=== PATIENT | female | born 1940 | race Caucasian/White ===

== ENCOUNTER 2019-04-03 13:33 | Outpatient (CLI) | payer MEDICARE, OTHER, SELFPAY ==
--- NOTE | 2019-04-03 | XR_ITS ---
WS: [id number] RIGHT FOOT: 3 VIEW(S) TECHNIQUE: PA, oblique and lateral. HISTORY: GREAT TOE PAIN, RIGHT COMPARISON: None available. No acute fracture or dislocation. Normal tarsal/metatarsal alignment. Mild narrowing of the interphalangeal joint spaces. There is soft tissue swelling around the first to e. No fracture or osteolysis. Moderate size calcaneal spur. XR/XR foot RT min 3V* [id number] IMPRESSION: 1. Mild interphalangeal joint space narrowing from osteoarthritis. 2. Soft tissue edema around the distal first toe. May be due to cellulitis. No osteomyelitis.
== END 2019-04-03 13:34 | disposition home or self-care (01) ==
LOC: RADOUTREAD 14:34
PROVIDERS: Visit Provider Nurse Practitioner Family
DX: Z01.89 Encounter for other specified special examinations (principal)

== ENCOUNTER 2019-06-10 06:00 | Outpatient (CLI) | payer MEDICARE, OTHER, SELFPAY ==
[2019-06-09 09:51] VITALS: BMI 30.7
[2019-06-10] VITALS (48 sets, daily range): BP systolic 111–152; BP diastolic 61–102; PULSE 68–93; RESP 0–24; TEMP 36.8; O2SAT 95–100; BMI 30.7
[2019-06-10] MEDS: diphenhydrAMINE 50 mg Capsule PO (06:14)
[2019-06-10 06:36] LABS: Basophils % 0.4 %; Eosinophils # 0.2 10^3/uL (0.0-0.8); Eosinophils % 2.8 %; Hematocrit 34.5 % (37.0-47.0); Hemoglobin 11.6 g/dL (11.5-15.3); Lymphocytes # 2.5 10^3/uL (0.8-4.8); Lymphocytes % 32.8 %; Mean Corpuscular HGB Conc 33.6 g/dL (30.0-36.0); Mean Corpuscular Hemoglobin 29.2 pg (28.0-34.0); Mean Corpuscular Volume 86.9 fL (81-99); Mean Platelet Volume 9.5 fL (7.4-10.4); Monocytes # 0.6 10^3/uL (0.2-0.9); Monocytes % 8.1 %; Neutrophils # 4.2 10^3/uL (1.8-7.7); Neutrophils % 55.6 %; Nucleated Red Blood Cells % 0 %; Platelet Count 342 10^3/cmm (130-400); Red Blood Count 3.97 10^6/uL (4.1-5.3); White Blood Count 7.5 10^3/uL (4.0-10.0)
--- NOTE | 2019-06-10 06:47 | PM.HP ---
Providers/Chief Complaint Admitting Physician: Shayla Primary Care Provider: Jolie Torres Chief Complaint: Limb Ischemia History of Present Illness Anjelica Mary is a 78 year old female being put in for elective peripheral angiography. I saw her on the of last month when she called and asked to be seen because she was having difficulty with the right leg. Previous CT angio of the abdominal aorta with runoffs done 1 year ago this month revealed two-vessel runoff below both knees. We decided to treat her medically. She was not having any significant discomfort or open sores. Her underlying risk factors include diabetes, coronary disease, dyslipidemia and hypertension. She has never been a smoker. She has mild aortic stenosis. When she called last month she was having burning in her right foot and noticed some scabs and sores on her second toe on the right and the end of the great toe. She had also seen podiatry. We scheduled an angiogram however the viral pandemic it and so have been delayed somewhat. Therefore, she arrives today for purposes of angiography Review of Systems General: Reports: 10 or more systems reviewed and unremarkable except in HPI and below Medications/Allergies Home Medications Medication Instructions Recorded Confirmed Last Taken Type albuterol sulfate 90 mcg/actuation 2 puff INHALATION Q6H PRN 04/03/19 06/09/19 06/09/19 20:30 History aerosol inhaler atorvastatin 40 mg tablet 40 mg PO DAILY 04/03/19 06/09/19 06/09/19 20:30 History citalopram 40 mg tablet 20 mg PO DAILY 04/03/19 06/09/19 06/09/19 20:30 History ibuprofen 800 mg tablet 800 mg PO TID PRN 04/03/19 06/09/19 Unknown History lisinopril 10 mg tablet 10 mg PO DAILY 04/03/19 06/09/19 06/09/19 20:30 History insulin aspart U-100 100 unit/mL 20 unit SUBCUT TID ml 04/21/19 06/09/19 06/09/19 20:30 History subcutaneous solution metformin 500 mg tablet,extended 1,000 mg PO DAILY tab 04/21/19 06/09/19 06/09/19 20:30 History release 24 hr Allergies Allergy/AdvReac Type Severity Reaction Status Date / Time acetaminophen [From Percocet] Allergy Unknown ALGY-Rash Verified 06/10/19 06:41 oxycodone [From Percocet] Allergy Unknown ALGY-Rash Verified 06/10/19 06:41 Penicillins Allergy Unknown ALGY-Rash Verified 06/10/19 06:41 PFSH Acute PFSH: Medical History Aortic stenosis, mild ASHD (arteriosclerotic heart disease) Diabetes HTN (hypertension) Hyperlipidemia Hypothyroidism Limb ischemia PAD (peripheral artery disease) Surgical History Hx of elbow surgery S/P hernia repair S/P rotator cuff repair Social History Smoking and tobacco status: never smoked Household members: spouse Marital status: Vitals/I&O/Wt Last Vital Signs Temp 98.2 F 06/10/19 06:36 Pulse 93 06/10/19 06:36 Resp 16 06/10/19 06:36 BP 139/102 06/10/19 06:36 Pulse Ox 96 06/10/19 06:36 Weight last 48 hrs Weight 168 lb Weight 168 lb Physical Exam Narrative: EXAM NARRATIVE: GENERAL: Comfortable at rest in general HEENT: Exam within normal limits. NECK: Supple without jugular vein distention. The carotid upstroke is normal without bruits. BACK: Exam normal. LUNGS: Clear. HEART: Regular rate and rhythm. ABDOMEN: Benign without organomegaly or tenderness. EXTREMITIES: No edema. Redness of the distal tip of the right great toe. 2 small scabs on the right second toe. NEUROLOGIC: Exam normal. SKIN: Unremarkable. 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 Further recommendations depending upon the results of the angiogram. Attestations Medical Necessity Statement*: She is an outpatient in a bed. At most she will need 1 midnight stay. 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
[2019-06-10 06:59] LABS: Anion Gap 17.1 (5-19); Blood Urea Nitrogen 15 mg/dL (8-23); Calcium 9.9 mg/dL (8.5-10.5); Carbon Dioxide 23 mmol/L (22-29); Chloride 100 mmol/L (98-107); Glucose 161 mg/dL (65-115); Osmolality Calculated 282 mOsm/kg (285-295); Potassium 4.1 mmol/L (3.5-5.1); Sodium 136 mmol/L (136-145)
--- NOTE | 2019-06-10 07:00 | XACV_ITS ---
Wt: 76 kg BSA: 1.85 m2 Any Known Allergies: Other Gender: Female : 1940 Exam Type: Invasive Peripheral Vascular Procedure(s): Procedure Description: Peripheral Cath Diagnostic Procedure Exam Priority: Routine Abdominal Diagnostic Findings The lower abdominal aorta is normal. On the right, the common iliac, external iliac, internal iliac, common femoral, profunda femoris, SFA and popliteal are all normal. The anterior tibial is patent for several centimeters and then becomes severely diffusely diseased all the way to the ankle. The tibial peroneal trunk is normal. The posterior tibial artery is occluded at its origin. The peroneal artery is patent for a couple centimeters and then is occluded. The below the knee vessels are extremely small. On the left, the common iliac, external iliac, internal iliac, common femoral, profunda femoris and SFA are essentially normal. The popliteal contains mild diffuse disease in the midportion but is otherwise a normal vessel. The anterior tibial artery is patent all the way to the ankle. The tibial peroneal trunk is normal. The posterior tibial is a small vessel but is patent to the ankle. The peroneal artery is patent for 2 cm and then is occluded. Hemodynamic Data Phase:Rest AO : 138.0 mmHg / 47.0 mmHg ( 80.0 mmHg ) @ 2:08:00 AM Access Site Site: Left Femoral artery Sheath Size: 6 Fr Hemost... Method: Manual Compression Hemost... Success: Successful Procedure Details Findings Pre-Procedure Time Out. Identified patient by full name and date of as verbalized by the patient/guarantor. Does the consent match the physician's order: Yes. Accurate & Complete Informed Consent: Yes. Inpatient/Outpatient History & Physical on Chart: N/A. If H&P is completed, is and addenduem needed: N/A; If yes, is the addendum complete: N/A. Visualize and Verify Site with Patient/Guarantor: N/A. Relevant Radiology Images available: Yes. Pre-op teaching completed and patient verbalized understanding. The risks, benefits, and alternatives of sedation and/or procedure were discussed by physician. The patient agrees to continue. Procedure started. Mortuary Beautician Indications: PAD. Correct patient, site and procedure confirmed by cath team. PERRLA. Strong, equal hand store custodian bilaterally. Lungs clear x 5 lobes. IV Site on Arrival: 20 gauge in the right anticubital. IV Fluids: 0.9% NaCl at KVO. 0 mL infused prior to agriculture laborer. Pre Procedural Pulses: bilateral dorsalis pedis was Doppled. Pre Procedural Pulses: bilateral posterior tibial was Doppled. Pre Procedural Pulses: bilateral radial was 2+. Oxygen started at 2liters/min via nasal canula. bilateral groins was prepped with chloroprep then draped in the usual sterile fashion. Physician notified. Baseline sample Acquired. HR: 84 BPM. Equipment: 6F - Femoral. Cardiac Cath Pack. ACIST Manifold Kit Model BT 2000. Heparinized Saline (2 units/mL), 1000 mL bag. Physician arrived. Physician scrubbed in. Immediate Pre-Procedure Time Out. Correct Patient: Yes; Correct Procedure: Yes; Correct Site: Yes; Correct Patient Position: Yes; Correct Supplies: Yes; Dried Flammable Prep: Yes; Blood Products Available: N/A;. Lidocaine 1% infiltrated to the left groin. Arterial access obtained. Inventory is JJ 6F 11cm Rhonda Plus Sheath. A 5F BS Contra Information Services Consultant II Catheter was advanced over the wire and used for Abdominal aortogram. Abdominal aortogram performed in AP @ 10 mL/sec for a total of 30 mL. Catheter removed over the wire. A JJ 5F RIM 65 cm Diagnostic Catheter was advanced over the wire and used for Lower extremity arteriography. Right common iliac selected and arteriogram with runoff performed @ 10 mL/sec for a total of 30 mL. Catheter out. Sheath injected in Left common femoral artery and runoff performed. PERRLA. Strong, equal hand store custodian bilaterally. No VTE prophylaxis required. Medication's Wasted: Lidocaine 1% = 10 mL. Medication's Wasted: Heparin = 1000 units. Total IV fluids: 20.4 mL. Fluoro: 1:20. Contrast type used: Visipaque 320 mgI/mL, 500 mL bottle. [id number]. Post-op diagnosis: . Complications: none. Estimated blood loss: 5mL-10mL. Procedure completed. Patient transferred by bed to ICU. Post Procedure: Pulses reassessed and unchanged. A Manual Compression was successful obtaining hemostatsis at the Left Femoral artery insertion site. Sheath(s) removed and manual pressure held until hemostasis was achieved. Sterile 4x4 and Op-site applied to the puncture site. No oozing or hematoma noted. Post sheath removal instructions were given and the patient verbalized understanding. Procedure Medications Start: 7:08 AM Stop: 7:08 AM Medication: Versed Amount: 1 mg Route: I.V. Start: 7:08 AM Stop: 7:08 AM Medication: Fentanyl Amount: 50 mcg Start: 7:14 AM Stop: 7:14 AM Medication: Versed Amount: 1 mg Route: I.V. Start: 7:14 AM Stop: 7:14 AM Medication: Fentanyl Amount: 50 mcg I, the attending physician, have reviewed and verified all procedure medications. Yes, all medications given per verbal order History/Risk Factors Hypertension: Yes Dyslipidemia: Yes Diabetic Therapy: Insulin Peripheral Arterial Disease (PAD): Yes Myocardial Infarction (OR): No Obesity: No Renal Disease: No Tobacco Use: Never Prior Interventions PCI: No CABG: No Valve Surgery: No Report Signatures Finalized by:Dr. Que Mcguire MD on 06/10/2019 7:45:58 AM
[2019-06-10] MEDS: sodium chloride 0.9% 1,000 ML 100 ML IV (08:56)
[2019-06-10 10:51] LABS: Glucose Point of Care 108 mg/dL (70-110)
--- NOTE | 2019-06-10 14:26 | PC.NURSE ---
in semifowlers position and no bleeding or swelling noted. discharge in computer.
--- NOTE | 2019-06-10 16:52 | PC.NURSE ---
patient was told that 4 pm would be her intended discharge if all went well with her progress. she got up at 1415 to void and try the chair. her bp was high in right arm but wnl on the left. she was able to walk in the room but demanded she go shobha as her ride had come and left. she was disappointed that her leg had not needed to be opened up that he could not fix her. and very angry that no one had called her for an update.
== END 2019-06-10 16:20 | disposition home or self-care (01) ==
LOC: CCL 06:05 → ICU 07:53
PROVIDERS: PCP Nurse Practitioner Family; Visit Provider Internal Medicine Cardiovascular Disease
DX: R09.89 Other specified symptoms and signs involving the circulatory and respiratory systems (principal); L97.512 Non-pressure chronic ulcer of other part of right foot with fat layer exposed; E11.621 Type 2 diabetes mellitus with foot ulcer; E11.42 Type 2 diabetes mellitus with diabetic polyneuropathy; I99.8 Other disorder of circulatory system; I25.10 Atherosclerotic heart disease of native coronary artery without angina pectoris; E78.5 Hyperlipidemia, unspecified; I10 Essential (primary) hypertension; I73.9 Peripheral vascular disease, unspecified; I35.0 Nonrheumatic aortic (valve) stenosis; Z79.4 Long term (current) use of insulin
CPT/HCPCS: 12345; 36415; 36416; 75625; 75716; 80048; 82962; 85025; C1769; C1887; C1894; J1644; J2001; J2250; J3010; J7030; Q0163; Q9967

== ENCOUNTER → 2019-06-17 11:50 | Outpatient (BNVA) | payer MEDICARE, OTHER, SELFPAY | PROVIDERS: PCP Nurse Practitioner Family; Visit Provider Nurse Practitioner Family | DX: I73.9 Peripheral vascular disease, unspecified (principal); R00.0 Tachycardia, unspecified | CPT/HCPCS: 80048 ==

== ENCOUNTER 2020-06-08 15:39 | Outpatient (CLI) | payer MEDICARE, OTHER, SELFPAY ==
--- NOTE | 2020-06-08 | MR_ITS ---
WS: [id number] MRI CERVICAL SPINE NONCONTRAST HISTORY: NECK PAIN, ACUTE COMPARISON: 06/10/2018 Technique: Multiplanar, multisequence noncontrast imaging of the cervical spine. Straightening of the normal cervical lordosis. C4 retrolisthesis by 2 mm. There is advanced degenerat parish disc disease with moderate osteophytes extending anterior and posterior from the vertebral bodies . Disc bulging contacting the cervical cord most significant at C3-4 and C4-5. No marrow edema or fra cture. There is increased T2 signal in the cervical cord centered at the C4-5 level extending over a length of 11 mm. There is narrowing of the central canal and may be a small amount of cord atrophy. Myelomal acia has increased since 2019. Craniocervical junction, C1 and C2 relationship, odontoid process and soft tissues are normal. C2-C3: Mild annular disc bulging with a central disc protrusion. Only mild bilateral foraminal narrow ing. C3-C4: Diffuse annular disc bulging and osteophytic ridging. Disc encroachment upon the ventral theca l sac with mild central and moderate bilateral foraminal stenosis. C4-C5: Diffuse osteophytic ridging and annular disc bulging causing complete effacement of CSF. Sever e central and bilateral foraminal stenosis. C5-C6: Diffuse annular disc bulging and osteophytosis. Large disc osteophyte complex extending into t he RIGHT foramen displacing the nerve roots posteriorly. Moderate central with severe RIGHT and moder ate LEFT foraminal stenosis. C6-C7: Diffuse osteophytic ridging and annular disc bulging deforming the thecal sac. Severe central and bilateral foraminal stenosis, RIGHT greater than LEFT. C7-T1: Mild annular disc bulging and osteophytic ridging with a central disc protrusion. Moderate elizabeth ateral foraminal stenosis. Paraspinal soft tissue are normal. MR/MR cervical spin wo con* [id number] IMPRESSION: 1. Severe multilevel stenoses and spondylitic changes with only mild progressi on since 06/10/2018. 2. Focal area of myelomalacia at C4-5 extends over a length of 11 mm has sligh tly progressed since the prior study. 3. Severe central and bilateral foraminal stenosis at C4-5 and C6-7. 4. Moderate central with severe RIGHT and moderate LEFT foraminal stenosis at C5-6. 5. Moderate bilateral foraminal stenosis at C7-T1 due to disc osteophyte compl exes. 6. Mild central and bilateral foraminal stenosis at C3-4.
== END 2020-06-08 15:40 | disposition home or self-care (01) ==
LOC: RADSHAW 15:42
PROVIDERS: PCP Nurse Practitioner Family; Visit Provider Orthopaedic Surgery
DX: M54.2 Cervicalgia (principal); M48.02 Spinal stenosis, cervical region; M48.03 Spinal stenosis, cervicothoracic region; M25.78 Osteophyte, vertebrae; G95.89 Other specified diseases of spinal cord
CPT/HCPCS: 72141

== ENCOUNTER 2021-04-27 13:09 | Outpatient (CLI) | payer MEDICARE, OTHER, SELFPAY ==
--- NOTE | 2021-04-27 13:21 | USCV_ITS ---
Anjelica Mary Age: 80 Gender: F : 1940 Exam Date: 04/27/2021 13:32 Ordering Phys: Jolie Torres METER READING CLERK METER READING CLERK Technologist: Ariana Cueva Exam Location: [facility] [place] Indication: HEART MURMUR BP: / HR: 74 Rhythm: Sinus Technical Quality: Adequate MEASUREMENTS (Male / Female) Normal Values 2D ECHO LV Diastolic Diameter PLAX 3.8 cm 4.2 - 5.9 / 3.9 - 5.3 cm LV Systolic Diameter PLAX 2.4 cm LV Chamber Size 2.0 cm IVS Diastolic Thickness 1.1 cm 0.6 - 1.0 / 0.6 - 0.9 cm IVS Systolic Thickness 1.5 cm LVPW Diastolic Thickness 1.1 cm 0.6 - 1.0 / 0.6 - 0.9 cm LVPW Systolic Thickness 1.3 cm RV Chamber Size 2.0 cm LVOT Diameter 2.0 cm LV Ejection Fraction 2D Teich 67.4 % LV Ejection Fraction MOD 2C 49.6 % LV Ejection Fraction 2C AL 50.1 % LA Diameter 3.4 cm LA Width 2.2 cm LA Height 4.1 cm RA Width 2.3 cm RA Height 3.2 cm Aorta at Sinotubular Diameter 2.6 cm M-MODE Aortic Annulus Diameter 3.1 cm LA Ao Ratio MM 1.4 MV E Point Septal Separation 0.6 cm DOPPLER AV Peak Velocity 316.7 cm/s LVOT Peak Velocity 97.0 cm/s AV Area Cont Eq vti 1.4 cm squared AV Area Cont Eq pk 1.0 cm squared MV Area PHT 2.9 cm squared Mitral E to A Ratio 0.6 MV E' Velocity 48.5 cm/s Mitral E to MV E' Ratio 16.4 Mitral E to LV E' Lateral Ratio 15.6 Mitral E to LV E' Septal Ratio 17.4 TR Peak Velocity 212.9 cm/s TR Peak Gradient 18.1 mmHg TR Mean Velocity 140.0 cm/s TR Mean Gradient 9.7 mmHg TR Velocity Time Integral 47.2 cm TV Peak E Velocity 75.0 cm/s Right Atrial Pressure 3.0 mmHg Pulmonary Artery Systolic Pressu 21.1 mmHg PV Peak Velocity 86.0 cm/s RV Acceleration Time 0.0 s RV Ejection Time 0.3 s RV AcT/ET 0.1 FINDINGS Left Ventricle Normal left ventricular size. LV systolic function is normal with EF of 55-60%. No regional wall motion abnormalities. Grade 1 diastolic dysfunction Right Ventricle The right ventricle is normal in size and function. Right Atrium The right atrium is normal in size. Left Atrium The left atrium is normal in size. Mitral Valve Mild mitral annular calcification without significant stenosis or prolapse. There is no mitral regurgitation. Aortic Valve Aortic valve is thickened and calcified. Moderate aortic stenosis with mean gradient of 23 mmHg and aortic valve area of 1.37 cm squared. Mild aortic regurgitation Tricuspid Valve Structurally normal tricuspid valve without significant stenosis or regurgitation. Pulmonary artery systolic pressure is normal. Pulmonic Valve Structurally normal pulmonic valve without significant stenosis. There is no pulmonic regurgitation. Pericardium Normal pericardium without effusion. Aorta Normal ascending aorta dimension. CONCLUSIONS LV systolic function is normal with EF of 55-60% Grade 1 diastolic dysfunction Aortic valve is thickened and calcified. Moderate aortic stenosis with mean gradient of 23 mmHg and aortic valve area of 1.37 cm squared. Mild aortic regurgitation Compared to prior echocardiogram from 07/24/2018, no significant changes are noted Damion Simmons MD (Electronically Signed) Final Date: 09 May 2021 12:27 S
== END 2021-04-27 13:10 | disposition home or self-care (01) ==
PROVIDERS: PCP Nurse Practitioner Family; Visit Provider Nurse Practitioner Family
DX: R01.1 Cardiac murmur, unspecified (principal); I35.8 Other nonrheumatic aortic valve disorders
CPT/HCPCS: 93306

== ENCOUNTER → 2021-05-24 13:29 | Outpatient (BNVA) | payer MEDICARE, SELFPAY | PROVIDERS: PCP Nurse Practitioner Family; Visit Provider Podiatrist Foot & Ankle Surgery | DX: I73.9 Peripheral vascular disease, unspecified (principal); E11.42 Type 2 diabetes mellitus with diabetic polyneuropathy; R09.89 Other specified symptoms and signs involving the circulatory and respiratory systems; L97.511 Non-pressure chronic ulcer of other part of right foot limited to breakdown of skin | CPT/HCPCS: 73630; 99214 ==

== ENCOUNTER → 2021-06-16 10:26 | Outpatient (BNVA) | payer MEDICARE, SELFPAY | PROVIDERS: PCP Nurse Practitioner Family; Visit Provider Internal Medicine Cardiovascular Disease | DX: I73.9 Peripheral vascular disease, unspecified (principal); I25.10 Atherosclerotic heart disease of native coronary artery without angina pectoris; I10 Essential (primary) hypertension; E78.5 Hyperlipidemia, unspecified; E11.42 Type 2 diabetes mellitus with diabetic polyneuropathy; R09.89 Other specified symptoms and signs involving the circulatory and respiratory systems; L97.512 Non-pressure chronic ulcer of other part of right foot with fat layer exposed; L97.511 Non-pressure chronic ulcer of other part of right foot limited to breakdown of skin; Z79.4 Long term (current) use of insulin | CPT/HCPCS: 99213; 99214 ==

== ENCOUNTER 2021-07-03 08:33 | Outpatient (CLI) | payer MEDICARE, SELFPAY ==
--- NOTE | 2021-07-03 09:00 | CT_ITS ---
WS: [id number] CTA ABDOMINAL AORTA WITH RUNOFF TECHNIQUE: Contrast enhanced CTA of the abdominal aorta with bilateral lower extremity runoff. Multip lanar reformatted images were obtained. MIP reformats were also reviewed. CLINICAL INFORMATION: PAD COMPARISON: June 04, 2018 DLP: 773.[address] scans at [facility] use at least one of these dose optimization techniques: automated e xposure control; mA and/or kV adjustment per patient size (includes targeted exams where dose is matc hed to clinical indication); or iterative reconstruction. FINDINGS: Distal abdominal aorta is patent. Mild aortic calcification. ALEXANDREA is patent. Normal bilatera l renal parenchymal enhancement. Bilateral renal cortical cysts. Sigmoid diverticulosis. Moderate to advanced degenerative disease lumbar spine. RIGHT: RIGHT common iliac artery is patent. External and internal iliac arteries are patent. Mild vincent ac artery calcification. RIGHT common femoral artery is patent with mild atheromatous disease. Superf icial femoral and deep femoral arteries are patent. Superficial femoral artery is patent to the popli teal hiatus. Mild atheromatous disease popliteal artery with mild to moderate narrowing. This measure s approximately 40-50% just above the knee. Popliteal artery is patent to the trifurcation.Moderate t o severe stenosis of the RIGHT tibioperoneal trunk measuring approximately 60-70%. This appears progr essed compared to previous. Poor runoff to the ankle with extensive calcified calf arteries. Only int ermittent flow is visualized in the anterior tibial and peroneal arteries. No significant flow in the posterior tibial artery. LEFT: LEFT common iliac artery is patent. External and internal iliac arteries are patent. Common fem oral artery is patent. Superficial and deep femoral arteries are patent with mild atheromatous diseas e. Superficial femoral artery is patent to the popliteal hiatus. Popliteal artery is patent with mild atheromatous disease to the trifurcation. Poor runoff to the ankle with calcified calf arteries. Posterior tibial artery is dominant with colla teral flow to the peroneal artery at the ankle. CT/[place] [id number] IMPRESSION: 1. Distal abdominal aorta is patent with mild calcification. 2. No proximal flow limiting stenosis in the iliac femoral or popliteal arteri es. Mild stenosis in the RIGHT popliteal artery [id number] measuring 40-50% . Poor 3. Poor runoff bilaterally with intermittent segmental flow with atretic heavi ly calcified calf arteries. This is similar to 2019. 4. Moderate to severe stenosis of the RIGHT tibioperoneal trunk measuring appr oximately 60-70%. This appears progressed compared to previous. 5. RIGHT posterior tibial artery is essentially occluded with some collateral flow at the level of the ankle via the peroneal artery. 6. Patent LEFT posterior tibial artery runoff with collateral flow to the garry melba at the level of the ankle.
[2021-07-03 09:52] LABS: Blood Urea Nitrogen 14 mg/dL (8-23)
[2021-07-03] MEDS: iohexol 300 mg/mL 100 mL Btl IV (14:49)
== END 2021-07-03 08:34 | disposition home or self-care (01) ==
PROVIDERS: PCP Nurse Practitioner Family; Visit Provider Podiatrist Foot & Ankle Surgery
DX: I73.9 Peripheral vascular disease, unspecified (principal); I99.8 Other disorder of circulatory system; L97.512 Non-pressure chronic ulcer of other part of right foot with fat layer exposed; R09.89 Other specified symptoms and signs involving the circulatory and respiratory systems
CPT/HCPCS: 73706; 82565; 84520

== ENCOUNTER → 2021-07-05 08:01 | Outpatient (BNVA) | payer MEDICARE, SELFPAY | PROVIDERS: PCP Nurse Practitioner Family; Visit Provider Podiatrist Foot & Ankle Surgery | DX: I73.9 Peripheral vascular disease, unspecified (principal); E11.621 Type 2 diabetes mellitus with foot ulcer; L97.511 Non-pressure chronic ulcer of other part of right foot limited to breakdown of skin; E11.42 Type 2 diabetes mellitus with diabetic polyneuropathy; R09.89 Other specified symptoms and signs involving the circulatory and respiratory systems | CPT/HCPCS: 99214 ==

== ENCOUNTER → 2021-08-15 15:06 | Outpatient (BNVA) | payer MEDICARE, SELFPAY | PROVIDERS: PCP Nurse Practitioner Family; Visit Provider Podiatrist Foot & Ankle Surgery | DX: E11.621 Type 2 diabetes mellitus with foot ulcer (principal); L97.511 Non-pressure chronic ulcer of other part of right foot limited to breakdown of skin; I73.9 Peripheral vascular disease, unspecified; E11.42 Type 2 diabetes mellitus with diabetic polyneuropathy; R09.89 Other specified symptoms and signs involving the circulatory and respiratory systems; M79.671 Pain in right foot | CPT/HCPCS: 99214 ==

== ENCOUNTER → 2021-10-10 14:54 | Outpatient (BNVA) | payer MEDICARE, SELFPAY | PROVIDERS: PCP Nurse Practitioner Family; Visit Provider Podiatrist Foot & Ankle Surgery | DX: E11.621 Type 2 diabetes mellitus with foot ulcer (principal); L97.511 Non-pressure chronic ulcer of other part of right foot limited to breakdown of skin; I73.9 Peripheral vascular disease, unspecified; E11.42 Type 2 diabetes mellitus with diabetic polyneuropathy; R09.89 Other specified symptoms and signs involving the circulatory and respiratory systems; Z79.84 Long term (current) use of oral hypoglycemic drugs; Z79.4 Long term (current) use of insulin | CPT/HCPCS: 73630; 99214 ==

== ENCOUNTER → 2021-11-01 10:53 | Outpatient (BNVA) | payer MEDICARE, SELFPAY | PROVIDERS: PCP Nurse Practitioner Family; Visit Provider Podiatrist Foot & Ankle Surgery | DX: E11.621 Type 2 diabetes mellitus with foot ulcer (principal); L97.511 Non-pressure chronic ulcer of other part of right foot limited to breakdown of skin; I73.9 Peripheral vascular disease, unspecified; E11.42 Type 2 diabetes mellitus with diabetic polyneuropathy; R09.89 Other specified symptoms and signs involving the circulatory and respiratory systems; Z79.4 Long term (current) use of insulin; Z79.84 Long term (current) use of oral hypoglycemic drugs | CPT/HCPCS: 99214 ==

== ENCOUNTER → 2021-12-06 11:08 | Outpatient (BNVA) | payer MEDICARE, SELFPAY | PROVIDERS: PCP Nurse Practitioner Family; Visit Provider Podiatrist Foot & Ankle Surgery | DX: I73.9 Peripheral vascular disease, unspecified (principal); E11.42 Type 2 diabetes mellitus with diabetic polyneuropathy; R09.89 Other specified symptoms and signs involving the circulatory and respiratory systems; Z79.4 Long term (current) use of insulin; Z79.84 Long term (current) use of oral hypoglycemic drugs; Z89.421 Acquired absence of other right toe(s) | CPT/HCPCS: 99215 ==

== ENCOUNTER 2021-12-13 05:45 | Day surgery (SDC) | payer MEDICARE, SELFPAY ==
[2021-12-12 12:24] VITALS: BMI 29.2
[2021-12-13 06:07] VITALS: BP 139/90; PULSE 95; RESP 16; TEMP 36.6; O2SAT 96
[2021-12-13] MEDS: sodium chloride 0.9% 1,000 ML 30 ML IV (06:19)
--- NOTE | 2021-12-13 06:19 | W.PM.OPSUD ---
Surgery/Procedure H&P Update DATE OF PROCEDURE: December 13, 2021 DATE H&P PERFORMED: 12/06/21 CHANGES TO PREVIOUS DOCUMENTATION: None PREOP DIAGNOSIS: Gangrene right great toe PLANNED PROCEDURE: Operation Date: 12/13/21 07:00 Proposed Procedures p Right partial first ray resection [id number],e11.82(Right) - Kain Phoenix DPM
[2021-12-13 06:20] LABS: Glucose Point of Care 145 mg/dL (70-110)
--- NOTE | 2021-12-13 06:22 | P.OP_ITS ---
Operative Report Date of procedure: December 13, 2021 Pre-op diagnosis: Preop Diagnosis Gangrene right great toe Post-op diagnosis: Gangrene right great toe Post-op findings: Bleeding skin at metatarsophalangeal joint amputation site, right great toe. Procedure done: Right great toe amputation at metatarsal phalangeal joint. CPT code 07475 Implants: 3-0 Vicryl, 3-0 nylon Specimens removed/disposition: None Pathology: Right great toe sent to pathology for gross/permanent Surgeon: Kain Phoenix D.P.M. Health Information Management Director: Zheng Estimated blood loss: 10 See intraoperative documentation IV fluids: None Urine output: None Complications: None Findings: Bleeding skin margins at amputation level Brief History: 81-year-old diabetic female with peripheral arterial disease is underwent attempted revascularization of the lower extremity by vascular surgeon, also u nderwent amputation of her second toe by vascular surgeon.? Presents with a gangrenous right great toe involves the distal 50% of the toe.? Complains of ischemic pain affecting her quality of life.? Would like to proceed with amputation at this time.? I reviewed at length with the patient, the risks, potential complications, benefits, alternatives, expectations, and typical outcomes associated with the surgery. The risks and potential complications were explained in detail, including but not limited to infection, wound dehiscence or soft tissue complications, bleeding and hematoma, chronic edema, neuritis or nerve damage producing numbness or chronic pain, CRPS, failure to relieve pain or worsening pain, thick / painful / unsightly scar, limited motion / stiffness, malposition, delayed union, malunion, or nonunion, fracture, reaction to implants, anesthetic complications, venous thromboembolism, and deformity recurrence.? I discussed the notion of no regrets with the patient as it pe rtains to complications and outcomes. The patient seemed to understand the nature of the proposed care and required convalescence. They asked appropriate questions, answered to their satisfaction. They are aware no guarantees can be made as to a satisfactory outcome and they understand there may be other possible unforeseen complications or outcomes not listed here that will be treated accordingly if they arise. There were no written or implied guarantees given to the patient. They gave informed consent to proceed. Discussed a stepwise approach intraoperatively, initially planning on amputation at the metatarsophalangeal joint of the right hallux however should there be an adequate bleeding at that level patient would like to have a slightly more proximal amputation consisting of partial right first ray with hopes of better vascularity at that level.? Patient is understanding that each of these amputation sites have potential for failure due to lack of blood supply, infection and other surgical postoperative complications. Procedure: Under mild sedation the patient was brought to the operating room and remained on the gurney in supine position. A timeout was performed. Anesthesia was then administered by the anesthesia service. Local anesthesia injected by myself consisting of 1% lidocaine and 0.25% Marcaine plain in a right Payton block fashion total of 20 cc. Well-padded pneumatic tourniquet applied to the right ankle. The right lower extremity was scrubbed, prepped and draped utilizing normal aseptic technique. Attention was directed to the right great toe which was noted to have dry stable gangrene that was well demarcated at the hallux interphalangeal joint. A tennis racquet incision was carried out full-thickness with a #15 blade down to bone circumferentially around the right first metatarsal phalangeal joint and the right great toe was disarticulated through the joint sharply and passed from operative field. Right great toe was sent to pathology for permanent. Clean margins appreciated from a soft tissue standpoint and bone. Able to visualize the first metatarsal head had bright white viable appropriate density. No purulence at skin margins, no erythema skin margins. Bleeding skin edges appreciated at this level of amputation. The incision was irrigated with copious amounts of sterile saline solution. Bleeders were ligated and cauterized as necessary. Tourniquet was inflated for a period of time during the procedure after incision was performed to assist with ligation, see intraoperative documentation for tourniquet time. The incision was then closed in a layered fashion. 3-0 Vicryl used to close subcutaneous tissue, skin closed with 3-0 nylon. The incision was then dressed with Adaptic, sterile 4 x 4's, Kerlix and Corby wrap. Tourniquet was deflated and a prompt hyperemic response was noted to the remaining digits of the right foot. Patient tolerated the procedure and anesthesia well and was transferred to the PACU with vital signs stable and vascular status intact. Following a period of postop monitoring she will be discharged home is to be nonweightbearing to the right foot may heel touch for transfers with postop shoe. Will follow-up in podiatry clinic next week for her first dressing change.
--- NOTE | 2021-12-13 06:30 | ANES.PREANE2 ---
Pre-Anesthetic Assessment Height/Weight: Height 1.6 m Weight 74.843 kg Temp Pulse Resp BP Pulse Ox O2 Del Method 97.8 F 95 16 139/90 96 12/13/21 06:07 12/13/21 06:07 12/13/21 06:07 12/13/21 06:07 12/13/21 06:07 12/13/21 06:07 Preop Diagnosis: Gangrene right great toe Operation Date: 12/13/21 07:00 Proposed Procedures p Right partial first ray resection [id number],[id number](Right) - Kain Phoenix DPM Familial anesthetic complications: None Was Beta Noa taken within 24 hours: N/A Was Clonidine taken within 24 hours: N/A Last intake: Intake Last Liquid Date 12/12/21 Last Liquid Time 20:00 Last Solid Date 12/12/21 Last Solid Time 16:00 Social No alcohol and No tobacco Exam alert, oriented x 3, clear to auscultation bilaterally and regular rate & rhythm murmur Airway Mallampati: Class III Dentition: false Pulmonary Asthma and Chronic Obstructive Pulmonary Disease CV/HEM Peripheral Vascular Disease Mild aortic stenosis/regurge Metabolic Diabetes Mellitus and Hyperlipidemia Anesthetic Plan ASA status: 3 Anesthesia: MAC Risk of > 500 ml blood loss (7ml/kg in children): No Medications/Allergies Home Medications Medication Instructions Recorded Confirmed Last Taken Type atorvastatin 40 mg tablet 40 mg PO DAILY 04/03/19 12/13/21 12/12/21 History metformin 500 mg tablet,extended 1,000 mg PO DAILY 04/21/19 12/13/21 12/12/21 History release 24 hr ibuprofen 800 mg tablet 800 mg PO .at bedtime #30 tabs 08/05/19 12/13/21 12/12/21 Rx citalopram 40 mg tablet (Celexa) 40 mg PO DAILY 06/16/21 12/13/21 12/12/21 History insulin aspart U-100 100 unit/mL 20 unit SUBCUT .HS 06/16/21 12/13/21 12/12/21 History subcutaneous solution (Novolog U-100 Insulin aspart) cilostazol 100 mg tablet 100 mg PO BID #60 tabs 10/17/21 12/13/21 12/12/21 Rx hydrocodone 7.5 mg-acetaminophen 1 tab PO Q6H PRN pain 7 days #28 12/12/21 Unknown Rx 325 mg tablet tabs Allergies Allergy/AdvReac Type Severity Reaction Status Date / Time acetaminophen [From Percocet] Allergy Unknown ALGY-Rash Verified 12/13/21 06:02 oxycodone [From Percocet] Allergy Unknown ALGY-Rash Verified 12/13/21 06:02 Penicillins Allergy Unknown ALGY-Rash Verified 12/13/21 06:02 Current Medications Generic Name Dose Route Start Last Admin Trade Name Danielle PRN Reason Stop Dose Admin Sodium Chloride 1,000 mls @ 30 mls/hr 12/13/21 06:00 12/13/21 06:19 Sodium Chloride 0.9% IV 12/14/21 05:59 30 mls/hr .Q24H ADY Administration PFSH Anesthesia Medical History (Updated 12/10/21 @ 12:19 by Kain Phoenix DPM) Aortic stenosis, mild ASHD (arteriosclerotic heart disease) Diabetes HTN (hypertension) Hyperlipidemia Hypothyroidism Limb ischemia PAD (peripheral artery disease) Surgical History Hx of elbow surgery S/P hernia repair S/P rotator cuff repair Family History Brother CAD (coronary artery disease) Cancer LUNG Sister CAD (coronary artery disease) Cancer LUNG Mother Hypertension Cancer Father Cancer COLON Social History Smoking and tobacco status: never smoked Household members: spouse Marital status: Data Anesthesia : 12/13/21 06:15 Cardiac Studies: Echocardiogram 04/27/21
[2021-12-13 07:14] LABS: Anion Gap 17.3 (5-19); Blood Urea Nitrogen 20 mg/dL (8-23); Calcium 9.9 mg/dL (8.5-10.5); Carbon Dioxide 21 mmol/L (22-29); Chloride 104 mmol/L (98-107); Glucose 170 mg/dL (65-115); Osmolality Calculated 293 mOsm/kg (285-295); Potassium 4.3 mmol/L (3.5-5.1); Sodium 138 mmol/L (136-145)
[2021-12-13] MEDS: clindamycin 600 MG/50 ML PREMIX 100 MG IV (07:19)
[2021-12-13 07:53] VITALS: BP 96/69; PULSE 91; RESP 14; TEMP 36.4; O2SAT 95
[2021-12-13 07:58] VITALS: BP 115/69; PULSE 92; RESP 15; O2SAT 95
[2021-12-13 08:04] VITALS: BP 106/70; PULSE 97; RESP 15; TEMP 36.2; O2SAT 97
[2021-12-13 08:08] VITALS: BP 119/74; PULSE 89; RESP 17; TEMP 36.3; O2SAT 95
[2021-12-13 08:23] VITALS: BP 140/73; PULSE 80; RESP 16; O2SAT 96
--- NOTE | 2021-12-13 12:41 | ANE.PACU2 ---
Inpatient post-anesthesia follow up: Airway intact: Yes Vital signs: Temperature 97.4 F Pulse Rate 80 Respiratory Rate 16 Blood Pressure 140/73 Pulse Oximetry 96 Oxygen Delivery Me thod Room Air Oxygen Flow Rate Fraction of Inspir ed Oxygen Hydration adequate: Yes Nausea and vomiting: No Pain level: 1 Mental status: Baseline
== END 2021-12-13 08:45 | disposition home or self-care (01) ==
PROVIDERS: Anesthesiology; PCP Nurse Practitioner Family; Visit Provider Podiatrist Foot & Ankle Surgery
PROC: (CPT 28810; principal; 2021-12-13 07:00)
DX: I96 Gangrene, not elsewhere classified (principal); I99.8 Other disorder of circulatory system; J44.9 Chronic obstructive pulmonary disease, unspecified; E11.9 Type 2 diabetes mellitus without complications; E78.5 Hyperlipidemia, unspecified; Z79.84 Long term (current) use of oral hypoglycemic drugs; Z79.4 Long term (current) use of insulin; I25.10 Atherosclerotic heart disease of native coronary artery without angina pectoris; I10 Essential (primary) hypertension; E03.9 Hypothyroidism, unspecified
CPT/HCPCS: 28820; 36415; 36416; 80048; 82962; 88305; 88311; J2704; J3010; J3490; J7030

== ENCOUNTER → 2021-12-21 12:38 | Outpatient (BNVA) | payer MEDICARE, SELFPAY | PROVIDERS: PCP Nurse Practitioner Family; Visit Provider Podiatrist Foot & Ankle Surgery | DX: Z89.421 Acquired absence of other right toe(s) (principal); Z98.890 Other specified postprocedural states; I73.9 Peripheral vascular disease, unspecified; E11.42 Type 2 diabetes mellitus with diabetic polyneuropathy; R09.89 Other specified symptoms and signs involving the circulatory and respiratory systems; Z79.84 Long term (current) use of oral hypoglycemic drugs; Z79.4 Long term (current) use of insulin | CPT/HCPCS: 99214 ==

== ENCOUNTER 2021-12-23 11:03 | Emergency (ER) | payer MEDICARE, SELFPAY ==
[2021-12-23] VITALS (8 sets, daily range): BP systolic 114–159; BP diastolic 49–106; PULSE 60–97; RESP 16–20; TEMP 36.8; O2SAT 90–97
--- NOTE | 2021-12-23 11:28 | XRR_ITS ---
PROCEDURE INFORMATION: Exam: XR Right Ankle Exam date and time: 12/23/2021 12:36 PM Age: 81 years old Clinical indication: Injury or trauma; Fall; Blunt trauma; Ankle; Right; Prior surgery; Surgery type: Toes; Additional info: Pain TECHNIQUE: Imaging protocol: Radiologic exam of the Right ankle. Views: 3 or more views. COMPARISON: No relevant prior studies available. FINDINGS: Bones/joints: There is a longitudinal displaced posterior malleolus fracture. There is a longitudinal displaced fracture of the distal fibula. The tibia and fibula show anterior subluxation in relation to the talus on the lateral view. The medial malleolus does not show a clearly visible fracture. A bone spurs present on the inferior calcaneus. Soft tissues: Vascular calcifications posterior ankle. XR/XR ankle RT min 3V* [id number] IMPRESSION: 1. Bimalleolar fracture dislocation of the ankle. 2. A bone spurs present on the inferior calcaneus
--- NOTE | 2021-12-23 11:33 | W.ED.EXTPRO ---
HPI - Extremity Problem General: Chief complaint: Extremity Injury, Lower Stated complaint: LEFT ANKLE PAIN S/P FALL Time Seen by Provider: 12/23/21 11:26 Source: patient Mode of arrival: EMS History of Present Illness: 81-year-old female presents emergency room after trip and fall while walking. She recently had surgery on her right toe she had amputation of the right first and second toes are having to revise it planned for later this week she stumbled and fell twisted her ankle has an obvious deformity with tenting and blanching of the skin. Did not strike her head no loss consciousness. Patient is diabetic and has known peripheral artery and prefers peripheral vascular disease. MD Complaint: joint swelling and joint pain Onset (ago): minute(s) Pain Consistency: constant Location: left (Ankle) Quality: sharp Associated symptoms: Deny chest pain, fever(s) or rash Review of Systems Const: Denies: fever(s), chills, body aches, change in appetite, fatigue or malaise ENMT: Denies: throat pain, ear or mastoid pain, nasal discharge or nasal congestion Card: Denies: chest pain, edema, dyspnea on exertion or orthopnea Resp: Denies: dyspnea, productive cough or non-productive cough GI: Denies: abdominal pain, nausea, vomiting, hematemesis, coffee ground emesis, diarrhea, constipation, bloating, hematochezia or melena : Denies: flank pain, difficulty voiding, dysuria, urinary frequency or urinary urgency Musc: Reports: joint pain and joint swelling Skin/Breast: Denies: rash or pruritus PFSH ED PFSH: Medical History Aortic stenosis, mild ASHD (arteriosclerotic heart disease) Diabetes HTN (hypertension) Hyperlipidemia Hypothyroidism Limb ischemia PAD (peripheral artery disease) Surgical History Hx of elbow surgery S/P hernia repair S/P rotator cuff repair Family History Brother CAD (coronary artery disease) Cancer LUNG Sister CAD (coronary artery disease) Cancer LUNG Mother Hypertension Cancer Father Cancer COLON Social History (Reviewed 12/23/21 @ 15:35 by KEISHA Bell Smoking and tobacco status: never smoked Household members: spouse Marital status: Physical Exam Const: COMMON NORMALS: no acute distress GENERAL APPEARANCE: cooperative and comfortable ORIENTATION/CONSCIOUSNESS: Yes awake, Yes oriented to person, Yes oriented to place and Yes oriented to time HENMT: COMMON NORMALS: normocephalic, atraumatic and hearing grossly normal bilaterally HEAD & SCALP: normocephalic and atraumatic Resp: COMMON NORMALS: normal respiratory effort, No retractions, No use of accessory muscles and clear to auscultation bilaterally AUSCULTATION: clear to auscultation bilaterally Cardio: COMMON NORMALS: regular rate, regular rhythm and No murmurs present (Cardio) RATE: regular rate RHYTHM: regular rhythm Extremity: OTHER: Obvious deformity with skin tenting medially on the right ankle. These first and second toes are surgically absent wound examined there is no evidence of breakdown at this point there are some mild erythema at the incision line. No drainage. Neuro: SENSORIUM/ORIENTATION: Yes oriented to person, Yes oriented to place and Yes oriented to time Skin: COMMON NORMALS: no rashes or lesions noted GENERAL SKIN EXAM: no rashes or lesions noted Procedures Orthopedic Fracture Reduction Fracture #1: Time Out Performed: Yes Side: right Fracture Reduction Location: other (Ankle) Analgesia: procedural sedation Technique: direct manipulation Post Reduction X-rays Demonstrate: anatomical reduction Post-reduction neuro exam: intact Post-reduction vascular exam: intact Splint Applied: Yes Patient Tolerated Procedure: well Orthopedic Splinting/Casting Injury #1: Side: right Lower Extremity Injury Location: ankle Lower Extremity Immobilizer: posterior splint Other Orthopedic Equipment: other (Wheelchair) Procedural Sedation Indication: fracture/dislocation reduction Preparation: material manager applied, pulse oximeter, supplemental O2 applied, suction/airway equipment at bedside and IV secured IV Etomidate dose (mg): 5 Patient Tolerated Procedure: well Complications: none Interventions: oxygen applied Course Vital Signs: Vital signs: Vital Signs Temperature 98.2 F 12/23/21 11:22 Pulse Rate 60 12/23/21 15:20 Respiratory Rate 16 12/23/21 15:20 Blood Pressure 114/49 12/23/21 12:04 Pulse Oximetry 90 12/23/21 15:20 Oxygen Delivery Me thod 12/23/21 12:04 Oxygen Flow Rate 2 12/23/21 11:51 MDM - Extremity (Nontraumatic) Medical Decision Making Conscious sedation and joint reduction splint applied. Patient tolerated well. Discussed with Dr. Paul who is on-call for foot and ankle and is a partner of Dr. Phoenix's. He confirmed they will plan to adjust her surgical procedure next week and do the revision of the previous amputation as well as care for the fracture. Patient already has hydrocodone at home discharged home with splint and with wheelchair. Lab Data Radiology Impressions Ankle X-Ray 12/23/21 11:28 IMPRESSION: 1. Bimalleolar fracture dislocation of the ankle. 2. A bone spurs present on the inferior calcaneus Discharge Plan Discharge Patient Disposition: Home Clinical Impression: Closed trimalleolar fracture, PAD (peripheral artery disease), 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 mellitus Condition: Stable Prescriptions: No Action ibuprofen 800 mg tablet 800 mg PO .at bedtime Qty: 30 1RF atorvastatin 40 mg tablet 40 mg PO DAILY metformin 500 mg tablet extended release 24 hr 1,000 mg PO DAILY citalopram [Celexa] 40 mg tablet 40 mg PO DAILY insulin aspart U-100 [Novolog U-100 Insulin aspart] 100 unit/mL solution 20 unit SUBCUT .HS hydrocodone-acetaminophen 10-325 mg tablet 1 tab PO Q6H PRN (Reason: pain) 7 Days Qty: 28 0RF (DME) Wheelchair See Rx Instructions .Route .MEDSUPPLY Qty: 1 0RF Rx Instructions: As directed HOME cilostazol 100 mg tablet 100 mg PO BID Qty: 60 3RF gabapentin 300 mg capsule 300 mg PO TID 30 Days Qty: 90 0RF Discharge Orders: Discharge ED (Routine); Ordered 12/23/21 Ordered By: Roel Garg Other Ambulatory Orders: DME: Wheelchair (Order) Location: None Selected Ordered By: Roel Garg Referrals: Jolie Torres FNP [Primary Care Provider] - Discharge Diet: Usual diet Discharge Activity: Limit activity as instructed Patient Instructions: Opioid Safety, Pain Management Activity Restrictions/Additional Instructions: Nonweightbearing on the right leg. You should use a wheelchair to move from place to place whenever possible elevate the leg and apply ice 15 to 20 minutes at a time every 1-2 hours to limit swelling. I discussed with Dr. Phoenix's partner who is on-call they are still planning to do your procedure on Saturday as scheduled they will address the ankle injury at that time as well. Use hydrocodone for pain. Coding Level of Care Code ED New Home Sales Consultant for Ximena Miller
--- NOTE | 2021-12-23 12:02 | PC.NURSE ---
conscious sedation started 1148 time completed. VSS stable throughout sedation post reduction x ray completed and splint placed by DR Garg. see flow sheet for vitals. pt rass 0 at 1158 pt back to baseline oreintation.
[2021-12-23] MEDS: fentaNYL 50 mcg/mL INJ 2mL IVP ×2 (12:24→13:59)
== END 2021-12-23 15:24 | disposition home or self-care (01) ==
PROVIDERS: Emergency Provider Family Medicine; PCP Nurse Practitioner Family
DX: S82.852A Displaced trimalleolar fracture of left lower leg, initial encounter for closed fracture (principal); I73.9 Peripheral vascular disease, unspecified; E11.42 Type 2 diabetes mellitus with diabetic polyneuropathy; Z79.84 Long term (current) use of oral hypoglycemic drugs; Z79.4 Long term (current) use of insulin; I10 Essential (primary) hypertension; E78.5 Hyperlipidemia, unspecified; W01.0XXA Fall on same level from slipping, tripping and stumbling without subsequent striking against object, initial encounter; Z89.411 Acquired absence of right great toe
CPT/HCPCS: 27818; 73610; 96374; 96376; 99285; J3010; J3490

== ENCOUNTER 2021-12-25 15:46 | Inpatient (IN) | payer MEDICARE, SELFPAY ==
[2021-12-22 15:39] VITALS: BMI 28.3
[2021-12-25] VITALS (12 sets, daily range): BP systolic 93–114; BP diastolic 47–79; PULSE 75–87; RESP 16–18; TEMP 36.3–36.6; O2SAT 92–98; BMI 28.3
--- NOTE | 2021-12-25 | SCC_ITS ---
Procedure done: Right transmetatarsal amputation Percutaneous transfixation right ankle fracture 14 seconds of fluoroscopic guidance, for a cumulative dose of 0.3 mGy, was provided to Dr. Phoenix by the radiology department. C-arm images of the RIGHT foot were saved for the patient's permanent record. RAVEN
[2021-12-25 11:41] LABS: Glucose Point of Care 249 mg/dL (70-110)
--- NOTE | 2021-12-25 11:41 | W.PM.OPSUD ---
Surgery/Procedure H&P Update DATE OF PROCEDURE: December 25, 2021 DATE H&P PERFORMED: 12/21/21 CHANGES TO PREVIOUS DOCUMENTATION: Patient requesting transmetatarsal potation to the right foot. Also would like to have stabilization of her right ankle fracture planning on percutaneous transfixation with K wires. PREOP DIAGNOSIS: Gangrene right foot PRIMARY INDICATION FOR PROCEDURE: Right ankle fracture. Gangrene right foot. PLANNED PROCEDURE: Operation Date: 12/25/21 12:00 Proposed Procedures p Right transmetatarsal amputation. Percutaneous transfixation right ankle fracture.
[2021-12-25] MEDS: sodium chloride 0.9% 1,000 ML 30 ML IV (11:44)
--- NOTE | 2021-12-25 11:59 | ANES.PREANE2 ---
Pre-Anesthetic Assessment Height/Weight: Height 1.6 m Weight 72.575 kg Temp Pulse Resp BP Pulse Ox O2 Del Method 97.9 F 80 18 112/79 94 12/25/21 11:20 12/25/21 11:20 12/25/21 11:20 12/25/21 11:20 12/25/21 11:20 12/25/21 11:20 Preop Diagnosis: Gangrene right foot Operation Date: 12/25/21 12:00 Proposed Procedures p Right First Metatarsectomy [id number](Right) - Kain Phoenix DPM Familial anesthetic complications: None Was Beta Noa taken within 24 hours: N/A Was Clonidine taken within 24 hours: N/A Last intake: Intake Last Liquid Date 12/24/21 Last Liquid Time 15:30 Last Solid Date 12/24/21 Last Solid Time 15:30 Social No alcohol and No tobacco Exam alert, oriented x 3, clear to auscultation bilaterally and regular rate & rhythm Airway Mallampati: Class III Dentition: false Pulmonary Asthma and Chronic Obstructive Pulmonary Disease CV/HEM Peripheral Vascular Disease mild Aortic stenosis and regurge Metabolic Diabetes Mellitus and Hyperlipidemia Anesthetic Plan ASA status: 3 Anesthesia: General and Regional (specify below) Risk of > 500 ml blood loss (7ml/kg in children): No Medications/Allergies Home Medications Medication Instructions Recorded Confirmed Last Taken Type atorvastatin 40 mg tablet 40 mg PO DAILY 04/03/19 12/22/21 12/22/21 History metformin 500 mg tablet,extended 1,000 mg PO DAILY 04/21/19 12/22/21 12/21/21 History release 24 hr ibuprofen 800 mg tablet 800 mg PO .at bedtime #30 tabs 08/05/19 12/22/21 12/21/21 20:00 Rx citalopram 40 mg tablet (Celexa) 40 mg PO DAILY 06/16/21 12/25/21 12/22/21 History insulin aspart U-100 100 unit/mL 20 unit SUBCUT .HS 06/16/21 12/22/21 12/20/21 20:00 History subcutaneous solution (Novolog U-100 Insulin aspart) cilostazol 100 mg tablet 100 mg PO BID #60 tabs 10/17/21 12/22/21 12/22/21 Rx gabapentin 300 mg capsule 300 mg PO TID 30 days #90 caps 12/15/21 12/22/21 12/22/21 Rx Wheelchair #1 ea 12/21/21 12/21/21 Unknown Rx hydrocodone 10 mg-acetaminophen 1 tab PO Q6H PRN pain 7 days #28 12/21/21 12/22/21 12/25/21 Rx 325 mg tablet tabs Allergies Allergy/AdvReac Type Severity Reaction Status Date / Time acetaminophen [From Percocet] Allergy Unknown ALGY-Rash Verified 12/22/21 16:18 oxycodone [From Percocet] Allergy Unknown ALGY-Rash Verified 12/22/21 16:18 Penicillins Allergy Unknown ALGY-Rash Verified 12/22/21 16:18 Current Medications Generic Name Dose Route Start Last Admin Trade Name Freq PRN Reason Stop Dose Admin Sodium Chloride 1,000 mls @ 30 mls/hr 12/25/21 11:00 12/25/21 11:44 Sodium Chloride 0.9% IV 12/26/21 10:59 30 mls/hr .Q24H ADY Administration PFSH Anesthesia Medical History Aortic stenosis, mild ASHD (arteriosclerotic heart disease) Diabetes HTN (hypertension) Hyperlipidemia Hypothyroidism Limb ischemia PAD (peripheral artery disease) Surgical History Hx of elbow surgery S/P hernia repair S/P rotator cuff repair Family History Brother CAD (coronary artery disease) Cancer LUNG Sister CAD (coronary artery disease) Cancer LUNG Mother Hypertension Cancer Father Cancer COLON Social History Smoking and tobacco status: never smoked Household members: spouse Marital status: Data Anesthesia Cardiac Studies: Echocardiogram 04/27/21
--- NOTE | 2021-12-25 12:02 | ANES.PROC ---
Anesthesia Procedures Procedure/Date: 12/25/21 Nerve Block ^: Nerve Block 1: Main Anesthesia: general anesthesia Time Out Performed: Yes Consent: requested by attending/covering physician, from patient, from other, risks and benefits reviewed and patient agrees to proceed Nerve block location: popliteal (R) Anesthesia monitors applied: pulse oximetry, EKG, BP cuff and oxygen Nerve block position: supine Anesthetic Used: ropivicaine 0.5% (30) and with decadron (4 mg) Ultrasound used to: recognize landmarks Nerve Stimulator Used?: No Interscalene/Femoral BLK: 4 stimuplex 21 g needle used for position and inplane approach, visualize local anesthetic spread and no vascular puncture identified Injection: neg aspiration of heme Patient Tolerated Procedure: no complications Complications: none
[2021-12-25] MEDS: clindamycin 600 MG/50 ML PREMIX 100 MG IV (12:09)
--- NOTE | 2021-12-25 13:16 | PM.OP ---
Operative Report Date of procedure: December 25, 2021 Pre-op diagnosis: Gangrene right foot. Right bimalleolar ankle fracture Post-op diagnosis: Same Procedure done: Right transmetatarsal amputation Percutaneous transfixation right ankle fracture Implants: 4 mm Steinmann pin x2, 3-0 Vicryl, 4-0 nylon, 3-0 nylon Pathology: Right forefoot sent to pathology for permanent Surgeon: Kain Phoenix D.P.M. Priming Powder Premix Blender: Giovanni Estimated blood loss: 25 33 IV fluids: None Urine output: None Complications: None Findings: Grossly unstable right bimalleolar fracture. Gangrene right forefoot Brief History: 81-year-old diabetic male with peripheral vascular disease and microvascular disease with history of several revascularizations to the lower extremities. Developed gangrene to the right forefoot. Underwent right transmetatarsal amputation. Is at risk for potential delayed healing due to microvascular disease and may require a higher level of amputation such as BKA. Patient on 12/23/2021 sustained a right displaced bimalleolar fracture and presented to the emergency department at [facility] for reduction and splinting. Discussed ORIF versus transfixation with percutaneous pinning given her high comorbid risk factors and PAD would like to avoid expensive incisions and traditional ORIF with concern of delayed healing nonhealing and high risk for salvage procedure versus BKA. Will stabilize with percutaneous pinning and monitor with serial x-rays and remain nonweightbearing patient is agreeable. I reviewed at length with the patient, the risks, potential complications, benefits, alternatives, expectations, and typical outcomes associated with the surgery. The risks and potential complications were explained in detail, including but not limited to infection, wound dehiscence or soft tissue complications, bleeding and hematoma, chronic edema, neuritis or nerve damage producing numbness or chronic pain, CRPS, failure to relieve pain or worsening pain, thick / painful / unsightly scar, limited motion / stiffness, malposition, delayed union, malunion, or nonunion, fracture, reaction to implants, anesthetic complications, venous thromboembolism, and deformity recurrence. I discussed the notion of no regrets with the patient as it pertains to complications and outcomes. The patient seemed to understand the nature of the proposed care and required convalescence. They asked appropriate questions, answered to their satisfaction. They are aware no guarantees can be made as to a satisfactory outcome and they understand there may be other possible unforeseen complications or outcomes not listed here that will be treated accordingly if they arise. There were no written or implied guarantees given to the patient. They gave informed consent to proceed. Procedure: Under mild sedation the patient was brought to the operating room and remained on the gurney in supine position. A timeout was performed. Anesthesia was then administered by the anesthesia service. Popliteal block to the right lower extremity per anesthesia preoperatively greatly appreciated. Well-padded pneumatic tourniquet applied to the right high calf. Right lower extremity was scrubbed, prepped and draped utilizing normal aseptic technique. Right lower extremity was then elevated and high calf tourniquet inflated to 250 mmHg. Attention was directed to the right ankle which demonstrated gross instability. Posterior displacement of the talus immediately appreciated with manipulation intraoperatively. The ankle was under traction reduced reverse mechanism of action employed followed by percutaneous transfixation with 4 mm Steinmann pins x2 from calcaneus to tibia across the tibiotalar joint with excellent reduction of the ankle fracture and the mortise in all 3 views and placement of K wires temporarily. These will be likely removed in the next 2 to 3 months pending healing outcomes. Attention was then directed to the right forefoot where again her changes of dry gangrene ischemia. To the distal forefoot more prominent medially. A fishmouth incision across the forefoot lesion along plantar flap was performed with a #10 blade down to bone followed by transmetatarsal osteotomy from medial to lateral on metatarsals 1, 2, 3, 4 and 5 with a sagittal saw. All rough edges were smoothed with hand rasp. The forefoot was then passed from the operative field and all extensor and flexor tendons were pulled under traction and resected at proximal margins. All bleeders were ligated and cauterized as necessary. The incision was then closed in a layered fashion with 3-0 Vicryl subcutaneous tissue,appreciated. Skin closed with accommodation of 3-0 and 4-0 nylon without strangulation. No tension on the incision appreciated. The incision was then cleansed and dressed utilizing Adaptic, sterile 4 x 4's, Kerlix and multilayer compressive posterior splint. Tourniquet was then deflated and a prompt hyperemic response was noted to the distal amputation site right foot. Patient tolerated the procedure and anesthesia well and was transferred to the PACU with vital signs stable and vascular status intact. Patient having intractable pain, will require hospital admission for pain control status post right transmetatarsal mutation and percutaneous transfixation of right toe fracture.
--- NOTE | 2021-12-25 15:49 | PM.HP ---
Providers/Chief Complaint Admitting Physician: Brown Avila MD Primary Care Provider: ALFONSO Morris Chief Complaint: I96 History of Present Illness Anjelica Mary is a 81 year old female with past medical history of severe small vessel peripheral artery disease, not amenable to revascularization, mild aortic stenosis, type 2 diabetes mellitus, CAD, hyperlipidemia, hypertension, recent closed trimalleolar fracture who was brought to the hospital by podiatry team for right tarsometatarsal amputation, percutaneous transfixation of right ankle fracture today. Patient underwent ORIF today which she tolerated well with EBL of found 25 and 33 cc. Postprocedure patient was having intractable pain hence hospital service was consulted for admission. Blood work present in the system recently has sodium 138, creatinine of 1.2 with blood glucose of 170 done on 12/13. No further blood work present in the system. Review of Systems General: Reports: 10 or more systems reviewed and unremarkable except in HPI and below Const: Denies: fever(s), chills, body aches, change in appetite, change in weight, malaise, night sweats, diaphoresis, change in sleep pattern, daytime sleepiness or snoring Eyes: Denies: change in vision, blurry vision, photophobia, eye discomfort or eye discharge ENMT: Denies: throat pain, enlarged tonsils, hoarseness, mouth pain, oral sores, dry mouth, tinnitus, nasal congestion or post nasal drip Card: Denies: chest pain, palpitations, irregular heart rhythm, edema, swelling of feet/ankles, lightheadedness, syncope, pre-syncope, dyspnea on exertion, orthopnea, leg pain with exertion or acrocyanosis Resp: Denies: dyspnea, productive cough, non-productive cough, wheezing, stridor, pain on inspiration, change in phlegm color, hemoptysis or chest congestion GI: Denies: abdominal pain, nausea, vomiting, hematemesis, coffee ground emesis, dysphagia, heartburn, diarrhea, constipation, bloating, GI cramping, change in bowel habits, pain on defecation, hematochezia or melena : Denies: flank pain, dysuria, urinary frequency, urinary urgency, urinary hesitancy, nocturia or hematuria Musc: Denies: neck pain, back pain, extremity pain, joint pain, joint swelling, joint redness, joint stiffness or limited range of motion Neuro: Denies: headache(s), numbness in extremities, weakness in extremities, sensory changes, lack of coordination, difficulty walking, frequent falls, dizziness, vertigo, confusion, Slurred speech present, difficulty communicating thoughts or seizure-like activity Psych: Denies: anxiety, depression, mood swings, panic attacks, hopelessness or irritability Endo: Denies: polyuria, polydipsia, tired all the time, cold intolerance, excessive sweating, flushing or heat intolerance Garth/Lymph: Denies: easy bruising or easy bleeding All/Imm: Denies: tongue swelling, facial swelling or acute wheezing Medications/Allergies Home Medications Medication Instructions Recorded Confirmed Last Taken Type atorvastatin 40 mg tablet 40 mg PO DAILY 04/03/19 12/22/21 12/22/21 History metformin 500 mg tablet,extended 1,000 mg PO DAILY 04/21/19 12/22/21 12/21/21 History release 24 hr ibuprofen 800 mg tablet 800 mg PO .at bedtime #30 tabs 08/05/19 12/22/21 12/21/21 20:00 Rx citalopram 40 mg tablet (Celexa) 40 mg PO DAILY 06/16/21 12/25/21 12/22/21 History insulin aspart U-100 100 unit/mL 20 unit SUBCUT .HS 06/16/21 12/22/21 12/20/21 20:00 History subcutaneous solution (Novolog U-100 Insulin aspart) cilostazol 100 mg tablet 100 mg PO BID #60 tabs 10/17/21 12/22/21 12/22/21 Rx gabapentin 300 mg capsule 300 mg PO TID 30 days #90 caps 12/15/21 12/22/21 12/22/21 Rx Wheelchair #1 ea 12/21/21 12/21/21 Unknown Rx hydrocodone 10 mg-acetaminophen 1 tab PO Q6H PRN pain 7 days #28 12/21/21 12/22/21 12/25/21 Rx 325 mg tablet tabs Allergies Allergy/AdvReac Type Severity Reaction Status Date / Time acetaminophen [From Percocet] Allergy Unknown ALGY-Rash Verified 12/22/21 16:18 oxycodone [From Percocet] Allergy Unknown ALGY-Rash Verified 12/22/21 16:18 Penicillins Allergy Unknown ALGY-Rash Verified 12/22/21 16:18 PFSH Acute PFSH: Medical History Aortic stenosis, mild ASHD (arteriosclerotic heart disease) Diabetes HTN (hypertension) Hyperlipidemia Hypothyroidism Limb ischemia PAD (peripheral artery disease) Surgical History (Updated 12/25/21 @ 17:10 by Brown Avila MD) Hx of elbow surgery S/P hernia repair S/P rotator cuff repair Family History Brother CAD (coronary artery disease) Cancer LUNG Sister CAD (coronary artery disease) Cancer LUNG Mother Hypertension Cancer Father Cancer COLON Social History Smoking and tobacco status: never smoked Household members: spouse Marital status: Vitals/I&O/Wt Last Vital Signs Temp 97.3 F L 12/25/21 13:19 Pulse 87 12/25/21 13:40 Resp 16 12/25/21 13:40 BP 114/69 12/25/21 13:40 Pulse Ox 92 12/25/21 13:40 O2 Del Method 12/25/21 14:22 O2 Flow Rate 6 12/25/21 13:30 12/25/21 12/25/21 12/25/21 06:59 14:59 22:59 Intake Total 50 / 50 Output Total 25 / 25 Balance 25 / 25 Weight last 48 hrs Weight 72.575 kg Physical Exam Narrative: General: No acute distress, AO x3 HEENT: PERRLA, pupils bilaterally equal and reactive Chest: Normal vesicular breath sounds, no added sounds, equal good air entry bilaterally CVS: S1-S2 regular, no murmurs, no tachycardia, no gallops, no rubs Abdomen: Soft, nontender, no organomegaly, bowel sounds present Neuro: No focal deficits, no facial deformity, AO x3, power 5/5 in all limbs Data : 12/25/21 16:40 12/25/21 16:40 A&P Assessment and plan (1) Status post amputation: Postprocedure day 0. Tolerated procedure well. [place] 10 mg every 6 hourly along with tramadol 50 mg every 8 hourly for pain. Anticoagulation, weightbearing as per podiatry team. (2) Closed trimalleolar fracture: (3) Dry gangrene: (4) Non-pressure chronic ulcer of other part of right foot limited to breakdown of skin: (5) Diabetes: Check A1c. Continue home dose of Lantus. Start on insulin sliding scale at low-dose protocol. Carb consistent diet. (6) HTN (hypertension): (7) Hyperlipidemia: (8) ASHD (arteriosclerotic heart disease): No active chest pain. Plan Check CBC, CMP, A1c, procalcitonin, TIBC, lipid panel, TSH. Continue chronic medications including statin, cilostazol, Celexa, gabapentin. Full code. Protonix for PUD prophylaxis SCDs for DVT prophylaxis, Lovenox 30 mg subcu daily. Physical therapy evaluation. Attestations Medical Necessity Statement*: Admission for more than 2 midnights from post amputation care in a patient with trimalleolar fracture, post transmetatarsal amputation for gangrene of right foot secondary to peripheral artery disease Time Spent in Patient Care: Greater than 35 minutes Coding Level of Care Code Acute Psychological Anthropologist for [facility] Fwd Diagnoses Status post amputation Z89.9 Closed trimalleolar fracture S82.853A Dry gangrene I96 Non-pressure chronic ulcer of other part of right foot limited to breakdown of skin L97.511 Diabetes E11.9 HTN (hypertension) I10 Hyperlipidemia E78.5 ASHD (arteriosclerotic heart disease) I25.10
--- NOTE | 2021-12-25 15:56 | ANE.PACU2 ---
Inpatient post-anesthesia follow up: Airway intact: Yes Vital signs: Temperature 97.3 F Pulse Rate 87 Respiratory Rate 16 Blood Pressure 114/69 Pulse Oximetry 92 Oxygen Delivery Me thod Room Air Oxygen Flow Rate 6 Fraction of Inspir ed Oxygen Hydration adequate: Yes Nausea and vomiting: No Pain level: 1 Mental status: Baseline
[2021-12-25] MEDS: pantoprazole 40 mg SDV IVP (16:21)
[2021-12-25] MEDS: HYDROcodone-acetaminophen 10-325 mg Tablet 1 TAB PO ×2 (16:22→22:23)
[2021-12-25] MEDS: enoxaparin 30 mg/0.3 mL Syringe SUBCUT (16:22)
--- NOTE | 2021-12-25 16:27 | XR_ITS ---
WS: [id number] Exam: XR foot RT min 3V* [id number] Date/Time of Exam: 12/25/2021 5:04 PM Reason For Exam: Status post right transmetatarsal amputation There has been amputation of the forefoot at the level of the proximal metatarsals. Again noted is a trimalleolar fracture of the ankle as previously described. There is also internal fixation of the an kle mortise with 2 orthopedic pins coursing superiorly through the calcaneus, talus and lower tibia. A fiberglass splint stabilizes the ankle and foot.
--- NOTE | 2021-12-25 16:27 | XR_ITS ---
WS: [id number] Exam: XR ankle RT min 3V* [id number] Date/Time of Exam: 12/25/2021 5:04 PM Reason For Exam: Status post percutaneous pinning right ankle fracture 2 orthopedic pins course superiorly through the calcaneus, talus and the end in the lower tibia. Ther e is a trimalleolar fracture of the ankle. Minimal displacement of the fibular fracture. The posterio r tibial shelf fracture and medial malleolar fractures appear to be in the satisfactory alignment for healing. A fiberglass cast stabilizes the ankle. There has been amputation of the forefoot. XR/XR ankle RT min 3V* [id number] IMPRESSION: 1. Stable-appearing fixation of the ankle with 2 orthopedic pins coursing throu gh the calcaneus, talus and ending in the lower tibia.
[2021-12-25 17:11] LABS: Basophils % 0.1 %; Hematocrit 22.8 % (37.0-47.0); Hemoglobin 7.3 g/dL (11.5-15.3); Lymphocytes # 0.4 10^3/uL (0.8-4.8); Lymphocytes % 3.3 %; Mean Corpuscular Hemoglobin 28.5 pg (28.0-34.0); Mean Corpuscular Volume 89.1 fl (81-99); Mean Platelet Volume 9.5 fL (7.4-10.4); Monocytes # 0.3 10^3/uL (0.2-0.9); Neutrophils # 10.49 10^3/uL (1.8-7.7); Neutrophils % 92.9 %; Nucleated Red Blood Cells % 0 %; Platelet Count 408 10^3/cmm (130-400); Red Blood Count 2.56 10^6/uL (4.1-5.3); Red Cell Distribution Width 13.2 % (12.1-15.1); White Blood Count 11.3 10^3/uL (4.0-10.0)
[2021-12-25 17:39] LABS: Estmated Average Glucose 143; Hemoglobin A1C 6.6 % (4.0-6.0)
[2021-12-25 17:40] LABS: Procalcitonin 0.28 ng/mL (0-0.5)
[2021-12-25 17:42] LABS: Magnesium 1.6 mg/dL (1.7-2.3); Thyroid Stimulating Hormone 1.33 uIU/mL (0.27-4.20)
[2021-12-25 17:53] LABS: Alanine Aminotransferase 17 U/L (0-33); Albumin Level 3.2 g/dL (3.5-5.2); Alkaline Phosphatase 143 U/L (35-105); Anion Gap 14.9 (5-19); Aspartate Amino Transferase 18 U/L (0-32); Blood Urea Nitrogen 19 mg/dL (8-23); Calcium 8.5 mg/dL (8.5-10.5); Carbon Dioxide 23 mmol/L (22-29); Chloride 92 mmol/L (98-107); Glucose 311 mg/dL (65-115); Iron 14 ug/dL (37-145); Osmolality Calculated 274 mOsm/kg (285-295); Percent Saturation 6.3 % (20-50); Potassium 4.9 mmol/L (3.5-5.1); Sodium 125 mmol/L (136-145); Total Bilirubin 0.3 mg/dL (0.15-1.2); Total Iron Binding Capacity 220 mcg/dl; Total Protein 6.2 g/dL (6.6-8.7); Unsaturated Iron Binding 206 ug/dL (112-347)
[2021-12-25] MEDS: insulin lispro 100 unit/1 mL SUBCUT ×2 (17:53→22:23)
[2021-12-25] MEDS: docusate sodium 100 mg Capsule PO (17:55)
[2021-12-25] MEDS: cilostazol 100 mg Tablet PO (17:55)
[2021-12-25] MEDS: pneumococcal (23 valent) SDV 0.5 mL IM (18:14)
[2021-12-25] MEDS: TRAMadol 50 mg Tablet PO (18:49)
[2021-12-25 20:20] LABS: Glucose Point of Care 513 mg/dL (70-110)
[2021-12-25] MEDS: gabapentin 300 mg Capsule PO (22:23)
[2021-12-25] MEDS: insulin glargine 100 units/1 mL 20 UNIT SUBCUT (22:24)
[2021-12-25 23:20] LABS: Glucose Point of Care 472 mg/dL (70-110)
[2021-12-26] VITALS (19 sets, daily range): BP systolic 99–147; BP diastolic 49–83; PULSE 77–92; RESP 14–20; TEMP 36.5–37.7; O2SAT 94–100
[2021-12-26 00:55] LABS: Glucose Point of Care 399 mg/dL (70-110)
[2021-12-26] MEDS: TRAMadol 50 mg Tablet PO ×3 (04:06→18:52)
[2021-12-26 05:35] LABS: Hematocrit 21.9 % (37.0-47.0); Hemoglobin 6.8 g/dL (11.5-15.3); Lymphocytes # 0.4 10^3/uL (0.8-4.8); Lymphocytes % 4.7 %; Mean Corpuscular HGB Conc 31.1 g/dL (30.0-36.0); Mean Corpuscular Hemoglobin 27.6 pg (28.0-34.0); Mean Platelet Volume 9.6 fL (7.4-10.4); Monocytes # 0.3 10^3/uL (0.2-0.9); Neutrophils # 7.72 10^3/uL (1.8-7.7); Neutrophils % 90.7 %; Nucleated Red Blood Cells % 0 %; Platelet Count 416 10^3/cmm (130-400); Red Blood Count 2.46 10^6/uL (4.1-5.3); Red Cell Distribution Width 12.8 % (12.1-15.1); White Blood Count 8.5 10^3/uL (4.0-10.0)
[2021-12-26] MEDS: HYDROcodone-acetaminophen 10-325 mg Tablet 1 TAB PO ×3 (06:00→22:41)
[2021-12-26 06:03] LABS: Alanine Aminotransferase 26 U/L (0-33); Albumin Level 3.2 g/dL (3.5-5.2); Alkaline Phosphatase 134 U/L (35-105); Anion Gap 16.7 (5-19); Aspartate Amino Transferase 33 U/L (0-32); Blood Urea Nitrogen 24 mg/dL (8-23); Calcium 8.9 mg/dL (8.5-10.5); Carbon Dioxide 24 mmol/L (22-29); Chloride 93 mmol/L (98-107); Chol HDL Ratio 3.06 mg/dL (0.0-4.40); Cholesterol 110 mg/dL (0-200); Globulin 3.9 g/dL (1.3-4.6); Glucose 319 mg/dL (65-115); HDL Cholesterol 36 mg/dL (60-100); LDL Cholesterol Calculated 51 mg/dL (50-129); LDL HDL Ratio 1.42 RATIO (0.00-3.22); Osmolality Calculated 284 mOsm/kg (285-295); Phosphorus 3.1 mg/dL (2.5-4.5); Potassium 4.7 mmol/L (3.5-5.1); Sodium 129 mmol/L (136-145); Total Bilirubin 0.2 mg/dL (0.15-1.2); Total Protein 7.1 g/dL (6.6-8.7); Triglycerides 114 mg/dL (0-150)
[2021-12-26 07:00] LABS: Glucose Point of Care 369 mg/dL (70-110)
--- NOTE | 2021-12-26 07:07 | PC.NURSE ---
Bedside Report given to Mai MONIQUE at this time
--- NOTE | 2021-12-26 07:37 | P.PN_ITS ---
Subjective Subjective: Patient seen bedside this AM. Endorses pain at the right foot and ankle, states that medication is helping. Patient is afebrile, no leukocytosis. Patient denies any subjective nausea, vomiting, fever, chills, shortness of breath or chest pain. Vitals/I&O/Wt Last Vital Signs Temp 97.9 F 12/26/21 04:00 Pulse 77 12/26/21 04:00 Resp 14 12/26/21 04:00 BP 132/66 12/26/21 04:00 Pulse Ox 100 12/26/21 04:00 O2 Del Method 12/26/21 04:00 O2 Flow Rate 1 12/26/21 04:00 12/25/21 12/26/21 12/26/21 22:59 06:59 14:59 Intake Total 911.48 / 961.48 Balance 911.48 / 936.48 Weight last 48 hrs Weight 160 lb Physical Exam Narrative: GENERAL: Patient is alert and oriented ?3 and in no acute distress. The following is a focused bilateral lower extremity exam. VASCULAR: Dorsalis pedis decreased. Posterior tibial arteries decreased. Decreased pedal hair growth. NEUROLOGICAL: Protective sensation diminished. DERMATOLOGICAL: No strikethrough bleeding or drainage at the right postoperative dressing. No proximal lymphangitic streaking. MUSCULOSKELETAL: Deferred due to postoperative state. Data 12/26/21 04:49 12/26/21 04:49 A&P Assessment and plan (1) Status post amputation: (2) Closed trimalleolar fracture: Qualifiers: Encounter type: subsequent encounter Laterality: right Fracture healing: with routine healing Qualified Code(s): S82.851D - Displaced tri malleolar fracture of right lower leg, subsequent encounter for closed fracture with routine healing (3) 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 mellitus: Plan 81-year-old diabetic female with extensive peripheral arterial disease is status post right transmetatarsal amputation secondary to gangrenous changes to the right forefoot. She is also status post percutaneous transfixation of right trimalleolar fracture that she sustained from a fall at home on 12/23/2021. Postoperative dressings are clean, dry and intact. She is to remain strict nonweightbearing to the right lower extremity. Podiatry will follow. Plan for discharge home once medically cleared, she has a daughter that will assist with daily living. Will follow-up outpatient in clinic. Attestations Medical Necessity Statement*: Gangrene status post transmetatarsal potation right foot. Status post percutaneous pinning right trimalleolar fracture Coding Level of Care Code Acute Test [employer] Research Reactor Operator for [facility] Fwd Diagnoses Status post amputation Z89.9 Closed trimalleolar fracture S82.851D Encounter type: subsequent encounter Laterality: right Fracture healing: with routine healing 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 mellitus E11.42
[2021-12-26] MEDS: insulin lispro 100 unit/1 mL SUBCUT ×4 (08:02→21:08)
[2021-12-26] MEDS: docusate sodium 100 mg Capsule PO ×2 (08:04→17:59)
[2021-12-26] MEDS: citalopram 20 mg Tablet 40 MG PO (08:04)
[2021-12-26] MEDS: atorvastatin 40 mg Tablet PO (08:04)
[2021-12-26] MEDS: cilostazol 100 mg Tablet PO ×2 (08:04→17:59)
[2021-12-26] MEDS: gabapentin 300 mg Capsule PO ×3 (08:04→21:07)
--- NOTE | 2021-12-26 10:09 | PC.PHAR ---
pts daughter marcy [phone] verified pts medications-pts daughter marcy states the pt takes metformin 500mg 2 tabs daily states its the pts husbands medication states its to expensive so they share-pts daughter and aakash from [facility] states the pt gets samples of tresbia u200- 14 units hs-notes are made in the pharmacy comments
[2021-12-26] MEDS: metformin XR 500 MG Tablet 1000 MG PO (10:51)
[2021-12-26 11:32] LABS: Glucose Point of Care 225 mg/dL (70-110)
[2021-12-26] MEDS: lanolin oint 7 gm 1 APPLIC TOPICAL (11:37)
--- NOTE | 2021-12-26 12:13 | PC.CHAP ---
Pastoral Care Encounter/Spiritual Assessment Type of Contact [] Declined corsage maker visit [] Patient/Family/Request visit [] Outpatient visit [] Follow-up visit [] Physician referral [] Code/Alert [x] Routine visit [] Staff referral [] Actively dying [] Patient sleeping [] Family support [] [] Out of room [] Palliative care [] [] Receiving care in room [] Pre-surgical visit [] Trauma [] Long length of stay [] ICU visit [] Other: Relational/Emotional Strength [] Patient feels connected with others/family/visitors/staff [] Distress [] Loneliness/isolation [] Abandonment Spirituality of Patient [x] Person of Namrata [] Attends Sabianist of their Namrata [x] Believes in Prayer [] Reads Bible or Hinduism materials [] There are Spiritual issues to be addressed Sales Representative [employer] Interventions [x] Prayer [] Active listening [] Non-anxious presence [] Spiritual/emotional support [] Crisis/trauma care [] Spiritual counseling [] Bereavement support [] Provided bereavement packet [] Provided Bible/devotional materials [] Provided toy/stuffed animal, coloring book to patient or family member [] Provided Communion [] Anointing/[place] [] Salvation [x] Completed spiritual assessment [] Other: Impact on Illness or Injury [] Angry [] Fearful [] Anxious [] Often cries [] Exhaustion [] Unable to work [] Unable to attend latter day [] Unable to walk/stand [] Unable to read [] Unable to drive [] Unable to eat/drink [] Unable to sleep [] Unable to be with family [] Patient intubated [] Other: Summary Time spent with patient 10 min
[2021-12-26] MEDS: sodium chloride 0.9% (100 ml) 100 ML 50 ML (13:23)
--- NOTE | 2021-12-26 14:23 | P.PN_ITS ---
Subjective Subjective: No acute events overnight. Patient seen with family at bedside. Patient states pain is still there but better. On further review patient stated that she has been followed by primary care as an outpatient for anemia and had blood work done sometime earlier in May but she never back from the office. Patient also denies of having any, hematemesis. Does give family history of colon cancer. Vitals/I&O/Wt Last Vital Signs Temp 98.0 F 12/26/21 14:06 Pulse 90 12/26/21 13:53 Resp 18 12/26/21 13:53 BP 115/65 12/26/21 13:53 Pulse Ox 94 12/26/21 13:53 O2 Del Method 12/26/21 08:45 O2 Flow Rate 1 12/26/21 08:45 12/25/21 12/26/21 12/26/21 22:59 06:59 14:59 Intake Total 911.48 / 961.48 560 / 560 Balance 911.48 / 936.48 560 / 560 Weight last 48 hrs Weight 72.575 kg Physical Exam Narrative: General: No acute distress, AO x3 HEENT: PERRLA, pupils bilaterally equal and reactive Chest: Normal vesicular breath sounds, no added sounds, equal good air entry bilaterally CVS: S1-S2 regular, no murmurs, no tachycardia, no gallops, no rubs Abdomen: Soft, nontender, no organomegaly, bowel sounds present Neuro: No focal deficits, no facial deformity, AO x3, power 5/5 in all limbs Data : 12/26/21 04:49 12/26/21 04:49 A&P Assessment and plan (1) Status post amputation: Postprocedure day 1. Tolerated procedure well. [place] 10 mg every 6 hourly along with tramadol 50 mg every 8 hourly for pain. Anticoagulation, weightbearing as per podiatry team. (2) Closed trimalleolar fracture: Qualifiers: Encounter type: subsequent encounter Fracture healing: with routine healing Laterality: right Qualified Code(s): S82.851D - Displaced trimalleolar fracture of right lower leg, subsequent encounter for closed fracture with ro utine healing (3) Dry gangrene: (4) Non-pressure chronic ulcer of other part of right foot limited to breakdown of skin: (5) Diabetes: A1c 6.6 Continue home dose of Lantus. Start on insulin sliding scale at low-dose protocol. Carb consistent diet. (6) HTN (hypertension): (7) Hyperlipidemia: (8) ASHD (arteriosclerotic heart disease): No active chest pain. Plan Anemia: Hemoglobin 6.8 today. Appreciate iron panel. Suggestive of severe iron deficiency anemia. Not sure of possible source. Cannot rule out slow possible GI bleed with a strong family history of colon cancer. Transfuse 2 units of PRBC. Patient would most likely to follow-up with surgery as an outpatient for further work-up with EGD and colonoscopy. Protonix 40 mg twice daily. Hold off on NSAIDs. Stool for occult blood. Continue chronic medications including statin, cilostazol, Celexa, gabapentin. Full code. Protonix for PUD prophylaxis SCDs for DVT prophylaxis, Lovenox 30 mg subcu daily. Physical therapy evaluation. Attestations Medical Necessity Statement*: Requires further hospitalization for management of anemia requiring blood transfusion. Patient who is s/p amputation for gangrene and osteomyelitis Time Spent in Patient Care: Greater than 35 minutes Coding Level of Care Code Acute Gas Pumping Station Operator for [facility] Fwd Diagnoses Status post amputation Z89.9 Closed trimalleolar fracture S82.851D Encounter type: subsequent encounter Fracture healing: with routine healing Laterality: right Dry gangrene I96 Non-pressure chronic ulcer of other part of right foot limited to breakdown of skin L97.511 Diabetes E11.9 HTN (hypertension) I10 Hyperlipidemia E78.5 ASHD (arteriosclerotic heart disease) I25.10
--- NOTE | 2021-12-26 14:29 | PC.NURSE ---
pts ordered RBCs started at 50ml/hr at 1323 pt dagoberto well at 1339 rate increased to 100ml/hr.....1415 pt continues to dagoberto well/rate increased to 150ml/hr
[2021-12-26 15:55] LABS: Bilirubin Urine Neg (Negative); Blood Urine Neg (Negative); Glucose Urine UA Trace (Normal); Ketones Urine Negative (Negative); Leukocyte Esterase Urine Trace (Negative); Nitrate Urine Negative (Negative); Protein Urine Neg (Negative); Specific Gravity, Urine 1.015 (1.005-1.030); Urine Appearance Clear (CLEAR); Urine Color Yellow (Yellow); Urobilinogen Urine Neg (Negative); pH Urine 5 (5-7)
[2021-12-26] MEDS: acetaminophen 325 mg Tablet 650 MG PO (15:56)
[2021-12-26 16:01] LABS: Potassium, Radom Urine 31 mmol/L
[2021-12-26 16:03] LABS: Urine Random Chloride 18 mmol/L; Urine Random Sodium 13 mmol/L
[2021-12-26 17:10] LABS: Glucose Point of Care 297 mg/dL (70-110)
[2021-12-26 17:25] LABS: Add Urine Culture? No; Bacteria Urine TRACE /hpf; Squamous Epithelial Cell Urine RARE /hpf (0-5); WBC Urine RARE /hpf (0-5)
[2021-12-26] MEDS: pantoprazole 40 mg SDV IVP (18:01)
[2021-12-26] MEDS: sodium chloride 0.9% (100 ml) 100 ML (18:32)
[2021-12-26 20:38] LABS: Glucose Point of Care 218 mg/dL (70-110)
[2021-12-26] MEDS: quetiapine 25 mg Tablet 50 MG PO (21:07)
[2021-12-26] MEDS: insulin glargine 100 units/1 mL 20 UNIT SUBCUT (21:10)
[2021-12-27] VITALS: BP 150/71; PULSE 82; RESP 17; TEMP 37.1; O2SAT 95
[2021-12-27] MEDS: TRAMadol 50 mg Tablet PO ×2 (03:36→10:46)
[2021-12-27 04:00] VITALS: BP 138/73; PULSE 84; RESP 12; TEMP 36.7; O2SAT 93
[2021-12-27 06:03] LABS: Basophils % 0.3 %; Lymphocytes # 1.2 10^3/uL (0.8-4.8); Lymphocytes % 11.1 %; Mean Corpuscular HGB Conc 32.5 g/dL (30.0-36.0); Mean Corpuscular Hemoglobin 28.3 pg (28.0-34.0); Mean Platelet Volume 9.1 fL (7.4-10.4); Monocytes # 0.8 10^3/uL (0.2-0.9); Monocytes % 6.8 %; Neutrophils # 8.99 10^3/uL (1.8-7.7); Neutrophils % 80.2 %; Nucleated Red Blood Cells % 0 %; Platelet Count 485 10^3/cmm (130-400); Red Blood Count 3.78 10^6/uL (4.1-5.3); White Blood Count 11.2 10^3/uL (4.0-10.0)
[2021-12-27 06:08] LABS: Hematocrit 32.9 % (37.0-47.0); Hemoglobin 10.7 g/dL (11.5-15.3)
[2021-12-27 06:24] LABS: Alanine Aminotransferase 54 U/L (0-33); Albumin Level 3.6 g/dL (3.5-5.2); Alkaline Phosphatase 133 U/L (35-105); Anion Gap 16.4 (5-19); Aspartate Amino Transferase 53 U/L (0-32); Blood Urea Nitrogen 27 mg/dL (8-23); Calcium 9.2 mg/dL (8.5-10.5); Carbon Dioxide 26 mmol/L (22-29); Chloride 98 mmol/L (98-107); Globulin 3.8 g/dL (1.3-4.6); Glucose 116 mg/dL (65-115); Osmolality Calculated 288 mOsm/kg (285-295); Potassium 4.4 mmol/L (3.5-5.1); Sodium 136 mmol/L (136-145); Total Bilirubin 0.5 mg/dL (0.15-1.2); Total Protein 7.4 g/dL (6.6-8.7)
[2021-12-27 06:50] LABS: Glucose Point of Care 126 mg/dL (70-110)
[2021-12-27 07:56] VITALS: PULSE 103; RESP 22; O2SAT 98
[2021-12-27 08:00] VITALS: BP 154/80; PULSE 107; RESP 18; TEMP 36.8; O2SAT 95
[2021-12-27] MEDS: citalopram 20 mg Tablet 40 MG PO (08:04)
[2021-12-27] MEDS: docusate sodium 100 mg Capsule PO (08:05)
[2021-12-27] MEDS: cilostazol 100 mg Tablet PO (08:05)
[2021-12-27] MEDS: atorvastatin 40 mg Tablet PO (08:05)
[2021-12-27] MEDS: HYDROcodone-acetaminophen 10-325 mg Tablet 1 TAB PO ×2 (08:05→14:16)
[2021-12-27] MEDS: gabapentin 300 mg Capsule PO (08:05)
[2021-12-27] MEDS: metformin XR 500 MG Tablet 1000 MG PO (08:13)
[2021-12-27] MEDS: pantoprazole 40 mg SDV IVP (08:17)
--- NOTE | 2021-12-27 10:54 | P.DS_ITS ---
Discharge Providers Date of Admission: 12/25/21 15:46 Date of Discharge: December 27, 2021 Attending Provider at Admission: Brown Avila MD Attending Provider at Discharge: Kain Phoenix DPM Primary Care Provider: ALFONSO Morris Diagnoses at Discharge Discharge Diagnosis (1) Status post amputation: Status: Acute (2) Closed trimalleolar fracture: Status: Acute Qualifiers: Encounter type: subsequent encounter Fracture healing: with routine healing Laterality: right Qualified Code(s): S82.851D - Displaced trimalleolar fracture of right lower leg, subsequent encounter for closed fracture with routine healing (3) Dry gangrene: Status: Acute (4) Non-pressure chronic ulcer of other part of right foot limited to breakdown of skin: Status: Acute (5) Diabetes: Status: Acute (6) HTN (hypertension): Status: Acute (7) Hyperlipidemia: Status: Acute (8) ASHD (arteriosclerotic heart disease): Status: Acute Reason for Visit Reason for Visit: I96 Hospital Course Hospital Course Anjelica Mary is a 81 year old female with past medical history of severe small vessel peripheral artery disease, not amenable to revascularization, mild aortic stenosis, type 2 diabetes mellitus, CAD, hyperlipidemia, hypertension, recent closed trimalleolar fracture who was brought to the hospital by podiatry team for right tarsometatarsal amputation, percutaneous transfixation of right ankle fracture today.? Patient underwent ORIF today which she tolerated well with EBL of found 25 and 33 cc. Postprocedure patient was having intractable pain hence hospital service was consulted for admission. Blood work present in the system recently has sodium 138, creatinine of 1.2 with blood glucose of 170 done on 12/13.? No further blood work present in the system. Patient was admitted to hospital further evaluation and management for pain control. She worked well with physical therapy. She was found to have anemia which worsened to 6.8. She received a unit of blood transfusion after which her hemoglobin remained stable. On further evaluation patient has been worked up as an outpatient for anemia as well. Patient has a significant family history of colon cancer. Patient was also seen to have regular daily use of ibuprofen. She has been discharged hemodynamic stable condition advised to follow-up with Dr. Phoenix on set appointment. She is to follow-up with Dr. Echeverria from surgery within next 2 weeks for a possible EGD and colonoscopy. She is advised not to use ibuprofen anymore. Patient has been discharged home with set appointment. Physical Exam Narrative: General: No acute distress, AO x3 HEENT: PERRLA, pupils bilaterally equal and reactive Chest: Normal vesicular breath sounds, no added sounds, equal good air entry bilaterally CVS: S1-S2 regular, no murmurs, no tachycardia, no gallops, no rubs Abdomen: Soft, nontender, no organomegaly, bowel sounds present Neuro: No focal deficits, no facial deformity, AO x3, power 5/5 in all limbs Discharge Data Studies Completed and Pending Completed Studies During Hospitalization Category Date Time Status XR ankle RT min 3V* [id number] Routine Exams 12/25/21 16:27 Completed XR foot RT min 3V* [id number] Routine Exams 12/25/21 16:27 Completed Pending at discharge Category Date Time Status Immunochemical Fecal OCB Routine Lab 12/26/21 10:21 Ordered Pathology: Surgical [PTH] Routine Pth 12/25/21 12:53 Received Radiology Impressions Ankle X-Ray 12/25/21 16:27 IMPRESSION: 1. Stable-appearing fixation of the ankle with 2 orthopedic pins coursing through the calcaneus, talus and ending in the lower tibia. Laboratory Results WBC 11.2 10^3/uL (4.0-10.0) H 12/27/21 05:52 RBC 3.78 10^6/uL (4.1-5.3) L 12/27/21 05:52 Hgb 10.7 g/dL (11.5-15.3) L D 12/27/21 05:52 Hct 32.9 % (37.0-47.0) L D 12/27/21 05:52 MCV 87.0 fl (81-99) 12/27/21 05:52 MCH 28.3 pg (28.0-34.0) 12/27/21 05:52 MCHC 32.5 g/dL (30.0-36.0) 12/27/21 05:52 RDW 13.0 % (12.1-15.1) 12/27/21 05:52 Plt Count 485 10^3/cmm (130-400) H 12/27/21 05:52 MPV 9.1 fL (7.4-10.4) 12/27/21 05:52 Neut % (Auto) 80.2 % 12/27/21 05:52 Lymph % (Auto) 11.1 % 12/27/21 05:52 Wetzel % (Auto) 6.8 % 12/27/21 05:52 Eos % (Auto) 0.0 % 12/27/21 05:52 Baso % (Auto) 0.3 % 12/27/21 05:52 Neut # (Auto) 8.99 10^3/uL (1.8-7.7) H 12/27/21 05:52 Lymph # (Auto) 1.2 10^3/uL (0.8-4.8) 12/27/21 05:52 Wetzel # (Auto) 0.8 10^3/uL (0.2-0.9) 12/27/21 05:52 Eos # (Auto) 0.0 10^3/uL (0.0-0.8) 12/27/21 05:52 Baso # (Auto) 0.0 10^3/uL (0.0-0.1) 12/27/21 05:52 Nucleated RBC % (auto) 0 % 12/27/21 05:52 Nucleated RBCs # 0.0 /100WBC 12/27/21 05:52 Sodium 136 mmol/L (136-145) 12/27/21 05:52 Potassium 4.4 mmol/L (3.5-5.1) 12/27/21 05:52 Chloride 98 mmol/L (98-107) 12/27/21 05:52 Carbon Dioxide 26 mmol/L (22-29) 12/27/21 05:52 Anion Gap 16.4 (5-19) 12/27/21 05:52 BUN 27 mg/dL (8-23) H 12/27/21 05:52 Creatinine 1.1 mg/dL (0.5-0.9) H 12/27/21 05:52 GFR Calculation Not Reportable 12/27/21 05:52 Glucose 116 mg/dL (65-115) H 12/27/21 05:52 POC Glucose 126 mg/dL (70-110) H 12/27/21 06:35 Estimat Average Glucose 143 12/25/21 16:40 Hemoglobin A1c 6.6 % (4.0-6.0) H 12/25/21 16:40 Calculated Osmolality 288 mOsm/kg (285-295) 12/27/21 05:52 Calcium 9.2 mg/dL (8.5-10.5) 12/27/21 05:52 Phosphorus 3.1 mg/dL (2.5-4.5) 12/26/21 04:49 Magnesium 1.6 mg/dL (1.7-2.3) L 12/25/21 16:40 Iron 14 ug/dL (37-145) L 12/25/21 16:40 TIBC 220 mcg/dl 12/25/21 16:40 % Saturation 6.3 % (20-50) L 12/25/21 16:40 Unsat Iron Binding 206 ug/dL (112-347) 12/25/21 16:40 Total Bilirubin 0.5 mg/dL (0.15-1.2) 12/27/21 05:52 AST 53 U/L (0-32) H 12/27/21 05:52 ALT 54 U/L (0-33) H 12/27/21 05:52 Alkaline Phosphatase 133 U/L (35-105) H 12/27/21 05:52 Total Protein 7.4 g/dL (6.6-8.7) 12/27/21 05:52 Albumin 3.6 g/dL (3.5-5.2) 12/27/21 05:52 Globulin 3.8 g/dL (1.3-4.6) 12/27/21 05:52 Triglycerides 114 mg/dL (0-150) 12/26/21 04:49 Cholesterol 110 mg/dL (0-200) 12/26/21 04:49 LDL Cholesterol, Calc 51 mg/dL (50-129) 12/26/21 04:49 HDL Cholesterol 36 mg/dL (60-100) L 12/26/21 04:49 LDL/HDL Ratio 1.42 RATIO (0.00-3.22) 12/26/21 04:49 Cholesterol/HDL Ratio 3.06 mg/dL (0.0-4.40) 12/26/21 04:49 Procalcitonin 0.28 ng/mL (0-0.5) 12/25/21 16:40 TSH 1.33 uIU/mL (0.27-4.20) 12/25/21 16:40 Urine Color Yellow (Yellow) 12/26/21 15:05 Urine Appearance Clear (CLEAR) 12/26/21 15:05 Urine pH 5 (5-7) 12/26/21 15:05 Ur Specific Armour 1.015 (1.005-1.030) 12/26/21 15:05 Urine Protein Neg (Negative) 12/26/21 15:05 Urine Glucose (UA) Trace (Normal) H 12/26/21 15:05 Urine Ketones Negative (Negative) 12/26/21 15:05 Urine Blood Neg (Negative) 12/26/21 15:05 Urine Nitrate Negative (Negative) 12/26/21 15:05 Urine Bilirubin Neg (Negative) 12/26/21 15:05 Urine Urobilinogen Neg mg/dL (Negative) 12/26/21 15:05 Ur Leukocyte Esterase Trace (Negative) H 12/26/21 15:05 Urine RBC None /hpf (0-2) 12/26/21 15:05 Urine WBC Rare /hpf (0-5) 12/26/21 15:05 Ur Squamous Epith Cells Rare /hpf (0-5) 12/26/21 15:05 Amorphous Sediment Not Reportable 12/26/21 15:05 Urine Bacteria Trace /hpf (NONE) 12/26/21 15:05 Ur Random Sodium 13 mmol/L 12/26/21 15:05 Ur Random Potassium 31 mmol/L 12/26/21 15:05 Ur Random Chloride 18 mmol/L 12/26/21 15:05 Blood Type AB Positive 12/26/21 10:34 Rho(D) Type Positive 12/26/21 10:34 Antibody Screen Negative 12/26/21 10:34 Crossmatch See Detail 12/26/21 10:34 Vitals Last Vital Signs Temp 98.3 F 12/27/21 08:00 Pulse 107 H 12/27/21 08:00 Resp 18 12/27/21 08:00 BP 154/80 12/27/21 08:00 Pulse Ox 95 12/27/21 08:00 O2 Del Method 12/27/21 08:00 O2 Flow Rate 1 12/26/21 08:45 Discharge Plan Discharge Patient Disposition: Home Condition: Stable Prescriptions: New Protonix 40 mg tablet,delayed release (DR/EC) 40 mg PO BID 14 Days Qty: 28 0RF hydrocodone-acetaminophen 10-325 mg tablet 1 tab PO Q6H 7 Days Qty: 28 0RF tramadol 50 mg tablet 25 mg PO Q8H PRN (Reason: pain) 7 Days Qty: 21 0RF Continued citalopram [Celexa] 40 mg tablet 40 mg PO DAILY hydrocodone-acetaminophen 10-325 mg tablet 1 tab PO Q6H PRN (Reason: pain) 7 Days Qty: 28 0RF (DME) Wheelchair See Rx Instructions .Route .MEDSUPPLY Qty: 1 0RF Rx Instructions: As directed HOME cilostazol 100 mg tablet 100 mg PO BID Qty: 60 3RF gabapentin 300 mg capsule 300 mg PO TID 30 Days Qty: 90 0RF rosuvastatin 10 mg tablet 10 mg PO BEDTIME metformin 500 mg Tablet 1,000 mg PO DAILY levothyroxine 25 mcg tablet 25 mcg PO DAILY quetiapine 50 mg tablet 50 mg PO BEDTIME Tresiba FlexTouch U-200 200 unit/mL (3 mL) Insulin Pen 14 unit SUBCUT BEDTIME Discontinued ibuprofen 800 mg tablet 800 mg PO BID PRN (Reason: Pain) Discharge Orders: Discharge Order (Routine); Ordered 12/27/21 Ordered By: Brown Avila Other Ambulatory Orders: DME: [employer] (Order) Location: None Selected Ordered By: Kain Phoenix Referrals: Jolie Torres FNP [Primary Care Provider] - 01/10/22 9:00 am (repeat cbc) Wicho Echeverria MD [Physician] - 01/10/22 10:00 am Kain Phoenix DPM [Physician] - 01/03/22 1:00 pm Discharge Diet: Cardiac Discharge Activity: Resume usual activity and Increase activity as tolerated Patient Instructions: Hydrocodone/Acetaminophen (By mouth), Tramadol (By mouth), Pantoprazole (By mouth), Transmetatarsal Amputation (DC), Opioid Safety Activity Restrictions/Additional Instructions: Please follow-up with a primary care provider within next 2 weeks for repeat CBC. Please follow-up with surgeon as an outpatient for further evaluation of anemia with EGD and colonoscopy. Please do not take NSAIDs including ibuprofen anymore. Please follow-up with Dr. Phoenix on set appointment. Please take Protonix which is the antacid twice daily. Instructions from Dr. Phoenix * Strict nonweightbearing to right lower extremity * Please elevate right foot while resting * Please keep your current dressings to your right lower extremity clean, dry and intact until your follow-up visit * Follow-up 1:00 on 01/03/[address] Phoenix staff in podiatry clinic * You have been prescribed hydrocodone 10/325 mg and tramadol 50 mg to be taken judiciously as needed for pain as prescribed, this was sent to your pharmacy on file. * Please contact Dr. Phoenix with any postoperative questions or concerns. Cell phone number [phone]. Discharge Attestations Time Spent in Discharge Care*: greater than 30 min Specific Discharge Activities: educating patient, educating and/or supporting family/caregiver, discussing with pcp/other providers, discussing with case advocate/social workers/dc planners, documenting/other paperwork and evaluating patient/reviewing data Status at Discharge: Cognitive status at discharge: cognitively intact , Behavioral status at discharge: cooperative , Functional status at discharge: uses cane/walker , Overall status at discharge: patient is progressing back to baseline Quality Metrics Clinical Quality Measures [ No reported AMI, CVA or VTE this stay] Coding Level of Care Code Acute [facility] note Diagnoses Status post amputation Z89.9 Closed trimalleolar fracture S82.851D Encounter type: subsequent encounter Fracture healing: with routine healing Laterality: right Dry gangrene I96 Non-pressure chronic ulcer of other part of right foot limited to breakdown of skin L97.511 Diabetes E11.9 HTN (hypertension) I10 Hyperlipidemia E78.5 ASHD (arteriosclerotic heart disease) I25.10
[2021-12-27 12:05] LABS: Glucose Point of Care 114 mg/dL (70-110)
== END 2021-12-27 14:44 | disposition home or self-care (01) | DRG 240 ==
LOC: MEDSURG 16:04
PROVIDERS: Admitting Provider Student in an Organized Health Care Education/Training Program; PCP Nurse Practitioner Family; Visit Provider Podiatrist Foot & Ankle Surgery
PROC: 0Y6M0Z9 Detachment at Right Foot, Partial 1st Ray, Open Approach (ICD-10-PCS; CPT 28140; principal; 2021-12-25 12:00)
DX: E11.52 Type 2 diabetes mellitus with diabetic peripheral angiopathy with gangrene (principal); I70.261 Atherosclerosis of native arteries of extremities with gangrene, right leg; L97.519 Non-pressure chronic ulcer of other part of right foot with unspecified severity; E11.42 Type 2 diabetes mellitus with diabetic polyneuropathy; S82.841A Displaced bimalleolar fracture of right lower leg, initial encounter for closed fracture; X58.XXXA Exposure to other specified factors, initial encounter; M25.371 Other instability, right ankle; Z89.422 Acquired absence of other left toe(s); Z88.5 Allergy status to narcotic agent; Z88.0 Allergy status to penicillin; Z79.4 Long term (current) use of insulin; Z79.891 Long term (current) use of opiate analgesic; I25.10 Atherosclerotic heart disease of native coronary artery without angina pectoris; I10 Essential (primary) hypertension; E78.5 Hyperlipidemia, unspecified; E03.9 Hypothyroidism, unspecified; I35.0 Nonrheumatic aortic (valve) stenosis; Z79.84 Long term (current) use of oral hypoglycemic drugs; Z80.0 Family history of malignant neoplasm of digestive organs; D50.9 Iron deficiency anemia, unspecified; G89.18 Other acute postprocedural pain
CPT/HCPCS: 27818; 36415; 36416; 36430; 73610; 73630; 76000; 80053; 80061; 81001; 82436; 82962; 83036; 83540; 83550; 83735; 84100; 84133; 84145; 84300; 84443; 85025; 86850; 86900; 86920; 88307; 88311; 90471; 90732; 94664; 96372; 96374; 96376; 97161; 97530; 99285; C9113; J1100; J1650; J1815; J2704; J2795; J3010; J3490; J7030; P9016

== ENCOUNTER → 2022-01-16 11:34 | Outpatient (BNVA) | payer MEDICARE, SELFPAY | PROVIDERS: PCP Nurse Practitioner Family; Visit Provider Podiatrist Foot & Ankle Surgery | DX: Z89.431 Acquired absence of right foot (principal); S82.851D Displaced trimalleolar fracture of right lower leg, subsequent encounter for closed fracture with routine healing; I99.8 Other disorder of circulatory system; I73.9 Peripheral vascular disease, unspecified; E11.42 Type 2 diabetes mellitus with diabetic polyneuropathy; Z79.84 Long term (current) use of oral hypoglycemic drugs; Z79.4 Long term (current) use of insulin; X58.XXXD Exposure to other specified factors, subsequent encounter | CPT/HCPCS: 73610; 99024; 99214 ==

== ENCOUNTER → 2022-01-23 14:01 | Outpatient (BNVA) | payer MEDICARE, SELFPAY | PROVIDERS: PCP Nurse Practitioner Family; Visit Provider Podiatrist Foot & Ankle Surgery | DX: I73.9 Peripheral vascular disease, unspecified (principal); E11.42 Type 2 diabetes mellitus with diabetic polyneuropathy; Z89.431 Acquired absence of right foot; S82.851D Displaced trimalleolar fracture of right lower leg, subsequent encounter for closed fracture with routine healing; I99.8 Other disorder of circulatory system; X58.XXXD Exposure to other specified factors, subsequent encounter; Z79.84 Long term (current) use of oral hypoglycemic drugs; Z79.4 Long term (current) use of insulin | CPT/HCPCS: 36415; 80053; 85025; 99204; 99214 ==

== ENCOUNTER 2022-01-24 18:15 | Inpatient (IN) | payer MEDICARE, SELFPAY ==
[2022-01-24] VITALS (18 sets, daily range): BP systolic 84–124; BP diastolic 48–72; PULSE 101–136; RESP 14–24; TEMP 36.3–37; O2SAT 93–100; BMI 28.3; BMI 27.7
--- NOTE | 2022-01-24 13:30 | P.ANESASSM_ITS ---
Pre-Anesthetic Assessment Height/Weight: Height 1.6 m Weight 72.575 kg Temp Pulse Resp BP Pulse Ox O2 Del Method 98.4 F 105 H 18 108/72 94 01/24/22 13:12 01/24/22 13:12 01/24/22 13:12 01/24/22 13:12 01/24/22 13:12 01/24/22 13:19 Preop Diagnosis: Dry gangrene status post TMA right foot with dehiscence and drainage Operation Date: 01/24/22 14:30 Proposed Procedures p Below Knee Amputation 12378, T87.43(Right) - Rahat Casey, DO Familial anesthetic complications: none Was Beta Noa taken within 24 hours: N/A Was Clonidine taken within 24 hours: N/A Last intake: Intake Last Liquid Date 01/23/22 Last Liquid Time 14:00 Last Solid Date 01/23/22 Last Solid Time 11:00 Social No alcohol and No tobacco Exam alert, oriented x 3, clear to auscultation bilaterally and regular rate & rhythm Airway Mallampati: Class II Dentition: full Pulmonary Asthma and Chronic Obstructive Pulmonary Disease CV/HEM Peripheral Vascular Disease mod aortic stenosis Metabolic Diabetes Mellitus, Hyperlipidemia and Thyroid Disease Anesthetic Plan ASA status: 4 Anesthesia: General and Regional (specify below) Risk of > 500 ml blood loss (7ml/kg in children): No Medications/Allergies Home Medications Medication Instructions Recorded Confirmed Last Taken Type citalopram 40 mg tablet (Celexa) 40 mg PO DAILY 06/16/21 01/24/22 01/23/22 21:00 History cilostazol 100 mg tablet 100 mg PO BID #60 tabs 10/17/21 01/24/22 01/23/22 21:00 Rx Wheelchair #1 ea 12/21/21 01/23/22 Unknown Rx hydrocodone 10 mg-acetaminophen 1 tab PO Q6H PRN pain 7 days #28 12/21/21 01/24/22 01/23/22 22:00 Rx 325 mg tablet tabs insulin degludec 200 unit/mL (3 24 unit SUBCUT BEDTIME 12/26/21 01/24/22 01/23/22 21:00 History mL) subcutaneous pen (Tresiba FlexTouch U-200 insulin) levothyroxine 25 mcg tablet 25 mcg PO DAILY 12/26/21 01/24/22 01/23/22 10:00 History metformin 500 mg tablet 1,000 mg PO DAILY 12/26/21 01/24/22 Unknown History quetiapine 50 mg tablet (Seroquel) 50 mg PO BEDTIME 12/26/21 01/24/22 01/23/22 21:00 History rosuvastatin 10 mg tablet 10 mg PO BEDTIME 12/26/21 01/24/22 01/23/22 21:00 History gabapentin 300 mg capsule 300 mg PO TID 30 days #90 caps 01/15/22 01/24/22 01/24/22 08:00 Rx Allergies Allergy/AdvReac Type Severity Reaction Status Date / Time acetaminophen [From Percocet] Allergy Unknown ALGY-Rash Verified 01/24/22 13:14 oxycodone [From Percocet] Allergy Unknown ALGY-Rash Verified 01/24/22 13:14 Penicillins Allergy Unknown ALGY-Rash Verified 01/24/22 13:14 [facility] Anesthesia Medical History Aortic stenosis, mild ASHD (arteriosclerotic heart disease) Diabetes 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 mellitus HTN (hypertension) Hyperlipidemia Hypothyroidism Limb ischemia PAD (peripheral artery disease) Surgical History Hx of elbow surgery S/P hernia repair S/P rotator cuff repair Family History Brother CAD (coronary artery disease) Cancer LUNG Sister CAD (coronary artery disease) Cancer LUNG Mother Hypertension Cancer Father Cancer COLON Social History Smoking and tobacco status: never smoked Household members: spouse Marital status: Data Anesthesia Cardiac Studies: Echocardiogram 04/27/21
[2022-01-24 13:58] LABS: Glucose Point of Care 195 mg/dL (70-110)
--- NOTE | 2022-01-24 14:05 | ANES.PROC ---
Anesthesia Procedures Procedure/Date: 01/24/22 Nerve Block ^: Nerve Block 1: Main Anesthesia: general anesthesia Time Out Performed: Yes Consent: requested by attending/covering physician, from patient, from other, risks and benefits reviewed and patient agrees to proceed Nerve block location: adductor canal (R) and popliteal (R) Anesthesia monitors applied: pulse oximetry, EKG, BP cuff and oxygen Nerve block position: supine Anesthetic Used: ropivicaine 0.5% (30 ml (20 cc popliteal, 10 cc adductor)) and with decadron ((4 mg - 3 mg popliteal, 1 mg adductor)) Ultrasound used to: recognize landmarks and visualize and ID femerol nerve Nerve Stimulator Used?: No Interscalene/Femoral BLK: 4 stimuplex 21 g needle used for position and inplane approach, visualize local anesthetic spread and no vascular puncture identified Injection: neg aspiration of heme Patient Tolerated Procedure: well Complications: none
[2022-01-24] MEDS: sodium chloride 0.9% 1,000 ML 30 ML IV ×2 (14:09→19:30)
[2022-01-24] MEDS: ketorolac 30 mg/mL INJ IVP (14:09)
--- NOTE | 2022-01-24 14:23 | W.PM.OPSUD ---
Surgery/Procedure H&P Update DATE OF PROCEDURE: January 24, 2022 DATE H&P PERFORMED: 01/23/22 CHANGES TO PREVIOUS DOCUMENTATION: None PREOP DIAGNOSIS: Dry gangrene status post TMA right foot with dehiscence and drainage PRIMARY INDICATION FOR PROCEDURE: Dry gangrene status post TMA right foot with dehiscence and drainage PLANNED PROCEDURE: Operation Date: 01/24/22 14:30 Proposed Procedures p Below Knee Amputation 07453, T87.43(Right) - Rahat Peña DO
[2022-01-24] MEDS: clindamycin 600 MG/50 ML PREMIX 100 MG IV (17:14)
[2022-01-24] MEDS: vancomycin 1,000 MG SDV 1000 MG XX (18:16)
--- NOTE | 2022-01-24 19:06 | PM.OP2 ---
Brief Operative Note Date of procedure: 01/24/22 Pre-op diagnosis: Dry gangrene status post TMA right foot with dehiscence and drainage Post-op diagnosis: same Procedure Done: Right below the knee amputation Incisional VAC placement Surgeon: Rahat Peña Estimated blood loss (mL): 100 Complications: None Post-op Plan: Patient taken to PACU in stable condition tolerated procedure without complications. Patient will be admitted for observation. Incisional VAC on in place. Range of motion of the knee as tolerated. Elevation and ice. She received appropriate postoperative pain medication and DVT prophylaxis as well as postoperative antibiotics. Plan will be for likely discharge tomorrow. Patient understands agrees with current plan. All questions answered. We will have internal medicine on board for medical management. Condition: stable Disposition: same day Coding Level of Care Code Acute [employer] for Ximena Miller
--- NOTE | 2022-01-24 19:08 | P.OP_ITS ---
Operative Report Date of procedure: January 24, 2022 Pre-op diagnosis: Preop Diagnosis Dry gangrene status post TMA right foot with dehiscence and drainage Post-op diagnosis: Same Procedure done: Right below the knee amputation Incisional VAC placement Specimens removed/disposition: Amputated right lower leg Surgeon: Rahat Peña DO Estimated blood loss: 100 mL 17 minutes IV fluids: See anesthesia record Urine output: See anesthesia record Complications: None Findings: See operative report narrative Condition: stable Disposition: floor Brief History: Patient was seen and worked up in the outpatient setting at been following with my partner who is a distance education coordinator and had a TMA that is underwent wound dehiscence as well as drainage she is having continued significant ischemic pain. At this point time she states that she is mentally ready for a below the knee amputation to the right lower extremity. She had been seen and evaluated by a vascular surgeon in outside facility and at that point time states no further attempts at revascularization could occur and patient would likely be able to heal a right below the knee amputation. This point time talked about treatment options continued nonoperative versus operative invention. This point time she elects proceed with surgical intervention of right below the knee amputation. She understands risk benefits complication alternatives surgical nonsurgical treatment options. Understanding her risk agrees to proceed with surgical intervention. All questions answered. Procedure: Patient was seen evaluate in the preoperative holding area. Consent was reviewed and signed with patient. Correct extremity was then marked. Patient seen evaluated by the anesthesia department. Once cleared for surgery she was then brought back to the operative suite. Patient was appropriately transferred to the OR table and secured to the bed in supine position. All bony prominences well-padded patient was properly secured. A nonsterile tourniquet was applied to the right thigh. Patient received appropriate preoperative antibiotics. Final timeout performed. Patient right lower extremities then prepped and draped in sterile orthopedic fashion. Esmarch tourniquet was used exsanguinate the right lower extremity and tourniquet was insufflated to 250 mmHg A standard posterior flap below the knee amputation was planned 12 cm distal to the tibial tubercle. Standard anterior and long posterior flap was then marked. At this point time I then utilized a 15 blade to make sharp scalpel incision through all the skin and subcutaneous tissue then switched to electrocautery maintaining exact hemostasis I first carried my dissection on the lateral and anterior compartments which were then dissected through the muscle bellies with electrocautery. I then switched to blunt dissection with hemostats and identified the neurovascular bundle and this was subsequently clamped. I then carried my dissection medially and utilize a box elevator to mobilize subperiosteally. I then coagulated the saphenous vein and performed neurectomy of the saphenous nerve. I then utilized a Jimenez to bluntly mobilize underneath the posterior aspect of the tibia. Once this was then completed I then carried my dissection proximally with appropriate bony resection proximal to my skin incision. We once a Hohmann was placed underneath this area I then utilized oscillating saw to perform resection of the tibia. Once this was performed I then made a small oblique resection of the anterior aspect of the tibia and then utilized a rasp to smooth out the edges. Next dissection of the fibula was performed and a [place] was placed around the fibula roughly 2 cm proximal to my tibial resection and then utilizing oscillating saw performed resection of my fibula. Once this was then performed a bone hook was placed the tibia and then an amputation knife was used to stay directly on the posterior edges of the tibia and fibula and performed the amputation of the right lower leg. This was then placed in a biohazard bag and removed. At this point time I then identified my posterior neurovascular structures. I first identified the artery and vein which were then tied off with 0 silk suture. Next I identified the tibial nerve which was placed under traction injected with lidocaine and then traction neurectomy performed. Identified the sural nerve which was placed under traction and injected with lidocaine and then traction neurectomy performed as well as tying off of the peroneal vessels and performing traction neurectomy of the peroneal nerve. At this point time I then debulked with posterior flap. At this point time I then released the tourniquet. Hemostasis was found to be satisfactory with electrocautery as well as 0 Vicryl stick ties. This point the wound bed was then thoroughly irrigated. I then identified by fascial flaps and then sequentially closed the below-knee amputation with 0 Vicryl suture for my fascia flaps bringing the soleus fascia up to the perio steum padding the distal end of the tibia. Fascia was then continually closed with interrupted 0 Vicryl suture and then subcutaneous tissue was then approximated with 2-0 Vicryl suture. Skin edges were then approximated with varinder. A standard incisional VAC was made with a black foam sponge protecting the skin incision with Xeroform. This was placed and had good seal. Incisional VAC was then dressed with 4 x 4's ABD Curlex and Corby wrap. Patient was then awakened from anesthesia and taken to PACU in stable condition. Patient tolerated procedure without complications. Disposition: Patient taken to PACU stable condition. Patient recovering well. This point time she will be admitted postoperatively to the floor she will maintain incisional VAC. Patient received appropriate pain medication as well as DVT prophylaxis and discharge instructions postoperatively. She will be admitted to the floor be worked up by the case management for discharge planning. Patient will see me in the office in 2 weeks. Patient understands agrees with current plan. All questions answered.
--- NOTE | 2022-01-24 19:08 | PM.PACU ---
PACU note Narrative: Patient recovering in PACU. Incisional VAC on in place and dressings clean dry and intact. Patient is able to bend knee. Sensation intact light touch the right BKA stump and stump is warm well perfused. Exam: awake Disposition: admitted
--- NOTE | 2022-01-24 19:09 | SUR.PHASEI ---
1848 PT TO PACU 5 PT AWAKE ALERT ORIENTED X 3 PT COUGHS OCCASIONLY, MONITOR ST AT 135 NO ECTOPY NOTED TENA DIOR AT BEDSIDE, BP LOW BUT STABLE AND HOB AT 30 DEGREES , RT LOWER LEG STUMP WITH LARGE SOFT DRESSING D/I WOUND VAC IN PLACE AND WORKING NO DRAINAGE NOTED AT THIS TIME, FOOT PUMP TO LT FOOT IV TO LT AC AREA #20 WITH NS 250 ML UP AT KVO RATE. GOOD RESP EFFORT, PT VERBALIZING APPROPIATELY 1904 SEE MED GIVEN BY COUPLER AT BEDSIDE FOR HR MAINTAINED IN 130'S ST. PT AWAKE ALERT AND VERBALIZING NO PAIN OR NAUSEA, PT C/O OF HEADACH AND BELCHING FREQUENTLY [address] NO ECTOPY NOTED BP MAINTAINED 90/54
--- NOTE | 2022-01-24 19:21 | PM.CONSULT ---
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 Peña, hospitalist services consulted for postoperative management. This was an elective procedure. She carries history of peripheral vascular disease, diabetic foot ulcers. Status post right below the knee amputation with placement of wound VAC, estimated blood loss 100 mL. Patient is not in pain, she is hemodynamically stable currently on 2 L of oxygen No active distress She looks slightly pale, hemoglobin from yesterday is 10 g, will check another CBC after her surgery She is passing gas She is willing to use a bedpan Her daughter is at the bedside Review of Systems Const: Denies: fever(s) Eyes: Denies: change in vision ENMT: Denies: throat pain Card: Denies: chest pain Resp: Denies: dyspnea GI: Denies: abdominal pain : Denies: flank pain Musc: Denies: neck pain Skin/Breast: Denies: rash Neuro: Denies: headache(s) Psych: Denies: anxiety Endo: Denies: polyuria Garth/Lymph: Denies: easy bruising All/Imm: Denies: urticaria Medications/Allergies Home Medications Medication Instructions Recorded Confirmed Last Taken Type citalopram 40 mg tablet (Celexa) 40 mg PO DAILY 06/16/21 01/24/22 01/23/22 21:00 History cilostazol 100 mg tablet 100 mg PO BID #60 tabs 10/17/21 01/24/22 01/23/22 21:00 Rx Wheelchair #1 ea 12/21/21 01/23/22 Unknown Rx hydrocodone 10 mg-acetaminophen 1 tab PO Q6H PRN pain 7 days #28 12/21/21 01/24/22 01/23/22 22:00 Rx 325 mg tablet tabs insulin degludec 200 unit/mL (3 24 unit SUBCUT BEDTIME 12/26/21 01/24/22 01/23/22 21:00 History mL) subcutaneous pen (Tresiba FlexTouch U-200 insulin) levothyroxine 25 mcg tablet 25 mcg PO DAILY 12/26/21 01/24/22 01/23/22 10:00 History metformin 500 mg tablet 1,000 mg PO DAILY 12/26/21 01/24/22 Unknown History quetiapine 50 mg tablet (Seroquel) 50 mg PO BEDTIME 12/26/21 01/24/22 01/23/22 21:00 History rosuvastatin 10 mg tablet 10 mg PO BEDTIME 12/26/21 01/24/22 01/23/22 21:00 History gabapentin 300 mg capsule 300 mg PO TID 30 days #90 caps 01/15/22 01/24/22 01/24/22 08:00 Rx Allergies Allergy/AdvReac Type Severity Reaction Status Date / Time acetaminophen [From Percocet] Allergy Unknown ALGY-Rash Verified 01/24/22 13:14 oxycodone [From Percocet] Allergy Unknown ALGY-Rash Verified 01/24/22 13:14 Penicillins Allergy Unknown ALGY-Rash Verified 01/24/22 13:14 Current Medications Generic Name Dose Route Start Last Admin Trade Name Freq PRN Reason Stop Dose Admin Sodium Chloride 1,000 mls @ 30 mls/hr 01/24/22 12:45 01/24/22 14:09 Sodium Chloride 0.9% IV 01/25/22 12:44 30 mls/hr .Q24H ADY Administration PFSH Acute PFSH: Medical History Aortic stenosis, mild ASHD (arteriosclerotic heart disease) Diabetes 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 mellitus HTN (hypertension) Hyperlipidemia Hypothyroidism Limb ischemia PAD (peripheral artery disease) Surgical History Hx of elbow surgery S/P hernia repair S/P rotator cuff repair Family History Brother CAD (coronary artery disease) Cancer LUNG Sister CAD (coronary artery disease) Cancer LUNG Mother Hypertension Cancer Father Cancer COLON Social History Smoking and tobacco status: never smoked Household members: spouse Marital status: Vitals/I&O/Wt Last Vital Signs Temp 98.5 F 01/24/22 18:49 Pulse 123 H 01/24/22 19:15 Resp 18 01/24/22 19:15 BP 90/54 01/24/22 19:15 Pulse Ox 100 01/24/22 19:15 O2 Del Method 01/24/22 19:15 O2 Flow Rate 2 01/24/22 19:15 01/24/22 01/24/22 01/24/22 06:59 14:59 22:59 Intake Total 160 / 160 Output Total 100 / 100 Balance 60 / 60 Weight last 48 hrs Weight 72.575 kg Physical Exam Narrative: Pleasant cooperative female Currently laying supine Awake and alert Nonfocal neuro exam Currently on 2 L No acute respiratory distress S1, S2 Abdomen soft Right leg covered with tight clean dressing Wound VAC in place Complexion: Pale Nonfocal neuro exam Appropriate mood and affect A&P Assessment and plan (1) 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 mellitus: (2) Status post amputation: (3) Dry gangrene: (4) Below-knee amputation of right lower extremity: Plan Right BKA Postop day 0 Check CBC Hemoglobin from yesterday 10 g She is hemoglobin stable for now Requiring oxygen postoperatively Incentive spirometer Respiratory to assess Wean off oxygen to room air As per Dr. Peña plan is to discharge her home tomorrow He has advance her diet to clear liquids for now She is endorsing passing gas Postoperative antibiotics to be administered overnight On DVT prophylaxis 30 mg Moderate dose sliding scale Consult Attestations Medical Necessity Statement: As per orthopedic Time Spent in Patient Care: 30 Coding Level of Care Code Acute Brazer Resistance for Ximena Miller Diagnoses 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 mellitus E11.42 Status post amputation Z89.9 Dry gangrene I96 Below-knee amputation of right lower extremity S88.111A
--- NOTE | 2022-01-24 19:33 | SUR.PHASEI ---
DR DUARTE UPDATED, PT HR UNCHANGED WITH BP 98/54 ORDERS RECIEVED TO CONTINUE NS AT MOD RATE UP TO 300ML. IV FLUID UP ORDERED HR NOW 119 BP HOLDING AT 96/54
--- NOTE | 2022-01-24 19:41 | SUR.PHASEI ---
DR DUARTE UPDATED PT SLEEPING WITH HOB AT 30 DEGREES HR NOW 117, SATS 100% BP 102/62
--- NOTE | 2022-01-24 20:15 | SUR.PHASEI ---
PT TO ROOM 261 PER BED PT DAUGHTER AT BEDSIDE, PT AWAKE ALERT TALKING AND LAUGHING WTH DAUGHTER AND DEJUAN RN, BEDSIDE HANDOFF, DRESSING D/I PT ASKING FOR PIZZA.
--- NOTE | 2022-01-24 20:30 | ANE.PACU2 ---
Inpatient post-anesthesia follow up: Airway intact: Yes Vital signs: Temperature 98.4 F Pulse Rate 80 Respiratory Rate 18 Blood Pressure 120/73 Pulse Oximetry 98 Oxygen Delivery Me thod Room Air Oxygen Flow Rate 2 Fraction of Inspir ed Oxygen Hydration adequate: Yes Nausea and vomiting: No Pain level: 1 Mental status: Baseline
[2022-01-24 21:06] LABS: Hematocrit 25.9 % (37.0-47.0); Hemoglobin 8.3 g/dL (11.5-15.3); Mean Corpuscular Hemoglobin 27.9 pg (28.0-34.0); Mean Corpuscular Volume 86.9 fl (81-99); Mean Platelet Volume 9.1 fL (7.4-10.4); Platelet Count 541 10^3/cmm (130-400); Red Blood Count 2.98 10^6/uL (4.1-5.3); Red Cell Distribution Width 13.6 % (12.1-15.1); White Blood Count 13.5 10^3/uL (4.0-10.0)
[2022-01-24 21:40] LABS: Glucose Point of Care 338 mg/dL (70-110)
[2022-01-24] MEDS: insulin glargine 100 units/1 mL 15 UNIT SUBCUT (22:04)
[2022-01-25] VITALS (16 sets, daily range): BP systolic 98–184; BP diastolic 60–81; PULSE 72–109; RESP 15–18; TEMP 36.4–37.3; O2SAT 94–99
[2022-01-25] MEDS: clindamycin 600 MG/50 ML PREMIX 100 MG IV ×3 (01:50→16:56)
[2022-01-25 02:21] LABS: Total Cells Counted 100 (0-100)
[2022-01-25 02:23] LABS: Band Neutrophils Absolute 0.1 10^3/cmm (0.0-1.2); Lymphocytes 5 %; Monocytes Absolute 0.4 10^3/cmm (0.1-0.6)
[2022-01-25 02:24] LABS: Absolute Neutrophil 12.4 10^3/cmm (1.4-6.5); Absolute Segmented Neutrophil 12.3 10/cmm (1.6-7.1); Eosinophils 0 %; Lymphocytes Absolute 0.7 10^3/cmm (1.2-3.4); Platelet Estimate Increased (Normal); Segmented Neutrophils 91 %
[2022-01-25 05:29] LABS: Basophils % 0.2 %; Hematocrit 24.5 % (37.0-47.0); Hemoglobin 7.6 g/dL (11.5-15.3); Lymphocytes # 0.9 10^3/uL (0.8-4.8); Lymphocytes % 7.1 %; Mean Corpuscular Hemoglobin 26.8 pg (28.0-34.0); Mean Corpuscular Volume 86.3 fl (81-99); Mean Platelet Volume 8.9 fL (7.4-10.4); Monocytes # 0.5 10^3/uL (0.2-0.9); Monocytes % 3.9 %; Neutrophils # 10.32 10^3/uL (1.8-7.7); Neutrophils % 85.6 %; Nucleated Red Blood Cells % 0 %; Platelet Count 582 10^3/cmm (130-400); Red Blood Count 2.84 10^6/uL (4.1-5.3); Red Cell Distribution Width 13.5 % (12.1-15.1)
[2022-01-25 05:49] LABS: Anion Gap 18.4 (5-19); Blood Urea Nitrogen 15 mg/dL (8-23); Calcium 6.7 mg/dL (8.5-10.5); Carbon Dioxide 18 mmol/L (22-29); Chloride 103 mmol/L (98-107); Glucose 303 mg/dL (65-115); Osmolality Calculated 292 mOsm/kg (285-295); Potassium 4.4 mmol/L (3.5-5.1); Sodium 135 mmol/L (136-145)
[2022-01-25 06:42] LABS: Glucose Point of Care 309 mg/dL (70-110)
[2022-01-25 08:14] LABS: Hematocrit 22.2 % (37.0-47.0); Hemoglobin 7.1 g/dL (11.5-15.3)
[2022-01-25] MEDS: iron polysaccharide complex 150 mg Capsule PO ×2 (08:45→17:19)
[2022-01-25] MEDS: calcium carb-vit d 600mg/400unit 1 Tablet 1 EACH PO ×2 (08:45→17:19)
[2022-01-25] MEDS: insulin lispro 100 unit/1 mL SUBCUT ×2 (08:45→12:12)
[2022-01-25] MEDS: sennosides-docusate Tablet 2 TAB PO ×2 (08:45→17:19)
--- NOTE | 2022-01-25 09:05 | PM.PN ---
Subjective Subjective: Patient seen and evaluated this afternoon. Patient recovering well. Patient did have a drop in hemoglobin to 7.1 with subsequent was given 1 unit of PRBCs per internal medicine team. Patient has better coloration and doing well this afternoon. She is worked with therapy and discussed with her and her family and are leaning towards going to a rehab facility which I think patient would benefit from rehab. Overall her pain is controlled. No other issues at this time. Is having some discomfort with the incisional VAC. We will leave this on for 1 more day and have incision VAC taken down and inspected tomorrow Vitals/I&O/Wt Last Vital Signs Temp 97.8 F 01/25/22 03:53 Pulse 95 01/25/22 03:53 Resp 15 01/25/22 03:53 BP 99/64 01/25/22 03:53 Pulse Ox 94 01/25/22 03:53 O2 Del Method 01/25/22 01:26 O2 Flow Rate 2 01/24/22 23:18 01/24/22 01/25/22 01/25/22 22:59 06:59 14:59 Intake Total 1350 / 1350 400 / 1750 Output Total 100 / 100 Balance 1250 / 1250 400 / 1650 Weight last 48 hrs Weight 156 lb 9 oz Weight 160 lb Physical Exam Narrative: Incisional VAC on in place to right below the knee amputation. Stump warm well perfused. Sensation tact light touch. She is able to flex and extend her right knee. Minimal tenderness to palpation of the right BKA stump site. Urinary Catheter Management: Ubtt: Cath Placed During This Visit: yes Urinary Catheter Date of Insertion: 01/25/22 Urinary Catheter Time of Insertion: 07:15 Data 01/25/22 07:42 01/25/22 05:05 A&P Assessment and plan (1) Below-knee amputation of right lower extremity: Plan Lovenox for DVT prophylaxis Pain control Nonweightbearing right BKA stump PT/OT Incisional VAC on in place and dressing will be taken down tomorrow A.m. labs reviewed?patient received 1 unit PRBC per hospitalist coordinator of library services for discharge planning likely rehab facility Orthopedics will evaluate tomorrow Appreciate internal medicine on board for medical management Attestations Medical Necessity Statement*: Hospitalization status post right below the knee amputation requiring postoperative labs and therapy and plan for rehab facility at discharge Coding Level of Care Code Acute Medieval English Literature Professor for Chg Fwd Diagnoses Below-knee amputation of right lower extremity S88.111A Time Spent (min) 30
[2022-01-25] MEDS: sodium chloride 0.9% (100 ml) 100 ML 20 ML (09:54)
--- NOTE | 2022-01-25 10:49 | PC.CHAP ---
Pastoral Care Encounter/Spiritual Assessment Type of Contact [] Declined press set up person visit [] Patient/Family/Request visit [] Outpatient visit [] Follow-up visit [] Physician referral [] Code/Alert [x] Routine visit [] Staff referral [] Actively dying [] Patient sleeping [] Family support [] [] Out of room [] Palliative care [] [x] Receiving care in room [] Pre-surgical visit [] Trauma [] Long length of stay [] ICU visit [] Other: Relational/Emotional Strength [x] Patient feels connected with others/family/visitors/staff [] Distress [] Loneliness/isolation [] Abandonment Spirituality of Patient [x] Person of Namrata [] Attends Mandaeism of their Namrata [x] Believes in Prayer [] Reads Bible or Nondenominational materials [] There are Spiritual issues to be addressed Canvas Marker Interventions [x] Prayer [x] Active listening [x] Non-anxious presence [x] Spiritual/emotional support [] Crisis/trauma care [x] Spiritual counseling [] Bereavement support [] Provided bereavement packet [] Provided Bible/devotional materials [] Provided toy/stuffed animal, coloring book to patient or family member [] Provided Communion [] Anointing/[place] [] Salvation [x] Completed spiritual assessment [] Other: Impact on Illness or Injury [] Angry [] Fearful [] Anxious [] Often cries [] Exhaustion [] Unable to work [] Unable to attend sikhism [] Unable to walk/stand [] Unable to read [] Unable to drive [] Unable to eat/drink [] Unable to sleep [] Unable to be with family [] Patient intubated [] Other: Summary had surgey on foot +1 well go home has a good attitude Time spent with patient 10 mins
[2022-01-25 11:49] LABS: Glucose Point of Care 202 mg/dL (70-110)
[2022-01-25] MEDS: HYDROcodone-acetaminophen 5-325 mg Tablet PO ×3 (12:13→21:40)
[2022-01-25] MEDS: diphenhydrAMINE 50 mg/mL SDV 1mL 25 MG IVP (15:34)
[2022-01-25 16:59] LABS: Glucose Point of Care 149 mg/dL (70-110)
--- NOTE | 2022-01-25 17:29 | PM.PN ---
Subjective Subjective: Tolerated procedure well yesterday. Currently complains of pain at the site of amputation, mostly discomfort from the wound VAC. Defer to surgery regarding wound VAC care. Blood pressure noted to be ranging in our systolic 99-1 20. States that she became slightly dizzy when moving out of bed to chair today. Hemoglobin noted to be at 7.1. We will check it again this evening and transfuse if less than 7. Vitals/I&O/Wt Last Vital Signs Temp 98.2 F 01/25/22 15:08 Pulse 86 01/25/22 15:08 Resp 18 01/25/22 15:08 BP 123/74 01/25/22 15:08 Pulse Ox 99 01/25/22 15:08 O2 Del Method 01/25/22 01:26 O2 Flow Rate 2 01/24/22 23:18 01/25/22 01/25/22 01/25/22 06:59 14:59 22:59 Intake Total 400 / 1750 940 / 940 100 / 1040 Balance 400 / 1650 940 / 940 100 / 1040 Weight last 48 hrs Weight 71.016 kg Weight 72.575 kg Physical Exam Narrative: General: No acute distress, AO x3 HEENT: PERRLA, pupils bilaterally equal and reactive, pallors not present Chest: Normal vesicular breath sounds, no added sounds, equal good air entry bilaterally CVS: S1-S2 regular, no murmurs, no tachycardia, no gallops, no rubs Abdomen: Soft, nontender, no organomegaly, bowel sounds present Neuro: No focal deficits, no facial deformity, AO x3, power 5/5 in all limbs Urinary Catheter Management: Butt: Cath Placed During This Visit: yes Urinary Catheter Date of Insertion: 01/25/22 Urinary Catheter Time of Insertion: 07:15 Data 01/25/22 07:42 01/25/22 05:05 A&P Assessment and plan (1) 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 mellitus: (2) Status post amputation: (3) Dry gangrene: (4) Below-knee amputation of right lower extremity: Plan 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 Postop day 1 H&H to be repeated this evening, transfuse if less than 7 Hemoglobin from yesterday 10 g Incentive spirometer continue sliding scale insulin On DVT prophylaxis 30 mg Moderate dose sliding scale insulin Attestations Medical Necessity Statement*: repeat Hb, transfuse if Hb less than 7 Coding Level of Care Code Acute Office [employer] Consultant for Chg Fwd Diagnoses 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 mellitus E11.42 Status post amputation Z89.9 Dry gangrene I96 Below-knee amputation of right lower extremity S88.111A
--- NOTE | 2022-01-25 18:05 | PC.NURSE ---
Patient resting in bed, family at bedside, VSS, AAOx4, c/o pain to RLE not controlled well with pain medication. Patient having redness to face and feeling light headed, physician notified and orders recieved and carried out. Closely monitoring patient. Awaiting HH results before administering next unit of PRBC per Dr Morales's verbal orders. No needs at this time. Room clean and clutter free with call light in reach.
[2022-01-25 18:29] LABS: Hematocrit 23.2 % (37.0-47.0); Hemoglobin 7.7 g/dL (11.5-15.3)
[2022-01-25] MEDS: ALPRAZolam 0.5 mg Tablet 0.375 MG PO (20:25)
[2022-01-25] MEDS: atorvastatin 40 mg Tablet 20 MG PO (20:26)
[2022-01-25] MEDS: trazodone 100 mg Tablet PO (20:26)
[2022-01-25] MEDS: quetiapine 25 mg Tablet 50 MG PO (20:26)
[2022-01-25 20:58] LABS: Glucose Point of Care 142 mg/dL (70-110)
[2022-01-25] MEDS: sodium chloride 0.9% (100 ml) 100 ML 10 ML (21:41)
[2022-01-25] MEDS: insulin glargine 100 units/1 mL 15 UNIT SUBCUT (21:45)
[2022-01-26] VITALS (8 sets, daily range): BP systolic 144–176; BP diastolic 71–90; PULSE 67–78; RESP 16–19; TEMP 36.7–37.1; O2SAT 94–97
[2022-01-26] MEDS: HYDROcodone-acetaminophen 5-325 mg Tablet PO ×5 (02:42→18:20)
[2022-01-26 04:36] LABS: Basophils % 0.2 %; Eosinophils % 0.2 %; Hematocrit 29.5 % (37.0-47.0); Hemoglobin 9.7 g/dL (11.5-15.3); Lymphocytes # 1.8 10^3/uL (0.8-4.8); Lymphocytes % 17.1 %; Mean Corpuscular Hemoglobin 27.7 pg (28.0-34.0); Mean Corpuscular Volume 84.3 fl (81-99); Mean Platelet Volume 8.7 fL (7.4-10.4); Monocytes # 0.9 10^3/uL (0.2-0.9); Monocytes % 8.3 %; Neutrophils # 7.47 10^3/uL (1.8-7.7); Nucleated Red Blood Cells % 0 %; Platelet Count 448 10^3/cmm (130-400); Red Cell Distribution Width 13.4 % (12.1-15.1); White Blood Count 10.4 10^3/uL (4.0-10.0)
[2022-01-26 04:40] LABS: Mean Corpuscular HGB Conc 32.9 g/dL (30.0-36.0)
[2022-01-26 05:01] LABS: Anion Gap 11.5 (5-19); Blood Urea Nitrogen 19 mg/dL (8-23); Calcium 8.8 mg/dL (8.5-10.5); Carbon Dioxide 25 mmol/L (22-29); Chloride 105 mmol/L (98-107); Glucose 100 mg/dL (65-115); Osmolality Calculated 288 mOsm/kg (285-295); Potassium 3.5 mmol/L (3.5-5.1); Sodium 138 mmol/L (136-145)
[2022-01-26 06:41] LABS: Glucose Point of Care 92 mg/dL (70-110)
[2022-01-26] MEDS: citalopram 20 mg Tablet 40 MG PO (08:07)
[2022-01-26] MEDS: sennosides-docusate Tablet 2 TAB PO ×2 (08:07→18:20)
[2022-01-26] MEDS: iron polysaccharide complex 150 mg Capsule PO ×2 (08:08→18:20)
[2022-01-26] MEDS: levothyroxine 25 mcg Tablet PO (08:08)
[2022-01-26] MEDS: calcium carb-vit d 600mg/400unit 1 Tablet 1 EACH PO ×2 (08:08→18:20)
--- NOTE | 2022-01-26 12:07 | PM.PN ---
Subjective Subjective: Patient's hemoglobin stabilized 9.7 this morning after he PRBC yesterday. Overall she is had some pain issues with her incisional VAC last night complaining of pain and pressure. The incisional VAC was taken down and will be removed completely she will not need this at discharge a repeat dressed with a dry dressing. Incision looks great. Clean dry and intact minimal ecchymosis no significant swelling or tension at closure site. She was redressed with a dry dressing. At this point time given her pain we will give her a one-time dose of her Xanax that she does take at home as well as we will start her up on her gabapentin as she is having some phantom pain. We will also give her some breakthrough pain with Dilaudid. Patient understands agrees current plan. Questions. She will continue work with therapy plan for discharge to a rehab facility when she is ready for discharge. Vitals/I&O/Wt Last Vital Signs Temp 98.3 F 01/26/22 11:36 Pulse 73 01/26/22 11:36 Resp 18 01/26/22 11:36 BP 151/77 01/26/22 11:36 Pulse Ox 97 01/26/22 11:36 O2 Del Method 01/26/22 11:36 O2 Flow Rate 2 01/24/22 23:18 01/25/22 01/26/22 01/26/22 22:59 06:59 14:59 Intake Total 270 / 1693 650 / 2343 240 / 240 Output Total 950 / 950 700 / 1650 Balance -680 / 743 -50 / 693 240 / 240 Weight last 48 hrs Weight 156 lb 9 oz Weight 160 lb Physical Exam Narrative: Incisional VAC dressing to right below the knee amputation taken down incisions clean dry and intact with varinder in place. Minimal ecchymosis mild swelling. No tension at the skin edges. No drainage. Mild hypersensitivity to below the knee amputation stump. Sounds warm well perfused she is able to flex and extend the knee. Urinary Catheter Management: Butt: Cath Placed During This Visit: yes Reason for Continuing Indwelling Catheter: Acute Urinary Retention or Obstruction Urinary Catheter Date of Insertion: 01/25/22 Urinary Catheter Time of Insertion: 07:15 Data 01/26/22 04:21 01/26/22 04:21 A&P Assessment and plan (1) Below-knee amputation of right lower extremity: (2) 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 mellitus: (3) Status post amputation: (4) Dry gangrene: Plan Postop day 2 Repeat hemoglobin 9.7 Pain control?added breakthrough pain of Dilaudid, restarted patient's home gabapentin for phantom pain and patient given one-time dose of Xanax after dressing change as she takes Xanax at home at bedtime Incisional VAC taken down and redressed with a dry dressing PT/OT Internal medicine for medical management Follow-up with Dr. Peña in the office in 2 weeks Plan will be for discharge to rehab facility once ready for discharge Attestations Medical Necessity Statement*: Patient required postoperative monitoring after right below the knee amputation for pain and will require social work for halfway/rehab facility placement as she recovers. Coding Level of Care Code Acute Reference Services Head for Ximena Miller Diagnoses Below-knee amputation of right lower extremity S88.111A 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 mellitus E11.42 Status post amputation Z89.9 Dry gangrene I96 Time Spent (min) 30
[2022-01-26] MEDS: HYDROmorphone 1 mg/mL INJ 1 mL 0.25 MG IVP (12:26)
[2022-01-26] MEDS: gabapentin 300 mg Capsule PO ×2 (13:50→20:31)
[2022-01-26] MEDS: ALPRAZolam 0.5 mg Tablet 0.375 MG PO ×2 (15:25→20:32)
[2022-01-26 15:28] LABS: Glucose Point of Care 122 mg/dL (70-110)
--- NOTE | 2022-01-26 16:22 | PM.PN ---
Subjective Subjective: Status posttransfusion of 1 red blood cells yesterday for symptomatic anemia. Blood pressure is better controlled today. No longer dizzy or orthostatic. She has significant pain at surgical site today. Wound VAC was taken down. Vitals/I&O/Wt Last Vital Signs Temp 98.3 F 01/26/22 15:31 Pulse 78 01/26/22 15:31 Resp 16 01/26/22 15:31 BP 144/72 01/26/22 15:31 Pulse Ox 96 01/26/22 15:31 O2 Del Method 01/26/22 15:31 O2 Flow Rate 2 01/24/22 23:18 01/26/22 01/26/22 01/26/22 06:59 14:59 22:59 Intake Total 650 / 2343 240 / 240 Output Total 700 / 1650 Balance -50 / 693 240 / 240 Weight last 48 hrs Weight 71.016 kg Physical Exam Narrative: General: No acute distress, AO x3 HEENT: PERRLA, pupils bilaterally equal and reactive, pallors not present Chest: Normal vesicular breath sounds, no added sounds, equal good air entry bilaterally CVS: S1-S2 regular, no murmurs, no tachycardia, no gallops, no rubs Abdomen: Soft, nontender, no organomegaly, bowel sounds present Neuro: No focal deficits, no facial deformity, AO x3, power 5/5 in all limbs Urinary Catheter Management: Butt: Cath Placed During This Visit: yes Reason for Continuing Indwelling Catheter: Acute Urinary Retention or Obstruction Urinary Catheter Date of Insertion: 01/25/22 Urinary Catheter Time of Insertion: 07:15 Data 01/26/22 04:21 01/26/22 04:21 A&P Assessment and plan (1) 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 mellitus: (2) Status post amputation: (3) Dry gangrene: (4) Below-knee amputation of right lower extremity: Plan 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 Postop day 2 s/p 1PRBC for symptomatic anemia with hb 7.1 on 01/25. BP beter controlled today, denies dizziness today Incentive spirometer continue sliding scale insulin On hold DVT prophylaxis 30 mg Moderate dose sliding scale insulin, glargine 15U , fingerstick currently under acceptable control. Attestations Medical Necessity Statement*: per admitting Coding Level of Care Code Acute Distribution Operations Supervisor for [facility] Fwd Diagnoses 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 mellitus E11.42 Status post amputation Z89.9 Dry gangrene I96 Below-knee amputation of right lower extremity S88.111A
[2022-01-26 16:49] LABS: Glucose Point of Care 233 mg/dL (70-110)
[2022-01-26] MEDS: insulin lispro 100 unit/1 mL SUBCUT (18:19)
[2022-01-26] MEDS: trazodone 100 mg Tablet PO (20:31)
[2022-01-26] MEDS: quetiapine 25 mg Tablet 50 MG PO (20:31)
[2022-01-26] MEDS: atorvastatin 40 mg Tablet 20 MG PO (20:31)
[2022-01-26] MEDS: insulin glargine 100 units/1 mL 15 UNIT SUBCUT (20:32)
[2022-01-26] MEDS: ketorolac 30 mg/mL INJ 15 MG IVP (21:17)
[2022-01-26 21:37] LABS: Glucose Point of Care 223 mg/dL (70-110)
[2022-01-27 04:49] LABS: Basophils # 0.1 10^3/uL (0.0-0.1); Basophils % 0.6 %; Eosinophils # 0.1 10^3/uL (0.0-0.8); Eosinophils % 1.2 %; Hematocrit 40.5 % (37.0-47.0); Hemoglobin 13.6 g/dL (11.5-15.3); Lymphocytes # 1.8 10^3/uL (0.8-4.8); Lymphocytes % 21.4 %; Mean Corpuscular HGB Conc 33.6 g/dL (30.0-36.0); Mean Corpuscular Hemoglobin 27.8 pg (28.0-34.0); Mean Corpuscular Volume 82.8 fl (81-99); Mean Platelet Volume 8.8 fL (7.4-10.4); Monocytes # 0.9 10^3/uL (0.2-0.9); Monocytes % 10.2 %; Neutrophils # 5.35 10^3/uL (1.8-7.7); Neutrophils % 62.5 %; Nucleated Red Blood Cells % 0 %; Platelet Count 317 10^3/cmm (130-400); Red Blood Count 4.89 10^6/uL (4.1-5.3); Red Cell Distribution Width 13.8 % (12.1-15.1); White Blood Count 8.6 10^3/uL (4.0-10.0)
[2022-01-27 05:04] LABS: Blood Urea Nitrogen 18 mg/dL (8-23); Calcium 9.1 mg/dL (8.5-10.5); Carbon Dioxide 24 mmol/L (22-29); Glucose 133 mg/dL (65-115)
[2022-01-27 05:06] LABS: Potassium 4.1 mmol/L (3.5-5.1)
[2022-01-27 05:35] LABS: Slide Review Slide Review Perform
[2022-01-27 06:50] LABS: Glucose Point of Care 139 mg/dL (70-110)
[2022-01-27 08:10] VITALS: BP 201/83; PULSE 76; RESP 17; TEMP 36.6; O2SAT 95
[2022-01-27] MEDS: HYDROcodone-acetaminophen 5-325 mg Tablet PO ×2 (08:19→14:56)
[2022-01-27] MEDS: iron polysaccharide complex 150 mg Capsule PO ×2 (08:19→17:51)
[2022-01-27] MEDS: levothyroxine 25 mcg Tablet PO (08:19)
[2022-01-27] MEDS: citalopram 20 mg Tablet 40 MG PO (08:19)
[2022-01-27] MEDS: sennosides-docusate Tablet 2 TAB PO ×2 (08:19→17:50)
[2022-01-27] MEDS: gabapentin 300 mg Capsule PO ×3 (08:19→21:13)
[2022-01-27] MEDS: calcium carb-vit d 600mg/400unit 1 Tablet 1 EACH PO ×2 (08:20→17:51)
[2022-01-27 09:57] LABS: Osmolality Calculated 288 mOsm/kg (285-295); Sodium 137 mmol/L (136-145)
[2022-01-27 09:58] LABS: Anion Gap 17.1 (5-19); Chloride 100 mmol/L (98-107)
[2022-01-27 10:49] LABS: Blood Urea Nitrogen 16 mg/dL (8-23); Calcium 9.4 mg/dL (8.5-10.5); Carbon Dioxide 22 mmol/L (22-29); Chloride 101 mmol/L (98-107); Glucose 261 mg/dL (65-115); Osmolality Calculated 288 mOsm/kg (285-295); Sodium 134 mmol/L (136-145)
[2022-01-27 11:45] LABS: Glucose Point of Care 239 mg/dL (70-110)
[2022-01-27 11:57] VITALS: BP 164/74; PULSE 63; RESP 17; O2SAT 97
--- NOTE | 2022-01-27 12:29 | PM.PN ---
Subjective Subjective: seen this am no acute events overnight. HB 13.6. s/p 1 unit PRBC Laying in bed. offers no complaints. sodium this am 122. Have sent for repeat. Vitals/I&O/Wt Last Vital Signs Temp 98 F 01/27/22 08:10 Pulse 63 01/27/22 11:57 Resp 17 01/27/22 11:57 BP 164/74 01/27/22 11:57 Pulse Ox 97 01/27/22 11:57 O2 Del Method 01/26/22 15:31 O2 Flow Rate 2 01/26/22 20:00 01/26/22 01/27/22 01/27/22 22:59 06:59 14:59 Intake Total 640 / 880 240 / 1120 360 / 360 Output Total 0 / 0 1475 / 1475 Balance 640 / 880 -1235 / -355 360 / 360 Physical Exam Narrative: General: No acute distress, AO x3 HEENT:EOMI Chest: Clear to auscultation b/l, no wheezes CVS: S1-S2 regular,no tachycardia, no gallops, no rubs Abdomen: Soft, nontender, no organomegaly, bowel sounds present Neuro: Grossly non focal. Urinary Catheter Management: Butt: Cath Placed During This Visit: yes Reason for Continuing Indwelling Catheter: Acute Urinary Retention or Obstruction Urinary Catheter Date of Insertion: 01/25/22 Urinary Catheter Time of Insertion: 07:15 Data 01/27/22 03:12 01/27/22 09:45 A&P Assessment and plan (1) 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 mellitus: (2) Status post amputation: (3) Dry gangrene: (4) Below-knee amputation of right lower extremity: Plan 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 Postop day 2 s/p 1PRBC for symptomatic anemia with hb 7.1 on 01/25. BP 200 systolic range this am. By time pt was seen, BP 164/74, denies dizziness today Hb 13.1 today. Stable. Incentive spirometer continue sliding scale insulin On hold DVT prophylaxis 30 mg Moderate dose sliding scale insulin, glargine 15U , fingerstick currently under acceptable control. Awaiting placement to [facility]. Attestations Medical Necessity Statement*: per admitting Coding Level of Care Code Acute Civilian Technician for Chg Angela Diagnoses 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 mellitus E11.42 Status post amputation Z89.9 Dry gangrene I96 Below-knee amputation of right lower extremity S88.111A
[2022-01-27] MEDS: insulin lispro 100 unit/1 mL SUBCUT ×2 (12:35→17:51)
--- NOTE | 2022-01-27 13:52 | PC.SOCIAL ---
Pg 2 IMM Explained to pt Pg 2 IMM. No questions voiced. Provided pt a copy. Initialed, dated, & timed a copy & placed in chart.
[2022-01-27 17:28] LABS: Glucose Point of Care 174 mg/dL (70-110)
[2022-01-27] MEDS: ketorolac 30 mg/mL INJ 15 MG IVP (18:03)
[2022-01-27 20:00] VITALS: BP 144/70; PULSE 62; RESP 17; TEMP 36.7; O2SAT 96
--- NOTE | 2022-01-27 20:06 | PM.PN ---
Subjective Subjective: Patient was seen this evening. She has had no acute events overnight or throughout the day. She remains stable with decreasing complaints of phantom limb pain . Medical team is on board working with her. Sodium has improved. Medications: Reviewed: Yes Vitals/I&O/Wt Last Vital Signs Temp 98 F 01/27/22 08:10 Pulse 63 01/27/22 11:57 Resp 17 01/27/22 11:57 BP 164/74 01/27/22 11:57 Pulse Ox 97 01/27/22 11:57 O2 Del Method 01/26/22 15:31 O2 Flow Rate 2 01/26/22 20:00 01/27/22 01/27/22 01/27/22 06:59 14:59 22:59 Intake Total 240 / 1120 560 / 560 300 / 860 Output Total 1475 / 1475 600 / 600 Balance -1235 / -355 560 / 560 -300 / 260 Physical Exam Narrative: Patient is laying in bed. She appears comfortable. Her dressing is dry and intact. She has no other complaints. Upon evaluation of her right lower extremity, she had the leg propped on a pillow and in this position, the hip and knee were both flexed. The pillow was moved so that she would be at a better position with extension of the knee in hopes of preventing flexion contracture. Dressing is not removed. With palpation, there is minimal to no pain. Urinary Catheter Management: Butt: Cath Placed During This Visit: yes Reason for Continuing Indwelling Catheter: Acute Urinary Retention or Obstruction Urinary Catheter Date of Insertion: 01/25/22 Urinary Catheter Time of Insertion: 07:15 Data 01/27/22 03:12 01/27/22 09:45 A&P Assessment and plan (1) Below-knee amputation of right lower extremity: Patient's dressing is dry and intact. Adjustments to her resting position are made in hopes of avoiding flexion contracture at the knee. (2) 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 mellitus: (3) Status post amputation: (4) Dry gangrene: Plan Postop day 3 Repeat hemoglobin 13.6 Pain control? improved with patient complaining of decreased phantom pain Outer dressing as an Corby wrap with no evidence of bleeding. This is not removed. PT/OT Internal medicine for medical management Follow-up with Dr. Peña in the office in 2 weeks Plan will be for discharge to rehab facility once ready for discharge Attestations Medical Necessity Statement*: Patient continues ongoing medical care following right lower extremity below-knee amputation Coding Level of Care Code Acute Blueprint Machine Operator for Ximena Miller Diagnoses Below-knee amputation of right lower extremity S88.111A 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 mellitus E11.42 Status post amputation Z89.9 Dry gangrene I96
[2022-01-27 20:42] LABS: Glucose Point of Care 137 mg/dL (70-110)
[2022-01-27] MEDS: insulin glargine 100 units/1 mL 15 UNIT SUBCUT (21:13)
[2022-01-27] MEDS: quetiapine 25 mg Tablet 50 MG PO (21:13)
[2022-01-27] MEDS: trazodone 100 mg Tablet PO (21:13)
[2022-01-27] MEDS: atorvastatin 40 mg Tablet 20 MG PO (21:13)
[2022-01-28] VITALS: BP 129/67; PULSE 69; RESP 15; TEMP 36.5; O2SAT 95
[2022-01-28 04:00] VITALS: BP 168/69; PULSE 70; RESP 16; TEMP 36.7; O2SAT 96
[2022-01-28 04:05] LABS: Basophils % 0.4 %; Eosinophils # 0.2 10^3/uL (0.0-0.8); Eosinophils % 2.5 %; Hematocrit 29.8 % (37.0-47.0); Hemoglobin 9.7 g/dL (11.5-15.3); Lymphocytes # 1.8 10^3/uL (0.8-4.8); Lymphocytes % 24.4 %; Mean Corpuscular HGB Conc 32.6 g/dL (30.0-36.0); Mean Corpuscular Hemoglobin 27.7 pg (28.0-34.0); Mean Corpuscular Volume 85.1 fl (81-99); Mean Platelet Volume 8.6 fL (7.4-10.4); Monocytes # 0.8 10^3/uL (0.2-0.9); Monocytes % 10.2 %; Neutrophils # 4.29 10^3/uL (1.8-7.7); Neutrophils % 58.4 %; Nucleated Red Blood Cells % 0 %; Platelet Count 473 10^3/cmm (130-400); Red Cell Distribution Width 13.4 % (12.1-15.1); White Blood Count 7.3 10^3/uL (4.0-10.0)
[2022-01-28 04:32] LABS: Anion Gap 13.8 (5-19); Blood Urea Nitrogen 17 mg/dL (8-23); Calcium 9.7 mg/dL (8.5-10.5); Carbon Dioxide 26 mmol/L (22-29); Chloride 99 mmol/L (98-107); Glucose 141 mg/dL (65-115); Osmolality Calculated 284 mOsm/kg (285-295); Potassium 3.8 mmol/L (3.5-5.1); Sodium 135 mmol/L (136-145)
[2022-01-28 06:16] LABS: Glucose Point of Care 260 mg/dL (70-110)
[2022-01-28 08:00] VITALS: BP 186/68; PULSE 75; RESP 16; TEMP 36.6; O2SAT 94
[2022-01-28] MEDS: iron polysaccharide complex 150 mg Capsule PO ×2 (08:10→16:04)
[2022-01-28] MEDS: gabapentin 300 mg Capsule PO ×3 (08:10→20:59)
[2022-01-28] MEDS: citalopram 20 mg Tablet 40 MG PO (08:10)
[2022-01-28] MEDS: sennosides-docusate Tablet 2 TAB PO ×2 (08:10→16:04)
[2022-01-28] MEDS: levothyroxine 25 mcg Tablet PO (08:11)
[2022-01-28] MEDS: HYDROcodone-acetaminophen 5-325 mg Tablet PO ×3 (08:11→16:04)
[2022-01-28] MEDS: calcium carb-vit d 600mg/400unit 1 Tablet 1 EACH PO ×2 (08:11→16:04)
[2022-01-28] MEDS: insulin lispro 100 unit/1 mL SUBCUT ×2 (08:16→17:12)
[2022-01-28 12:00] VITALS: PULSE 69; RESP 17; TEMP 36.7; O2SAT 97
[2022-01-28 12:24] LABS: Glucose Point of Care 118 mg/dL (70-110)
--- NOTE | 2022-01-28 14:03 | P.PN_ITS ---
Subjective Subjective: Hemoglobin is stable at 9.7. Pain is much better controlled now. Hypertensive with blood pressure ranging between 1 80-200 systolic Medications: Reviewed: Yes Vitals/I&O/Wt Last Vital Signs Temp 98.1 F 01/28/22 12:00 Pulse 69 01/28/22 12:00 Resp 17 01/28/22 12:00 BP 186/68 01/28/22 08:00 Pulse Ox 97 01/28/22 12:00 O2 Del Method 01/26/22 15:31 O2 Flow Rate 2 01/26/22 20:00 01/27/22 01/28/22 01/28/22 22:59 06:59 14:59 Intake Total 780 / 1340 600 / 1940 440 / 440 Output Total 600 / 600 800 / 1400 Balance 180 / 740 -200 / 540 440 / 440 Weight last 48 hrs Weight 69.989 kg Physical Exam Narrative: General: No acute distress, AO x3 HEENT: PERRLA, pupils bilaterally equal and reactive, pallors not present Chest: Normal vesicular breath sounds, no added sounds, equal good air entry bilaterally CVS: S1-S2 regular, no murmurs, no tachycardia, no gallops, no rubs Abdomen: Soft, nontender, no organomegaly, bowel sounds present Neuro: No focal deficits, no facial deformity, AO x3, power 5/5 in all limbs Urinary Catheter Management: Butt: Cath Placed During This Visit: yes Reason for Continuing Indwelling Catheter: Acute Urinary Retention or Obstruction Urinary Catheter Date of Insertion: 01/25/22 Urinary Catheter Time of Insertion: 07:15 Data 01/28/22 02:57 01/28/22 02:57 A&P Assessment and plan (1) 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 mellitus: (2) Status post amputation: (3) Dry gangrene: (4) Below-knee amputation of right lower extremity: Plan 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 wpund vac taken down on 01/26 Ambulating with PT currently, participates with tehrapy s/p 1PRBC for symptomatic anemia with hb 7.1 on 01/25. Uncontrolled HTN with SBP ranfing 180-200, will start amlodipine 5mg daily and prn hydralazine Incentive spirometer continue sliding scale insulin On hold DVT prophylaxis 30 mg per ortho Moderate dose sliding scale insulin, glargine 15U , fingerstick currently under acceptable control. Attestations Medical Necessity Statement*: per admitting Coding Level of Care Code Acute Ladies Underwear Operator for Ximena Miller Diagnoses 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 mellitus E11.42 Status post amputation Z89.9 Dry gangrene I96 Below-knee amputation of right lower extremity S88.111A
--- NOTE | 2022-01-28 15:36 | P.PN_ITS ---
Subjective Subjective: Hemoglobin is stable at 9.7. Pain is much better controlled now. She is complaining of feeling a band around her leg. She is beginning to work with physical therapy. Medications: Reviewed: Yes Vitals/I&O/Wt Last Vital Signs Temp 98.1 F 01/28/22 12:00 Pulse 69 01/28/22 12:00 Resp 17 01/28/22 12:00 BP 186/68 01/28/22 08:00 Pulse Ox 97 01/28/22 12:00 O2 Del Method 01/26/22 15:31 O2 Flow Rate 2 01/26/22 20:00 01/28/22 01/28/22 01/28/22 06:59 14:59 22:59 Intake Total 600 / 1940 440 / 440 Output Total 800 / 1400 Balance -200 / 540 440 / 440 Weight last 48 hrs Weight 154 lb 4.8 oz Physical Exam Narrative: Patient is laying in bed. She appears comfortable. Her dressing is dry and intact, and therefore, it will be left in place. She has no other complaints. Dressing is not removed. With palpation, there is minimal to no pain. Once again, the patient is encouraged to keep her knee straight and to exercise regularly. Urinary Catheter Management: Butt: Cath Placed During This Visit: yes Reason for Continuing Indwelling Catheter: Other Urinary Catheter Date of Insertion: 01/25/22 Urinary Catheter Time of Insertion: 07:15 Data 01/28/22 02:57 01/28/22 02:57 A&P Assessment and plan (1) Below-knee amputation of right lower extremity: Patient's dressing is dry and intact. (2) 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 mellitus: (3) Status post amputation: (4) Dry gangrene: Plan Postop day 4 Repeat hemoglobin 9.7 Pain control? improved with patient complaining of decreased phantom pain, but she does complain of a band type sensation Outer dressing as an Corby wrap with no evidence of bleeding. This is not removed. PT/OT Internal medicine for medical management Follow-up with Dr. Peña in the office in 2 weeks Plan will be for discharge to rehab facility once ready for discharge Attestations Medical Necessity Statement*: Continue ongoing symptom evaluation following BKA amputation Coding Level of Care Code Acute Marketing Development Manager for ansley Miller Diagnoses Below-knee amputation of right lower extremity S88.111A 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 mellitus E11.42 Status post amputation Z89.9 Dry gangrene I96
[2022-01-28 16:00] VITALS: BP 148/68; PULSE 66; RESP 16; TEMP 36.8; O2SAT 97
[2022-01-28] MEDS: amlodipine 5 mg Tablet PO (16:04)
[2022-01-28 16:41] LABS: Glucose Point of Care 185 mg/dL (70-110)
[2022-01-28 20:00] VITALS: BP 143/60; PULSE 66; RESP 18; TEMP 36.8; O2SAT 96
[2022-01-28] MEDS: quetiapine 25 mg Tablet 50 MG PO (20:59)
[2022-01-28] MEDS: trazodone 100 mg Tablet PO (20:59)
[2022-01-28] MEDS: insulin glargine 100 units/1 mL 15 UNIT SUBCUT (20:59)
[2022-01-28] MEDS: atorvastatin 40 mg Tablet 20 MG PO (21:00)
[2022-01-28 21:20] LABS: Glucose Point of Care 169 mg/dL (70-110)
--- NOTE | 2022-01-28 23:10 | PC.NURSE ---
report received from ENEIDA Bhakta
[2022-01-29] VITALS: BP 157/68; PULSE 79; RESP 12; TEMP 37.3; O2SAT 97
[2022-01-29] MEDS: HYDROcodone-acetaminophen 5-325 mg Tablet PO ×4 (00:37→19:07)
--- NOTE | 2022-01-29 03:54 | PC.NURSE ---
Patient had catheter pulled by dayshift. Patient has had two voids since then.
[2022-01-29 04:00] VITALS: BP 137/68; PULSE 73; RESP 12; TEMP 36.7; O2SAT 94
[2022-01-29 04:57] LABS: Basophils % 0.6 %; Eosinophils # 0.3 10^3/uL (0.0-0.8); Eosinophils % 3.7 %; Hematocrit 31.3 % (37.0-47.0); Hemoglobin 10.3 g/dL (11.5-15.3); Lymphocytes # 1.8 10^3/uL (0.8-4.8); Lymphocytes % 24.9 %; Mean Corpuscular HGB Conc 32.9 g/dL (30.0-36.0); Mean Corpuscular Volume 85.1 fl (81-99); Mean Platelet Volume 8.5 fL (7.4-10.4); Monocytes # 0.7 10^3/uL (0.2-0.9); Monocytes % 9.4 %; Neutrophils % 57.5 %; Nucleated Red Blood Cells % 0 %; Platelet Count 445 10^3/cmm (130-400); Red Blood Count 3.68 10^6/uL (4.1-5.3); Red Cell Distribution Width 13.3 % (12.1-15.1); White Blood Count 7.1 10^3/uL (4.0-10.0)
[2022-01-29 06:16] LABS: Glucose Point of Care 190 mg/dL (70-110)
[2022-01-29 08:00] VITALS: BP 158/68; PULSE 68; RESP 14; TEMP 36.4; O2SAT 97
[2022-01-29] MEDS: insulin lispro 100 unit/1 mL SUBCUT ×2 (08:43→18:04)
[2022-01-29] MEDS: gabapentin 300 mg Capsule PO ×3 (08:44→21:01)
[2022-01-29] MEDS: levothyroxine 25 mcg Tablet PO (08:44)
[2022-01-29] MEDS: iron polysaccharide complex 150 mg Capsule PO ×2 (08:44→18:06)
[2022-01-29] MEDS: calcium carb-vit d 600mg/400unit 1 Tablet 1 EACH PO ×2 (08:44→18:05)
[2022-01-29] MEDS: citalopram 20 mg Tablet 40 MG PO (08:44)
[2022-01-29] MEDS: sennosides-docusate Tablet 2 TAB PO ×2 (08:44→18:05)
[2022-01-29] MEDS: amlodipine 5 mg Tablet PO (08:44)
--- NOTE | 2022-01-29 09:00 | PC.SOCIAL ---
IMM Update IMM updated with patient. Verbalized an understanding. Copy Pg 2 provided. Initialled, dated, timed, and placed in chart.
--- NOTE | 2022-01-29 11:02 | P.DS_ITS ---
Discharge Providers Date of Admission: 01/24/22 18:15 Date of Discharge: January 29, 2022 Attending Provider at Admission: Rahat Peña DO Attending Provider at Discharge: Rahat Peña DO Primary Care Provider: ALFONSO Morris Diagnoses at Discharge Discharge Diagnosis (1) Below-knee amputation of right lower extremity: Status: Acute (2) 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 mellitus: Status: Acute (3) Status post amputation: Status: Acute (4) Dry gangrene: Status: Acute Reason for Visit Reason for Visit: T87.43 Physical Exam Urinary Catheter Management: Butt: Cath Placed During This Visit: yes Reason for Continuing Indwelling Catheter: Other Urinary Catheter Date of Insertion: 01/25/22 Urinary Catheter Time of Insertion: 07:15 Discharge Data Studies Completed and Pending Pending at discharge Category Date Time Status Pathology: Surgical [PTH] Routine Pth 01/24/22 18:42 Received Laboratory Results WBC 7.1 10^3/uL (4.0-10.0) 01/29/22 04:32 RBC 3.68 10^6/uL (4.1-5.3) L 01/29/22 04:32 Hgb 10.3 g/dL (11.5-15.3) L 01/29/22 04:32 Hct 31.3 % (37.0-47.0) L 01/29/22 04:32 MCV 85.1 fl (81-99) 01/29/22 04:32 MCH 28.0 pg (28.0-34.0) 01/29/22 04:32 MCHC 32.9 g/dL (30.0-36.0) 01/29/22 04:32 RDW 13.3 % (12.1-15.1) 01/29/22 04:32 Plt Count 445 10^3/cmm (130-400) H 01/29/22 04:32 MPV 8.5 fL (7.4-10.4) 01/29/22 04:32 Neut % (Auto) 57.5 % 01/29/22 04:32 Lymph % (Auto) 24.9 % 01/29/22 04:32 [place] % (Auto) 9.4 % 01/29/22 04:32 Eos % (Auto) 3.7 % 01/29/22 04:32 Baso % (Auto) 0.6 % 01/29/22 04:32 Neut # (Auto) 4.10 10^3/uL (1.8-7.7) 01/29/22 04:32 Lymph # (Auto) 1.8 10^3/uL (0.8-4.8) 01/29/22 04:32 [place] # (Auto) 0.7 10^3/uL (0.2-0.9) 01/29/22 04:32 Eos # (Auto) 0.3 10^3/uL (0.0-0.8) 01/29/22 04:32 Baso # (Auto) 0.0 10^3/uL (0.0-0.1) 01/29/22 04:32 Nucleated RBC % (auto) 0 % 01/29/22 04:32 Total Counted 100 (0-100) 01/24/22 20:41 Atypical Lymphs % 0.0 % (0-5) 01/24/22 20:41 Absolute Neutrophils 12.4 10^3/cmm (1.4-6.5) H 01/24/22 20:41 Segmented Neutrophils 91 % 01/24/22 20:41 Abs Segm Neuts (Man) 12.3 10/cmm (1.6-7.1) H 01/24/22 20:41 Band Neutrophils 1.0 % 01/24/22 20:41 Abs Band Neuts (Man) 0.1 10^3/cmm (0.0-1.2) 01/24/22 20:41 Absolute Lymphocytes 0.7 10^3/cmm (1.2-3.4) L 01/24/22 20:41 Lymphocytes (Manual) 5 % 01/24/22 20:41 Monocytes (Manual) 3.0 % 01/24/22 20:41 Absolute Monocytes 0.4 10^3/cmm (0.1-0.6) 01/24/22 20:41 Eosinophils (Manual) 0 % 01/24/22 20:41 Absolute Eosinophils 0.0 10^3/cmm (0.0-0.7) 01/24/22 20:41 Basophils (Manual) 0.0 % 01/24/22 20: Absolute Basophils 0.0 10^3/cmm (0.0-0.2) 01/24/22 20:41 Nucleated RBCs # 0.0 /100WBC 01/29/22 04:32 Platelet Estimate Increased (Normal) H 01/24/22 20:41 Sodium 135 mmol/L (136-145) L 01/28/22 02:57 Potassium 3.8 mmol/L (3.5-5.1) 01/28/22 02:57 Chloride 99 mmol/L (98-107) 01/28/22 02:57 Carbon Dioxide 26 mmol/L (22-29) 01/28/22 02:57 Anion Gap 13.8 (5-19) 01/28/22 02:57 BUN 17 mg/dL (8-23) 01/28/22 02:57 Creatinine 0.8 mg/dL (0.5-0.9) 01/28/22 02:57 GFR Calculation Not Reportable 01/28/22 02:57 Glucose 141 mg/dL (65-115) H 01/28/22 02:57 POC Glucose 190 mg/dL (70-110) H 01/29/22 06:02 Calculated Osmolality 284 mOsm/kg (285-295) L 01/28/22 02:57 Calcium 9.7 mg/dL (8.5-10.5) 01/28/22 02:57 Blood Type AB Positive 01/24/22 13:42 Rho(D) Type Positive 01/24/22 13:42 Antibody Screen Negative 01/24/22 13:42 Crossmatch See Detail 01/24/22 13:42 Vitals Last Vital Signs Temp 97.5 F L 01/29/22 08:00 Pulse 68 01/29/22 08:00 Resp 14 01/29/22 08:00 BP 158/68 01/29/22 08:00 Pulse Ox 97 01/29/22 08:00 O2 Del Method 01/29/22 08:00 O2 Flow Rate 2 01/26/22 20:00 Discharge Plan Discharge Patient Disposition: Xfer SNF Condition: Stable Prescriptions: New enoxaparin [Lovenox] 30 mg/0.3 mL syringe 30 mg SUBCUT DAILY 30 Days Qty: 30 0RF ondansetron 4 mg tablet,disintegrating 4 mg PO DAILY 5 Days Qty: 5 0RF Continued citalopram [Celexa] 40 mg tablet 40 mg PO DAILY (DME) Wheelchair See Rx Instructions .Route .MEDSUPPLY Qty: 1 0RF Rx Instructions: As directed HOME cilostazol 100 mg tablet 100 mg PO BID Qty: 60 3RF gabapentin 300 mg capsule 300 mg PO TID 30 Days Qty: 90 0RF rosuvastatin 10 mg tablet 10 mg PO BEDTIME metformin 500 mg Tablet 1,000 mg PO DAILY levothyroxine 25 mcg tablet 25 mcg PO DAILY quetiapine [Seroquel] 50 mg tablet 50 mg PO BEDTIME Tresiba FlexTouch U-200 200 unit/mL (3 mL) Insulin Pen 24 unit SUBCUT BEDTIME tramadol 50 mg tablet 50 mg PO Q8H PRN (Reason: Pain) Xanax 0.25 mg Tablet 0.375 mg PO BEDTIME PRN (Reason: Anxiety) trazodone 100 mg tablet 100 mg PO BEDTIME hydrocodone-acetaminophen 10-325 mg tablet 1 tab PO Q6H PRN (Reason: pain) 7 Days Qty: 28 0RF Referrals: [facility] [Outside] Rahat Peña DO [Physician] - Discharge Diet: Advance as tolerated Discharge Activity: Limit activity as instructed Patient Instructions: Opioid Safety Activity Restrictions/Additional Instructions: Orthopedic discharge structures: Nonweightbearing right below the knee amputation stump Keep dressing on in place until follow-up Encourage range of motion of right knee is much as tolerated Ice and elevate as needed Take pain medication as prescribed Take DVT prophylaxis of Lovenox as prescribed Take antinausea medication as needed, resume home gabapentin See Dr. Peña in the office in 1 week Contact the office for any questions or concerns Discharge Attestations Status at Discharge: Cognitive status at discharge: cognitively intact , Behavioral status at discharge: cooperative , Coding Level of Care Code Acute [facility] note Diagnoses Below-knee amputation of right lower extremity S88.111A 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 mellitus E11.42 Status post amputation Z89.9 Dry gangrene I96
[2022-01-29 11:30] LABS: Glucose Point of Care 131 mg/dL (70-110)
[2022-01-29 12:00] VITALS: BP 117/75; PULSE 85; RESP 17; TEMP 36.6
--- NOTE | 2022-01-29 13:04 | PM.PN ---
Subjective Subjective: Patient seen evaluated this morning. Patient doing well. Patient having some nerve pain and feelings of dressing being tight this is extremely loose on examination the Corby wrap is redundant there is no tension and her compartments are soft compressible. Feels that this is more nerve related. At this point time she is stable from orthopedic standpoint. Continue PT/OT. Patient educated on keeping her knee straight for later prosthesis. Vitals/I&O/Wt Last Vital Signs Temp 97.5 F L 01/29/22 08:00 Pulse 68 01/29/22 08:00 Resp 14 01/29/22 08:00 BP 158/68 01/29/22 08:00 Pulse Ox 97 01/29/22 08:00 O2 Del Method 01/29/22 08:00 O2 Flow Rate 2 01/26/22 20:00 01/28/22 01/29/22 01/29/22 22:59 06:59 14:59 Intake Total 0 / 440 240 / 240 Output Total 700 / 700 1475 / 2175 Balance -700 / -260 -1475 / -1735 240 / 240 Weight last 48 hrs Weight 154 lb 4.8 oz Physical Exam Narrative: Dressing to the right lower extremity clean dry and intact no evidence of tightness, compartments are soft and compressible. Patient has improvement in her hypersensitivity to examination and touching the right below the knee amputation stump. Patient is able to perform full extension and flexion of the right knee. Sensation intact to light touch. Urinary Catheter Management: Butt: Cath Placed During This Visit: yes Reason for Continuing Indwelling Catheter: Other Urinary Catheter Date of Insertion: 01/25/22 Urinary Catheter Time of Insertion: 07:15 Data 01/29/22 04:32 01/28/22 02:57 A&P Assessment and plan (1) Below-knee amputation of right lower extremity: Patient's dressing is dry and intact. (2) 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 mellitus: (3) Status post amputation: (4) Dry gangrene: Plan Postop day 5 Repeat hemoglobin 10.3 Pain control? improved with patient complaining of decreased phantom pain, but she does complain of a band type sensation which her dressing is inspected as significantly loose pertaining to the Corby wrap there is no evidence of bandage constriction. Outer dressing as an Corby wrap with no evidence of bleeding. Dressing left on in place PT/OT Internal medicine for medical management Follow-up with Dr. Peña in the office in later this week for dressing change Plan will be for discharge to rehab facility once ready for discharge Stable from Ortho standpoint Attestations Medical Necessity Statement*: Continue ongoing symptom evaluation following BKA amputation Coding Level of Care Code Acute Telecommunications Line Installer for [facility] Fwd Diagnoses Below-knee amputation of right lower extremity S88.111A 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 mellitus E11.42 Status post amputation Z89.9 Dry gangrene I96 Time Spent (min) 30
--- NOTE | 2022-01-29 13:43 | PM.PN ---
Subjective Subjective: Seen this morning. Patient states she has a bandlike pain at her amputation site. Otherwise she feels fine. She is willing to go to [facility] today if a spot is available. Hemoglobin 10.3 today. She has no other symptoms or complaints at this time. She says she will be seeing her surgeon within a week of discharge. Vitals/I&O/Wt Last Vital Signs Temp 97.5 F L 01/29/22 08:00 Pulse 68 01/29/22 08:00 Resp 14 01/29/22 08:00 BP 158/68 01/29/22 08:00 Pulse Ox 97 01/29/22 08:00 O2 Del Method 01/29/22 08:00 O2 Flow Rate 2 01/26/22 20:00 01/28/22 01/29/22 01/29/22 22:59 06:59 14:59 Intake Total 0 / 440 240 / 240 Output Total 700 / 700 1475 / 2175 Balance -700 / -260 -1475 / -1735 240 / 240 Weight last 48 hrs Weight 69.989 kg Physical Exam Narrative: General: No acute distress, AO x3 HEENT:EOMI Chest: Clear to auscultation b/l, no wheezes CVS: S1-S2 regular,no tachycardia, no gallops, no rubs Abdomen: Soft, nontender, no organomegaly, bowel sounds present Neuro: Grossly non focal. Extremities: Right BKA covered with Corby bandage. Dressing not taken down. Deferred to surgery. She will be seen shortly. Urinary Catheter Management: Butt: Cath Placed During This Visit: yes Reason for Continuing Indwelling Catheter: Other Urinary Catheter Date of Insertion: 01/25/22 Urinary Catheter Time of Insertion: 07:15 Data 01/29/22 04:32 01/28/22 02:57 A&P Assessment and plan (1) 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 mellitus: (2) Status post amputation: (3) Dry gangrene: (4) Below-knee amputation of right lower extremity: Plan 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 Postop day 3 s/p 1PRBC for symptomatic anemia with hb 7.1 on 01/25. BP 200 systolic range this am. By time pt was seen, BP 164/74, denies dizziness today Incentive spirometer continue sliding scale insulin Restart DVT prophylaxis 30 mg. It was previously on hold. Hemoglobin 10.3 today. Stable Moderate dose sliding scale insulin, glargine 15U , fingerstick currently under acceptable control. [facility]waiting placement to [facility]. Patient waiting for insurance authorization. Attestations Medical Necessity Statement*: Awaiting insurance authorization for placement to [facility] for rehab. Coding Level of Care Code Acute Certified Forklift Operator for [facility] Fwd Diagnoses 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 mellitus E11.42 Status post amputation Z89.9 Dry gangrene I96 Below-knee amputation of right lower extremity S88.111A
[2022-01-29 16:00] VITALS: BP 144/66; PULSE 80; RESP 17; TEMP 37
[2022-01-29] MEDS: ALPRAZolam 0.5 mg Tablet 0.375 MG PO ×2 (16:42→21:02)
[2022-01-29 16:46] LABS: Glucose Point of Care 233 mg/dL (70-110)
[2022-01-29 20:00] VITALS: BP 130/73; PULSE 73; RESP 17; TEMP 36.9; O2SAT 97
[2022-01-29] MEDS: atorvastatin 40 mg Tablet 20 MG PO (21:02)
[2022-01-29] MEDS: trazodone 100 mg Tablet PO (21:02)
[2022-01-29] MEDS: quetiapine 25 mg Tablet 50 MG PO (21:02)
[2022-01-29] MEDS: insulin glargine 100 units/1 mL 15 UNIT SUBCUT (21:05)
[2022-01-29 22:11] LABS: Glucose Point of Care 110 mg/dL (70-110)
[2022-01-30] MEDS: HYDROcodone-acetaminophen 5-325 mg Tablet PO ×3 (00:23→12:15)
[2022-01-30 04:00] VITALS: BP 150/77; PULSE 72; RESP 17; TEMP 36.5; O2SAT 97
[2022-01-30 05:45] LABS: Basophils % 0.2 %; Eosinophils # 0.3 10^3/uL (0.0-0.8); Eosinophils % 2.1 %; Hematocrit 32.5 % (37.0-47.0); Hemoglobin 10.7 g/dL (11.5-15.3); Lymphocytes # 2.1 10^3/uL (0.8-4.8); Lymphocytes % 16.7 %; Mean Corpuscular HGB Conc 32.9 g/dL (30.0-36.0); Mean Corpuscular Hemoglobin 27.9 pg (28.0-34.0); Mean Corpuscular Volume 84.9 fl (81-99); Mean Platelet Volume 8.6 fL (7.4-10.4); Monocytes # 0.9 10^3/uL (0.2-0.9); Monocytes % 6.9 %; Neutrophils # 9.14 10^3/uL (1.8-7.7); Neutrophils % 72.8 %; Nucleated Red Blood Cells % 0 %; Platelet Count 398 10^3/cmm (130-400); Red Blood Count 3.83 10^6/uL (4.1-5.3); Red Cell Distribution Width 13.5 % (12.1-15.1); White Blood Count 12.5 10^3/uL (4.0-10.0)
[2022-01-30] MEDS: enoxaparin 30 mg/0.3 mL Syringe SUBCUT (06:12)
[2022-01-30 07:45] LABS: Glucose Point of Care 133 mg/dL (70-110)
[2022-01-30 08:00] VITALS: BP 125/64; PULSE 82; RESP 14; TEMP 36.4; O2SAT 95
[2022-01-30] MEDS: levothyroxine 25 mcg Tablet PO (08:10)
[2022-01-30] MEDS: amlodipine 5 mg Tablet PO (08:11)
[2022-01-30] MEDS: gabapentin 300 mg Capsule PO (08:11)
[2022-01-30] MEDS: calcium carb-vit d 600mg/400unit 1 Tablet 1 EACH PO (08:11)
[2022-01-30] MEDS: iron polysaccharide complex 150 mg Capsule PO (08:11)
[2022-01-30] MEDS: citalopram 20 mg Tablet 40 MG PO (08:11)
[2022-01-30] MEDS: sennosides-docusate Tablet 2 TAB PO (08:11)
--- NOTE | 2022-01-30 09:25 | PM.PN ---
Subjective Subjective: seen this am pt will be going to [facility] she appears well and has her friend at bedside pt states the band like pain at surgical site has resolved she will be seeing ortho in 1 week Vitals/I&O/Wt Last Vital Signs Temp 98.9 F 01/30/22 14:26 Pulse 85 01/30/22 14:26 Resp 16 01/30/22 14:26 BP 111/71 01/30/22 14:26 Pulse Ox 96 01/30/22 14:26 O2 Del Method 01/30/22 12:00 O2 Flow Rate 2 01/26/22 20:00 Physical Exam Narrative: General: No acute distress, AO x3 HEENT:EOMI Chest: Clear to auscultation b/l, no wheezes CVS: S1-S2 regular,no tachycardia, no gallops, no rubs Abdomen: Soft, nontender, no organomegaly, bowel sounds present Neuro: Grossly non focal. Extremities: Right BKA covered with bandage. Urinary Catheter Management: Butt: Cath Placed During This Visit: yes Reason for Continuing Indwelling Catheter: Acute Urinary Retention or Obstruction Urinary Catheter Date of Insertion: 01/25/22 Urinary Catheter Time of Insertion: 07:15 Data 01/30/22 05:27 01/28/22 02:57 A&P Assessment and plan (1) 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 mellitus: (2) Status post amputation: (3) Dry gangrene: (4) Below-knee amputation of right lower extremity: Plan 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 Postop day 3 s/p 1PRBC for symptomatic anemia with hb 7.1 on 01/25. BP 200 systolic range this am. By time pt was seen, BP 164/74, denies dizziness today Incentive spirometer continue sliding scale insulin Restart DVT prophylaxis 30 mg. It was previously on hold. Hemoglobin 10.3 today. Stable Moderate dose sliding scale insulin, glargine 15U , fingerstick currently under acceptable control. Awaiting placement to [facility]. Patient waiting for insurance authorization. Primary team is orthopedics Attestations Medical Necessity Statement*: Per primary team. Pending placement. Coding Level of Care Code Acute Sec Reporting Consultant for Maria Elenag Fwd Diagnoses 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 mellitus E11.42 Status post amputation Z89.9 Dry gangrene I96 Below-knee amputation of right lower extremity S88.674E
--- NOTE | 2022-01-30 10:28 | P.DS_ITS ---
Discharge Providers Date of Admission: 01/24/22 18:15 Date of Discharge: January 30, 2022 Attending Provider at Admission: Rahat Peña DO Attending Provider at Discharge: Rahat Peña DO Primary Care Provider: ALFONSO Morris Diagnoses at Discharge Discharge Diagnosis (1) 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 mellitus: Status: Acute (2) Status post amputation: Status: Acute (3) Dry gangrene: Status: Acute (4) Below-knee amputation of right lower extremity: Status: Acute Reason for Visit Reason for Visit: T87.43 Physical Exam Urinary Catheter Management: Butt: Cath Placed During This Visit: yes Reason for Continuing Indwelling Catheter: Acute Urinary Retention or Obstruction Urinary Catheter Date of Insertion: 01/25/22 Urinary Catheter Time of Insertion: 07:15 Discharge Data Studies Completed and Pending Pending at discharge Category Date Time Status SARS Covid-2 Antigen Routine Lab 01/30/22 10:00 Received Pathology: Surgical [PTH] Routine Pth 01/24/22 18:42 Received Laboratory Results WBC 12.5 10^3/uL (4.0-10.0) H 01/30/22 05:27 RBC 3.83 10^6/uL (4.1-5.3) L 01/30/22 05:27 Hgb 10.7 g/dL (11.5-15.3) L 01/30/22 05:27 Hct 32.5 % (37.0-47.0) L 01/30/22 05:27 MCV 84.9 fl (81-99) 01/30/22 05:27 MCH 27.9 pg (28.0-34.0) L 01/30/22 05:27 MCHC 32.9 g/dL (30.0-36.0) 01/30/22 05:27 RDW 13.5 % (12.1-15.1) 01/30/22 05:27 Plt Count 398 10^3/cmm (130-400) 01/30/22 05:27 MPV 8.6 fL (7.4-10.4) 01/30/22 05:27 Neut % (Auto) 72.8 % 01/30/22 05:27 Lymph % (Auto) 16.7 % 01/30/22 05:27 [place] % (Auto) 6.9 % 01/30/22 05:27 Eos % (Auto) 2.1 % 01/30/22 05:27 Baso % (Auto) 0.2 % 01/30/22 05:27 Neut # (Auto) 9.14 10^3/uL (1.8-7.7) H 01/30/22 05:27 Lymph # (Auto) 2.1 10^3/uL (0.8-4.8) 01/30/22 05:27 [place] # (Auto) 0.9 10^3/uL (0.2-0.9) 01/30/22 05:27 Eos # (Auto) 0.3 10^3/uL (0.0-0.8) 01/30/22 05:27 Baso # (Auto) 0.0 10^3/uL (0.0-0.1) 01/30/22 05:27 Nucleated RBC % (auto) 0 % 01/30/22 05:27 Total Counted 100 (0-100) 01/24/22 20:41 Atypical Lymphs % 0.0 % (0-5) 01/24/22 20:41 Absolute Neutrophils 12.4 10^3/cmm (1.4-6.5) H 01/24/22 20:41 Segmented Neutrophils 91 % 01/24/22 20:41 Abs Segm Neuts (Man) 12.3 10/cmm (1.6-7.1) H 01/24/22 20:41 Band Neutrophils 1.0 % 01/24/22 20:41 Abs Band Neuts (Man) 0.1 10^3/cmm (0.0-1.2) 01/24/22 20:41 Absolute Lymphocytes 0.7 10^3/cmm (1.2-3.4) L 01/24/22 20:41 Lymphocytes (Manual) 5 % 01/24/22 20:41 Monocytes (Manual) 3.0 % 01/24/22 20:41 Absolute Monocytes 0.4 10^3/cmm (0.1-0.6) 01/24/22 20:41 Eosinophils (Manual) 0 % 01/24/22 20:41 Absolute Eosinophils 0.0 10^3/cmm (0.0-0.7) 01/24/22 20:41 Basophils (Manual) 0.0 % 01/24/22 20:41 Absolute Basophils 0.0 10^3/cmm (0.0-0.2) 01/24/22 20:41 Nucleated RBCs # 0.0 /100WBC 01/30/22 05:27 Platelet Estimate Increased (Normal) H 01/24/22 20:41 Sodium 135 mmol/L (136-145) L 01/28/22 02:57 Potassium 3.8 mmol/L (3.5-5.1) 01/28/22 02:57 Chloride 99 mmol/L (98-107) 01/28/22 02:57 Carbon Dioxide 26 mmol/L (22-29) 01/28/22 02:57 Anion Gap 13.8 (5-19) 01/28/22 02:57 BUN 17 mg/dL (8-23) 01/28/22 02:57 Creatinine 0.8 mg/dL (0.5-0.9) 01/28/22 02:57 GFR Calculation Not Reportable 01/28/22 02:57 Glucose 141 mg/dL (65-115) H 01/28/22 02:57 POC Glucose 133 mg/dL (70-110) H 01/30/22 07:27 Calculated Osmolality 284 mOsm/kg (285-295) L 01/28/22 02:57 Calcium 9.7 mg/dL (8.5-10.5) 01/28/22 02:57 Blood Type AB Positive 01/24/22 13:42 Rho(D) Type Positive 01/24/22 13:42 Antibody Screen Negative 01/24/22 13:42 Crossmatch See Detail 01/24/22 13:42 Vitals Last Vital Signs Temp 97.5 F L 01/30/22 08:00 Pulse 82 01/30/22 08:00 Resp 14 01/30/22 08:00 BP 125/64 01/30/22 08:00 Pulse Ox 95 01/30/22 08:00 O2 Del Method 01/30/22 08:00 O2 Flow Rate 2 01/26/22 20:00 Discharge Plan Discharge Patient Disposition: Xfer SNF Condition: Stable Prescriptions: New hydrocodone-acetaminophen 10-325 mg tablet 1 tab PO Q6H PRN (Reason: pain) 7 Days Qty: 28 0RF ondansetron 4 mg tablet,disintegrating 4 mg PO DAILY 5 Days Qty: 5 0RF Lovenox 30 mg/0.3 mL syringe 30 mg SUBCUT DAILY 30 Days Qty: 30 0RF Continued citalopram [Celexa] 40 mg tablet 40 mg PO DAILY (DME) Wheelchair See Rx Instructions .Route .MEDSUPPLY Qty: 1 0RF Rx Instructions: As directed HOME cilostazol 100 mg tablet 100 mg PO BID Qty: 60 3RF gabapentin 300 mg capsule 300 mg PO TID 30 Days Qty: 90 0RF rosuvastatin 10 mg tablet 10 mg PO BEDTIME metformin 500 mg Tablet 1,000 mg PO DAILY levothyroxine 25 mcg tablet 25 mcg PO DAILY quetiapine [Seroquel] 50 mg tablet 50 mg PO BEDTIME Tresiba FlexTouch U-200 200 unit/mL (3 mL) Insulin Pen 24 unit SUBCUT BEDTIME tramadol 50 mg tablet 50 mg PO Q8H PRN (Reason: Pain) Xanax 0.25 mg Tablet 0.375 mg PO BEDTIME PRN (Reason: Anxiety) trazodone 100 mg tablet 100 mg PO BEDTIME Discontinued hydrocodone-acetaminophen 10-325 mg tablet 1 tab PO Q6H PRN (Reason: pain) 7 Days Qty: 28 0RF Discharge Orders: Discharge Order (Routine); Ordered 01/30/22 Ordered By: Linda Fuentes Referrals: [facility] [Outside] Jolie Torres FNP [Primary Care Provider] - 4-7 days Rahat Peña DO [Physician] - 02/06/22 10:45 am Discharge Diet: Advance as tolerated Discharge Activity: Limit activity as instructed Patient Instructions: Ondansetron (By mouth), Enoxaparin (By injection), Below the Knee Amputation (GEN), Opioid Safety Activity Restrictions/Additional Instructions: Orthopedic discharge structures: Nonweightbearing right below the knee amputation stump Keep dressing on in place until follow-up Encourage range of motion of right knee is much as tolerated Ice and elevate as needed Take pain medication as prescribed Take DVT prophylaxis of Lovenox as prescribed Take antinausea medication as needed, resume home gabapentin See Dr. Peña in the office in 1 week Contact the office for any questions or concerns Please follow up with PCP in 4-7 days. Discharge Attestations Status at Discharge: Cognitive status at discharge: cognitively intact , Behavioral status at discharge: cooperative , Coding Level of Care Code Acute g [facility] note Diagnoses 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 mellitus E11.42 Status post amputation Z89.9 Dry gangrene I96 Below-knee amputation of right lower extremity S88.111A
[2022-01-30 10:42] LABS: Glucose Point of Care 193 mg/dL (70-110)
[2022-01-30 10:53] LABS: SARS Covid-2 Antigen Negative (Negative)
[2022-01-30 12:00] VITALS: BP 111/71; PULSE 85; RESP 16; TEMP 37.2; O2SAT 96
--- NOTE | 2022-01-30 12:02 | PC.NURSE ---
1202 - Report given to Tequila at [facility].
--- NOTE | 2022-01-30 12:15 | PM.DCS ---
Discharge Providers Date of Admission: 01/24/22 18:15 Date of Discharge: January 30, 2022 Attending Provider at Admission: Rahat Peña DO Attending Provider at Discharge: Rahat Peña DO Consults: Hospitalist for medical management Primary Care Provider: ALFONSO Morris Diagnoses at Discharge Discharge Diagnosis (1) 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 mellitus: Status: Acute (2) Status post amputation: Status: Acute (3) Dry gangrene: Status: Resolved (4) Below-knee amputation of right lower extremity: Status: Acute Reason for Visit Reason for Visit: T87.43 Brief History: Patient in history of right transmetatarsal amputation on 12/25/2021 and subsequently has ischemia and dry gangrene of surgical site with wound dehiscence. Also has a complex history of a trimalleolar ankle fracture where she had underwent percutaneous transfixation as well. At this point time given her ischemia and dry gangrene pain she was seen by her principal research economist in the office however at this point time given her work-up and failed TMA recommended right below the knee amputation as a result I was brought in on patient's case for right below the knee amputation. Hospital Course Hospital Course Patient was brought into the surgical services suite seen evaluated by the anesthesia department. In preoperative holding area consent was reviewed and signed with patient. Correct extremity marked. Once cleared for surgery she was taken back to the operative suite underwent a right below the knee amputation without any complications or issues. Recovered well in PACU. She was admitted to the floor postoperatively for pain control as well as discharge placement. It was determined on postop day 6 the patient was stable for discharge from orthopedic and hospitalist standpoint. She did receive 1 unit of PRBC during hospitalization due to symptomatic postoperative acute blood loss anemia her hemoglobin was down to 7.1. She overall is recovered well worked with therapy. Labs were monitored postoperatively. She received appropriate postoperative antibiotics as well as DVT prophylaxis. Incisional VAC was taken down in the hospital and redress with a dry dressing. She will follow-up with me in the office in 2 weeks. Patient understands and agrees with current plan. All questions answered. Physical Exam Narrative: Dressing to the right lower below the knee amputation stump clean dry and intact no evidence of tightness, compartments are soft and compressible.? Patient has improvement in her hypersensitivity to examination and touching the right below the knee amputation stump.? Patient is able to perform full extension and flexion of the right knee.? Sensation intact to light touch. Stump is warm and well-perfused. Dressing taken down Leslee in place incisions clean dry and intact no drainage noted. New dressing applied Urinary Catheter Management: Butt: Cath Placed During This Visit: yes Reason for Continuing Indwelling Catheter: Acute Urinary Retention or Obstruction Urinary Catheter Date of Insertion: 01/25/22 Urinary Catheter Time of Insertion: 07:15 Discharge Data Studies Completed and Pending Completed Studies During Hospitalization Category Date Time Status Pathology: Surgical [PTH] Routine Pth 01/24/22 18:42 Completed Laboratory Results WBC 12.5 10^3/uL (4.0-10.0) H 01/30/22 05:27 RBC 3.83 10^6/uL (4.1-5.3) L 01/30/22 05:27 Hgb 10.7 g/dL (11.5-15.3) L 01/30/22 05:27 Hct 32.5 % (37.0-47.0) L 01/30/22 05:27 MCV 84.9 fl (81-99) 01/30/22 05:27 MCH 27.9 pg (28.0-34.0) L 01/30/22 05:27 MCHC 32.9 g/dL (30.0-36.0) 01/30/22 05:27 RDW 13.5 % (12.1-15.1) 01/30/22 05:27 Plt Count 398 10^3/cmm (130-400) 01/30/22 05:27 MPV 8.6 fL (7.4-10.4) 01/30/22 05:27 Neut % (Auto) 72.8 % 01/30/22 05:27 Lymph % (Auto) 16.7 % 01/30/22 05:27 [place] % (Auto) 6.9 % 01/30/22 05:27 Eos % (Auto) 2.1 % 01/30/22 05:27 Baso % (Auto) 0.2 % 01/30/22 05:27 Neut # (Auto) 9.14 10^3/uL (1.8-7.7) H 01/30/22 05:27 Lymph # (Auto) 2.1 10^3/uL (0.8-4.8) 01/30/22 05:27 [place] # (Auto) 0.9 10^3/uL (0.2-0.9) 01/30/22 05:27 Eos # (Auto) 0.3 10^3/uL (0.0-0.8) 01/30/22 05:27 Baso # (Auto) 0.0 10^3/uL (0.0-0.1) 01/30/22 05:27 Nucleated RBC % (auto) 0 % 01/30/22 05:27 Total Counted 100 (0-100) 01/24/22 20:41 Atypical Lymphs % 0.0 % (0-5) 01/24/22 20:41 Absolute Neutrophils 12.4 10^3/cmm (1.4-6.5) H 01/24/22 20:41 Segmented Neutrophils 91 % 01/24/22 20:41 Abs Segm Neuts (Man) 12.3 10/cmm (1.6-7.1) H 01/24/22 20:41 Band Neutrophils 1.0 % 01/24/22 20:41 Abs Band Neuts (Man) 0.1 10^3/cmm (0.0-1.2) 01/24/22 20:41 Absolute Lymphocytes 0.7 10^3/cmm (1.2-3.4) L 01/24/22 20:41 Lymphocytes (Manual) 5 % 01/24/22 20:41 Monocytes (Manual) 3.0 % 01/24/22 20:41 Absolute Monocytes 0.4 10^3/cmm (0.1-0.6) 01/24/22 20:41 Eosinophils (Manual) 0 % 01/24/22 20:41 Absolute Eosinophils 0.0 10^3/cmm (0.0-0.7) 01/24/22 20:41 Basophils (Manual) 0.0 % 01/24/22 20: Absolute Basophils 0.0 10^3/cmm (0.0-0.2) 01/24/22 20:41 Nucleated RBCs # 0.0 /100WBC 01/30/22 05:27 Platelet Estimate Increased (Normal) H 01/24/22 20:41 Sodium 135 mmol/L (136-145) L 01/28/22 02:57 Potassium 3.8 mmol/L (3.5-5.1) 01/28/22 02:57 Chloride 99 mmol/L (98-107) 01/28/22 02:57 Carbon Dioxide 26 mmol/L (22-29) 01/28/22 02:57 Anion Gap 13.8 (5-19) 01/28/22 02:57 BUN 17 mg/dL (8-23) 01/28/22 02:57 Creatinine 0.8 mg/dL (0.5-0.9) 01/28/22 02:57 GFR Calculation Not Reportable 01/28/22 02:57 Glucose 141 mg/dL (65-115) H 01/28/22 02:57 POC Glucose 193 mg/dL (70-110) H 01/30/22 10:34 Calculated Osmolality 284 mOsm/kg (285-295) L 01/28/22 02:57 Calcium 9.7 mg/dL (8.5-10.5) 01/28/22 02:57 SARS-CoV-2 Ag (Rapid) Negative (Negative) 01/30/22 10:00 Blood Type AB Positive 01/24/22 13:42 Rho(D) Type Positive 01/24/22 13:42 Antibody Screen Negative 01/24/22 13:42 Crossmatch See Detail 01/24/22 13:42 Vitals Last Vital Signs Temp 98.9 F 01/30/22 14:26 Pulse 85 01/30/22 14:26 Resp 16 01/30/22 14:26 BP 111/71 01/30/22 14:26 Pulse Ox 96 01/30/22 14:26 O2 Del Method 01/30/22 12:00 O2 Flow Rate 2 01/26/22 20:00 Discharge Plan Discharge Patient Disposition: Xfer SNF Condition: Stable Prescriptions: New Lovenox 30 mg/0.3 mL syringe 30 mg SUBCUT DAILY 30 Days Qty: 30 0RF Continued citalopram [Celexa] 40 mg tablet 40 mg PO DAILY (DME) Wheelchair See Rx Instructions .Route .MEDSUPPLY Qty: 1 0RF Rx Instructions: As directed HOME cilostazol 100 mg tablet 100 mg PO BID Qty: 60 3RF gabapentin 300 mg capsule 300 mg PO TID 30 Days Qty: 90 0RF rosuvastatin 10 mg tablet 10 mg PO BEDTIME metformin 500 mg Tablet 1,000 mg PO DAILY levothyroxine 25 mcg tablet 25 mcg PO DAILY quetiapine [Seroquel] 50 mg tablet 50 mg PO BEDTIME Tresiba FlexTouch U-200 200 unit/mL (3 mL) Insulin Pen 24 unit SUBCUT BEDTIME tramadol 50 mg tablet 50 mg PO Q8H PRN (Reason: Pain) Xanax 0.25 mg Tablet 0.375 mg PO BEDTIME PRN (Reason: Anxiety) trazodone 100 mg tablet 100 mg PO BEDTIME Discontinued hydrocodone-acetaminophen 10-325 mg tablet 1 tab PO Q6H PRN (Reason: pain) 7 Days Qty: 28 0RF Discharge Orders: Discharge Order (Routine); Ordered 01/30/22 Ordered By: Linda Fuentes Referrals: [facility] [Outside] Jolie Torres FNP [Primary Care Provider] - 4-7 days Rahat Peña DO [Physician] - 02/06/22 10:45 am Discharge Diet: Advance as tolerated Discharge Activity: Limit activity as instructed Patient Instructions: Ondansetron (By mouth), Enoxaparin (By injection), Below the Knee Amputation (GEN), Opioid Safety Activity Restrictions/Additional Instructions: Orthopedic discharge structures: Nonweightbearing right below the knee amputation stump Keep dressing on in place until follow-up Encourage range of motion of right knee is much as tolerated Ice and elevate as needed Take pain medication as prescribed Take DVT prophylaxis of Lovenox as prescribed Take antinausea medication as needed, resume home gabapentin See Dr. Peña in the office in 1 week Contact the office for any questions or concerns Please follow up with PCP in 4-7 days. Discharge Attestations Time Spent in Discharge Care*: greater than 30 min Status at Discharge: Cognitive status at discharge: cognitively intact, Behavioral status at discharge: cooperative, Quality Metrics Clinical Quality Measures [ No reported AMI, CVA or VTE this stay] Coding Level of Care Code Acute g DC note Diagnoses 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 mellitus E11.42 Status post amputation Z89.9 Dry gangrene I96 Below-knee amputation of right lower extremity S88.111A Time Spent (min) 50
[2022-01-30] MEDS: insulin lispro 100 unit/1 mL SUBCUT (13:11)
[2022-01-30 14:26] VITALS: BP 111/71; PULSE 85; RESP 16; TEMP 37.2; O2SAT 96
== END 2022-01-30 14:35 | disposition skilled nursing facility (03) | DRG 240 ==
LOC: MEDSURG 19:45
PROVIDERS: Internal Medicine; Student in an Organized Health Care Education/Training Program; Admitting Provider Student in an Organized Health Care Education/Training Program; PCP Nurse Practitioner Family; Visit Provider Student in an Organized Health Care Education/Training Program
PROC: 0Y6H0Z3 Detachment at Right Lower Leg, Low, Open Approach (ICD-10-PCS; CPT 27880; principal; 2022-01-24 14:20)
DX: E11.52 Type 2 diabetes mellitus with diabetic peripheral angiopathy with gangrene (principal); I96 Gangrene, not elsewhere classified; T87.81 Dehiscence of amputation stump; E11.42 Type 2 diabetes mellitus with diabetic polyneuropathy; Z75.1 Person awaiting admission to adequate facility elsewhere; Z88.5 Allergy status to narcotic agent; Z88.0 Allergy status to penicillin; I35.0 Nonrheumatic aortic (valve) stenosis; I25.10 Atherosclerotic heart disease of native coronary artery without angina pectoris; I10 Essential (primary) hypertension; E78.5 Hyperlipidemia, unspecified; E03.9 Hypothyroidism, unspecified
CPT/HCPCS: 36415; 36416; 36430; 51702; 80048; 80053; 82962; 85007; 85014; 85018; 85025; 85027; 86850; 86900; 86920; 87426; 88307; 88311; 96372; 97110; 97162; 97166; 97530; 97535; 99204; 99214; J1100; J1170; J1200; J1650; J1815; J1885; J2370; J2405; J2704; J2710; J2795; J3010; J3370; J3490; J7030; P9016

== ENCOUNTER → 2022-02-06 10:53 | Outpatient (BNVA) | payer MEDICARE, SELFPAY | PROVIDERS: PCP Nurse Practitioner Family; Visit Provider Student in an Organized Health Care Education/Training Program | DX: S88.111A Complete traumatic amputation at level between knee and ankle, right lower leg, initial encounter (principal); X58.XXXA Exposure to other specified factors, initial encounter | CPT/HCPCS: 99024 ==

== ENCOUNTER 2022-02-09 09:39 | Outpatient (CLI) | payer MEDICARE, SELFPAY ==
[2022-02-09 10:29] LABS: Add Urine Culture? Yes; Bacteria Urine 1+ /hpf; Bilirubin Urine Neg (Negative); Blood Urine 2+ (Negative); Glucose Urine UA Norm (Normal); Ketones Urine Negative (Negative); Leukocyte Esterase Urine 2+ (Negative); Nitrate Urine Positive (Negative); Protein Urine Trace (Negative); RBC Urine 0-4 /hpf (0-2); Squamous Epithelial Cell Urine 0-4 /hpf (0-5); Urine Appearance Clear (CLEAR); Urine Color Yellow (Yellow); Urobilinogen Urine Norm (Negative); WBC Urine >100 /hpf (0-5); pH Urine 7 (5-7)
== END 2022-02-09 09:40 | disposition home or self-care (01) ==
LOC: LAB 09:43
PROVIDERS: PCP Nurse Practitioner Family; Visit Provider Family Medicine
DX: N39.0 Urinary tract infection, site not specified (principal)
CPT/HCPCS: 81001; 87086

== ENCOUNTER → 2022-02-22 14:40 | Outpatient (BNVA) | payer MEDICARE, SELFPAY | PROVIDERS: PCP Nurse Practitioner Family; Visit Provider Student in an Organized Health Care Education/Training Program | DX: Z89.511 Acquired absence of right leg below knee (principal) | CPT/HCPCS: 99024 ==

== ENCOUNTER → 2022-03-26 13:41 | Outpatient (BNVA) | payer MEDICARE, SELFPAY | PROVIDERS: PCP Nurse Practitioner Family; Visit Provider Podiatrist Foot & Ankle Surgery | DX: I73.9 Peripheral vascular disease, unspecified (principal); E11.42 Type 2 diabetes mellitus with diabetic polyneuropathy; Z89.511 Acquired absence of right leg below knee; Z79.84 Long term (current) use of oral hypoglycemic drugs | CPT/HCPCS: 99214 ==

== ENCOUNTER → 2022-05-03 14:43 | Outpatient (BNVA) | payer MEDICARE, SELFPAY | PROVIDERS: PCP Nurse Practitioner Family; Visit Provider Student in an Organized Health Care Education/Training Program | DX: Z89.511 Acquired absence of right leg below knee (principal) | CPT/HCPCS: 99213 ==

== ENCOUNTER → 2022-05-07 14:18 | Outpatient (BNVA) | payer MEDICARE, SELFPAY | PROVIDERS: PCP Nurse Practitioner Family; Visit Provider Podiatrist Foot & Ankle Surgery | DX: I73.9 Peripheral vascular disease, unspecified (principal); E11.42 Type 2 diabetes mellitus with diabetic polyneuropathy; Z89.511 Acquired absence of right leg below knee; Z79.84 Long term (current) use of oral hypoglycemic drugs; Z79.4 Long term (current) use of insulin | CPT/HCPCS: 73610; 99214 ==

== ENCOUNTER → 2022-06-26 10:48 | Outpatient (BNVA) | payer MEDICARE, SELFPAY | PROVIDERS: PCP Nurse Practitioner Family; Visit Provider Podiatrist Foot & Ankle Surgery | DX: I73.9 Peripheral vascular disease, unspecified (principal); E11.42 Type 2 diabetes mellitus with diabetic polyneuropathy; Z89.511 Acquired absence of right leg below knee; Z79.4 Long term (current) use of insulin; Z79.84 Long term (current) use of oral hypoglycemic drugs | CPT/HCPCS: 99214 ==

== ENCOUNTER 2022-07-23 11:58 | Outpatient (RCR) | payer MEDICARE, SELFPAY | END 2022-08-10 23:59 | disposition home or self-care (01) | LOC: SPT 11:58 | PROVIDERS: PCP Nurse Practitioner Family; Visit Provider Nurse Practitioner Family | DX: Z89.511 Acquired absence of right leg below knee (principal) | CPT/HCPCS: 97110; 97116; 97162; 97530 ==

== ENCOUNTER 2022-08-11 06:00 | Outpatient (RCR) | payer MEDICARE, SELFPAY | END 2022-09-10 23:59 | disposition home or self-care (01) | LOC: SPT 06:00 | PROVIDERS: PCP Nurse Practitioner Family; Visit Provider Nurse Practitioner Family | DX: Z89.511 Acquired absence of right leg below knee (principal) | CPT/HCPCS: 97110; 97116; 97530 ==

== ENCOUNTER 2022-09-11 06:00 | Outpatient (RCR) | payer MEDICARE, SELFPAY | END 2022-09-25 23:59 | disposition home or self-care (01) | LOC: SPT 06:00 | PROVIDERS: PCP Nurse Practitioner Family; Visit Provider Nurse Practitioner Family | DX: Z89.511 Acquired absence of right leg below knee (principal) | CPT/HCPCS: 97110; 97116; 97530 ==

== ENCOUNTER → 2022-10-02 15:36 | Outpatient (BNVA) | payer MEDICARE, SELFPAY | PROVIDERS: PCP Nurse Practitioner Family; Visit Provider Student in an Organized Health Care Education/Training Program | DX: G56.02 Carpal tunnel syndrome, left upper limb; M19.012 Primary osteoarthritis, left shoulder; E11.42 Type 2 diabetes mellitus with diabetic polyneuropathy; E11.8 Type 2 diabetes mellitus with unspecified complications; I73.9 Peripheral vascular disease, unspecified; Z89.511 Acquired absence of right leg below knee; Z79.84 Long term (current) use of oral hypoglycemic drugs | CPT/HCPCS: 73030; 99213; 99214 ==

== ENCOUNTER 2022-10-29 13:34 | Outpatient (CLI) | payer MEDICARE, SELFPAY ==
--- NOTE | 2022-10-29 14:30 | MR_ITS ---
WS: [id number] MRI LEFT SHOULDER HISTORY: shoulder pain COMPARISON: Radiographs 10/02/2022 TECHNIQUE: Multiplanar sequences of the shoulder joint are submitted. Severe AC joint arthritis with bone and soft tissue hypertrophy encroaching upon the supraspinatus. S mall amount of fluid in the subacromial and subdeltoid bursa. Large osteophyte from the inferior surf moon of the acromion with marked impingement upon the rotator cuff. No os acromion. Biceps tendon not identified in the bicipital groove. There is increased fluid in the biceps tendon sheath with a very small extracapsular biceps tendon identified. Severe glenohumeral joint space narrowing. There are large osteophytes encasing the humeral head. Def ormity with remodeling of the glenoid. The labrum is absent. Marked edema and subchondral changes inv olving the glenoid and the humeral head. Fluid surrounding the glenohumeral joint space. Mild atrophy of the rotator cuff muscles. Subscapularis tendon is torn and retracted medial to the glenoid. Supra spinatus tendon distally is displaced and very small caliber. There is marked tendinopathy distally. There is increased T2 signal over the humeral head which is in part related to tendinopathy. Infraspi natus tendon not identified distally. Intra-articular loose bodies are noted within the joint effusio n. IMPRESSION: 1. Severe advanced degenerative changes involving the AC joint and the glenohumeral joint. 2. Large osteophytes encasing the humeral head. 3. Diffusely abnormal labrum. 4. Biceps tendon not identified in the bicipital groove. There is tenosynovitis. 5. Torn retracted subscapularis tendon. Small caliber supraspinatus tendon with marked tendinopathy o yanira the humeral head. Distal infraspinatus tendon is not identified. All the rotator cuff tendons are very poorly visualized. 6. Small intra-articular loose bodies.
== END 2022-10-29 13:35 | disposition home or self-care (01) ==
PROVIDERS: PCP Nurse Practitioner Family; Visit Provider Student in an Organized Health Care Education/Training Program
DX: M19.012 Primary osteoarthritis, left shoulder (principal); M25.712 Osteophyte, left shoulder; M65.812 Other synovitis and tenosynovitis, left shoulder; S46.812A Strain of other muscles, fascia and tendons at shoulder and upper arm level, left arm, initial encounter; X58.XXXA Exposure to other specified factors, initial encounter; M24.012 Loose body in left shoulder
CPT/HCPCS: 73221

== ENCOUNTER 2022-11-21 11:20 | Day surgery (SDC) | payer MEDICARE, SELFPAY ==
[2022-11-21 11:30] VITALS: BP 123/88; PULSE 99; RESP 16; TEMP 36.4; O2SAT 96
--- NOTE | 2022-11-21 11:43 | W.PM.OPSUD ---
Surgery/Procedure H&P Update DATE OF PROCEDURE: November 21, 2022 DATE H&P PERFORMED: 10/02/22 H&P UPDATE INFORMATION: I have reviewed H&P completed within last 30 days, I have examined patient prior to procedure and No changes to prior documentation PREOP DIAGNOSIS: Left carpal tunnel syndrome PRIMARY INDICATION FOR PROCEDURE: Left carpal tunnel syndrome PLANNED PROCEDURE: Operation Date: 11/21/22 14:05 Proposed Procedures p LEFT CARPAL TUNNEL RELEASE [id number],G56.02(Left) - Rahat Peña DO
--- NOTE | 2022-11-21 11:44 | W.PM.OPSFHP ---
Same Day Surgery H&P Indication for Procedure/HPI DATE OF PROCEDURE: November 21, 2022 CHIEF COMPLAINT/INDICATIONFOR SURGICAL PROCEDURE: Left carpal tunnel syndrome PREOP DIAGNOSIS: Left carpal tunnel syndrome PLANNED PROCEDURE: Operation Date: 11/21/22 14:05 Proposed Procedures p LEFT CARPAL TUNNEL RELEASE [id number],G56.02(Left) - Rahat Peña DO Medications/Allergies* Home Medications Medication Instructions Recorded Confirmed Type citalopram 40 mg tablet (Celexa) 40 mg PO DAILY 06/16/21 11/20/22 History insulin degludec 200 unit/mL (3 30 unit SUBCUT BEDTIME 12/26/21 11/20/22 History mL) subcutaneous pen (Tresiba FlexTouch U-200 insulin) levothyroxine 25 mcg tablet 25 mcg PO DAILY 12/26/21 11/20/22 History quetiapine 50 mg tablet (Seroquel) 50 mg PO BEDTIME 12/26/21 11/20/22 History rosuvastatin 10 mg tablet 10 mg PO BEDTIME 12/26/21 11/20/22 History alprazolam 0.25 mg tablet (Xanax) 0.375 mg PO BEDTIME PRN Anxiety 01/25/22 11/13/22 History trazodone 100 mg tablet 100 mg PO BEDTIME 01/25/22 11/20/22 History semaglutide 0.25 mg or 0.5 mg (2 See Rx Instructions .Route .COMPLEX 11/13/22 11/13/22 History mg/1.5 mL) subcutaneous pen injector gabapentin 300 mg capsule 300 mg PO TID PRN post op pain 11/20/22 11/20/22 History Allergies/Adverse Reactions Allergy/AdvReac Type Severity Reaction Status Date / Time oxycodone [From Percocet] Allergy Unknown ALGY-Rash Verified 11/21/22 11:44 Penicillins Allergy Unknown ALGY-Rash Verified 11/21/22 11:44 Pertinent History/Comorbid Conditions* Medical History (Updated 10/06/22 @ 21:50 by Rahat Peña DO) Aortic stenosis, mild ASHD (arteriosclerotic heart disease) Diabetes 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 mellitus HTN (hypertension) Hyperlipidemia Hypothyroidism Limb ischemia PAD (peripheral artery disease) Surgical History (Updated 03/29/22 @ 18:51 by Kain Phoenix DPM) Hx of elbow surgery S/P hernia repair S/P rotator cuff repair Family History (Updated 04/03/19 @ 08:49 by Little Bourne RN) CAD (coronary artery disease) Brother Sister Cancer Brother LUNG Sister LUNG Mother Father COLON Hypertension Mother Social History Smoking and tobacco status: never smoked Household members: spouse Marital status: Pertinent Exam Findings alert, oriented x 3, operative site marked and procedure specific exam findings Left hand examination ?Positive median nerve compression test, Positive Tinel's at the carpal tunnel, positive Phalen's,? negative Tinel's at the cubital tunnel MS:?Full range of motion of the MCP (0-110) and PIP (0-110) joints.? Patient has thenar weakness on examination as well as subtle atrophy noted.? No intrinsic atrophy or wasting noted. compartments are soft. The flexor digitorum profundus and sublimis are intact to each digit Recommendations Surgery/Procedure today Other Plans: Plan to proceed with left carpal tunnel release surgery today. Understands the ins and outs procedure risk benefits complication alternatives surgery and elects to proceed all questions answered. Coding Level of Care Code Acute Code for Chg Fwd Diagnoses
[2022-11-21] MEDS: sodium chloride 0.9% 1,000 ML 30 ML IV (11:53)
[2022-11-21] MEDS: ketorolac 30 mg/mL INJ IVP (11:53)
[2022-11-21] MEDS: scopolamine 1.5 Patch 1 PATCH TRANSDERMA (11:54)
[2022-11-21] MEDS: ROPivacaine 0.5% SDV 30 mL 25 MG INJECTION (12:10)
[2022-11-21] MEDS: vancomycin 1,000 MG in sodium chloride 0.9% 250 ML 250 MG IV (12:15)
[2022-11-21] MEDS: acetaminophen 1,000 MG/100 ML PIGGYBACK 400 MG IV (12:15)
[2022-11-21 12:17] LABS: Basophils # 0.1 10^3/uL (0.0-0.1); Basophils % 0.7 %; Eosinophils # 0.4 10^3/uL (0.0-0.8); Eosinophils % 5.8 %; Hematocrit 36.1 % (36-47); Lymphocytes # 1.9 10^3/uL (0.8-4.8); Mean Corpuscular HGB Conc 34.1 g/dL (30-55); Mean Corpuscular Hemoglobin 29.7 pg (27-33); Mean Corpuscular Volume 87.2 fl (85-98); Mean Platelet Volume 9.2 fL (7.4-10.4); Monocytes # 0.4 10^3/uL (0.2-0.9); Monocytes % 6.4 %; Neutrophils # 4.13 10^3/uL (1.8-7.7); Neutrophils % 59.7 %; Nucleated Red Blood Cells % 0 %; Platelet Count 308 10^3/cmm (157-399); Red Blood Count 4.14 10^6/uL (3.85-5.65); Red Cell Distribution Width 12.5 % (12.1-15.1); White Blood Count 6.92 10^3/uL (3.29-11.43)
[2022-11-21 12:21] LABS: Glucose Point of Care 160 mg/dL (70-110)
--- NOTE | 2022-11-21 12:24 | ANES.PREANE2 ---
Pre-Anesthetic Assessment Height/Weight: Height 1.6 m Weight 63.503 kg Temp Pulse Resp BP Pulse Ox O2 Del Method 97.6 F 99 16 123/88 96 Room Air 11/21/22 11:30 11/21/22 11:30 11/21/22 11:30 11/21/22 11:30 11/21/22 11:30 11/21/22 11:49 Preop Diagnosis: Left carpal tunnel syndrome Operation Date: 11/21/22 14:05 Proposed Procedures p LEFT CARPAL TUNNEL RELEASE [id number],G56.02(Left) - Rahat Casey, DO Familial anesthetic complications: none Was Beta Noa taken within 24 hours: N/A Was Clonidine taken within 24 hours: N/A Last intake: Intake Last Liquid Date 11/20/22 Last Liquid Time 20:00 Last Solid Date 11/20/22 Last Solid Time 17:00 Social No alcohol and No tobacco Exam alert, oriented x 3, clear to auscultation bilaterally and regular rate & rhythm Airway Submandibular: within normal limits Cervical ROM: within normal limits Mallampati: Class II Dentition: false CV/HEM Murmur () and Peripheral Vascular Disease CONCLUSIONS ?LV systolic function is normal with EF of 55-60% ?Grade 1 diastolic dysfunction ?Aortic valve is thickened and calcified.? Moderate aortic ?stenosis with mean gradient of 23 mmHg and aortic valve area of ?1.37 cm squared.? Mild aortic regurgitation ?Compared to prior echocardiogram from 07/24/2018, no significant ?changes are noted ?Damion Simmons MD ?(Electronically Signed) ?Final Date:? ? ? 09 May 2021 Metabolic Diabetes Mellitus, Hyperlipidemia and Thyroid Disease Neuropsych Neuropathy Anesthetic Plan ASA status: 3 Anesthesia: Choice Medications/Allergies Home Medications Medication Instructions Recorded Confirmed Last Taken Type Wheelchair #1 ea 12/21/21 10/02/22 Unknown Rx insulin degludec 200 unit/mL (3 30 unit SUBCUT BEDTIME 12/26/21 11/20/22 11/20/22 History mL) subcutaneous pen (Tresiba FlexTouch U-200 insulin) levothyroxine 25 mcg tablet 25 mcg PO DAILY 12/26/21 11/20/22 11/20/22 History quetiapine 50 mg tablet (Seroquel) 50 mg PO BEDTIME 12/26/21 11/20/22 11/20/22 History rosuvastatin 10 mg tablet 10 mg PO BEDTIME 12/26/21 11/20/22 11/20/22 History alprazolam 0.25 mg tablet (Xanax) 0.375 mg PO BEDTIME PRN Anxiety 01/25/22 11/21/22 11/14/22 History trazodone 100 mg tablet 100 mg PO BEDTIME 01/25/22 11/20/22 11/20/22 History 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 ea 02/22/22 10/02/22 Unknown Rx cilostazol 100 mg tablet 100 mg PO BID #60 tabs 06/18/22 11/20/22 11/20/22 Rx semaglutide 0.25 mg or 0.5 mg (2 See Rx Instructions .Route .COMPLEX 11/13/22 11/13/22 11/12/22 History mg/1.5 mL) subcutaneous pen injector gabapentin 300 mg capsule 300 mg PO TID PRN post op pain 11/20/22 11/20/22 11/20/22 History Allergies Allergy/AdvReac Type Severity Reaction Status Date / Time oxycodone [From Percocet] Allergy Unknown ALGY-Rash Verified 11/21/22 11:44 Penicillins Allergy Unknown ALGY-Rash Verified 11/21/22 11:44 Current Medications Generic Name Dose Route Start Last Admin Trade Name Freq PRN Reason Stop Dose Admin Sodium Chloride 1,000 mls @ 30 mls/hr 11/21/22 11:30 11/21/22 11:53 Sodium Chloride 0.9% IV 11/22/22 11:29 30 mls/hr .Q24H ADY Administration PFSH Anesthesia Medical History Aortic stenosis, mild ASHD (arteriosclerotic heart disease) Diabetes 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 mellitus HTN (hypertension) Hyperlipidemia Hypothyroidism Limb ischemia PAD (peripheral artery disease) Surgical History Hx of elbow surgery S/P hernia repair S/P rotator cuff repair Family History Brother CAD (coronary artery disease) Cancer LUNG Sister CAD (coronary artery disease) Cancer LUNG Mother Hypertension Cancer Father Cancer COLON Social History Smoking and tobacco status: never smoked Household members: spouse Marital status: Data Anesthesia 11/21/22 12:03 Short CBC 11/21/22 Range/Units 12:03 WBC 6.92 (3.29-11.43) 10^3/uL Hgb 12.30 (11.27-16.99) g/dL Hct 36.1 (36-47) % MCV 87.2 (85-98) fl Plt Count 308 (157-399) 10^3/cmm Neut % (Auto) 59.7 % Neut # (Auto) 4.13 (1.8-7.7) 10^3/uL Cardiac Studies: Echocardiogram 04/27/21
--- NOTE | 2022-11-21 12:55 | PM.OP ---
Operative Report Date of procedure: November 21, 2022 Pre-op diagnosis: Left carpal tunnel syndrome Surgeon: Rahat Peña DO Procedure: Post-op diagnosis: Same Procedure done: 1.?Left carpal tunnel release Surgeon: Rahat Peña DO Anesthesia: MAC (Local) Estimated blood?loss: [2mL Tourniquet time [7]minutes IV fluids: See anesthesia record Complications: None Findings: See operative report narrative Condition: stable Disposition: same day Brief History: Patient is a pleasant [82]year-old [female?with?left carpal tunnel syndrome.? Patient has been worked up in the outpatient setting findings and physical examination consistent with this.? We detailed?out?patient's risk benefits complication alternatives with surgical and?nonsurgical treatment options. Through shared decision making, patient?agrees to proceed with surgical intervention of the?left carpal tunnel release .? Patient understands and agrees with current plan.? All questions answered.? Patient elects to proceed with surgical intervention with carpal tunnel release. Procedure: Patient seen and evaluated in the preoperative holding area.? Consent was reviewed and signed with patient.? Correct extremity was marked.? Patient was seen evaluated by the anesthesia department once cleared for surgery was brought back to the operative suite.? Patient was kept on [facility] in supine position all bony prominences were well-padded patient properly secured to the bed.??Left upper extremity was then placed onto an armboard.? A nonsterile tourniquet was applied to the?left upper arm.? Patient underwent anesthesia per the anesthesia department.? Patient's?left upper extremity was then prepped and draped in standard orthopedic fashion.? Final timeout performed.? Patient received appropriate preoperative antibiotics. Under sterile aseptic technique patient received?local anesthesia over the preplanned carpal tunnel incision site. Esmarch was used to exsanguinate the?left upper extremity and tourniquet was insufflated to 250 mmHg. A standard mini open?left carpal tunnel incision was made.? Starting distally at Nam's cardinal?line in?line with the fourth ray extending proximally distal to the wrist crease centered over the carpal tunnel.? Sharp scalpel incision was made through skin and subcutaneous tissue.? Self-retaining retractor was placed and the palmar fascia was identified.? This was then split?longitudinally and direct visualization of the transverse carpal?ligament was then made.? I then utilizing scalpel feathered through the transverse carpal?ligament until I entered the floor of the transverse carpal tunnel?ligament into the carpal tunnel.? Next I switched to dissection scissors and completed my release of the transverse carpal?ligament distally with care to protect the recurrent motor branch.? I completely released into the palmar fat and until no entrapment was noted distally.? Care was made to protect the superficial palmar arch during my distal dissection.? Nasal speculum was used to retract all soft tissue proximally on top of the transverse carpal ligament .next I then placed a [place] underneath the transverse carpal tunnel?ligament to protect the contents of the carpal tunnel and subsequently utilizing dissection scissors under?loupe magnification completely released the transverse carpal?ligament proximally into the median antebrachial fascia.? Care was made to protect the palmar cutaneous branch by keeping my scissors curved ulnarly.? Once completely released, I then placed my [place] and had appropriate decompression of the carpal tunnel proximally as well as distally.? I then inspected the contents of the carpal tunnel which showed an hourglass shape of the median nerve showing its compression.? No masses were noted.? Tendons appeared healthy.? Wound was then thoroughly irrigated.? Tourniquet deflated.? Hemostasis satisfactory with bipolar electrocautery.? I then closed the incision with interrupted nylon stitches.? Xeroform 4 x 4's and a bulky soft dressing was applied to the?left upper extremity.? Patient was then awakened from anesthesia and taken to PACU in stable condition.? Patient tolerated procedure without complications. Disposition: Patient taken to PACU in stable condition recovering well.? Dressing clean dry and intact.? Patient will receive appropriate discharge instructions as well as pain medication postoperatively.? Patient to follow-up with me in the office in 2 weeks.? They understand they may be weightbearing as tolerated to the?left hand.? Patient should keep incision clean dry and intact.? Patient understands if any questions or concerns may contact the office.
--- NOTE | 2022-11-21 12:59 | P.BOP_ITS ---
Date of Procedure: [November 21, 2022] Surgeon: [Dr. Casey CAMACHO] Framing Specialist(s): [Randy Peña physician speech language pathology assistant] Procedure(s) performed: [Left carpal tunnel release] Findings of the procedure(s): [Left carpal tunnel syndrome] Estimated blood loss: [2 ml] Specimen(s) removed: [N/A] Post-operative diagnosis: [Left carpal tunnel syndrome]
[2022-11-21 13:00] VITALS: BP 133/64; PULSE 92; RESP 16; TEMP 36.2; O2SAT 96
--- NOTE | 2022-11-21 13:04 | P.PCN_ITS ---
PACU note Narrative: Patient is an 82-year-old female just underwent a left carpal tunnel release. Patient transferred to PACU in stable condition. Pain is well controlled. Dressing on hand is dry and in place. Patient's fingers are warm and well- perfused. Patient can wiggle fingers. normal cap refill under 2 seconds. Patient has normal elbow range of motion. Unable to assess sensation due to residual localized anesthetic. Exam: awake Disposition: discharged
[2022-11-21 13:05] VITALS: BP 128/68; PULSE 93; RESP 16; O2SAT 97
[2022-11-21 13:10] VITALS: BP 143/67; PULSE 90; RESP 16; TEMP 36.2; O2SAT 96
[2022-11-21] MEDS: TRAMadol 50 mg Tablet PO (13:40)
[2022-11-21 13:50] VITALS: BP 141/70; PULSE 83; RESP 18; O2SAT 96
--- NOTE | 2022-11-21 16:05 | ANE.PACU2 ---
Inpatient post-anesthesia follow up: Airway intact: Yes Vital signs: Temperature 97.1 F Pulse Rate 83 Respiratory Rate 18 Blood Pressure 141/70 Pulse Oximetry 96 Oxygen Delivery Me thod Room Air Oxygen Flow Rate Fraction of Inspir ed Oxygen Hydration adequate: Yes Nausea and vomiting: No Pain level: 1 Mental status: Baseline
== END 2022-11-21 14:10 | disposition home or self-care (01) ==
PROVIDERS: PCP Nurse Practitioner Family; Visit Provider Student in an Organized Health Care Education/Training Program
PROC: (CPT 64721; principal; 2022-11-21 14:05)
DX: G56.02 Carpal tunnel syndrome, left upper limb (principal); I25.10 Atherosclerotic heart disease of native coronary artery without angina pectoris; E11.42 Type 2 diabetes mellitus with diabetic polyneuropathy; E78.5 Hyperlipidemia, unspecified; E03.9 Hypothyroidism, unspecified; Z79.4 Long term (current) use of insulin
CPT/HCPCS: 64721; 36416; 82962; 85025; J0131; J1885; J2704; J2795; J3010; J3370; J7030

== ENCOUNTER → 2022-12-03 11:10 | Outpatient (BNVA) | payer MEDICARE, SELFPAY | PROVIDERS: PCP Nurse Practitioner Family; Visit Provider Physician Assistant | DX: M19.012 Primary osteoarthritis, left shoulder (principal); Z98.890 Other specified postprocedural states | CPT/HCPCS: 20610; 99213; J3301 ==

== ENCOUNTER → 2022-12-18 08:49 | Outpatient (BNVA) | payer MEDICARE, SELFPAY | PROVIDERS: PCP Nurse Practitioner Family; Visit Provider Student in an Organized Health Care Education/Training Program | DX: M19.012 Primary osteoarthritis, left shoulder (principal) | CPT/HCPCS: 99214 ==

== ENCOUNTER → 2022-12-27 15:06 | Outpatient (BNVA) | payer MEDICARE, SELFPAY | PROVIDERS: PCP Nurse Practitioner Family; Visit Provider Family Medicine | DX: Z01.818 Encounter for other preprocedural examination (principal); E11.42 Type 2 diabetes mellitus with diabetic polyneuropathy | CPT/HCPCS: 80053; 81003; 83036; 85025 ==

== ENCOUNTER 2023-01-07 13:03 | Outpatient (CLI) | payer MEDICARE, SELFPAY ==
--- NOTE | 2023-01-07 13:30 | CT_ITS ---
WS: [id number] CT LEFT SHOULDER, NONCONTRAST. HISTORY: Left reverse total shoulder Technique: All CT scans at [facility] use at least one of these dose optimization techniques: automated exposure control; mA and/or kV adjustment per patient size (includes targeted exams where dose is matched to clinical indication); or iterative reconstruction. DLP: 432.88 mGy.cm COMPARISON: 10/02/2022 radiographs Severe narrowing of the glenohumeral joint. Large osteophytes encasing the humeral head with marked c ortical irregularity of the glenoid. Humeral head is contacting the glenoid. Additional osseous densi ties extending into the subscapularis recess and along the subscapularis tendon. No acute fractures i dentified. There is mild synovial thickening surrounding the humeral head. Moderate narrowing of the AC joint with small osteophytes. Moderate atrophy of the supraspinatus musc le. The remaining rotator cuff muscles are mildly atrophied. Visualized lung is clear. Mild atherosclerosis aorta. IMPRESSION: 1. Marked glenohumeral joint narrowing with hypertrophic osteophytes. 2. Additional osseous densities extending into the subscapularis recess and along the subscapularis t endon. 3. Moderate AC joint osteoarthritis. 4. Moderate atrophy of the supraspinatus muscle.
== END 2023-01-07 13:04 | disposition home or self-care (01) ==
LOC: RAD 13:03
PROVIDERS: PCP Nurse Practitioner Family; Visit Provider Student in an Organized Health Care Education/Training Program
DX: M19.012 Primary osteoarthritis, left shoulder (principal); M25.712 Osteophyte, left shoulder; M62.512 Muscle wasting and atrophy, not elsewhere classified, left shoulder; M85.812 Other specified disorders of bone density and structure, left shoulder
CPT/HCPCS: 73200

== ENCOUNTER 2023-01-14 17:21 | Observation (INO) | payer MEDICARE, SELFPAY ==
[2023-01-14] VITALS (12 sets, daily range): BP systolic 107–149; BP diastolic 54–84; PULSE 83–97; RESP 12–18; TEMP 36.1–36.8; O2SAT 91–100
[2023-01-14] MEDS: ketorolac 30 mg/mL INJ IVP (12:38)
[2023-01-14 12:39] LABS: Glucose Point of Care 173 mg/dL (70-110)
[2023-01-14] MEDS: acetaminophen 1,000 MG/100 ML PIGGYBACK 400 MG IV (12:39)
[2023-01-14] MEDS: lactated ringers 500 ML IV (12:40)
[2023-01-14] MEDS: sodium chloride 0.9% 1,000 ML 30 ML IV (12:40)
[2023-01-14] MEDS: vancomycin 1,000 MG in sodium chloride 0.9% 250 ML 250 MG IV (12:41)
[2023-01-14] MEDS: scopolamine 1.5 Patch 1 PATCH TRANSDERMA (12:41)
--- NOTE | 2023-01-14 13:15 | P.ANESASSM_ITS ---
Pre-Anesthetic Assessment Height/Weight: Height 1.6 m Weight 70.307 kg Temp Pulse Resp BP Pulse Ox O2 Del Method 97.1 F L 94 18 149/84 95 Room Air 01/14/23 11:50 01/14/23 11:50 01/14/23 11:50 01/14/23 11:50 01/14/23 11:50 01/14/23 12:18 Preop Diagnosis: Left shoulder arthritis Operation Date: 01/14/23 13:20 Proposed Procedures p left reverse total shoulder arthroplasty(Left) - Rahat Peña DO Familial anesthetic complications: none Was Beta Noa taken within 24 hours: N/A Was Clonidine taken within 24 hours: N/A Last intake: Intake Last Liquid Date 01/13/23 Last Liquid Time 20:00 Last Solid Date 01/13/23 Last Solid Time 18:00 Social No alcohol and No tobacco Exam alert, oriented x 3, clear to auscultation bilaterally and regular rate & rhythm Airway Submandibular: within normal limits Cervical ROM: within normal limits Mallampati: Class II Dentition: false CV/HEM Hypertension, Murmur (Mod ) and Peripheral Vascular Disease Metabolic Diabetes Mellitus, Hyperlipidemia and Thyroid Disease [facility] Osteoarthritis/DJD Neuropsych Anxiety and Neuropathy Anesthetic Plan ASA status: 3 Anesthesia: General and Regional (specify below) (left IS nerve blk) Medications/Allergies Home Medications Medication Instructions Recorded Confirmed Last Taken Type Wheelchair #1 ea 12/21/21 12/18/22 Unknown Rx insulin degludec 200 unit/mL (3 30 unit SUBCUT BEDTIME 12/26/21 01/11/23 01/13/23 History mL) subcutaneous pen (Tresiba FlexTouch U-200 insulin) levothyroxine 25 mcg tablet 25 mcg PO DAILY 12/26/21 01/11/23 01/13/23 History quetiapine 50 mg tablet (Seroquel) 50 mg PO BEDTIME 12/26/21 01/11/23 01/13/23 History rosuvastatin 10 mg tablet 10 mg PO BEDTIME 12/26/21 01/11/23 01/13/23 History alprazolam 0.25 mg tablet (Xanax) 0.375 mg PO BEDTIME PRN Anxiety 01/25/22 01/11/23 01/13/23 History trazodone 100 mg tablet 100 mg PO BEDTIME 01/25/22 01/11/23 01/13/23 History 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 02/22/22 12/18/22 Unknown Rx cilostazol 100 mg tablet 100 mg PO BID #60 tabs 06/18/22 01/11/23 01/13/23 Rx semaglutide 0.25 mg or 0.5 mg (2 See Rx Instructions .Route .COMPLEX 11/13/22 01/11/23 01/13/23 History mg/1.5 mL) subcutaneous pen injector gabapentin 300 mg capsule 300 mg PO TID PRN post op pain 11/20/22 01/11/23 01/13/23 History tramadol 50 mg tablet 50 mg PO Q6H PRN pain #20 tabs 12/05/22 01/14/23 01/13/23 Rx Allergies Allergy/AdvReac Type Severity Reaction Status Date / Time oxycodone [From Percocet] Allergy Unknown ALGY-Rash Verified 01/14/23 12:12 Penicillins Allergy Unknown ALGY-Rash Verified 01/14/23 12:12 Current Medications Generic Name Dose Route Start Last Admin Trade Name Freq PRN Reason Stop Dose Admin Sodium Chloride 1,000 mls @ 30 mls/hr 01/14/23 12:00 01/14/23 12:40 Sodium Chloride 0.9% IV 01/15/23 11:59 30 mls/hr .Q24H ADY Administration PFSH Anesthesia Medical History Aortic stenosis, mild ASHD (arteriosclerotic heart disease) Diabetes 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 mellitus HTN (hypertension) Hyperlipidemia Hypothyroidism Limb ischemia PAD (peripheral artery disease) Surgical History Hx of elbow surgery S/P hernia repair S/P rotator cuff repair Status post amputation Family History Brother CAD (coronary artery disease) Cancer LUNG Sister CAD (coronary artery disease) Cancer LUNG Mother Hypertension Cancer Father Cancer COLON Social History Smoking and tobacco/nicotine status: never used tobacco/nicotine Household members: spouse Marital status: Data Anesthesia 01/14/23 12:49 01/14/23 12:49 Cardiac Studies: 2 Echocardiogram 04/27/21 Anesthesia Procedures Nerve Block Nerve Block 1: Main Anesthesia: general anesthesia Time Out Performed: Yes Consent: requested by attending/covering physician, from patient, risks and benefits reviewed and patient agrees to proceed Nerve block location: interscalene (left) Anesthesia monitors applied: pulse oximetry, EKG, BP cuff and oxygen Nerve block position: semi sitting Anesthetic Used: ropivicaine 0.5% Amount of anesthesia used (mL): 30 Ultrasound used to: recognize landmarks and visualize and ID brachial plexus Nerve Stimulator Used?: No Interscalene/Femoral BLK: 2 stimuplex 22 g needle used for position and inplane approach Injection: neg aspiration of heme Patient Tolerated Procedure: well Complications: none
[2023-01-14 13:22] LABS: Basophils % 0.5 %; Eosinophils # 0.2 10^3/uL (0.0-0.8); Eosinophils % 2.2 %; Hematocrit 35.3 % (36-47); Lymphocytes # 1.4 10^3/uL (0.8-4.8); Lymphocytes % 17.8 %; Mean Corpuscular HGB Conc 33.7 g/dL (30-55); Mean Corpuscular Hemoglobin 29.3 pg (27-33); Mean Corpuscular Volume 86.9 fl (85-98); Mean Platelet Volume 9.2 fL (7.4-10.4); Monocytes # 0.5 10^3/uL (0.2-0.9); Monocytes % 6.5 %; Neutrophils # 5.85 10^3/uL (1.8-7.7); Neutrophils % 72.3 %; Nucleated Red Blood Cells % 0 %; Platelet Count 344 10^3/cmm (157-399); Red Blood Count 4.06 10^6/uL (3.85-5.65)
--- NOTE | 2023-01-14 13:22 | W.PM.OPSUD ---
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
[2023-01-14 13:34] LABS: Carbon Dioxide 23 mmol/L (22-29)
[2023-01-14 13:42] LABS: Anion Gap 17.3 (5-19); Blood Urea Nitrogen 12 mg/dL (8-23); Calcium 9.1 mg/dL (8.5-10.5); Chloride 100 mmol/L (98-107); Glucose 174 mg/dL (65-115); Osmolality Calculated 286 mOsm/kg (285-295); Potassium 4.3 mmol/L (3.5-5.1); Sodium 136 mmol/L (136-145)
[2023-01-14] MEDS: clindamycin 600 MG/50 ML PREMIX 100 MG IV (14:00)
[2023-01-14] MEDS: tranexamic acid 1,000 mg/10mL SDV 1000 MG IV (14:42)
[2023-01-14] MEDS: vancomycin 1,000 MG SDV 1000 MG XX (15:12)
--- NOTE | 2023-01-14 16:42 | P.BOP_ITS ---
Date of Procedure: [January 14, 2023] Surgeon: [Dr. Casey CAMACHO] [employer] Field Supervisor(s): [Randy Peña physician associate] Procedure(s) performed: [Left reverse total shoulder, left shoulder biceptenodesis] Findings of the procedure(s): [Left glenohumeral joint arthritis] Estimated blood loss: [50 ml] Specimen(s) removed: [n/a] Post-operative diagnosis: [Left glenohumeral joint arthritis]
--- NOTE | 2023-01-14 16:47 | P.OP_ITS ---
Operative Report Date of procedure: January 14, 2023 Surgeon: Rahat Peña DO College Teacher: Randy Peña PA-C: PA was necessary for assistance in this case with arm positioning retraction and protection of neurovascular structures as well as assistance in implantation wound closure and dressing application. Procedure: Preop Diagnosis left shoulder shoulder degenerative joint disease Post-op diagnosis: same Post-op diagnosis: Same Procedure done: Left reverse total shoulder arthroplasty Left shoulder biceps tenodesis Implants: [employer] reverse total shoulder arthroplasty comprehensive system Size 9 mm mini humeral stem 36 mm glenosphere diameter standard offset Glenosphere mini baseplate Central screw?6.5 mm by 25 mm Fixed locking screws (25 mm, 20 mm, 15 mm, 15 mm) Standard mini humeral tray with +3 mm polyethylene thickness Surgeon: Rahat Peña DO Estimated blood loss: 50 mL IV fluids: 900 mL Urine output: 150 mL Complications: None Findings: See operative report narrative Condition: stable Disposition: floor Brief History: Pt is a pleasant 82-year-old female who is worked up in the outpatient setting for chronic left shoulder arthrtitis. Pt has failed conservative treatment and was interested in further treatment options we talked about continued nonoperative versus operative intervention given pt age rotator cuff tear on MRI would recommend a left reverse total shoulder arthroplasty. Pt has been medically optimized and cleared for surgery by the anesthesia department. Through shared decision-making pt like to proceed with a left reverse total shoulder arthroplasty. All questions been answered at this time once again pt understands the risk benefits complication alternatives the treatment option understanding risk of surgery pt agrees to proceed. All questions answered. Procedure: Patient seen evaluated in the preoperative holding area. Consent was reviewed and signed with patient once again detailed out the ins and outs of the procedure. Correct extremity was marked. Final questions answered. Patient was seen evaluated by Anesthesia Department once cleared for surgery pt was taken back to the operative suite. pt was placed in supine position all bony prominences well-padded patient was appropriate secured to the bed pt underwent anesthesia per the anesthesia department once appropriately anesthetized he was then subsequently set into a lazy beachchair position utilizing our standard OR table. Once we confirmed appropriate positioning we then subsequently prepped and draped the left upper extremity in standard orthopedic fashion. Final timeout performed. Patient received appropriate preoperative antibiotics. Standard deltopectoral approach was then made just lateral to the coracoid. I utilized electrocautery to maintain exact hemostasis throughout my dissection. I subsequently identified the cephalic vein dissected this out carefully and thi s was taken medially with Cobell retractor and I entered the deltopectoral interval. Next I released the clavipectoral fascia and at this point time identified the bicep tendon. This was then isolated and I opened up the bicipital groove within the interval taken this all the way to its insertion site. I subsequently released the bicep tendon all this was subsequently maintained I then performed under appropriate tension of bicep tenodesis to the pectoralis muscle and fascia. The proximal end of the tendon was then resected. Of note patient had significant attenuation of subscapularis tendon as well as tearing of rotator cuff. I then subsequently performed a subscapularis remanent peel off of the lesser tuberosity this was tagged with 0 Vicryl suture and utilized for manipulation throughout the case. I then subsequently performed a complete release in standard fashion with care to stay directly onto bone and protecting maxillary nerve throughout the case. Once standard residual release was performed I then protected the entirety of the humeral head and subsequently began with my humeral stem prep. Canal finder was used just off the articular margin and canal centralizer was satisfactory. I then subsequently broached up to appropriate depth and canal fit which was determined to be 9. 9 was left on and subsequently brought in plan to guide of 30 degrees retroversion was then placed with my cutting guide pinned into appropriate position and making sure my rotation and version was appropriate once satisfactory and pinned in the place the intramedullary canal reamer was then subsequently removed and an oscillating saw was then used to perform my humeral head resection. This was then subsequently removed. I then sequentially broached up to appropriate size which was a size 9 mm humeral stem with care to once again maintained my appropriate version. Once I was satisfied with this I then placed the metal And left the stem in place to maintain appropriate integrity of the humeral head while performing work on the glenoid. Next I then placed appropriate retraction posterior inferior posterior superior as well as anterior. I had excellent visualization of the glenoid at this point time ramesh my appropriate position. I utilized electrocautery and remove the entirety of the labrum so I had full visualization of the glenoid. I then utilized the [employer] comprehensive targeting guide within 10 degree tilt. Central guidepin was then inserted and confirmed to be in appropriate position confirmed with preop CT plan. once satisfied with this placement I then introduced my reamer and then opened up our porous glenosphere mini baseplate this was impacted in appropriate position and rotation next I then subsequently drilled and measured my central screw and placed in appropriate length 25 mm central screw. This had excellent fixation and purchase. At this point time I are removed any small residual osteophytes inferiorly and at this point then I subsequently drilled measured and placed 4 locking screws circumferentially around the mini baseplate size screws were 25 mm, 20 mm, 15 mm, 15 mm. These all had excellent fixation and I satisfied with baseplate . Next I then opened up our glenosphere 36 diameter set this to the appropriate offset C giving us roughly 2.5 mm of offset inferiorly this was then impacted and had excellent fixation. Utilize a tonsil closed by hand and we had appropriate fixation of the glenosphere. This was then subsequently removed and then I subsequently placed the appropriate trial humeral tray which was trialed with a standard offset onto my trial 9 mm humeral stem this was subsequently reduced. Just from initial reduction and emotional tearing of the rotator cuff patient did have small flecks of the greater tuberosity that was peeling off as result given these would be loose bodies it would be areas of impingement these were subsequently excised and the rotator cuff was left alone. Shoulder had excellent range of motion and stability had still little bit of play as result I then subsequently trialed with a +3 mm thickness and this had satisfactory range of motion and excellent stability and appropriately tension. This was determined to be my final implant. I then subsequently dislocate the shoulder. I then subsequently removed the trial implantations of the humerus. Final implants were called and open for of a size 9 mini humeral stem as well as a +3 polyethylene and mini humeral tray. This was opened and set up appropriately on the back table. I then subsequently impacted the mini humeral stem size 9 and appropriate position which was exact as our trial implantation once again maintaining our appropriate version that was preset and marked and then next I subsequently dried the trunnion and impacted the appropriate humeral tray with +3 mm thickness poly. This was then subsequently reduced and had excellent fixation range of motion and stability with appropriate tensioning. No evidence of instability was noted. I then subsequently opened Pulsavac and thoroughly irrigated the incision with 3 L of normal saline. I then subsequently placed a gram of vancomycin powder for infection prophylaxis. I then subsequently closed the subcutaneous layer with 0 and 2-0 Vicryl suture a running 3-0 Monocryl was then performed of the skin edges and then reinforce the skin edges with Steri-Strips. A FOSTER dressing was then applied. SLing applied. Patient was then awakened from anesthesia and taken to PACU in stable condition. Patient tolerated procedure without any complications. Disposition: Patient taken to PACU in stable condition recovering well will be admitted to the floor postoperatively internal medicine will be on board for medical management. Patient will be nonweightbearing to the left shoulder. Sling on in place. Patient will receive appropriate postoperative pain medication DVT prophylaxis on the floor. Will receive appropriate discharge str ucture as well as pain medication DVT prophylaxis. We will work with PT/OT. 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 Patient to follow-up with me in the office in 2 weeks.
--- NOTE | 2023-01-14 16:52 | PM.PACU ---
PACU note Narrative: Patient is an 82-year-old female just underwent a left reverse total shoulder arthroplasty. Patient transferred to PACU in stable condition. Pain is well controlled. shoulder Dressing on , dry and in place. Patient's operative arm is in a shoulder immobilizer. Patient is awake and alert and able to respond to my questions accordingly. Patient's fingers are warm with good perfusion. Normal cap refill under 2 seconds. Unable to assess further range of motion in arm due to sling. Unable to assess sensation due to residual localized anesthetic. Exam: awake Disposition: admitted
--- NOTE | 2023-01-14 16:52 | PC.NURSE ---
Upon beginning to prep patient, patient was noted to have three sores on her left breast that were present upon entering into the room.
--- NOTE | 2023-01-14 17:00 | XRR_ITS ---
PROCEDURE INFORMATION: Exam: XR Left Shoulder Exam date and time: 01/14/2023 6:15 PM Age: 82 years old Clinical indication: Device placement; Joint replacement hardware; Additional info: S/P L reverse tsa, ap grashey, scap y, external rotation TECHNIQUE: Imaging protocol: Radiologic exam of the left shoulder. Views: 2 or more views. COMPARISON: CT shoulder LT wo con* [id number] 01/07/2023 1:23 PM FINDINGS: Bones/joints: The patient has had a left total reverse shoulder arthroplasty with no adverse findings. [place] bone is unremarkable. Soft tissues: Normal. XR/XR shoulder LT min 2V* [id number] IMPRESSION: Normal appearing postoperative left total reverse shoulder arthroplasty.
--- NOTE | 2023-01-14 17:36 | PM.CONSULT ---
Providers/Reason For Consult Consulting Physician/Specialty*: Orthopedic service Reason for Consult*: Medical management Attending Physician: Rahat Peña DO Primary Care Provider: ALFONSO Morris History of Present Illness History of Present Illness Anjelica Mary is a 82 year old female with a past medical history of type 2 diabetes mellitus, history of hypothyroidism, history of right BKA, aortic stenosis, who presents [facility] for a left reverse total shoulder arthroplasty, hospice team was called for medical management, currently patient is alert and oriented x2, follows all commands, denies any chest pain, no shortness of breath, denies smoking, does report drinking alcohol on Saturday, no IV drug use, she has type 2 diabetes mellitus she is not sure if she used insulin this morning, denies any fevers, no chills, no chest pain no history of CAD, no history of COPD, history of strokes Review of Systems Const: Denies: fatigue Card: Denies: chest pain Resp: Denies: dyspnea GI: Denies: abdominal pain Neuro: Denies: headache(s) Medications/Allergies Home Medications Medication Instructions Recorded Confirmed Last Taken Type Wheelchair #1 ea 12/21/21 12/18/22 Unknown Rx insulin degludec 200 unit/mL (3 30 unit SUBCUT BEDTIME 12/26/21 01/11/23 01/13/23 History mL) subcutaneous pen (Tresiba FlexTouch U-200 insulin) levothyroxine 25 mcg tablet 25 mcg PO DAILY 12/26/21 01/11/23 01/13/23 History quetiapine 50 mg tablet (Seroquel) 50 mg PO BEDTIME 12/26/21 01/11/23 01/13/23 History rosuvastatin 10 mg tablet 10 mg PO BEDTIME 12/26/21 01/11/23 01/13/23 History alprazolam 0.25 mg tablet (Xanax) 0.375 mg PO BEDTIME PRN Anxiety 01/25/22 01/11/23 01/13/23 History trazodone 100 mg tablet 100 mg PO BEDTIME 01/25/22 01/11/23 01/13/23 History Stump head correction officer and supplies #1 ea 02/22/22 12/18/22 Unknown Rx cilostazol 100 mg tablet 100 mg PO BID #60 tabs 06/18/22 01/11/23 01/13/23 Rx semaglutide 0.25 mg or 0.5 mg (2 See Rx Instructions .Route .COMPLEX 11/13/22 01/11/23 01/13/23 History mg/1.5 mL) subcutaneous pen injector gabapentin 300 mg capsule 300 mg PO TID PRN post op pain 11/20/22 01/11/23 01/13/23 History tramadol 50 mg tablet 50 mg PO Q6H PRN pain #20 tabs 12/05/22 01/14/23 01/13/23 Rx Allergies Allergy/AdvReac Type Severity Reaction Status Date / Time oxycodone [From Percocet] Allergy Unknown ALGY-Rash Verified 01/14/23 12:12 Penicillins Allergy Unknown ALGY-Rash Verified 01/14/23 12:12 Current Medications Generic Name Dose Route Start Last Admin Trade Name Freq PRN Reason Stop Dose Admin Sodium Chloride 1,000 mls @ 30 mls/hr 01/14/23 12:00 01/14/23 12:40 Sodium Chloride 0.9% IV 01/15/23 11:59 30 mls/hr .Q24H ADY Administration PFSH Acute PFSH: Medical History 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 mellitus Hypothyroidism Limb ischemia Aortic stenosis, mild Diabetes ASHD (arteriosclerotic heart disease) Hyperlipidemia HTN (hypertension) PAD (peripheral artery disease) Surgical History Status post amputation S/P rotator cuff repair S/P hernia repair Hx of elbow surgery Family History Brother CAD (coronary artery disease) Cancer LUNG Sister CAD (coronary artery disease) Cancer LUNG Mother Hypertension Cancer Father Cancer COLON Social History Smoking and tobacco/nicotine status: never used tobacco/nicotine Household members: spouse Marital status: Vitals/I&O/Wt Last Vital Signs Temp 97.0 F L 01/14/23 17:32 Pulse 93 01/14/23 17:32 Resp 16 01/14/23 17:32 BP 127/65 12/04/23 17:32 Pulse Ox 94 01/14/23 17:32 O2 Del Method Room Air 01/14/23 17:27 O2 Flow Rate 6 01/14/23 17:12 01/14/23 01/14/23 01/14/23 06:59 14:59 22:59 Intake Total 350 / 350 Output Total 50 / 50 Balance 300 / 300 Weight last 48 hrs Weight 70.307 kg Physical Exam Const: COMMON NORMALS: no acute distress and patient oriented x3 HENMT: COMMON NORMALS: normocephalic HEAD & SCALP: normocephalic Resp: COMMON NORMALS: normal respiratory effort, No retractions, No use of accessory muscles and clear to auscultation bilaterally AUSCULTATION: clear to auscultation bilaterally Cardio: COMMON NORMALS: regular rate, regular rhythm, S1 normal heart sound present and S2 normal heart sound present RATE: regular rate RHYTHM: regular rhythm HEART SOUNDS: S1 normal heart sound present and S2 normal heart sound present OTHER: Systolic murmur GI: COMMON NORMALS: Normal to inspection, nondistended, normoactive bowel sounds present, Soft to palpation, non-tender, No hepatosplenomegaly present, no masses and no bruits PALPATION: Yes Soft to palpation and Yes No hepatosplenomegaly present Extremity: COMMON NORMALS: no calf tenderness and no pedal edema NARRATIVE EXTREMITY EXAM: Right below-knee amputation Neuro: COMMON NORMALS: patient oriented x3 Psych: COMMON NORMALS: mental status grossly normal Skin: OTHER: Left shoulder in a binder Urinary Catheter Management: Butt: Cath Placed During This Visit: yes Urinary Catheter Date of Insertion: 01/14/23 Urinary Catheter Time of Insertion: 14:20 Data 01/14/23 12:49 01/14/23 12:49 A&P Assessment and plan (1) DJD of left shoulder: (2) Below-knee amputation of right lower extremity: (3) 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 mellitus: (4) Aortic stenosis, mild: (5) PAD (peripheral artery disease): Plan Status post left reverse total shoulder arthroplasty ? Pain control anticoagulation as per Ortho service, PT OT Type 2 diabetes mellitus, low-dose sliding scale, Hypothyroidism, continue levothyroxine, Continue Seroquel, trazodone Consult Attestations Medical Necessity Statement: Patient requires hospitalization status post left shoulder surgery, medical management, of type 2 diabetes mellitus, hypothyroidism, Diagnoses DJD of left shoulder M19.012 Below-knee amputation of right lower extremity S88.111A 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 mellitus E11.42 Aortic stenosis, mild I35.0 PAD (peripheral artery disease) I73.9
--- NOTE | 2023-01-14 18:04 | ANE.PACU2 ---
Inpatient post-anesthesia follow up: Airway intact: Yes Vital signs: Temperature 97.0 F Pulse Rate 93 Respiratory Rate 16 Blood Pressure 127/65 Pulse Oximetry 94 Oxygen Delivery Me thod Room Air Oxygen Flow Rate 6 Fraction of Inspir ed Oxygen Hydration adequate: Yes Nausea and vomiting: No Pain level: 1 Mental status: Baseline
[2023-01-14] MEDS: docusate sodium 100 mg Capsule PO (18:57)
[2023-01-14] MEDS: iron polysaccharide complex 150 mg Capsule PO (18:58)
[2023-01-14] MEDS: cetylpyridinium Lozenge 1 EACH MUCOUS MEM (18:58)
[2023-01-14] MEDS: calcium carb-vit d 600mg/400unit 1 Tablet 1 EACH PO (18:58)
[2023-01-14] MEDS: acetaminophen 500 mg Tablet 1000 MG PO (20:21)
[2023-01-14] MEDS: atorvastatin 40 mg Tablet PO (20:21)
[2023-01-14] MEDS: quetiapine 25 mg Tablet 50 MG PO (20:21)
[2023-01-14] MEDS: tranexamic acid 1,000 MG/100 ML PREMIX 600 MG IV (20:21)
[2023-01-14] MEDS: trazodone 100 mg Tablet PO (20:21)
[2023-01-14] MEDS: clindamycin 900 MG/50 ML PREMIX 100 MG IV (22:53)
[2023-01-15 03:23] VITALS: BP 117/70; PULSE 81; RESP 14; TEMP 36.7; O2SAT 92
[2023-01-15] MEDS: TRAMadol 50 mg Tablet 100 MG PO ×2 (05:15→13:17)
[2023-01-15] MEDS: acetaminophen 500 mg Tablet 1000 MG PO ×3 (05:15→20:48)
[2023-01-15] MEDS: clindamycin 900 MG/50 ML PREMIX 100 MG IV ×2 (05:16→13:09)
[2023-01-15 06:25] LABS: Glucose Point of Care 185 mg/dL (70-110)
[2023-01-15 06:56] LABS: Basophils % 0.2 %; Hematocrit 29.7 % (36-47); Lymphocytes # 1.3 10^3/uL (0.8-4.8); Lymphocytes % 12.9 %; Mean Corpuscular HGB Conc 32.7 g/dL (30-55); Mean Corpuscular Hemoglobin 29.2 pg (27-33); Mean Corpuscular Volume 89.5 fl (85-98); Mean Platelet Volume 9.2 fL (7.4-10.4); Monocytes # 0.7 10^3/uL (0.2-0.9); Neutrophils # 8.05 10^3/uL (1.8-7.7); Neutrophils % 79.4 %; Nucleated Red Blood Cells % 0 %; Platelet Count 303 10^3/cmm (157-399); Red Blood Count 3.32 10^6/uL (3.85-5.65); Red Cell Distribution Width 13.2 % (12.1-15.1); White Blood Count 10.14 10^3/uL (3.29-11.43)
[2023-01-15 07:06] LABS: Anion Gap 12.8 (5-19); Blood Urea Nitrogen 18 mg/dL (8-23); Calcium 8.5 mg/dL (8.5-10.5); Carbon Dioxide 24 mmol/L (22-29); Chloride 98 mmol/L (98-107); Creatinine Clr Calc Pharmacy 49.7697; Glucose 192 mg/dL (65-115); Osmolality Calculated 277 mOsm/kg (285-295); Potassium 4.8 mmol/L (3.5-5.1); Sodium 130 mmol/L (136-145)
[2023-01-15 07:38] VITALS: BP 116/67; PULSE 73; RESP 18; TEMP 36.8; O2SAT 96
[2023-01-15 07:39] VITALS: PULSE 76; RESP 18; O2SAT 96
[2023-01-15] MEDS: insulin lispro 100 unit/1 mL SUBCUT ×2 (07:48→16:45)
[2023-01-15] MEDS: aspirin 325 mg EC Tablet PO (07:49)
[2023-01-15] MEDS: calcium carb-vit d 600mg/400unit 1 Tablet 1 EACH PO ×2 (07:49→16:45)
[2023-01-15] MEDS: iron polysaccharide complex 150 mg Capsule PO ×2 (07:49→16:46)
[2023-01-15] MEDS: cilostazol 100 mg Tablet PO ×2 (07:49→16:46)
[2023-01-15] MEDS: multivitamin therapeutic Tablet 1 TAB PO (07:49)
[2023-01-15] MEDS: levothyroxine 25 mcg Tablet PO (07:49)
[2023-01-15] MEDS: docusate sodium 100 mg Capsule PO ×2 (07:49→16:46)
--- NOTE | 2023-01-15 08:34 | PC.PHAR ---
Addendum entered by Stacey Miller 01/15/23 09:37: LEFT ANOTHER MESSAGE FOR DAUGHTER TO CALL FOR MED REC. NO RESPONSE AT THIS TIME. 01/15/23 9:35 AM Original Note: DAUGHTER-PENNY- TAKES CARE OF MEDICATIONS. LEFT A MESSAGE AT 8 AM TO CALL US FOR MED REC. 01/15/23
--- NOTE | 2023-01-15 09:52 | PC.CHAP ---
Pastoral Care Encounter/Spiritual Assessment Type of Contact [] Declined side door man visit [] Patient/Family/Request visit [] Outpatient visit [] Follow-up visit [] Physician referral [] Code/Alert [x] Routine visit [] Staff referral [] Actively dying [] Patient sleeping [x] Family support [] [] Out of room [] Palliative care [] [] Receiving care in room [] Pre-surgical visit [] Trauma [] Long length of stay [] ICU visit [] Other: Relational/Emotional Strength [x] Patient feels connected with others/family/visitors/staff [] Distress [] Loneliness/isolation [] Abandonment Spirituality of Patient [x] Person of Namrata [] Attends Baptism of their [place] [x] Believes in Prayer [] Reads Bible or Synagogue materials [] There are Spiritual issues to be addressed Roll Grinder Interventions [x] Prayer [x] Active listening [] Non-anxious presence [x] Spiritual/emotional support [] Crisis/trauma care [] Spiritual counseling [] Bereavement support [] Provided bereavement packet [] Provided Bible/devotional materials [] Provided toy/stuffed animal, coloring book to patient or family member [] Provided Communion [] Anointing/[place] [] Salvation [x] Completed spiritual assessment [] Other: Impact on Illness or Injury [] Angry [] Fearful [] Anxious [] Often cries [] Exhaustion [] Unable to work [] Unable to attend religion [] Unable to walk/stand [] Unable to read [] Unable to drive [] Unable to eat/drink [] Unable to sleep [] Unable to be with family [] Patient intubated [] Other: Summary Time spent with patient 5 min
[2023-01-15 11:20] LABS: Glucose Point of Care 88 mg/dL (70-110)
[2023-01-15 11:23] VITALS: BP 108/67; PULSE 99; RESP 18; TEMP 36.6; O2SAT 93
[2023-01-15] MEDS: vancomycin 1,000 MG in sodium chloride 0.9% 250 ML 250 MG IV (12:00)
--- NOTE | 2023-01-15 12:13 | P.PN_ITS ---
Documented by User: ANGELA Reeves 01/15/23 16:45 Subjective 2 Subjective: Pt is 1 day postop Left reverse total shoulder arthroplasty. no acute events overnight. pain is well controlled. No other acute complaints. Vitals/I&O/Wt Last Vital Signs Temp 97.8 F 01/15/23 11:23 Pulse 99 01/15/23 11:23 Resp 18 01/15/23 11:23 BP 108/67 01/15/23 11:23 Pulse Ox 93 01/15/23 11:23 O2 Del Method Room Air 01/15/23 11:23 O2 Flow Rate 6 01/14/23 17:12 01/14/23 01/15/23 01/15/23 22:59 06:59 14:59 Intake Total 1250 / 1250 200 / 1450 240 / 240 Output Total 150 / 150 225 / 375 Balance 1100 / 1100 -25 / 1075 240 / 240 Weight last 48 hrs Weight 175 lb 4 oz Weight 155 lb Physical Exam 2 Narrative: Patient is awake and alert and able to respond to my questions accordingly. Const: COMMON NORMALS: no acute distress and alert Resp: COMMON NORMALS: normal respiratory effort and No retractions Cardio: COMMON NORMALS: Peripheral pulses 2+ throughout PERIPHERAL PULSES: Peripheral pulses 2+ throughout Extremity: NARRATIVE EXTREMITY EXAM: Left shoulder-- shoulder Dressing on , dry and in place. Patient's operative arm is in a shoulder immobilizer. Patient's fingers are warm with good perfusion. Normal cap refill under 2 seconds. Unable to assess further range of motion in arm due to sling. Sensation to hand intact. Neuro: SENSORIUM/ORIENTATION: Yes alert Skin: GENERAL SKIN EXAM: dry skin Urinary Catheter Management: Butt: Cath Placed During This Visit: yes, but has since been removed by the nurse Reason for Continuing Indwelling Catheter: Decision to DC Catheter Urinary Catheter Date of Insertion: 01/14/23 Urinary Catheter Time of Insertion: 14:20 Date Urinary Catheter Removed: 01/15/23 Time Urinary Catheter Discontinued: 05:31 Data 01/17/23 05:28 01/17/23 05:28 A&P Assessment and plan (1) Status post reverse total arthroplasty of left shoulder: Plan Plan: -Imaging and Labs reviewed -Hospitalist on board for medical management. -VTE prophylaxis per medicine -Keep left arm in ultrasling-no ROM or weightbearing to left arm. -Pain control -PT/OT Attestations 2 Medical Necessity Statement*: ongoing care for left reverse total shoulder arthroplasty Coding Level of Care Code Acute Code for Chg Fwd Diagnoses Status post reverse total arthroplasty of left shoulder Z96.612 Documented by User: Rahat Peña DO 01/19/23 00:03 Physical Exam 2 Urinary Catheter Management: Butt: Cath Placed During This Visit: yes, but has since been removed by the nurse Data 01/17/23 05:28 01/17/23 05:28 A&P Assessment and plan (1) Status post reverse total arthroplasty of left shoulder: Coding Level of Care Code Acute Code for Chg Fwd Diagnoses Status post reverse total arthroplasty of left shoulder Z96.612
[2023-01-15] MEDS: ketorolac 30 mg/mL INJ 15 MG IVP (16:35)
[2023-01-15 16:47] LABS: Glucose Point of Care 142 mg/dL (70-110)
--- NOTE | 2023-01-15 16:55 | P.PN_ITS ---
Subjective 2 Subjective: Patient was seen this morning, she is sitting up in a chair, she has no complaints no fevers, chills, no cough, no abdominal pain, Vitals/I&O/Wt Last Vital Signs Temp 97.8 F 01/15/23 11:23 Pulse 99 01/15/23 11:23 Resp 18 01/15/23 11:23 BP 108/67 01/15/23 11:23 Pulse Ox 93 01/15/23 11:23 O2 Del Method Room Air 01/15/23 11:23 O2 Flow Rate 6 01/14/23 17:12 01/15/23 01/15/23 01/15/23 06:59 14:59 22:59 Intake Total 200 / 1450 540 / 540 Output Total 225 / 375 300 / 300 Balance -25 / 1075 540 / 540 -300 / 240 Weight last 48 hrs Weight 79.492 kg Weight 70.307 kg Physical Exam 2 Const: COMMON NORMALS: no acute distress and patient oriented x3 Cardio: COMMON NORMALS: regular rate, regular rhythm, S1 normal heart sound present and S2 normal heart sound present RATE: regular rate RHYTHM: r egular rhythm HEART SOUNDS: S1 normal heart sound present and S2 normal heart sound present GI: COMMON NORMALS: Normal to inspection, nondistended, normoactive bowel sounds present Extremity: COMMON NORMALS: no pedal edema Neuro: COMMON NORMALS: patient oriented x3 Psych: COMMON NORMALS: mental status grossly normal Urinary Catheter Management: Butt: Cath Placed During This Visit: yes, but has since been removed by the nurse Reason for Continuing Indwelling Catheter: Decision to DC Catheter Urinary Catheter Date of Insertion: 01/14/23 Urinary Catheter Time of Insertion: 14:20 Date Urinary Catheter Removed: 01/15/23 Time Urinary Catheter Discontinued: 05:31 Data 01/15/23 06:32 01/15/23 06:32 A&P Assessment and plan (1) DJD of left shoulder: (2) Below-knee amputation of right lower extremity: (3) 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 mellitus: (4) Aortic stenosis, mild: (5) PAD (peripheral artery disease): Plan Status post left reverse total shoulder arthroplasty ? Pain control anticoagulation as per Ortho service, PT OT Type 2 diabetes mellitus, low-dose sliding scale, Hypothyroidism, continue levothyroxine, Continue Seroquel, trazodone Hyponatremia, recheck serum sodium tomorrow, Anemia, monitor hemoglobin repeat tomorrow Attestations 2 Medical Necessity Statement*: Patient requires hospitalization, status post shoulder surgery, history of left BKA, requiring skilled nursing placement Diagnoses DJD of left shoulder M19.012 Below-knee amputation of right lower extremity S88.111A 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 mellitus E11.42 Aortic stenosis, mild I35.0 PAD (peripheral artery disease) I73.9
[2023-01-15 17:38] VITALS: BP 120/71; PULSE 87; RESP 18; TEMP 36.3; O2SAT 93
[2023-01-15] MEDS: atorvastatin 40 mg Tablet PO (20:48)
[2023-01-15] MEDS: quetiapine 25 mg Tablet 50 MG PO (20:48)
[2023-01-15] MEDS: ALPRAZolam 0.5 mg Tablet 0.375 MG PO (20:48)
[2023-01-15 22:34] LABS: Glucose Point of Care 168 mg/dL (70-110)
[2023-01-16] VITALS: BP 135/75; PULSE 91; RESP 17; TEMP 36.8; O2SAT 95
[2023-01-16 03:50] VITALS: BP 163/78; PULSE 71; RESP 17; TEMP 36.9; O2SAT 96
[2023-01-16] MEDS: acetaminophen 500 mg Tablet 1000 MG PO ×3 (04:38→20:03)
[2023-01-16] MEDS: TRAMadol 50 mg Tablet 100 MG PO ×3 (04:38→13:26)
[2023-01-16 05:04] LABS: Basophils % 0.4 %; Eosinophils # 0.1 10^3/uL (0.0-0.8); Eosinophils % 0.7 %; Hematocrit 29.5 % (36-47); Lymphocytes # 1.8 10^3/uL (0.8-4.8); Lymphocytes % 24.2 %; Mean Corpuscular HGB Conc 32.2 g/dL (30-55); Mean Corpuscular Hemoglobin 29.6 pg (27-33); Mean Corpuscular Volume 91.9 fl (85-98); Monocytes # 0.7 10^3/uL (0.2-0.9); Monocytes % 9.4 %; Neutrophils # 4.81 10^3/uL (1.8-7.7); Neutrophils % 64.9 %; Nucleated Red Blood Cells % 0 %; Platelet Count 225 10^3/cmm (157-399); Red Blood Count 3.21 10^6/uL (3.85-5.65); Red Cell Distribution Width 13.2 % (12.1-15.1); White Blood Count 7.41 10^3/uL (3.29-11.43)
[2023-01-16 05:28] LABS: Anion Gap 11.3 (5-19); Blood Urea Nitrogen 20 mg/dL (8-23); Calcium 8.9 mg/dL (8.5-10.5); Carbon Dioxide 26 mmol/L (22-29); Chloride 99 mmol/L (98-107); Glucose 192 mg/dL (65-115); Osmolality Calculated 282 mOsm/kg (285-295); Potassium 4.3 mmol/L (3.5-5.1); Sodium 132 mmol/L (136-145)
[2023-01-16 06:00] VITALS: BMI 31.1
[2023-01-16 07:46] LABS: Glucose Point of Care 162 mg/dL (70-110)
[2023-01-16] MEDS: insulin lispro 100 unit/1 mL SUBCUT ×3 (07:48→17:19)
[2023-01-16] MEDS: levothyroxine 25 mcg Tablet PO (07:48)
[2023-01-16] MEDS: aspirin 325 mg EC Tablet PO (07:48)
[2023-01-16] MEDS: cilostazol 100 mg Tablet PO ×2 (07:49→17:20)
[2023-01-16] MEDS: docusate sodium 100 mg Capsule PO ×2 (07:49→17:20)
[2023-01-16] MEDS: multivitamin therapeutic Tablet 1 TAB PO (07:49)
[2023-01-16] MEDS: calcium carb-vit d 600mg/400unit 1 Tablet 1 EACH PO ×2 (07:49→17:20)
[2023-01-16] MEDS: iron polysaccharide complex 150 mg Capsule PO ×2 (07:49→17:20)
[2023-01-16 07:51] LABS: Glucose Point of Care 178 mg/dL (70-110)
[2023-01-16 08:16] VITALS: BP 134/71; PULSE 90; RESP 18; TEMP 36.4; O2SAT 96
[2023-01-16 10:52] LABS: Glucose Point of Care 214 mg/dL (70-110)
[2023-01-16 11:12] VITALS: BP 130/63; PULSE 84; RESP 18; TEMP 36.8; O2SAT 94
--- NOTE | 2023-01-16 13:59 | P.PN_ITS ---
Subjective 2 Subjective: Patient was seen this morning, she has no complaints this morning, Vitals/I&O/Wt Last Vital Signs Temp 98.2 F 01/16/23 11:12 Pulse 84 01/16/23 11:12 Resp 18 01/16/23 11:12 BP 130/63 01/16/23 11:12 Pulse Ox 94 01/16/23 11:12 O2 Del Method Room Air 01/16/23 11:12 O2 Flow Rate 6 01/14/23 17:12 01/15/23 01/16/23 01/16/23 22:59 06:59 14:59 Intake Total 966 / 1506 960 / 960 Output Total 300 / 300 200 / 200 Balance 666 / 1206 760 / 760 Weight last 48 hrs Weight 79.917 kg Weight 79.492 kg Physical Exam 2 Const: COMMON NORMALS: no acute distress and patient oriented x3 Resp: COMMON NORMALS: normal respiratory effort, No retractions, No use of accessory muscles and clear to auscultation bilaterally AUSCULTATION: clear to auscultation bilaterally Cardio: COMMON NORMALS: regular rate, regular rhythm, S1 normal heart sound present and S2 normal heart sound present RATE: regular rate RHYTHM: r egular rhythm HEART SOUNDS: S1 normal heart sound present and S2 normal heart sound present GI: COMMON NORMALS: Normal to inspection, nondistended, normoactive bowel sounds present and non-tender Extremity: COMMON NORMALS: no pedal edema Neuro: COMMON NORMALS: patient oriented x3 Psych: COMMON NORMALS: mental status grossly normal Urinary Catheter Management: Butt: Cath Placed During This Visit: yes, but has since been removed by the nurse Reason for Continuing Indwelling Catheter: Decision to DC Catheter Urinary Catheter Date of Insertion: 01/14/23 Urinary Catheter Time of Insertion: 14:20 Date Urinary Catheter Removed: 01/15/23 Time Urinary Catheter Discontinued: 05:31 Data 01/16/23 04:39 01/16/23 04:39 A&P Assessment and plan (1) DJD of left shoulder: (2) Below-knee amputation of right lower extremity: (3) 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 mellitus: (4) Aortic stenosis, mild: (5) PAD (peripheral artery disease): Plan Status post left reverse total shoulder arthroplasty ? Pain control anticoagulation as per Ortho service, PT OT Type 2 diabetes mellitus, low-dose sliding scale, Hypothyroidism, continue levothyroxine, Continue Seroquel, trazodone Hyponatremia, recheck serum sodium tomorrow, Anemia, monitor hemoglobin repeat tomorrow Attestations 2 Medical Necessity Statement*: Patient requires hospitalization awaiting residential placement Diagnoses DJD of left shoulder M19.012 Below-knee amputation of right lower extremity S88.111A 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 mellitus E11.42 Aortic stenosis, mild I35.0 PAD (peripheral artery disease) I73.9
--- NOTE | 2023-01-16 14:05 | P.PN_ITS ---
Subjective 2 Subjective: Patient was seen this morning, Vitals/I&O/Wt Last Vital Signs Temp 98.2 F 01/16/23 11:12 Pulse 84 01/16/23 11:12 Resp 18 01/16/23 11:12 BP 130/63 01/16/23 11:12 Pulse Ox 94 01/16/23 11:12 O2 Del Method Room Air 01/16/23 11:12 O2 Flow Rate 6 01/14/23 17:12 01/15/23 01/16/23 01/16/23 22:59 06:59 14:59 Intake Total 966 / 1506 960 / 960 Output Total 300 / 300 200 / 200 Balance 666 / 1206 760 / 760 Weight last 48 hrs Weight 79.917 kg Weight 79.492 kg Physical Exam 2 Urinary Catheter Management: Butt: Cath Placed During This Visit: yes, but has since been removed by the nurse Reason for Continuing Indwelling Catheter: Decision to DC Catheter Urinary Catheter Date of Insertion: 01/14/23 Urinary Catheter Time of Insertion: 14:20 Date Urinary Catheter Removed: 01/15/23 Time Urinary Catheter Discontinued: 05:31 Data 01/16/23 04:39 01/16/23 04:39 Coding Level of Care Code Acute Code for Chg Fwd
--- NOTE | 2023-01-16 14:21 | PC.SOCIAL ---
IMM Update pg 2 of IMM not updated @ this time as patient is currently in observation status.
[2023-01-16 17:06] LABS: Glucose Point of Care 189 mg/dL (70-110)
[2023-01-16] MEDS: ketorolac 30 mg/mL INJ 15 MG IVP (17:19)
[2023-01-16 17:23] VITALS: BP 113/69; PULSE 101; RESP 18; TEMP 36.5; O2SAT 94
--- NOTE | 2023-01-16 17:49 | P.PN_ITS ---
Subjective 2 Subjective: Pt is 2 day postop Left reverse total shoulder arthroplasty. no acute events overnight. pain is well controlled. No other acute complaints. Vitals/I&O/Wt Last Vital Signs Temp 97.7 F 01/16/23 17:23 Pulse 101 H 01/16/23 17:23 Resp 18 01/16/23 17:23 BP 113/69 01/16/23 17:23 Pulse Ox 94 01/16/23 17:23 O2 Del Method Room Air 01/16/23 17:23 O2 Flow Rate 6 01/14/23 17:12 01/16/23 01/16/23 01/16/23 06:59 14:59 22:59 Intake Total 960 / 960 240 / 1200 Output Total 200 / 200 Balance 760 / 760 240 / 1000 Weight last 48 hrs Weight 176 lb 3 oz Weight 175 lb 4 oz Physical Exam 2 Narrative: Patient is awake and alert and able to respond to my questions accordingly. Const: COMMON NORMALS: no acute distress and alert Resp: COMMON NORMALS: normal respiratory effort and No retractions Cardio: COMMON NORMALS: Peripheral pulses 2+ throughout PERIPHERAL PULSES: Peripheral pulses 2+ throughout Extremity: NARRATIVE EXTREMITY EXAM: Left shoulder-- shoulder Dressing on , dry and in place. ecchymosis seen around incision site. no erythema, warmth or purulent drainage seen. Patient's operative arm is in a shoulder immobilizer. Patient's fingers are warm with good perfusion. Normal cap refill under 2 seconds. Unable to assess further range of motion in arm due to sling. pt can perform test pressing elbow behind her. sensation to upper arm intact. Sensation to hand intact. Neuro: SENSORIUM/ORIENTATION: Yes alert Skin: GENERAL SKIN EXAM: dry skin Data 01/17/23 05:28 01/17/23 05:28 A&P Assessment and plan (1) Status post reverse total arthroplasty of left shoulder: Plan Plan: -Imaging and Labs reviewed -Hospitalist on board for medical management. -VTE prophylaxis per medicine -Keep left arm in ultrasling-no ROM or weightbearing to left arm. -Pain control -PT/OT Attestations 2 Medical Necessity Statement*: ongoing care for left reverse total shoulder Coding Level of Care Code Acute Code for Chg Fwd Diagnoses Status post reverse total arthroplasty of left shoulder Z96.612
[2023-01-16 20:01] VITALS: BP 145/76; PULSE 99; RESP 14; TEMP 36.4; O2SAT 94
[2023-01-16] MEDS: atorvastatin 40 mg Tablet PO (20:02)
[2023-01-16] MEDS: ALPRAZolam 0.5 mg Tablet 0.375 MG PO (20:03)
[2023-01-16] MEDS: quetiapine 25 mg Tablet 50 MG PO (20:03)
[2023-01-16] MEDS: trazodone 100 mg Tablet PO (20:03)
[2023-01-16 21:45] LABS: Glucose Point of Care 305 mg/dL (70-110)
[2023-01-17] VITALS: BP 128/66; PULSE 93; RESP 18; TEMP 36.5; O2SAT 93
[2023-01-17 04:00] VITALS: BP 126/61; PULSE 97; RESP 19; TEMP 36.9; O2SAT 94
[2023-01-17] MEDS: acetaminophen 500 mg Tablet 1000 MG PO (04:22)
[2023-01-17 05:49] LABS: Basophils % 0.3 %; Eosinophils # 0.1 10^3/uL (0.0-0.8); Eosinophils % 1.5 %; Hematocrit 27.8 % (36-47); Lymphocytes # 1.3 10^3/uL (0.8-4.8); Lymphocytes % 16.7 %; Mean Corpuscular HGB Conc 32.4 g/dL (30-55); Mean Corpuscular Hemoglobin 29.1 pg (27-33); Mean Platelet Volume 9.2 fL (7.4-10.4); Monocytes # 0.7 10^3/uL (0.2-0.9); Monocytes % 9.4 %; Neutrophils # 5.56 10^3/uL (1.8-7.7); Neutrophils % 71.3 %; Nucleated Red Blood Cells % 0 %; Platelet Count 259 10^3/cmm (157-399); Red Blood Count 3.09 10^6/uL (3.85-5.65); Red Cell Distribution Width 13.2 % (12.1-15.1); White Blood Count 7.79 10^3/uL (3.29-11.43)
[2023-01-17 06:00] VITALS: BMI 31.3
[2023-01-17 06:11] LABS: Anion Gap 14.1 (5-19); Blood Urea Nitrogen 15 mg/dL (8-23); Calcium 9.1 mg/dL (8.5-10.5); Carbon Dioxide 24 mmol/L (22-29); Chloride 101 mmol/L (98-107); Glucose 285 mg/dL (65-115); Osmolality Calculated 291 mOsm/kg (285-295); Potassium 4.1 mmol/L (3.5-5.1); Sodium 135 mmol/L (136-145)
[2023-01-17 06:58] LABS: Glucose Point of Care 270 mg/dL (70-110)
[2023-01-17 07:47] VITALS: BP 135/63; PULSE 87; RESP 18; TEMP 36.3; O2SAT 97
[2023-01-17] MEDS: levothyroxine 25 mcg Tablet PO (09:45)
[2023-01-17] MEDS: calcium carb-vit d 600mg/400unit 1 Tablet 1 EACH PO (09:45)
[2023-01-17] MEDS: iron polysaccharide complex 150 mg Capsule PO (09:45)
[2023-01-17] MEDS: aspirin 325 mg EC Tablet PO (09:46)
[2023-01-17] MEDS: cilostazol 100 mg Tablet PO (09:46)
[2023-01-17] MEDS: docusate sodium 100 mg Capsule PO (09:46)
[2023-01-17] MEDS: insulin lispro 100 unit/1 mL SUBCUT (09:46)
[2023-01-17] MEDS: multivitamin therapeutic Tablet 1 TAB PO (09:46)
[2023-01-17] MEDS: TRAMadol 50 mg Tablet 100 MG PO (09:46)
--- NOTE | 2023-01-17 11:26 | PM.DCS ---
Discharge Providers Date of Admission: 01/14/23 17:21 Date of Discharge: January 17, 2023 Attending Provider at Admission: Rahat Peña DO Attending Provider at Discharge: Rahat Peña DO Primary Care Provider: ALFONSO Morris Diagnoses at Discharge Discharge Diagnosis (1) Status post reverse total arthroplasty of left shoulder: Status: Acute Reason for Visit Reason for Visit: 75912 M19.012 Hospital Course Hospital Course lb Mary is a 82 year old female with a past medical history of type 2 diabetes mellitus, history of hypothyroidism, history of right BKA, aortic stenosis, who presents [facility] for a left reverse total shoulder arthroplasty, hospice team was called for medical management, currently patient is alert and oriented x2, follows all commands, denies any chest pain, no shortness of breath, denies smoking, does report drinking alcohol on Saturday, no IV drug use, she has type 2 diabetes mellitus she is not sure if she used insulin this morning, denies any fevers, no chills, no chest pain no history of CAD, no history of COPD, history of strokes Status post left reverse total shoulder arthroplasty, by Dr. Potter, move to SNF, charged on aspirin 325 mg for DVT prophylaxis, hydrocodone to be used sparingly for pain control For type 2 diabetes mellitus, discharged on low-dose sliding scale, with Tresiba 5 units at bedtime Hypothyroidism continue levothyroxine Physical Exam Const: COMMON NORMALS: no acute distress and patient oriented x3 Resp: COMMON NORMALS: normal respiratory effort, No retractions, No use of accessory muscles and clear to auscultation bilaterally AUSCULTATION: clear to auscultation bilaterally Cardio: COMMON NORMALS: regular rate, regular rhythm, S1 normal heart sound present and S2 normal heart sound present RATE: regular rate RHYTHM: regular rhythm HEART SOUNDS: S1 normal heart sound present and S2 normal heart sound present GI: COMMON NORMALS: Normal to inspection, nondistended, normoactive bowel sounds present and non-tender Extremity: COMMON NORMALS: no pedal edema NARRATIVE EXTREMITY EXAM: left upper extremity in abinder Neuro: COMMON NORMALS: patient oriented x3 Psych: COMMON NORMALS: mental status grossly normal Urinary Catheter Management: Butt: Cath Placed During This Visit: yes, but has since been removed by the nurse Reason for Continuing Indwelling Catheter: Decision to DC Catheter Urinary Catheter Date of Insertion: 01/14/23 Urinary Catheter Time of Insertion: 14:20 Date Urinary Catheter Removed: 01/15/23 Time Urinary Catheter Discontinued: 05:31 Discharge Data Studies Completed and Pending Completed Studies During Hospitalization Category Date Time Status XR shoulder LT min 2V* [id number] Routine Exams 01/14/23 17:00 Completed Pending at discharge Category Date Time Status COVID [SARS Covid-2 Antigen] Routine Lab 01/17/23 08:10 Uncollected Radiology Impressions Shoulder X-Ray 01/14/23 17:00 IMPRESSION: Normal appearing postoperative left total reverse shoulder arthroplasty. Laboratory Results WBC 7.79 10^3/uL (3.29-11.43) 01/17/23 05:28 RBC 3.09 10^6/uL (3.85-5.65) L 01/17/23 05:28 Hgb 9.00 g/dL (11.27-16.99) L 01/17/23 05:28 Hct 27.8 % (36-47) L 01/17/23 05:28 MCV 90.0 fl (85-98) 01/17/23 05:28 MCH 29.1 pg (27-33) 01/17/23 05:28 MCHC 32.4 g/dL (30-55) 01/17/23 05:28 RDW 13.2 % (12.1-15.1) 01/17/23 05:28 Plt Count 259 10^3/cmm (157-399) 01/17/23 05:28 MPV 9.2 fL (7.4-10.4) 01/17/23 05:28 Neut % (Auto) 71.3 % 01/17/23 05:28 Lymph % (Auto) 16.7 % 01/17/23 05:28 Frederick % (Auto) 9.4 % 01/17/23 05:28 Eos % (Auto) 1.5 % 01/17/23 05:28 Baso % (Auto) 0.3 % 01/17/23 05:28 Neut # (Auto) 5.56 10^3/uL (1.8-7.7) 01/17/23 05:28 Lymph # (Auto) 1.3 10^3/uL (0.8-4.8) 01/17/23 05:28 Frederick # (Auto) 0.7 10^3/uL (0.2-0.9) 01/17/23 05:28 Eos # (Auto) 0.1 10^3/uL (0.0-0.8) 01/17/23 05:28 Baso # (Auto) 0.0 10^3/uL (0.0-0.1) 01/17/23 05:28 Nucleated RBC % (auto) 0 % 01/17/23 05:28 Nucleated RBCs # 0.0 /100WBC 01/17/23 05:28 Sodium 135 mmol/L (136-145) L 01/17/23 05:28 Potassium 4.1 mmol/L (3.5-5.1) 01/17/23 05:28 Chloride 101 mmol/L (98-107) 01/17/23 05:28 Carbon Dioxide 24 mmol/L (22-29) 01/17/23 05:28 Anion Gap 14.1 (5-19) 01/17/23 05:28 BUN 15 mg/dL (8-23) 01/17/23 05:28 Creatinine 0.7 mg/dL (0.5-0.9) 01/17/23 05:28 GFR Calculation Not Reportable 01/17/23 05:28 Glucose 285 mg/dL (65-115) H 01/17/23 05:28 POC Glucose 270 mg/dL (70-110) H 01/17/23 06:31 Calculated Osmolality 291 mOsm/kg (285-295) 01/17/23 05:28 Calcium 9.1 mg/dL (8.5-10.5) 01/17/23 05:28 Blood Type AB Positive 01/14/23 12:49 Rho(D) Type Rh positive 01/14/23 12:49 Antibody Screen Negative 01/14/23 12:49 Vitals Last Vital Signs Temp 97.4 F L 01/17/23 07:47 Pulse 87 01/17/23 07:47 Resp 18 01/17/23 07:47 BP 135/63 01/17/23 07:47 Pulse Ox 97 01/17/23 07:47 O2 Del Method Room Air 01/17/23 07:47 O2 Flow Rate 6 01/14/23 17:12 Discharge Plan Discharge Patient Disposition: Home Condition: Stable Prescriptions: New hydrocodone-acetaminophen 5-325 mg tablet 1 tab PO Q6H PRN (Reason: pain) 7 Days Qty: 28 0RF aspirin 325 mg Tablet,Delayed Release (Dr/Ec) 325 mg PO DAILY 30 Days Qty: 30 0RF docusate sodium 100 mg Capsule 100 mg PO BID 30 Days Qty: 60 0RF multivitamin with folic acid [Thera] 400 mcg Tablet 1 tab PO DAILY 30 Days Qty: 30 0RF polysaccharide iron complex [Ferrex 150] 150 mg iron Capsule 150 mg PO BIDWM 30 Days Qty: 30 0RF insulin lispro [Humalog U-100 Insulin] 100 unit/mL Solution See Rx Instructions .ROUTE .COMPLEX Qty: 10 0RF Rx Instructions: ;Inject, subcut, 3 times daily, after meals, based on sign scale provided Continued (DME) Wheelchair See Rx Instructions .Route .MEDSUPPLY Qty: 1 0RF Rx Instructions: As directed HOME (DME) [employer]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 See Rx Instructions .Route .MEDSUPPLY Qty: 1 0RF Rx Instructions: As directed tramadol 50 mg tablet 50 mg PO Q6H PRN (Reason: pain) Qty: 20 0RF cilostazol 100 mg tablet 100 mg PO BID Qty: 60 0RF Rx Instructions: MUST have follow-up for further refills rosuvastatin 10 mg tablet 10 mg PO BEDTIME levothyroxine 25 mcg tablet 25 mcg PO DAILY quetiapine [Seroquel] 50 mg tablet 50 mg PO BEDTIME alprazolam [Xanax] 0.25 mg Tablet 0.375 mg PO BEDTIME PRN (Reason: Anxiety) trazodone 100 mg tablet 100 mg PO BEDTIME semaglutide 0.25 mg or 0.5 mg(2 mg/1.5 mL) pen injector See Rx Instructions .ROUTE .COMPLEX Rx Instructions: 0.05 mg subcutaneously gabapentin 300 mg capsule 300 mg PO TID PRN (Reason: post op pain) Changed insulin degludec [Tresiba FlexTouch U-200] 200 unit/mL (3 mL) Insulin Pen 5 unit SUBCUT BEDTIME Qty: 9 0RF Discharge Orders: Discharge Order (Routine); Ordered 01/17/23 Ordered By: Lewis Carr Referrals: Rahat Peña DO [Physician] - 01/29/23 2:00 pm Discharge Diet: Diabetic Discharge Activity: Resume usual activity Patient Instructions: Opioid Safety Activity Restrictions/Additional Instructions: -Please monitor your blood sugars closely -Monitor your blood sugars 3 times daily as after meals -Please record your blood sugars, and a blood sugar log -For your humalog -Please inject blood sugar after meals based on sliding scale provided -Do not inject insulin if you do not eat as hypoglycemia kills -This is a humalog sliding scale -Insulin sliding ?fingerstick? Insulin ?141-180?0 units/sq 181-220?2 units/sq ?221-260?4 units/sq ?261-300 6 units/sq ?301-350?8 units/sq ?351-400 10 units/sq ?401-450?12 units/sq >450? 14units/sq -If your blood sugar is greater than 500 go to the emergency room -If your blood sugar is less than 60 or at anytime you feel lightheaded or dizzy or diaphoretic or have chest palpitations check your blood sugar, and eat a hard candy or drink orange juice and go immediately to the emergency room -Remember hypoglycemia kills, so if his blood sugar is less than 60 we have to increase it by taking in a sugary meal such as a hard candy or orange juice and go to the emergency room -If you have any questions please call us where here to help Discharge Attestations Time Spent in Discharge Care*: greater than 30 min Status at Discharge: Cognitive status at discharge: cognitively intact, Behavioral status at discharge: cooperative, Quality Metrics Clinical Quality Measures [ No reported AMI, CVA or VTE this stay] Coding Level of Care Code 75393 Total time (in minutes) for Discharge: 45 Diagnoses Status post reverse total arthroplasty of left shoulder Z96.612
[2023-01-17 11:33] LABS: Glucose Point of Care 197 mg/dL (70-110)
[2023-01-17 12:00] VITALS: BP 159/76; PULSE 89; RESP 18; TEMP 36.5; O2SAT 96
[2023-01-17 12:18] LABS: SARS Covid-2 Antigen negative (Negative)
--- NOTE | 2023-01-17 12:25 | P.PN_ITS ---
Subjective 2 Subjective: Patient seen and examined she is postoperative day 3. She has done well postoperatively and she is set to discharge to rehab facility today. Vitals/I&O/Wt Last Vital Signs Temp 97.7 F 01/17/23 12:00 Pulse 89 01/17/23 12:00 Resp 18 01/17/23 12:00 BP 159/76 01/17/23 12:00 Pulse Ox 96 01/17/23 12:00 O2 Del Method Room Air 01/17/23 12:00 O2 Flow Rate 6 01/14/23 17:12 01/16/23 01/17/23 01/17/23 22:59 06:59 14:59 Intake Total 720 / 1680 360 / 360 Balance 720 / 1480 360 / 360 Weight last 48 hrs Weight 176 lb 14.4 oz Weight 176 lb 3 oz Physical Exam 2 Narrative: Patient is awake and alert and able to respond to my questions accordingly. Const: COMMON NORMALS: no acute distress and alert Resp: COMMON NORMALS: normal respiratory effort and No retractions Cardio: COMMON NORMALS: Peripheral pulses 2+ throughout PERIPHERAL PULSES: Peripheral pulses 2+ throughout Extremity: NARRATIVE EXTREMITY EXAM: Left shoulder-- shoulder Dressing on , dry and in place. ecchymosis seen around incision site. no erythema, warmth or purulent drainage seen. Patient's operative arm is in a shoulder immobilizer. Patient's fingers are warm with good perfusion. Normal cap refill under 2 seconds. Unable to assess further range of motion in arm due to sling. pt can perform test pressing elbow behind her. sensation to upper arm intact. Sensation to hand intact. Axillary nerve motor and sensations intact Neuro: SENSORIUM/ORIENTATION: Yes alert Skin: GENERAL SKIN EXAM: dry skin Urinary Catheter Management: Butt: Cath Placed During This Visit: yes, but has since been removed by the nurse Reason for Continuing Indwelling Catheter: Decision to DC Catheter Urinary Catheter Date of Insertion: 01/14/23 Urinary Catheter Time of Insertion: 14:20 Date Urinary Catheter Removed: 01/15/23 Time Urinary Catheter Discontinued: 05:31 Data 01/17/23 05:28 01/17/23 05:28 A&P Assessment and plan (1) Status post reverse total arthroplasty of left shoulder: Plan Plan: -Imaging and Labs reviewed -Hospitalist on board for medical management. -VTE prophylaxis per medicine -Keep left arm in ultrasling-no ROM or weightbearing to left arm. -Pain control -PT/OT Stable for discharge from orthopedic standpoint today. Patient will discharge to rehab facility today and follow-up in orthopedic office in 2 weeks. Appropriate discharge instructions and pain medication on patient's chart. Attestations 2 Medical Necessity Statement*: ongoing care for left reverse total shoulder Coding Level of Care Code Acute Code for Chg Fwd Diagnoses Status post reverse total arthroplasty of left shoulder Z96.612 Time Spent (min) 20
[2023-01-17 13:25] VITALS: BP 159/76; PULSE 89; RESP 18; TEMP 36.5; O2SAT 96
== END 2023-01-17 13:26 | disposition skilled nursing facility (03) ==
LOC: MEDSURG 17:52
PROVIDERS: Family Medicine; Admitting Provider Student in an Organized Health Care Education/Training Program; PCP Nurse Practitioner Family; Visit Provider Student in an Organized Health Care Education/Training Program
PROC: (CPT 23472; principal; 2023-01-14 12:50)
PROC: (CPT 23430; 2023-01-14 12:50)
DX: M19.012 Primary osteoarthritis, left shoulder (principal); E03.9 Hypothyroidism, unspecified; E87.1 Hypo-osmolality and hyponatremia; D64.9 Anemia, unspecified; Z89.511 Acquired absence of right leg below knee; E11.42 Type 2 diabetes mellitus with diabetic polyneuropathy; I35.0 Nonrheumatic aortic (valve) stenosis; I73.9 Peripheral vascular disease, unspecified; Z79.4 Long term (current) use of insulin
CPT/HCPCS: 23472; 36415; 36416; 51702; 73030; 80048; 82962; 85025; 86850; 86900; 87426; 96372; 97110; 97161; 97167; 97530; C1776 ×2; G0378; J0131; J1100; J1815; J1885; J2405; J2704; J2710; J2795; J3010; J3370; J3490; J7030; J7050; J7120

== ENCOUNTER → 2023-01-29 13:50 | Outpatient (BNVA) | payer MEDICARE, SELFPAY | PROVIDERS: PCP Nurse Practitioner Family; Visit Provider Student in an Organized Health Care Education/Training Program | DX: Z96.612 Presence of left artificial shoulder joint (principal) | CPT/HCPCS: 73030; 99024 ==

== ENCOUNTER → 2023-02-28 15:04 | Outpatient (BNVA) | payer MEDICARE, SELFPAY | PROVIDERS: PCP Nurse Practitioner Family; Visit Provider Student in an Organized Health Care Education/Training Program | DX: Z96.612 Presence of left artificial shoulder joint (principal) | CPT/HCPCS: 73030; 99024 ==

== ENCOUNTER → 2023-04-09 15:20 | Outpatient (BNVA) | payer MEDICARE, SELFPAY | PROVIDERS: PCP Nurse Practitioner Family; Visit Provider Physician Assistant | DX: Z96.612 Presence of left artificial shoulder joint (principal) | CPT/HCPCS: 73030; 99024 ==

== ENCOUNTER → 2023-06-04 11:20 | Outpatient (BNVA) | payer MEDICARE, SELFPAY | PROVIDERS: PCP Nurse Practitioner Family; Visit Provider Podiatrist Foot & Ankle Surgery | DX: I73.9 Peripheral vascular disease, unspecified (principal); E11.42 Type 2 diabetes mellitus with diabetic polyneuropathy; Z89.511 Acquired absence of right leg below knee; L60.3 Nail dystrophy; Z79.4 Long term (current) use of insulin | CPT/HCPCS: 11720 ==

== ENCOUNTER → 2023-08-21 13:30 | Outpatient (BNVA) | payer MEDICARE, SELFPAY | PROVIDERS: PCP Nurse Practitioner Family; Visit Provider Physician Assistant | DX: Z96.612 Presence of left artificial shoulder joint (principal) | CPT/HCPCS: 73030 ==

== ENCOUNTER → 2023-08-28 12:53 | Outpatient (BNVA) | payer MEDICARE, SELFPAY | PROVIDERS: PCP Nurse Practitioner Family; Visit Provider Podiatrist Foot & Ankle Surgery | DX: I73.9 Peripheral vascular disease, unspecified (principal); E11.42 Type 2 diabetes mellitus with diabetic polyneuropathy; Z89.511 Acquired absence of right leg below knee; L60.3 Nail dystrophy; Z79.4 Long term (current) use of insulin | CPT/HCPCS: 11720 ==

== ENCOUNTER 2023-09-12 14:56 | Outpatient (RCR) | payer MEDICARE, SELFPAY | END 2023-10-12 23:59 | disposition home or self-care (01) | LOC: SPT 14:56 | PROVIDERS: PCP Nurse Practitioner Family; Visit Provider Nurse Practitioner Family | DX: M54.50 Low back pain, unspecified (principal) | CPT/HCPCS: 97110; 97116; 97161 ==

== ENCOUNTER 2023-10-13 06:00 | Outpatient (RCR) | payer MEDICARE, SELFPAY | END 2023-11-11 23:59 | disposition home or self-care (01) | LOC: SPT 06:00 | PROVIDERS: PCP Nurse Practitioner Family; Visit Provider Nurse Practitioner Family | DX: M54.50 Low back pain, unspecified (principal) | CPT/HCPCS: 97110 ==

== ENCOUNTER 2023-11-12 06:30 | Outpatient (RCR) | payer MEDICARE, SELFPAY | END 2023-12-12 23:59 | disposition home or self-care (01) | LOC: SPT 06:30 | PROVIDERS: PCP Nurse Practitioner Family; Visit Provider Nurse Practitioner Family | DX: M54.50 Low back pain, unspecified (principal) | CPT/HCPCS: 97110 ==

== ENCOUNTER → 2023-11-13 11:32 | Outpatient (BNVA) | payer MEDICARE, SELFPAY | PROVIDERS: PCP Nurse Practitioner Family; Referring Provider Nurse Practitioner Family; Visit Provider Internal Medicine | DX: E11.42 Type 2 diabetes mellitus with diabetic polyneuropathy; E78.2 Mixed hyperlipidemia; Z79.4 Long term (current) use of insulin; Z79.85 Long-term (current) use of injectable non-insulin antidiabetic drugs | CPT/HCPCS: 99204 ==

== ENCOUNTER 2023-12-16 09:45 | Inpatient (IN) | payer MEDICARE, SELFPAY ==
[2023-12-16] VITALS (8 sets, daily range): BP systolic 107–145; BP diastolic 54–94; PULSE 84–108; RESP 16–19; TEMP 36.5–36.8; O2SAT 92–99; BMI 30.1; BMI 29.9
--- NOTE | 2023-12-16 09:52 | XRR_ITS ---
PROCEDURE INFORMATION: Exam: XR Chest Exam date and time: 12/16/2023 10:35 AM Age: 83 years old Clinical indication: Pain; Angina pectoris; Additional info: Chest pain TECHNIQUE: Imaging protocol: Radiologic exam of the chest. Views: 1 view. COMPARISON: CR XR chest 2V* [id number] 08/21/2023 3:28 PM FINDINGS: Lungs: No large focal consolidation. Pleural spaces: No large pleural effusion. No distinct pneumothorax. Heart/Mediastinum: Heart is normal in size. No pericardial effusion. Bones/joints: Status post left shoulder arthroplasty. XR/XR chest 1V portable [id number] IMPRESSION: No acute cardiopulmonary findings
--- NOTE | 2023-12-16 09:54 | ECG_ITS ---
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 Measurements Intervals [place] Rate: 85 P: 98 CT: 206 QRS: 16 QRSD: 88 T: 120 QT: 362 QTc: 432 Interpretive Statements SINUS RHYTHM LOW QRS VOLTAGE IN PRECORDIAL LEADS [QRS DEFLECTION < 1.0 mV IN CHEST LEADS] NONSPECIFIC ST & T-WAVE ABNORMALITY Compared to ECG 11/28/2018 11:20:55 Low QRS voltage now present T-wave abnormality still present Electronically Signed On 12-19-2023 21:20:26 LOW [employer] by Brigette Julian M.D. [email or web address]
--- NOTE | 2023-12-16 11:58 | ED_ITS ---
HPI - Chest Pain 2 General: Chief Complaint: Chest Pain Stated Complaint: chest pains Time Seen by Provider: 12/16/23 10:57 History of Present Illness: 83-year-old 83-year-old female presents emergency room with complaint of chest discomfort. Minimally for about a week she told triage her pain was still at a 5 out of 10 however when I had seen her she said all of her symptoms were gone. She describes as a pressure with shortness Resta began while at rest last night. She had similar symptoms that she had thought were more heartburn over the last week she has had a few petechia or when she ate. However she had not eaten last night and then still caused her severe discomfort. Patient is diabetic she has no known history of coronary artery disease but she does have peripheral vascular disease. She has had a left below the knee amputation. She tells me she has no history of coronary disease no history of bypass stents previous angiogram or stress testing however there is a list in her old medical record listing arteriosclerotic heart disease. She is diabetic and hypertensive she is on cilostazol for peripheral artery disease. Associated symptoms: Deny abdominal pain, dyspnea or fever(s) Related Data Home Medications Medication Instructions Recorded Confirmed levothyroxine 25 mcg tablet 25 mcg PO DAILY 12/26/21 12/16/23 alprazolam 0.25 mg tablet (Xanax) 0.375 mg PO BEDTIME PRN Anxiety 01/25/22 12/16/23 trazodone 100 mg tablet 100 mg PO BEDTIME 01/25/22 12/16/23 semaglutide 0.25 mg or 0.5 mg (2 See Rx Instructions .Route .COMPLEX 11/13/22 12/16/23 mg/1.5 mL) subcutaneous pen injector gabapentin 300 mg capsule 300 mg PO TID PRN post op pain 11/20/22 12/16/23 amitriptyline 75 mg tablet 75 mg PO DAILY 06/04/23 12/16/23 Previous Rx's Medication Instructions Recorded Wheelchair #1 ea 12/21/21 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 #1 ea 02/22/22 cilostazol 100 mg tablet 100 mg PO BID #60 tabs 06/18/22 insulin degludec 200 unit/mL (3 5 unit (0.025 mL) SUBCUT BEDTIME 01/17/23 mL) subcutaneous pen (Tresiba #9 mL FlexTouch U-200 insulin) insulin lispro 100 unit/mL See Rx Instructions .Route 01/17/23 subcutaneous solution (Humalog .COMPLEX #10 mL U-100 Insulin) Allergies Allergy/AdvReac Type Severity Reaction Status Date / Time oxycodone [From Percocet] Allergy Unknown ALGY-Rash Verified 12/16/23 10:02 Penicillins Allergy Unknown ALGY-Rash Verified 12/16/23 10:02 Review of Systems 2 Const: Denies: fever(s) or chills Card: Reports: chest pain Resp: Denies: dyspnea GI: Denies: abdominal pain : Denies: dysuria, urinary frequency or urinary urgency Musc: Denies: neck pain or back pain Skin/Breast: Denies: rash PFSH ED 2 PFSH: Medical History 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 mellitus Hypothyroidism Limb ischemia Aortic stenosis, mild Diabetes ASHD (arteriosclerotic heart disease) Hyperlipidemia HTN (hypertension) PAD (peripheral artery disease) Surgical History Status post amputation S/P rotator cuff repair S/P hernia repair Hx of elbow surgery Family History Brother CAD (coronary artery disease) Cancer LUNG Sister CAD (coronary artery disease) Cancer LUNG Mother Hypertension Cancer Father Cancer COLON Social History Smoking and tobacco/nicotine status: never used tobacco/nicotine Household members: spouse Marital status: Physical Exam 2 Const: GENERAL APPEARANCE: cooperative ORIENTATION/CONSCIOUSNESS: Yes awake, Yes oriented to person, Yes oriented to place and Yes oriented to time HENMT: COMMON NORMALS: normocephalic, atraumatic and hearing grossly normal bilaterally HEAD & SCALP: normocephalic and atraumatic Resp: COMMON NORMALS: normal respiratory effort, No retractions and No use of accessory muscles AUSCULTATION: rhonchi and diminished lung sounds bilateral in the lower lung clancy Cardio: COMMON NORMALS: regular rate, regular rhythm and No murmurs present (Cardio) RATE: regular rate RHYTHM: regular rhythm GI: COMMON NORMALS: Soft to palpation and No hepatosplenomegaly present A USCULTATION: Yes normoactive bowel sounds PALPATION: Yes Soft to palpation, No Tenderness to palpation present (GI), No Guarding due to palpation present (GI) and Yes No hepatosplenomegaly present Extremity: COMMON NORMALS: normal to inspection, capillary refill normal, no clubbing, cyanosis or edema, no calf tenderness and no pedal edema Neuro: SENSORIUM/ORIENTATION: Yes oriented to person, Yes oriented to place and Yes oriented to time Skin: COMMON NORMALS: no rashes or lesions noted GENERAL SKIN EXAM: no rashes or lesions noted Course 2 Vital Signs: Vital signs: Vital Signs Temperature 97.7 F 12/16/23 09:53 Pulse Rate 90 12/16/23 15:26 Respiratory Rate 16 12/16/23 15:26 Blood Pressure 135/83 12/16/23 15:26 Pulse Oximetry 96 12/16/23 15:26 Oxygen Delivery Me thod Room Air 12/16/23 15:13 MDM - Chest Pain Medical Decision Making Patient having anginal-like symptoms she has equivalent of coronary artery disease with her peripheral vascular disease. Will admit with hospitalist. She is pain-free at this time initial troponin 91. Medical Records I reviewed the patient's medical records. Lab Data I reviewed the patient's lab results. 12/16/23 12:47 12/16/23 12:47 Radiology Impressions Chest X-Ray 12/16/23 09:52 IMPRESSION: No acute cardiopulmonary findings Laboratory Results WBC 8.38 10^3/uL (3.29-11.43) 12/16/23 12:47 RBC 3.81 10^6/uL (3.85-5.65) L 12/16/23 12:47 Hgb 11.20 g/dL (11.27-16.99) L 12/16/23 12:47 Hct 34.5 % (36-47) L 12/16/23 12:47 MCV 90.6 fl (85-98) 12/16/23 12:47 MCH 29.4 pg (27-33) 12/16/23 12:47 MCHC 32.5 g/dL (30-55) 12/16/23 12:47 RDW 13.0 % (12.1-15.1) 12/16/23 12:47 Plt Count 329 10^3/cmm (157-399) 12/16/23 12:47 MPV 9.0 fL (7.4-10.4) 12/16/23 12:47 Neut % (Auto) 63.2 % 12/16/23 12:47 Lymph % (Auto) 24.2 % 12/16/23 12:47 [place] % (Auto) 7.0 % 12/16/23 12:47 Eos % (Auto) 4.1 % 12/16/23 12:47 Baso % (Auto) 0.5 % 12/16/23 12:47 Neut # (Auto) 5.30 10^3/uL (1.8-7.7) 12/16/23 12:47 Lymph # (Auto) 2.0 10^3/uL (0.8-4.8) 12/16/23 12:47 [place] # (Auto) 0.6 10^3/uL (0.2-0.9) 12/16/23 12:47 Eos # (Auto) 0.3 10^3/uL (0.0-0.8) 12/16/23 12:47 Baso # (Auto) 0.0 10^3/uL (0.0-0.1) 12/16/23 12:47 Nucleated RBC % (auto) 0 % 12/16/23 12:47 Nucleated RBCs # 0.0 /100WBC 12/16/23 12:47 Sodium 141 mmol/L (136-145) 12/16/23 12:47 Potassium 4.5 mmol/L (3.5-5.1) 12/16/23 12:47 Chloride 104 mmol/L (98-107) 12/16/23 12:47 Carbon Dioxide 28 mmol/L (22-29) 12/16/23 12:47 Anion Gap 13.5 (5-19) 12/16/23 12:47 BUN 9 mg/dL (8-23) 12/16/23 12:47 Creatinine 0.7 mg/dL (0.5-0.9) 12/16/23 12:47 GFR Calculation Not Reportable 12/16/23 12:47 Glucose 100 mg/dL (65-115) 12/16/23 12:47 Calculated Osmolality 291 mOsm/kg (285-295) 12/16/23 12:47 Calcium 9.5 mg/dL (8.5-10.5) 12/16/23 12:47 Total Bilirubin 0.2 mg/dL (0.15-1.2) 12/16/23 12:47 AST 13 U/L (0-32) 12/16/23 12:47 ALT 8 U/L (0-33) 12/16/23 12:47 Alkaline Phosphatase 113 U/L (35-105) H 12/16/23 12:47 Troponin T Baseline 91 ng/L (0-10) H 12/16/23 12:47 Total Protein 6.3 g/dL (6.6-8.7) L 12/16/23 12:47 Albumin 3.8 g/dL (3.5-5.2) 12/16/23 12:47 Globulin 2.5 g/dL (1.3-4.6) 12/16/23 12:47 All radiology interpretation(s) finalized by discharge Discharge Plan Discharge Patient Disposition: Admitted As Inpatient Admit Provider: Linda Fuentes Clinical Impression: Unstable angina, PAD (peripheral artery disease), 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 mellitus, Aortic stenosis, mild Condition: Stable Coding Level of Care Code ED 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
--- NOTE | 2023-12-16 12:44 | ECG_ITS ---
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1940 Requested By: Akua Pickard Order Number: [id number] Reading MD: YENY HUI Measurements Intervals [place] Rate: 88 P: 98 PA: 213 QRS: 39 QRSD: 85 T: 82 QT: 374 QTc: 453 Interpretive Statements SINUS RHYTHM WITH FIRST DEGREE AV BLOCK LOW QRS VOLTAGE IN PRECORDIAL LEADS [QRS DEFLECTION < 1.0 mV IN CHEST LEADS] MODERATE ST DEPRESSION [0.05+ mV ST DEPRESSION] Compared to ECG 12/16/2023 09:54:20 First degree AV block now present ST (T wave) deviation now present T-wave abnormality no longer present Electronically Signed On 12-20-2023 00:42:38 [employer] by YENY HUI [id number]
[2023-12-16 12:57] LABS: Basophils % 0.5 %; Eosinophils # 0.3 10^3/uL (0.0-0.8); Eosinophils % 4.1 %; Hematocrit 34.5 % (36-47); Lymphocytes % 24.2 %; Mean Corpuscular HGB Conc 32.5 g/dL (30-55); Mean Corpuscular Hemoglobin 29.4 pg (27-33); Mean Corpuscular Volume 90.6 fl (85-98); Monocytes # 0.6 10^3/uL (0.2-0.9); Neutrophils % 63.2 %; Nucleated Red Blood Cells % 0 %; Platelet Count 329 10^3/cmm (157-399); Red Blood Count 3.81 10^6/uL (3.85-5.65); White Blood Count 8.38 10^3/uL (3.29-11.43)
[2023-12-16 13:22] LABS: Alanine Aminotransferase 8 U/L (0-33); Albumin Level 3.8 g/dL (3.5-5.2); Alkaline Phosphatase 113 U/L (35-105); Anion Gap 13.5 (5-19); Aspartate Amino Transferase 13 U/L (0-32); Blood Urea Nitrogen 9 mg/dL (8-23); Calcium 9.5 mg/dL (8.5-10.5); Carbon Dioxide 28 mmol/L (22-29); Chloride 104 mmol/L (98-107); Creatinine Clr Calc Pharmacy 54.2285; Globulin 2.5 g/dL (1.3-4.6); Glucose 100 mg/dL (65-115); Osmolality Calculated 291 mOsm/kg (285-295); Potassium 4.5 mmol/L (3.5-5.1); Sodium 141 mmol/L (136-145); Total Bilirubin 0.2 mg/dL (0.15-1.2); Total Protein 6.3 g/dL (6.6-8.7)
[2023-12-16 13:25] LABS: Troponin(5th) Baseline 91 ng/L (0-10)
--- NOTE | 2023-12-16 15:11 | PC.NURSE ---
Patient transferred to CSU from ED at 1510 via a wheelchair.
--- NOTE | 2023-12-16 16:34 | P.HP_ITS ---
Providers/Chief Complaint 2 Admitting Physician: Linda Fuentes MD Primary Care Provider: ALFONSO Morris Chief Complaint: chest pains History of Present Illness Anjelica Mary is a 83 year old female With past medical history of peripheral arterial disease status post right lower extremity requiring amputation, mild aortic stenosis, diabetes mellitus insulin-dependent, hypertension, hypothyroidism, peripheral neuropathy presented to the hospital today with complaint of chest pain. She states that for the last few weeks she has been having chest pain which is in the middle of her chest and has a pressure-like sensation and at times radiates to her left arm. She states in the past she has never had issues with reflux GERD or chest pain similar to this. She also complains of exertional shortness of breath. She says that she has been slightly more nauseous lately as well. She feels as if she has a lot of gas in her epigastric area however has never had trouble like this before. She denies a history of stress testing or previous angiogram or coronary artery disease. Patient is on cilostazol for PAD. Pain has been occurring at rest as well as on exertion at times. She has never been a smoker. Initial troponin in ER was 91. EKG without any acute ischemic changes. 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 #1 ea 02/22/22 12/16/23 Unknown Rx cilostazol 100 mg tablet 100 mg PO BID #60 tabs 06/18/22 12/16/23 12/15/23 Rx semaglutide 0.25 mg or 0.5 mg (2 See Rx Instructions .Route .COMPLEX 11/13/22 12/16/23 12/10/23 History mg/1.5 mL) subcutaneous pen injector gabapentin 300 mg capsule 300 mg PO TID PRN post op pain 11/20/22 12/16/23 12/15/23 History insulin degludec 200 unit/mL (3 5 unit (0.025 mL) SUBCUT BEDTIME 01/17/23 12/16/23 12/15/23 Rx mL) subcutaneous pen (Tresiba #9 mL FlexTouch U-200 insulin) insulin lispro 100 unit/mL See Rx Instructions .Route 01/17/23 12/16/23 12/15/23 Rx subcutaneous solution (Humalog .COMPLEX #10 mL U-100 Insulin) amitriptyline 75 mg tablet 75 mg PO DAILY 06/04/23 12/16/23 12/15/23 History Allergies Allergy/AdvReac Type Severity Reaction Status Date / Time oxycodone [From Percocet] Allergy Unknown ALGY-Rash Verified 12/16/23 10:02 Penicillins Allergy Unknown ALGY-Rash Verified 12/16/23 10:02 PFSH Acute 2 PFSH: Medical History 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 mellitus Hypothyroidism Limb ischemia Aortic stenosis, mild Diabetes ASHD (arteriosclerotic heart disease) Hyperlipidemia HTN (hypertension) PAD (peripheral artery disease) Surgical History Status post amputation S/P rotator cuff repair S/P hernia repair Hx of elbow surgery Family History Brother CAD (coronary artery disease) Cancer LUNG Sister CAD (coronary artery disease) Cancer LUNG Mother Hypertension Cancer Father Cancer COLON Social History Smoking and tobacco/nicotine status: never used tobacco/nicotine Household members: spouse Marital status: Vitals/I&O/Wt Last Vital Signs Temp 97.7 F 12/16/23 09:53 Pulse 90 12/16/23 15:26 Resp 16 12/16/23 15:26 BP 135/83 12/16/23 15:26 Pulse Ox 96 12/16/23 15:26 O2 Del Method Room Air 12/16/23 15:13 Weight last 48 hrs Weight 76.657 kg Weight 77.111 kg Physical Exam 2 Narrative: General: No acute distress, AO x3 HEENT:EOMI Chest: Clear to auscultation b/l, no wheezes CVS: S1-S2 regular,no tachycardia, no gallops, no rubs Abdomen: Soft, nontender, no organomegaly, bowel sounds present Neuro: Grossly non focal. Extremities: Right BKA no edema Urinary Catheter Management: Butt: Cath Placed During This Visit: yes Reason for Continuing Indwelling Catheter: Acute Urinary Retention or Obstruction Urinary Catheter Date of Insertion: 01/25/22 Urinary Catheter Time of Insertion: 07:15 Data 12/16/23 12:47 12/16/23 12:47 A&P Assessment and plan (1) Aortic stenosis, mild: (2) PAD (peripheral artery disease): (3) Hyperlipemia, mixed: (4) 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 mellitus: (5) Chest pain: (6) NSTEMI (non-ST elevated myocardial infarction): Plan #Chest pain #Elevated troponin #NSTEMI #Peripheral arterial disease #Status post right BKA 2 years ago #Hypertension # Insulin-dependent diabetes mellitus #Anxiety #Hypothyroidism ? Load with Plavix 300, 75 daily thereafter, add aspirin 81 daily, add atorvastatin 80 ? Placed on therapeutic Lovenox twice daily ? N.p.o. at midnight for potential coronary angiogram? ? Will consult cardiology. ? [place] at 2 hours +15. 6-hour troponin pending ? Serial EKGs ? At this time patient is chest pain-free. ? Continue trazodone, Xanax, amitriptyline at bedtime ? Will hold cilostazol today. ? Sliding scale insulin moderate dose intensity ? Check echocardiogram ? Patient has a high heart score and suspicion for coronary disease is high given patient has history of PAD. Attestations 2 Medical Necessity Statement*: NSTEMI, greater than 2 midnights at this time cardiology consulted. Diagnoses Aortic stenosis, mild I35.0 PAD (peripheral artery disease) I73.9 Hyperlipemia, mixed E78.2 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 mellitus E11.42 Chest pain R07.9 NSTEMI (non-ST elevated myocardial infarction) I21.4
[2023-12-16 17:11] LABS: Estmated Average Glucose 171; Hemoglobin A1C 7.6 % (4.0-6.0)
[2023-12-16 17:21] LABS: Glucose Point of Care 125 mg/dL (70-110)
[2023-12-16 17:22] LABS: Chol HDL Ratio 2.57 mg/dL (0.0-4.40); Cholesterol 113 mg/dL (0-200); HDL Cholesterol 44 mg/dL (60-100); LDL Cholesterol Calculated 49 mg/dL (50-129); LDL HDL Ratio 1.11 RATIO (0.00-3.22); Triglycerides 99 mg/dL (0-150)
[2023-12-16] MEDS: enoxaparin 80 mg/0.8 mL Syringe SUBCUT (17:23)
[2023-12-16] MEDS: clopidogrel 300 mg Tablet PO (17:24)
--- NOTE | 2023-12-16 18:01 | ECG_ITS ---
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1940 Requested By: Akua Pickard Order Number: [id number] Catalina MD: YENY HUI Measurements Intervals [place] Rate: 102 P: 92 MS: 189 QRS: 15 QRSD: 88 T: 137 QT: 339 QTc: 442 Interpretive Statements SINUS TACHYCARDIA WITH OCCASIONAL SUPRAVENTRICULAR PREMATURE COMPLEXES LOW QRS VOLTAGE IN PRECORDIAL LEADS [QRS DEFLECTION < 1.0 mV IN CHEST LEADS] POSSIBLE ANTERIOR MYOCARDIAL INFARCTION , PROBABLY OLD [30 ms Q WAVE IN V3/V4, OR R < 0.2 mV IN V4] ABNORMAL RHYTHM ECG Compared to ECG 12/16/2023 12:44:12 Myocardial infarct finding now present Sinus rhythm no longer present First degree AV block no longer present ST (T wave) deviation no longer present Electronically Signed On 12-20-2023 00:41:00 [employer] by YENY HUI [id number]
--- NOTE | 2023-12-16 18:05 | PC.NURSE ---
Addendum entered by Jackie Bella RN 12/16/23 18:24: Talking with her daughter and patient, looking at her home medication bottle her xanax is 0.5mg PO PRN anxiety and bedtime. Original Note: Ms Mary, she is concerned about her night time medications. She takes xanax 0.375mg bedtime/PRN/anxiety, amitriptyline 75mg PO daily at bedtime, trazodone 100mg PO bedtime. She takes all of this at bedtime. Dr Fuentes ordered to restart these medications.
[2023-12-16 19:22] LABS: Troponin 5 6HR 104.1 ng/L (0-10); Troponin 5 6HR Delta 13.1 ng/L (0-12)
[2023-12-16] MEDS: amitriptyline 25 mg Tablet 75 MG PO (20:28)
[2023-12-16] MEDS: trazodone 100 mg Tablet PO (20:29)
--- NOTE | 2023-12-16 20:36 | USCV_ITS ---
Anjelica Mary Age: 83 Gender: F : 1940 Exam Date: 12/16/2023 22:01 Ordering Phys: Linda Fuentes MD Technologist: TANYA Exam Location: [facility] – [place] Indication: chest pain nstemi, history of PAD s/p LEFT BKA BP: 135 / 83 HR: 87 Rhythm: Sinus Technical Quality: Adequate MEASUREMENTS (Male / Female) Normal Values 2D ECHO LV Diastolic Diameter PLAX 3.6 cm 4.2 - 5.9 / 3.9 - 5.3 cm IVS Diastolic Thickness 1.7 cm 0.6 - 1.0 / 0.6 - 0.9 cm IVS Systolic Thickness 2.1 cm LVPW Diastolic Thickness 1.4 cm 0.6 - 1.0 / 0.6 - 0.9 cm LVPW Systolic Thickness 1.6 cm LVOT Diameter 2.1 cm LV Ejection Fraction 2D Teich 58.2 % LV Ejection Fraction MOD 4C 37.1 % LV Ejection Fraction MOD 2C 26.5 % LV Ejection Fraction 2C AL 26.7 % LA Diameter 4.1 cm Aorta at Sinotubular Diameter 2.3 cm IVC Diameter 1.3 cm M-MODE LA Ao Ratio MM 1.7 AV Cusp Separation MM 0.9 cm DOPPLER AV Peak Velocity 335.0 cm/s LVOT Peak Velocity 65.0 cm/s AV Area Cont Eq vti 0.7 cm squared AV Area Cont Eq pk 0.7 cm squared MV Peak Velocity 142.0 cm/s MV Area PHT 3.3 cm squared Mitral E to A Ratio 0.8 TR Peak Velocity 286.0 cm/s TR Peak Gradient 32.7 mmHg TV Peak E Velocity 77.0 cm/s Right Atrial Pressure 10.0 mmHg Pulmonary Artery Systolic Pressu 42.7 mmHg PV Peak Velocity 96.0 cm/s FINDINGS Left Ventricle Mildly increased left ventricular cavity size. Moderately decreased left ventricular systolic function. Left ventricular ejection fraction is estimated at 45 %. There appeared to be anterior and septal wall hypokinesis.Grade I/IV diastolic dysfunction (abnormal relaxation filling pattern), normal to mildly elevated filling pressures. Right Ventricle Normal right ventricular size. Mild pulmonary hypertension, RVSP 42.7 mmHg. Right Atrium The right atrium is normal in size. Left Atrium Moderately increased left atrial size. Mitral Valve Moderately thickened mitral valve. Moderate mitral annular calcification. No mitral valve stenosis. Mild mitral valve regurgitation. Aortic Valve Severe aortic valve calcification. Severe aortic valve stenosis, mean gradient 23.6 mmHg, HILLARY 0.65 cm squared. Mild aortic valve regurgitation. Tricuspid Valve Structurally normal tricuspid valve without significant stenosis or regurgitation. Pulmonary artery systolic pressure is normal. Pulmonic Valve Structurally normal pulmonic valve without significant stenosis. There is no pulmonic regurgitation. Pericardium Normal pericardium without effusion. Aorta Normal ascending aorta dimension. IVC The inferior vena cava appears normal. CONCLUSIONS Mildly increased left ventricular cavity size. Moderately decreased left ventricular systolic function. Left ventricular ejection fraction is estimated at 45 %. There appeared to be anterior and septal wall hypokinesis.Grade I/IV diastolic dysfunction (abnormal relaxation filling pattern), normal to mildly elevated filling pressures. Moderately increased left atrial size. Normal right ventricular size. Mild pulmonary hypertension, RVSP 42.7 mmHg. Severe aortic valve calcification. Severe aortic valve stenosis, mean gradient 23.6 mmHg, HILLARY 0.65 cm squared. Mild aortic valve regurgitation. Moderately thickened mitral valve. Moderate mitral annular calcification. No mitral valve stenosis. Mild mitral valve regurgitation. There is no pericardial effusion. Right atrial pressure is around 10 mm of mercury. Barry Thao MD (Electronically Signed) Final Date: 17 December 2023 20:54 S
[2023-12-16 21:01] LABS: Glucose Point of Care 133 mg/dL (70-110)
[2023-12-16] MEDS: ALPRAZolam 0.5 mg Tablet PO (21:04)
--- NOTE | 2023-12-16 23:02 | P.CONIM_ITS ---
Providers/Reason For Consult 2 Consulting Physician/Specialty*: Barry Thao MD/interventional cardiology Reason for Consult*: [id number] of Requesting Physician: Dr. Fuentes Attending Physician: Linda Fuentes MD Primary Care Provider: ALFONSO Morris History of Present Illness History of Present Illness Anjelica Mary is a 83 year old female past medical history significant for hypertension hyperlipidemia coronary artery disease peripheral arterial disease diabetes mellitus history of amputation presented with worsening of chest pain/GERD like symptoms, she was ruled in for non-ST elevation AL, it is the reason we have been asked to assist in her care. Currently patient is chest pain-free. She says for the past few weeks she has been noticing off-and-on chest pressure and sometime pain in her back occasionally GERD like feeling which has progressed to the point that she can barely walk due to symptoms of chest pressure. Review of Systems 2 Const: Denies: fever(s) or chills Eyes: Denies: photophobia ENMT: Denies: enlarged tonsils Card: Reports: chest pain Resp: Denies: dyspnea GI: Denies: abdominal pain : Denies: dysuria, urinary frequency or urinary urgency Musc: Denies: neck pain, back pain or joint warmth Skin/Breast: Reports: surgical incision; Denies: rash All/Imm: Denies: acute wheezing Medications/Allergies Home Medications Medication Instructions Recorded Confirmed Last Taken Type Wheelchair #1 ea 12/21/21 12/16/23 Unknown Rx levothyroxine 25 mcg tablet 25 mcg PO DAILY 12/26/21 12/16/23 12/15/23 History alprazolam 0.25 mg tablet (Xanax) 0.375 mg PO BEDTIME PRN Anxiety 01/25/22 12/16/23 12/15/23 History trazodone 100 mg tablet 100 mg PO BEDTIME 01/25/22 12/16/23 12/15/23 History 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 ea 02/22/22 12/16/23 Unknown Rx cilostazol 100 mg tablet 100 mg PO BID #60 tabs 06/18/22 12/16/23 12/15/23 Rx semaglutide 0.25 mg or 0.5 mg (2 See Rx Instructions .Route .COMPLEX 11/13/22 12/16/23 12/10/23 History mg/1.5 mL) subcutaneous pen injector gabapentin 300 mg capsule 300 mg PO TID PRN post op pain 11/20/22 12/16/23 12/15/23 History insulin degludec 200 unit/mL (3 5 unit (0.025 mL) SUBCUT BEDTIME 01/17/23 12/16/23 12/15/23 Rx mL) subcutaneous pen (Tresiba #9 mL FlexTouch U-200 insulin) insulin lispro 100 unit/mL See Rx Instructions .Route 01/17/23 12/16/23 12/15/23 Rx subcutaneous solution (Humalog .COMPLEX #10 mL U-100 Insulin) amitriptyline 75 mg tablet 75 mg PO DAILY 06/04/23 12/16/23 12/15/23 History Allergies Allergy/AdvReac Type Severity Reaction Status Date / Time oxycodone [From Percocet] Allergy Unknown ALGY-Rash Verified 12/16/23 10:02 Penicillins Allergy Unknown ALGY-Rash Verified 12/16/23 10:02 Current Medications Generic Name Dose Route Start Last Admin Trade Name Freq PRN Reason Stop Dose Admin Alprazolam 0.5 mg 12/16/23 21:00 12/16/23 21:04 Alprazolam 0.5 Mg Tablet PO 0.5 mg BEDTIME PRN Administration ANXIETY Amitriptyline HCl 75 mg 12/16/23 21:00 12/16/23 20:28 Amitriptyline 25 Mg Tablet PO 75 mg BEDTIME ADY Administration Enoxaparin Sodium 80 mg 12/16/23 16:45 12/16/23 17:23 Enoxaparin 80 Mg/0.8 Ml Syringe SUBCUT 80 mg Q12H ADY Administration Insulin Human Lispro 0 unit 12/16/23 18:00 12/16/23 21:13 Insulin Lispro 100 Unit/1 Ml SUBCUT Not Given WM&BEDTIME ADY Protocol Trazodone HCl 100 mg 12/16/23 21:00 12/16/23 20:29 Trazodone 100 Mg Tablet PO 100 mg BEDTIME ADY Administration PFSH Acute 2 PFSH: Medical History 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 mellitus Hypothyroidism Limb ischemia Aortic stenosis, mild Diabetes ASHD (arteriosclerotic heart disease) Hyperlipidemia HTN (hypertension) PAD (peripheral artery disease) Surgical History Status post amputation S/P rotator cuff repair S/P hernia repair Hx of elbow surgery Family History Brother CAD (coronary artery disease) Cancer LUNG Sister CAD (coronary artery disease) Cancer LUNG Mother Hypertension Cancer Father Cancer COLON Social History Smoking and tobacco/nicotine status: never used tobacco/nicotine Household members: spouse Marital status: Dietary Habits: Current diet type/program: regular Caffeine: Yes Exercise: What type of physical activity do you participate in?: none Safety: Seatbelt use: always Home Safety: Working smoke detector in home: Yes Fire extinguisher in home: No Carbon monoxide detector in home: No Vitals/I&O/Wt Last Vital Signs Temp 98.3 F 12/16/23 20:00 Pulse 96 12/16/23 20:00 Resp 19 H 12/16/23 20:00 BP 107/85 12/16/23 20:00 Pulse Ox 95 12/16/23 20:00 O2 Del Method Room Air 12/16/23 16:35 12/16/23 12/16/23 12/17/23 14:59 22:59 06:59 Intake Total 360 / 360 Balance 360 / 360 Weight last 48 hrs Weight 169 lb Weight 170 lb Physical Exam 2 Const: OTHER: GENERAL: Patient is alert, awake and oriented x3. HEART: Regular S1 and S2. No murmur, rub or gallop. LUNGS: Clear to auscultate bilaterally. CENTRAL NERVOUS SYSTEM: Grossly nonfocal. EXTREMITIES: Lower extremities with out edema bilaterally. Urinary Catheter Management: Butt: Cath Placed During This Visit: yes Reason for Continuing Indwelling Catheter: Acute Urinary Retention or Obstruction Urinary Catheter Date of Insertion: 01/25/22 Urinary Catheter Time of Insertion: 07:15 Data 12/16/23 12:47 12/16/23 12:47 A&P Assessment and plan (1) NSTEMI (non-ST elevated myocardial infarction): Patient will be n.p.o. overnight, plan to proceed with left heart catheterization in the morning. Continue aspirin and statin beta-lonnie and heparin. EKG showed sinus rhythm otherwise no significant ST's ST changes. (2) Aortic stenosis, mild: Echocardiogram to assess LV function and aortic valve (3) PAD (peripheral artery disease): Appear to be stable denies any claudication Coding Level of Care Code Acute Code for [facility] Fwd Diagnoses NSTEMI (non-ST elevated myocardial infarction) I21.4 Aortic stenosis, mild I35.0 PAD (peripheral artery disease) I73.9
[2023-12-17] VITALS (84 sets, daily range): BP systolic 91–138; BP diastolic 57–84; PULSE 79–91; RESP 10–45; TEMP 36.6–36.9; O2SAT 93–98; BMI 29.9
[2023-12-17 03:29] LABS: Basophils % 0.4 %; Eosinophils # 0.3 10^3/uL (0.0-0.8); Eosinophils % 3.3 %; Lymphocytes # 2.5 10^3/uL (0.8-4.8); Lymphocytes % 24.8 %; Mean Corpuscular HGB Conc 33.2 g/dL (30-55); Mean Corpuscular Hemoglobin 29.1 pg (27-33); Mean Corpuscular Volume 87.6 fl (85-98); Monocytes # 0.6 10^3/uL (0.2-0.9); Monocytes % 6.4 %; Neutrophils # 6.47 10^3/uL (1.8-7.7); Neutrophils % 64.2 %; Nucleated Red Blood Cells % 0 %; Platelet Count 333 10^3/cmm (157-399); Red Blood Count 3.88 10^6/uL (3.85-5.65); Red Cell Distribution Width 12.9 % (12.1-15.1); White Blood Count 10.07 10^3/uL (3.29-11.43)
[2023-12-17 04:02] LABS: Alanine Aminotransferase 9 U/L (0-33); Albumin Level 3.6 g/dL (3.5-5.2); Alkaline Phosphatase 107 U/L (35-105); Anion Gap 14.7 (5-19); Aspartate Amino Transferase 14 U/L (0-32); Blood Urea Nitrogen 8 mg/dL (8-23); Calcium 9.1 mg/dL (8.5-10.5); Carbon Dioxide 26 mmol/L (22-29); Chloride 101 mmol/L (98-107); Creatinine Clr Calc Pharmacy 54.0704; Globulin 2.8 g/dL (1.3-4.6); Glucose 91 mg/dL (65-115); Magnesium 1.3 mg/dL (1.7-2.3); Osmolality Calculated 284 mOsm/kg (285-295); Potassium 3.7 mmol/L (3.5-5.1); Sodium 138 mmol/L (136-145); Total Bilirubin 0.2 mg/dL (0.15-1.2); Total Protein 6.4 g/dL (6.6-8.7)
--- NOTE | 2023-12-17 06:05 | XACV_ITS ---
Exam Room: [facility] Ht: 160 cm Wt: 77 kg BSA: 1.87 m2 Gender: Female : 1940 Any Known Allergies: Other Exam Priority: Routine Procedure(s): Procedure Description: Diagnostic procedure Procedure Description: Left Heart Catheterization Procedure Description: Left ventriculography Procedure Description: Coronary Angiography Master RAZO; Diagnostic Cath Status: Urgent Conclusions 1. Multivessel coronary artery disease. 2. Multivessel coronary artery disease including involvement of distal left main 60%, ostial LAD and circumflex 90% and 80% respectively, RCA has distal 90% stenosis.Peak to peak gradient across the aortic valve was at least 35 mmHg suggestive of severe aortic valve stenosis.Left ventricular ejection fraction was moderately reduced with global hypokinesis 45%.Left ventricular end-diastolic pressure was 23 mmHg Peripheral angiogram with runoff, indication to assess the patency of peripheral vasculature for possible Impella or TAVR usePeripheral angiogram: Peripheral angiogram was performed in case patient requires TAVR/Impella guided PCI with atherectomy.No significant aneurysm or lesion noted in the aorta, aorta is normal size. Bilateral renal arteries patent without significant stenosisBilateral common iliac arteries without significant stenosis Bilateral internal and external iliac arteries without significant stenosisBilateral common femoral artery without significant stenosis. Recommendations * 1-Return to [facility] for close monitoring and routine PCI care 2-Continue IV heparin drip as per ACS protocol 3-Hold Plavix for possible CABG/ AVR 4-Statin with LDL goal of 70 mg/dl, aspirin 81 mg p.o. daily for life long 5-CT surgery consults for CABG/AVR 6-Optimal medical management for TN 7-Follow up with Dr. Thao in four weeks and establish care with primary care physician. Diagnostic RX Recommendation: CABG LV EDP: 23 mmHg Ventriculography Ejection Fraction: 45.0 % Pressures Phase:Rest AO : 107 / 47 ( 61 ) @ 7:24:00 AM 148 / 17 ( 61 ) @ 7:53:00 AM 115 / 42 ( 70 ) @ 7:53:00 AM LV : 169 / -7 / 17 @ 7:46:00 AM 166 / -9 / 16 @ 7:51:00 AM 147 / -4 / 15 @ 7:53:00 AM Clinical Evaluation EBL: 5mL-10mL Procedural Details Procedure Consent Obtained. Pre-Procedure Time Out. Identified patient by full name and date of as verbalized by the patient/guarantor. Does the consent match the physician's order: Yes. Accurate & Complete Informed Consent: Yes. Inpatient/Outpatient History & Physical on Chart: Yes. If H&P is completed, is and addenduem needed: No; If yes, is the addendum complete: N/A. Visualize and Verify Site with Patient/Guarantor: N/A. Relevant Radiology Images available: N/A. Pre-op teaching completed and patient verbalized understanding. The risks, benefits, and alternatives of sedation and/or procedure were discussed by physician. The patient agrees to continue. Procedure started. [facility] Clinical Fraility Score: 5: Mildly Frail. Frame Hand Indications: ACS <= 24 hours. Chest Pain Symptom Assessment: Typical Angina Symptoms. Cardiovascular Instability: No. Correct patient, site and procedure confirmed by cath team. PERRLA. 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 Lungs clear x 5 lobes. IV Site on Arrival: 20 gauge in the left anticubital. IV Fluids: 0.9% NaCl at KVO. 0 mL infused prior to cath lab tech. Oxygen started at 2liters/min via nasal canula. right groin was prepped with chloroprep then draped in the usual sterile fashion. right radial was prepped with chloroprep then draped in the usual sterile fashion. Physician arrived. Equipment: 6F - Radial. Cardiac Cath Pack. ACIST Manifold Kit Model BT 2000. Heparinized Saline (2 units/mL), 1000 mL bag. Physician scrubbed in. Immediate Pre-Procedure Time Out. Correct Patient: Yes; Correct Procedure: Yes; Correct Site: Yes; Correct Patient Position: Yes; Correct Supplies: Yes; Dried Flammable Prep: Yes; Blood Products Available: N/A;. Lidocaine 1% infiltrated to the right radial. Arterial access obtained. Unable to thread wire through needle. Wire and needle out. Manual pressure held until hemostasis obtained. Arterial access obtained. Lidocaine 1% infiltrated to the right radial. Dilator inserted before sheath. Attempts to insert 6 fr sheath unsuccessful. Wire removed. TR band placed. TR band placed. Hemostasis obtained. Unable to obtain radial access. MD attempting to gain access in the Left Femoral artery. Lidocaine 1% infiltrated to the left groin. Arterial access obtained with micropuncture set. A 5 trinidadian JL4 catheter in over wire. Baseline sample Acquired. HR: 87 BPM. Multiple views taken of left coronary artery. Catheter removed over the standard wire. A 5 trinidadian JR4 catheter in over wire. Multiple views taken of right coronary artery. Catheter removed over the standard wire. Catheter removed over the standard wire. A 5 trinidadian Angled Pig catheter in over wire. A 6 trinidadian MPA1 catheter in over Glidewire. Catheter removed over the glide wire. A 5 trinidadian Schuyler catheter in over wire. Glidewire out. EDP Sample taken: LV 169/-8,17; HR: 78 BPM; SpO2: 99%. Exchange wire inserted through Schuyler catheter. Catheter removed over the exchange wire. A 5 trinidadian Angled Pig catheter in over wire. EDP Sample taken: LV 166/-10,16; HR: 88 BPM; SpO2: 99%. LV gram performed in MOORE @ 10 mL/second for a total of 30 mL. EDP Sample taken: LV 147/-5,15; HR: 87 BPM; SpO2: 97%. Pullback taken: LV Off; AO Off; Mean: , Peak to Peak: , SEP: ; HR: 88 BPM; SpO2: 97%. Pigtail repositioned for aortagram with runoff. Aortogram with runoff performed in AP @ 10 mL/second for a total of 30 mL. Catheter removed over the exchange wire. A Left femoral angiogram was performed to determine safe placement of closure device. A second Left femoral angiogram was performed to determine safe placement of closure device. left groin was prepped with chloroprep then draped in the usual sterile fashion. left groin was prepped with chloroprep then draped in the usual sterile fashion. Lidocaine 1% infiltrated to the left groin. A Angio-Seal VIP ([employer] Willem) was successful obtaining hemostatsis at the Left Femoral artery insertion site. Angioseal placed without complications. No signs or symptoms of hematoma noted. Sterile dressing applied per usual sterile fashion. Post Procedure: Pulses reassessed and unchanged. PERRLA. 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 No VTE prophylaxis required. Physician scrubbed out. Contrast type used: Omnipaque 300 mgI/mL, 500 mL bottle. Post-op diagnosis: multi vessel CAD, aortic stenosis. Complications: none. Estimated blood loss: 5mL-10mL. Responsiveness - Normal response to verbal stimuli; alert and oriented, PERRLA. Airway - Unaffected, no intervention required; spontaneous ventilation. Circulation: W/N/L, pulses unchanged. Medication's Wasted: Nitro = 50 mg. Medication's Wasted: Heparin = 3000 units. Medication's Wasted: Other = fentanyl 50 mcg. Total IV fluids: 180 mL. Nausea/Vomiting: No. Procedure completed. Patient transferred by bed to 1st floor. Vital chart was stopped. Access Site Site: Left Femoral artery Sheath Size: 6 Fr Hemostasis Method: Angio-Seal VIP (St. Willem) Hemostasis Success: Successful Procedure Medications Start: 6:41 AM Stop: 6:41 AM Medication: Benadryl Amount: 25 mg Route: I.V. Start: 6:51 AM Stop: 6:51 AM Medication: Versed Amount: 1 mg Route: I.V. Start: 6:51 AM Stop: 6:51 AM Medication: Fentanyl Amount: 25 mcg Route: I.V. Start: 7:17 AM Stop: 7:17 AM Medication: Versed Amount: 1 mg Route: I.V. Start: 7:50 AM Stop: 7:50 AM Medication: Fentanyl Amount: 25 mcg Route: I.V. I, the attending physician, have reviewed and verified all procedure medications. Yes, all medications given per verbal order History/Risk Factors Hypertension: Yes Dyslipidemia: Yes Peripheral Arterial Disease (PAD): Yes Myocardial Infarction ([place]): No Obesity: No Renal Disease: No Tobacco Use: Never Prior Interventions PCI: No CABG: No Valve Surgery: No Report Signatures Finalized by Barry Thao MD on 12/18/2023 12:54 PM
--- NOTE | 2023-12-17 06:35 | W.PM.OPSUD ---
Surgery/Procedure H&P Update DATE OF PROCEDURE: December 17, 2023 DATE H&P PERFORMED: 12/16/23 H&P UPDATE INFORMATION: I have reviewed H&P completed within last 30 days, I have examined patient prior to procedure and No changes to prior documentation PREOP DIAGNOSIS: nstemi PATIENT REASSESSED PRIOR TO SEDATION, WITH NO CHANGE NOTED: Yes PHYSICAL EXAM: alert, oriented x 3, clear to auscultation bilaterally, regular rate & rhythm and operative site marked OTHER PERTINENT EXAM FINDINGS: Mallampati 2 AIRWAY EVAL/ANESTHESIA PLAN: ASA II, Risks, benefits & alternatives of sedation and/or procedure discussed and Patient agrees to continue as planned Related Problem List Diagnoses (1) NSTEMI (non-ST elevated myocardial infarction): (2) Aortic stenosis, mild: (3) PAD (peripheral artery disease):
--- NOTE | 2023-12-17 08:21 | P.PN_ITS ---
Subjective 2 Subjective: Patient underwent left heart cath, she was difficult access due to highly calcified blood vessels. We were not able to put the sheath through the right wrist radial artery however I was able to go through left common femoral artery which was very calcified though patent. She was noted to have severe 90% ostial LAD and 80 to 85% ostial circumflex both vessels are calcified. She has distal 90% RCA. It was difficult to cross the aortic valve however using Schuylre catheter with a straight wire we were able to cross, left ventricle ejection fraction was 45% and moderate. Patient has severe aortic valve stenosis by peak to peak gradient of 42 mmHg. Vitals/I&O/Wt Last Vital Signs Temp 97.9 F 12/17/23 00:00 Pulse 85 12/17/23 05:55 Resp 24 H 12/17/23 05:50 BP 91/72 12/17/23 04:05 Pulse Ox 96 12/17/23 05:50 O2 Del Method Room Air 12/16/23 16:35 12/16/23 12/17/23 12/17/23 22:59 06:59 14:59 Intake Total 360 / 360 Balance 360 / 360 Weight last 48 hrs Weight 169 lb Weight 169 lb Weight 170 lb Physical Exam 2 Const: OTHER: GENERAL: Patient is alert, awake and oriented x3. HEART: Regular S1 and S2. murmur, rub or gallop. LUNGS: Clear to auscultate bilaterally. CENTRAL NERVOUS SYSTEM: Grossly nonfocal. EXTREMITIES: Lower extremities with out edema bilaterally. Urinary Catheter Management: Butt: Cath Placed During This Visit: yes Reason for Continuing Indwelling Catheter: Acute Urinary Retention or Obstruction Urinary Catheter Date of Insertion: 01/25/22 Urinary Catheter Time of Insertion: 07:15 Data 12/17/23 02:56 12/17/23 02:56 A&P Assessment and plan (1) NSTEMI (non-ST elevated myocardial infarction): Given history of multivessel coronary artery disease along with severe aortic valve stenosis. Will refer patient for CABG/SAVR or CABG/TAVR Liz to heart team discussion. Since we do not have CT surgery at [facility] will refer patient to [place] or [place]. For now patient will be bedrest for 4 hours, after that we will restart heparin. Discontinue Plavix, continue aspirin statin and low-dose beta-lonnie. (2) Aortic stenosis: Will obtain echocardiogram however as per peak to peak gradient of 42 mmHg it appeared to me patient has severe aortic valve stenosis. May requiring replacement. (3) PAD (peripheral artery disease): Status post amputation on the right leg however she has good common iliac and left side blood supply in the SFA. Aortic runoff was performed which showed no aneurysm intact renal arteries without significant stenosis bilateral common external and internal iliac arteries appear to be calcified but no significant stenosis, both common femoral artery has no significant stenosis, right SFA appeared to be occluded in the middle however the left SFA has diffuse luminal irregularity without significant stenosis. Below the knee due to weak injection we were not able to tibioperoneal trunk or anterior posterior tibial arteries. Continue aspirin and statin. Advised quitting smoking Plan As above Attestations 2 Medical Necessity Statement*: I am expecting her stay to cross more than 2 midnights. Coding Level of Care Code Acute Code for [facility] Fwd Diagnoses NSTEMI (non-ST elevated myocardial infarction) I21.4 Aortic stenosis I35.0 PAD (peripheral artery disease) I73.9
[2023-12-17 08:57] LABS: Glucose Point of Care 113 mg/dL (70-110)
[2023-12-17] MEDS: aspirin 81 mg EC Tablet PO (09:09)
[2023-12-17] MEDS: clopidogrel 75 mg Tablet PO (09:09)
[2023-12-17] MEDS: sodium chloride 0.9% 1,000 ML 100 ML IV ×2 (09:26→19:50)
[2023-12-17 12:09] LABS: Glucose Point of Care 192 mg/dL (70-110)
[2023-12-17] MEDS: insulin lispro 100 unit/1 mL SUBCUT ×2 (12:25→17:25)
[2023-12-17] MEDS: metoprolol succinate ER (24 HR) 25 mg Tablet 12.5 MG PO (12:26)
--- NOTE | 2023-12-17 13:36 | PM.TDS ---
Transfer Summary Providers Date of Admission: 12/16/23 15:11 Date of Discharge/Transfer: 12/17/23 Attending Provider at Admission: Linda Fuentes MD Attending Provider at Transfer: Linda Fuentes MD Primary Care Provider: ALFONSO Morris Transfer Plans: Anticipated date of transfer: 12/17/23. Diagnoses at Discharge Discharge Diagnosis (1) NSTEMI (non-ST elevated myocardial infarction): Status: Acute (2) Aortic stenosis: Status: Acute (3) PAD (peripheral artery disease): Status: Acute Reason for Visit Reason for Visit chest pains Brief History: Anjelica Mary is a 83 year old female With past medical history of peripheral arterial disease status post right lower extremity requiring amputation, mild aortic stenosis, diabetes mellitus insulin-dependent, hypertension, hypothyroidism, peripheral neuropathy presented to the hospital today with complaint of chest pain. She states that for the last few weeks she has been having chest pain which is in the middle of her chest and has a pressure-like sensation and at times radiates to her left arm. She states in the past she has never had issues with reflux GERD or chest pain similar to this. She also complains of exertional shortness of breath. She says that she has been slightly more nauseous lately as well. She feels as if she has a lot of gas in her epigastric area however has never had trouble like this before. She denies a history of stress testing or previous angiogram or coronary artery disease. Patient is on cilostazol for PAD. Pain has been occurring at rest as well as on exertion at times. She has never been a smoker. Initial troponin in ER was 91. EKG without any acute ischemic changes. Hospital Course Hospital Course Patient was placed on ACS protocol and ruled in for NSTEMI. She underwent cardiac cath with following results: Patient underwent left heart cath, she was difficult access due to highly calcified blood vessels. We were not able to put the sheath through the right wrist radial artery however I was able to go through left common femoral artery which was very calcified though patent. She was noted to have severe 90% ostial LAD and 80 to 85% ostial circumflex both vessels are calcified. She has distal 90% RCA. It was difficult to cross the aortic valve however using Schuyler catheter with a straight wire we were able to cross, left ventricle ejection fraction was 45% and moderate. Patient has severe aortic valve stenosis by peak to peak gradient of 42 mmHg. Patient will need CABG at this point as per recommendation from cardiology. She will be referred to higher level of care at this time as inpatient transfer for further management and workup. Patient also has severe aortic stenosis and will need CABG with TAVR or SAVR. We will discontinue Plavix and continue on aspirin and statin and low-dose beta-lonnie. Cardiology team to coordinate transfer. Once we have acceptance from a facility I will add an addendum to this note. Discussed with family at bedside and the patient. They are agreeable to proceed with above recommendations. Physical Exam Narrative: General: No acute distress, AO x3 HEENT:EOMI Chest: Clear to auscultation b/l, no wheezes CVS: S1-S2 regular,no tachycardia, no gallops, no rubs Abdomen: Soft, nontender, no organomegaly, bowel sounds present Neuro: Grossly non focal. 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 echo complete* [id number] Routine Ultrasound 12/16/23 20:36 Taken Completed Studies During Hospitalization Category Date Time Status XR chest 1V portable [id number] Urgent Exams 12/16/23 09:52 Completed Laboratory Last Values WBC 10.07 10^3/uL (3.29-11.43) 12/17/23 02:56 RBC 3.88 10^6/uL (3.85-5.65) 12/17/23 02:56 Hgb 11.30 g/dL (11.27-16.99) 12/17/23 02:56 Hct 34.0 % (36-47) L 12/17/23 02:56 MCV 87.6 fl (85-98) 12/17/23 02:56 MCH 29.1 pg (27-33) 12/17/23 02:56 MCHC 33.2 g/dL (30-55) 12/17/23 02:56 RDW 12.9 % (12.1-15.1) 12/17/23 02:56 Plt Count 333 10^3/cmm (157-399) 12/17/23 02:56 MPV 9.0 fL (7.4-10.4) 12/17/23 02:56 Neut % (Auto) 64.2 % 12/17/23 02:56 Lymph % (Auto) 24.8 % 12/17/23 02:56 Smith % (Auto) 6.4 % 12/17/23 02:56 Eos % (Auto) 3.3 % 12/17/23 02:56 Baso % (Auto) 0.4 % 12/17/23 02:56 Neut # (Auto) 6.47 10^3/uL (1.8-7.7) 12/17/23 02:56 Lymph # (Auto) 2.5 10^3/uL (0.8-4.8) 12/17/23 02:56 Smith # (Auto) 0.6 10^3/uL (0.2-0.9) 12/17/23 02:56 Eos # (Auto) 0.3 10^3/uL (0.0-0.8) 12/17/23 02:56 Baso # (Auto) 0.0 10^3/uL (0.0-0.1) 12/17/23 02:56 Nucleated RBC % (auto) 0 % 12/17/23 02:56 Nucleated RBCs # 0.0 /100WBC 12/17/23 02:56 Sodium 138 mmol/L (136-145) 12/17/23 02:56 Potassium 3.7 mmol/L (3.5-5.1) 12/17/23 02:56 Chloride 101 mmol/L (98-107) 12/17/23 02:56 Carbon Dioxide 26 mmol/L (22-29) 12/17/23 02:56 Anion Gap 14.7 (5-19) 12/17/23 02:56 BUN 8 mg/dL (8-23) 12/17/23 02:56 Creatinine 0.8 mg/dL (0.5-0.9) 12/17/23 02:56 GFR Calculation Not Reportable 12/17/23 02:56 Glucose 91 mg/dL (65-115) 12/17/23 02:56 POC Glucose 192 mg/dL (70-110) H 12/17/23 11:33 Estimat Average Glucose 171 12/16/23 12:47 Hemoglobin A1c 7.6 % (4.0-6.0) H 12/16/23 12:47 Calculated Osmolality 284 mOsm/kg (285-295) L 12/17/23 02:56 Calcium 9.1 mg/dL (8.5-10.5) 12/17/23 02:56 Magnesium 1.3 mg/dL (1.7-2.3) L 12/17/23 02:56 Total Bilirubin 0.2 mg/dL (0.15-1.2) 12/17/23 02:56 AST 14 U/L (0-32) 12/17/23 02:56 ALT 9 U/L (0-33) 12/17/23 02:56 Alkaline Phosphatase 107 U/L (35-105) H 12/17/23 02:56 Troponin T Baseline 91 ng/L (0-10) H 12/16/23 12:47 Troponin T 120 Minute 106.0 ng/L (0-10) H 12/16/23 14:59 Delta Troponin T 15.0 ABS# (0-10) H* 12/16/23 14:59 Troponin T Hi Sens 6Hr 104.1 ng/L (0-10) H 12/16/23 18:54 Troponin T Hi Sens 6Hr Delta 13.1 ng/L (0-12) H* 12/16/23 18:54 Total Protein 6.4 g/dL (6.6-8.7) L 12/17/23 02:56 Albumin 3.6 g/dL (3.5-5.2) 12/17/23 02:56 Globulin 2.8 g/dL (1.3-4.6) 12/17/23 02:56 Triglycerides 99 mg/dL (0-150) 12/16/23 12:47 Cholesterol 113 mg/dL (0-200) 12/16/23 12:47 LDL Cholesterol, Calc 49 mg/dL (50-129) L 12/16/23 12:47 HDL Cholesterol 44 mg/dL (60-100) L 12/16/23 12:47 LDL/HDL Ratio 1.11 RATIO (0.00-3.22) 12/16/23 12:47 Cholesterol/HDL Ratio 2.57 mg/dL (0.0-4.40) 12/16/23 12:47 TSH 2.60 uIU/mL (0.27-4.20) 12/16/23 12:47 Radiology Impressions Chest X-Ray 12/16/23 09:52 IMPRESSION: No acute cardiopulmonary findings Recent Clincial Data Last Vital Signs Temp 97.8 F 12/17/23 11:35 Pulse 88 12/17/23 11:35 Resp 22 H 12/17/23 11:35 BP 108/74 12/17/23 11:35 Pulse Ox 95 12/17/23 11:35 O2 Del Method Room Air 12/17/23 11:35 Vital Signs Temp Pulse Resp BP Pulse Ox O2 Del Method 12/17/23 11:35 97.8 F 88 22 H 108/74 95 Room Air 12/17/23 08:11 98.4 F 88 14 137/73 95 Nasal Cannula 12/17/23 08:00 98.1 F 89 17 137/73 98 Nasal Cannula 12/17/23 05:55 85 12/17/23 05:50 88 24 H 96 12/17/23 05:45 88 22 H 96 12/17/23 05:40 87 45 H 96 12/17/23 05:35 86 32 H 97 12/17/23 05:30 86 27 H 96 12/17/23 05:25 91 26 H 96 12/17/23 05:20 91 10 L 96 12/17/23 05:15 90 18 93 12/17/23 05:10 88 21 H 97 12/17/23 05:05 88 20 H 93 12/17/23 05:00 87 28 H 94 12/17/23 04:55 91 23 H 93 12/17/23 04:50 87 26 H 96 12/17/23 04:45 90 20 H 93 12/17/23 04:40 88 40 H 95 12/17/23 04:35 87 23 H 96 12/17/23 04:30 86 25 H 97 12/17/23 04:25 87 20 H 96 12/17/23 04:20 89 28 H 95 12/17/23 04:15 88 21 H 96 12/17/23 04:10 86 34 H 97 12/17/23 04:05 86 19 H 91/72 96 12/17/23 04:00 88 26 H 91/72 95 12/17/23 03:55 87 33 H 91/72 94 12/17/23 03:50 85 24 H 91/72 96 12/17/23 03:45 87 21 H 91/72 95 12/17/23 03:40 88 26 H 91/72 96 12/17/23 03:35 86 24 H 91/72 96 12/17/23 03:30 87 19 H 91/72 97 12/17/23 03:25 85 21 H 91/72 95 12/17/23 03:20 85 19 H 91/72 97 12/17/23 03:15 84 30 H 91/72 96 12/17/23 03:10 86 19 H 91/72 97 12/17/23 03:05 85 26 H 91/72 97 12/17/23 03:00 89 19 H 91/72 95 12/17/23 02:55 87 16 91/72 97 12/17/23 02:50 86 21 H 91/72 96 12/17/23 02:45 85 21 H 91/72 95 12/17/23 02:40 85 31 H 91/72 98 12/17/23 02:35 86 42 H 91/72 97 12/17/23 02:30 85 29 H 91/72 96 12/17/23 02:25 90 26 H 91/72 96 12/17/23 02:20 91 19 H 91/72 98 12/17/23 02:15 89 18 91/72 94 12/17/23 02:10 88 31 H 91/72 94 12/17/23 02:05 90 24 H 91/72 95 12/17/23 02:00 89 17 91/72 96 12/17/23 01:55 90 23 H 91/72 94 12/17/23 01:50 87 21 H 91/72 96 12/17/23 01:45 89 21 H 91/72 95 Intake & Output/Weight 12/15/23 12/16/23 12/17/23 12/18/23 06:59 06:59 06:59 06:59 Intake Total 360 / 360 960 / 960 Balance 360 / 360 960 / 960 Weight 76.657 kg Vitals Last Vital Signs Temp 97.8 F 12/17/23 11:35 Pulse 88 12/17/23 11:35 Resp 22 H 12/17/23 11:35 BP 108/74 12/17/23 11:35 Pulse Ox 95 12/17/23 11:35 O2 Del Method Room Air 12/17/23 11:35 TS Medications Medications Acetaminophen (Acetaminophen 325 Mg Tablet) 650 mg PO Q6H PRN PRN Reason: Mild/Mod Pain Or Temp >/= 101 Al Hydrox/Mg Hydrox/Simethicone (Wimy-Kow-Dlqqgtisf-Matthew 30 Ml Udc) 30 ml PO Q15M PRN PRN Reason: INDIGESTION Alprazolam (Alprazolam 0.5 Mg Tablet) 0.5 mg PO BEDTIME PRN PRN Reason: ANXIETY Last Admin: 12/16/23 21:04 Dose: 0.5 mg Amitriptyline HCl (Amitriptyline 25 Mg Tablet) 75 mg PO BEDTIME [facility] Last Admin: 12/16/23 20:28 Dose: 75 mg Aspirin (Aspirin 81 Mg Ec Tablet) 81 mg PO DAILY [facility] Last Admin: 12/17/23 09:09 Dose: 81 mg Atorvastatin Calcium (Atorvastatin 40 Mg Tablet) 80 mg PO BEDTIME [facility]Y Atropine Sulfate (Atropine 1 Mg/Ml Sdv 1 Ml) 0.5 mg IVP PRN PRN PRN Reason: Symptomatic bradycardia Enoxaparin Sodium (Enoxaparin 80 Mg/0.8 Ml Syringe) 80 mg SUBCUT Q12H [facility] Last Admin: 12/17/23 05:23 Dose: Not Given Fentanyl (Fentanyl 50 Mcg/Ml Inj 2ml) 50 mcg IVP PRN PRN PRN Reason: Pain Glucagon (Glucagon 1 Mg/Ml Kit 1 Ml) 1 mg IM ONCE PRN; Protocol PRN Reason: Adult Acute Hypoglycemia Nursing Prot. Dextrose (D5w) 500 mls @ 0 mls/hr IV ONCE PRN; Protocol PRN Reason: Adult Acute Hypoglycemia Prot Dextrose (D10w) 125 mls @ 750 mls/hr IV PRN PRN; Protocol PRN Reason: Adult Acute Hypoglycemia Nursing Protocol Dextrose (D10w) 250 mls @ 1,000 mls/hr IV PRN PRN; Protocol PRN Reason: Adult Acute Hypoglycemia Nursing Protocol Sodium Chloride (Sodium Chloride 0.9%) 1,000 mls @ 100 mls/hr IV .Q10H [facility] Last Admin: 12/17/23 09:26 Dose: 100 mls/hr Insulin Human Lispro (Insulin Lispro 100 Unit/1 Ml) 0 unit SUBCUT WM&BEDTIME [facility]; Protocol Last Admin: 12/17/23 12:25 Dose: 6 unit Magnesium Hydroxide (Magnesium Hydroxide 30 Ml Udc) 30 ml PO DAILY PRN PRN Reason: CONSTIPATION Metoprolol Succinate (Metoprolol Succinate Er (24 Hr) 25 Mg Tablet) 12.5 mg PO DAILY [facility] Last Admin: 12/17/23 12:26 Dose: 12.5 mg Naloxone HCl (Naloxone 0.4 Mg/Ml Sdv) 0.1 mg IVP Q2M PRN PRN Reason: RESPIRATORY RATE < 8/MIN Nitroglycerin (Nitroglycerin 0.4 Mg Sublingual Tablet) 0.4 mg SUBLINGUAL Q5M PRN PRN Reason: CHEST PAIN Ondansetron HCl (Ondansetron 2 Mg/Ml Sdv 2 Ml) 4 mg IVP Q8H PRN PRN Reason: vomiting, or N/V if npo Trazodone HCl (Trazodone 100 Mg Tablet) 100 mg PO BEDTIME [facility] Last Admin: 12/16/23 20:29 Dose: 100 mg Discontinued Medications Alprazolam (Alprazolam 0.5 Mg Tablet) 0.375 mg PO BEDTIME PRN PRN Reason: ANXIETY Clopidogrel Bisulfate (Clopidogrel 75 Mg Tablet) 75 mg PO DAILY [facility] Last Admin: 12/17/23 09:09 Dose: 75 mg Clopidogrel Bisulfate (Clopidogrel 300 Mg Tablet) 300 mg PO ONCE ONE Stop: 12/16/23 16:38 Last Admin: 12/16/23 17:24 Dose: 300 mg Diphenhydramine HCl (Diphenhydramine 50 Mg/Ml Sdv 1ml) Confirm Administered Dose 50 mg .ROUTE .STK-MED ONE Stop: 12/17/23 06:40 Fentanyl (Fentanyl 50 Mcg/Ml Inj 2ml) Confirm Administered Dose 100 mcg .ROUTE .STK-MED ONE Stop: 12/17/23 06:07 Heparin Sodium (Porcine) (Heparin 5,000 Unit/Ml Inj 1 Ml) Confirm Administered Dose 10,000 unit .ROUTE .STK-MED ONE Stop: 12/17/23 06:08 Lidocaine HCl (Xylocaine) Confirm Administered Dose 20 mls @ as directed .ROUTE .STK-MED ONE Stop: 12/17/23 06:08 Sodium Chloride (Sodium Chloride 0.9%) Confirm Administered Dose 1,000 mls @ as directed .ROUTE .STK-MED ONE Stop: 12/17/23 06:08 Midazolam HCl (Midazolam 1 Mg/Ml Inj 2 Ml) Confirm Administered Dose 2 mg .ROUTE .STK-MED ONE Stop: 12/17/23 06:08 Nitroglycerin (Nitroglycerin 5 Mg/Ml Sdv 10 Ml) Confirm Administered Dose 50 mg .ROUTE .STK-MED ONE Stop: 12/17/23 06:07 Allergies oxycodone [From Percocet] Allergy (Unknown, Verified 12/16/23 10:02) ALGY-Rash Penicillins Allergy (Unknown, Verified 12/16/23 10:02) ALGY-Rash Home Medications Wheelchair #1 ea 12/21/21 [Rx Confirmed 12/16/23] levothyroxine 25 mcg tablet 25 mcg PO DAILY 12/26/21 [History Confirmed 12/16/23] alprazolam 0.25 mg tablet (Xanax) 0.375 mg PO BEDTIME PRN Anxiety 01/25/22 [History Confirmed 12/16/23] trazodone 100 mg tablet 100 mg PO BEDTIME 01/25/22 [History Confirmed 12/16/23] [employer] employment counselor and supplies #1 ea 02/22/22 [Rx Confirmed 12/16/23] cilostazol 100 mg tablet 100 mg PO BID #60 tabs 06/18/22 [Rx Confirmed 12/16/23] semaglutide 0.25 mg or 0.5 mg (2 mg/1.5 mL) subcutaneous pen injector See Rx Instructions .Route .COMPLEX 11/13/22 [History Confirmed 12/16/23] gabapentin 300 mg capsule 300 mg PO TID PRN post op pain 11/20/22 [History Confirmed 12/16/23] insulin degludec 200 unit/mL (3 mL) subcutaneous pen (Tresiba FlexTouch U-200 insulin) 5 unit (0.025 mL) SUBCUT BEDTIME #9 mL 01/17/23 [Rx Confirmed 12/16/23] insulin lispro 100 unit/mL subcutaneous solution (Humalog U-100 Insulin) See Rx Instructions .Route .COMPLEX #10 mL 01/17/23 [Rx Confirmed 12/16/23] amitriptyline 75 mg tablet 75 mg PO DAILY 06/04/23 [History Confirmed 12/16/23] Discharge Plan Discharge Condition: Stable Prescriptions: No Action (DME) Wheelchair See Rx Instructions .Route .MEDSUPPLY Qty: 1 0RF Rx Instructions: As directed HOME (DME) [employer] employment counselor and supplies See Rx Instructions .Route .MEDSUPPLY Qty: 1 0RF Rx Instructions: As directed amitriptyline 75 mg tablet 75 mg PO DAILY cilostazol 100 mg tablet 100 mg PO BID Qty: 60 0RF Rx Instructions: MUST have follow-up for further refills levothyroxine 25 mcg tablet 25 mcg PO DAILY insulin lispro [Humalog U-100 Insulin] 100 unit/mL Solution See Rx Instructions .ROUTE .COMPLEX Qty: 10 0RF Rx Instructions: ;Inject, subcut, 3 times daily, after meals, based on sign scale provided insulin degludec [Tresiba FlexTouch U-200] 200 unit/mL (3 mL) Insulin Pen 5 unit SUBCUT BEDTIME Qty: 9 0RF alprazolam [Xanax] 0.25 mg Tablet 0.375 mg PO BEDTIME PRN (Reason: Anxiety) trazodone 100 mg tablet 100 mg PO BEDTIME semaglutide 0.25 mg or 0.5 mg(2 mg/1.5 mL) pen injector See Rx Instructions .ROUTE .COMPLEX Rx Instructions: 0.05 mg subcutaneously gabapentin 300 mg capsule 300 mg PO TID PRN (Reason: post op pain) Referrals: Jolie Torres FNP [Primary Care Provider] - Patient Instructions: Opioid Safety Transfer Attestations Time Spent in Transfer Care: greater than 30 min Status at Transfer: Cognitive status at transfer: cognitively intact; Behavioral status at transfer: cooperative; Quality Metrics Clinical Quality Measures [ No reported AMI, CVA or VTE this stay] Coding Level of Care Code Acute Code for [facility] Fwd Diagnoses NSTEMI (non-ST elevated myocardial infarction) I21.4 Aortic stenosis I35.0 PAD (peripheral artery disease) I73.9
[2023-12-17 17:04] LABS: Glucose Point of Care 259 mg/dL (70-110)
[2023-12-17] MEDS: heparin 5,000 unit/mL INJ 1 mL IVP (17:51)
[2023-12-17] MEDS: heparin drip 25,000 UNIT/500 ML PREMIX 21 UNIT IV (18:04)
[2023-12-17] MEDS: trazodone 100 mg Tablet PO (20:49)
[2023-12-17] MEDS: ALPRAZolam 0.5 mg Tablet PO (20:49)
[2023-12-17] MEDS: atorvastatin 40 mg Tablet 80 MG PO (20:49)
[2023-12-17] MEDS: amitriptyline 25 mg Tablet 75 MG PO (20:50)
[2023-12-18] VITALS (79 sets, daily range): BP systolic 102–138; BP diastolic 47–84; PULSE 75–83; RESP 10–27; TEMP 36.7–36.8; O2SAT 94–98; BMI 29.2
[2023-12-18 00:16] LABS: Partial Thromboplastin Time 97.7 SECONDS (23.9-36.7)
[2023-12-18] MEDS: sodium chloride 0.9% 1,000 ML 100 ML IV (02:17)
[2023-12-18 07:40] LABS: Basophils % 0.3 %; Eosinophils # 0.2 10^3/uL (0.0-0.8); Eosinophils % 2.5 %; Hematocrit 31.3 % (36-47); Lymphocytes # 2.1 10^3/uL (0.8-4.8); Lymphocytes % 23.4 %; Mean Corpuscular HGB Conc 32.9 g/dL (30-55); Mean Corpuscular Hemoglobin 28.9 pg (27-33); Mean Corpuscular Volume 87.9 fl (85-98); Mean Platelet Volume 9.4 fL (7.4-10.4); Monocytes # 0.7 10^3/uL (0.2-0.9); Monocytes % 7.7 %; Neutrophils # 5.75 10^3/uL (1.8-7.7); Neutrophils % 65.4 %; Nucleated Red Blood Cells % 0 %; Platelet Count 291 10^3/cmm (157-399); Red Blood Count 3.56 10^6/uL (3.85-5.65)
[2023-12-18 07:44] LABS: Glucose Point of Care 165 mg/dL (70-110)
[2023-12-18 07:55] LABS: Partial Thromboplastin Time 45.7 SECONDS (23.9-36.7)
[2023-12-18 07:58] LABS: Blood Urea Nitrogen 7 mg/dL (8-23); Calcium 8.3 mg/dL (8.5-10.5); Carbon Dioxide 23 mmol/L (22-29); Chloride 104 mmol/L (98-107); Creatinine Clr Calc Pharmacy 53.4387; Glucose 156 mg/dL (65-115); Osmolality Calculated 285 mOsm/kg (285-295); Sodium 137 mmol/L (136-145)
--- NOTE | 2023-12-18 08:42 | PC.SOCIAL ---
IMM Update Pg. 2 of IMM updated and copy provided at bedside.
[2023-12-18] MEDS: alum-mag-hydroxide-sime 30 mL UDC PO ×2 (08:59→18:41)
[2023-12-18] MEDS: metoprolol succinate ER (24 HR) 25 mg Tablet 12.5 MG PO (09:00)
[2023-12-18] MEDS: aspirin 81 mg EC Tablet PO (09:00)
[2023-12-18] MEDS: insulin lispro 100 unit/1 mL SUBCUT ×3 (09:00→21:17)
[2023-12-18] MEDS: potassium chloride ER 20 mEq Tablet PO (11:12)
[2023-12-18] MEDS: pantoprazole DR 40 mg Tablet PO (11:12)
[2023-12-18] MEDS: FUROsemide 10 mg/mL SDV 4mL 40 MG IVP (11:12)
[2023-12-18 12:34] LABS: Glucose Point of Care 186 mg/dL (70-110)
--- NOTE | 2023-12-18 13:31 | PM.PN ---
Subjective Subjective: Seen this morning. Complains of mild heartburn however says he is having a lot of belching which is helping. Planning to transfer to [facility] for CABG and TAVR evaluation. Vitals/I&O/Wt Last Vital Signs Temp 98.3 F 12/18/23 07:16 Pulse 81 12/18/23 07:16 Resp 17 12/18/23 07:16 BP 109/53 12/18/23 07:16 Pulse Ox 95 12/18/23 07:16 O2 Del Method Room Air 12/17/23 16:00 12/17/23 12/18/23 12/18/23 22:59 06:59 14:59 Intake Total 1360 / 2320 1135.8 / 3455.8 1030.933 / 1030.933 Balance 1360 / 2320 1135.8 / 3455.8 1030.933 / 1030.933 Weight last 48 hrs Weight 74.843 kg Weight 74.843 kg Weight 76.657 kg Weight 76.657 kg Physical Exam Narrative: General: No acute distress, AO x3 HEENT:EOMI Chest: Clear to auscultation b/l, no wheezes CVS: S1-S2 regular,no tachycardia, no gallops, no rubs Abdomen: Soft, nontender, no organomegaly, bowel sounds present Neuro: Grossly non focal. Extremities: Right BKA no edema Urinary Catheter Management: Butt: Cath Placed During This Visit: yes Reason for Continuing Indwelling Catheter: Acute Urinary Retention or Obstruction Urinary Catheter Date of Insertion: 01/25/22 Urinary Catheter Time of Insertion: 07:15 Data 12/18/23 06:49 12/18/23 06:49 A&P Assessment and plan (1) Aortic stenosis, mild: (2) PAD (peripheral artery disease): (3) Hyperlipemia, mixed: (4) 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 mellitus: (5) Chest pain: (6) NSTEMI (non-ST elevated myocardial infarction): Plan #Chest pain #Elevated troponin #NSTEMI #Peripheral arterial disease #Status post right BKA 2 years ago #Hypertension # Insulin-dependent diabetes mellitus #Anxiety #Hypothyroidism ? Load with Plavix 300, 75 daily thereafter, add aspirin 81 daily, add atorvastatin 80 ? Placed on therapeutic Lovenox twice daily ? N.p.o. at midnight for potential coronary angiogram? ? Will consult cardiology. ? [place] at 2 hours +15. 6-hour troponin pending ? Serial EKGs ? At this time patient is chest pain-free. ? Continue trazodone, Xanax, amitriptyline at bedtime ? Will hold cilostazol today. ? Sliding scale insulin moderate dose intensity ? Check echocardiogram ? Patient has a high heart score and suspicion for coronary disease is high given patient has history of PAD. 12/18/2023 ?Cardiology has coordinated patient's transfer. Patient has been accepted by Dr. mayberry at [facility]. ? Please see transfer summary for details ? Patient is stable for discharge at this time. ? Plavix has been held since 12/16. ? Echo was completed last night. Corporate Account Executive report available. I will addend that to the transfer summary at this time. Attestations Medical Necessity Statement*: Will transfer to [place] for evaluation for CABG and TAVR. Diagnoses Aortic stenosis, mild I35.0 PAD (peripheral artery disease) I73.9 Hyperlipemia, mixed E78.2 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 mellitus E11.42 Chest pain R07.9 NSTEMI (non-ST elevated myocardial infarction) I21.4
--- NOTE | 2023-12-18 14:34 | P.PN_ITS ---
Subjective 2 Subjective: Patient seen this morning on rounds. She was having some chest discomfort and orthopnea. Patient states that she had chest discomfort last night and this was relieved by reflux medication. She does not have any chest pain at this time. She does have some shortness of breath. On my exam she has bilateral lower lobes fine crackles present no edema present. Patient has shortness of breath when lying down but improves when sitting up. Medications: Reviewed: Yes Vitals/I&O/Wt Last Vital Signs Temp 98.3 F 12/18/23 08:00 Pulse 81 12/18/23 08:00 Resp 17 12/18/23 08:00 BP 109/53 12/18/23 08:00 Pulse Ox 95 12/18/23 07:16 O2 Del Method Room Air 12/17/23 16:00 12/17/23 12/18/23 12/18/23 22:59 06:59 14:59 Intake Total 1360 / 2320 1135.8 / 3455.8 1030.933 / 1030.933 Output Total 900 / 900 Balance 1360 / 2320 1135.8 / 3455.8 130.933 / 130.933 Weight last 48 hrs Weight 165 lb Weight 165 lb Weight 169 lb Weight 169 lb Physical Exam 2 Narrative: General: No apparent distress, healthy appearing, well nourished Muskuloskeletal: Full ROM Lymphatic: no lymphedema noted Respiratory: Appeared to have shortness of breath when lying down better when sitting up, patient has bilateral lower lobes with fine crackles present small amount of expiratory wheezing bilateral lower lobes Cardio: No JVD, regular rate, regular rhythm, S1 S2 normal, no murmurs, peripheral pulses 2+ throughout GI: Normal to inspection, nondistended Extremities: Full ROM, normal, normal capillary refill, no cyanosis or edema Neuro: Alert and oriented x4, no focal motor deficits Psych: Affect normal, denies suicidal ideation, mental status grossly normal Skin: No rashes or lesions noted, no wounds Urinary Catheter Management: Butt: Cath Placed During This Visit: yes Reason for Continuing Indwelling Catheter: Acute Urinary Retention or Obstruction Urinary Catheter Date of Insertion: 01/25/22 Urinary Catheter Time of Insertion: 07:15 Data 12/18/23 06:49 12/18/23 06:49 A&P Assessment and plan (1) NSTEMI (non-ST elevated myocardial infarction): Given history of multivessel coronary artery disease along with severe aortic valve stenosis. Patient has been accepted by Dr. mayberry at [facility] to evaluate for possible CABG with SAVR/TAVR. Continue to hold Plavix, continue aspirin statin and low-dose beta-lonnie, continue heparin drip. Patient responded well to Lasix with 900 out improvement of symptoms. Continues fluids stopped. (2) Aortic stenosis: Echo Complete CONCLUSIONS Mildly increased left ventricular cavity size. Moderately decreased left ventricular systolic function. Left ventricular ejection fraction is estimated at 45 %. There appeared to be anterior and septal wall hypokinesis.Grade I/IV diastolic dysfunction (abnormal relaxation filling pattern), normal to mildly elevated filling pressures. Moderately increased left atrial size. Normal right ventricular size. Mild pulmonary hypertension, RVSP 42.7 mmHg. Severe aortic valve calcification. Severe aortic valve stenosis, mean gradient 23.6 mmHg, HILLARY 0.65 cm squared. Mild aortic valve regurgitation. Moderately thickened mitral valve. Moderate mitral annular calcification. No mitral valve stenosis. Mild mitral valve regurgitation. There is no pericardial effusion. Right atrial pressure is around 10 mm of mercury. Qualifiers: Cardiac valve disease etiology: nonrheumatic Qualified Code(s): I35.0 - Nonrheumatic aortic (valve) stenosis (3) PAD (peripheral artery disease): Status post amputation on the right leg however she has good common iliac and left side blood supply in the SFA. Aortic runoff was performed which showed no aneurysm intact renal arteries without significant stenosis bilateral common external and internal iliac arteries appear to be calcified but no significant stenosis, both common femoral artery has no significant stenosis, right SFA appeared to be occluded in the middle however the left SFA has diffuse luminal irregularity without significant stenosis. Below the knee due to weak injection we were not able to tibioperoneal trunk or anterior posterior tibial arteries. Continue aspirin and statin. Advised quitting smoking Plan As above Attestations 2 Medical Necessity Statement*: Will transfer to [place] for evaluation for CABG and TAVR. Coding Level of Care Code Acute Code for [facility] Diagnoses NSTEMI (non-ST elevated myocardial infarction) I21.4 Nonrheumatic aortic valve stenosis I35.0 Cardiac valve disease etiology: nonrheumatic PAD (peripheral artery disease) I73.9
[2023-12-18 14:49] LABS: Partial Thromboplastin Time 48.7 SECONDS (23.9-36.7)
[2023-12-18 17:36] LABS: Glucose Point of Care 166 mg/dL (70-110)
[2023-12-18] MEDS: heparin drip 25,000 UNIT/500 ML PREMIX 20 UNIT IV (18:34)
[2023-12-18 21:07] LABS: Glucose Point of Care 198 mg/dL (70-110)
[2023-12-18] MEDS: gabapentin 300 mg Capsule PO (21:17)
[2023-12-18] MEDS: amitriptyline 25 mg Tablet 75 MG PO (21:17)
[2023-12-18] MEDS: ALPRAZolam 0.5 mg Tablet PO (21:17)
[2023-12-18] MEDS: atorvastatin 40 mg Tablet 80 MG PO (21:17)
[2023-12-18] MEDS: trazodone 100 mg Tablet PO (21:17)
[2023-12-18 21:33] LABS: Partial Thromboplastin Time 61.2 SECONDS (23.9-36.7)
[2023-12-19] VITALS (8 sets, daily range): BP systolic 86–105; BP diastolic 53–76; PULSE 80–87; RESP 14–24; TEMP 36.5–36.8; O2SAT 92–96
[2023-12-19 04:28] LABS: Basophils % 0.3 %; Eosinophils # 0.2 10^3/uL (0.0-0.8); Eosinophils % 1.9 %; Lymphocytes # 1.9 10^3/uL (0.8-4.8); Mean Corpuscular HGB Conc 32.8 g/dL (30-55); Mean Corpuscular Hemoglobin 28.9 pg (27-33); Mean Corpuscular Volume 88.2 fl (85-98); Mean Platelet Volume 9.3 fL (7.4-10.4); Monocytes # 0.6 10^3/uL (0.2-0.9); Monocytes % 6.4 %; Neutrophils # 6.28 10^3/uL (1.8-7.7); Neutrophils % 70.1 %; Nucleated Red Blood Cells % 0 %; Platelet Count 295 10^3/cmm (157-399); Red Blood Count 3.63 10^6/uL (3.85-5.65); White Blood Count 8.96 10^3/uL (3.29-11.43)
[2023-12-19 04:49] LABS: Partial Thromboplastin Time 75.3 SECONDS (23.9-36.7)
[2023-12-19 06:44] LABS: Glucose Point of Care 178 mg/dL (70-110)
[2023-12-19] MEDS: insulin lispro 100 unit/1 mL SUBCUT ×2 (07:52→12:44)
[2023-12-19] MEDS: aspirin 81 mg EC Tablet PO (07:53)
[2023-12-19] MEDS: metoprolol succinate ER (24 HR) 25 mg Tablet 12.5 MG PO (07:53)
[2023-12-19] MEDS: pantoprazole DR 40 mg Tablet PO (07:53)
[2023-12-19 12:09] LABS: Glucose Point of Care 258 mg/dL (70-110)
[2023-12-19 12:11] LABS: Partial Thromboplastin Time 62.6 SECONDS (23.9-36.7)
--- NOTE | 2023-12-19 12:40 | P.PN_ITS ---
Subjective 2 Subjective: seen today on heparin gtt awaiting transfer to [facility] denies chest pain this morning however states yesterday evening she did have some episodes of chest pain Vitals/I&O/Wt Last Vital Signs Temp 98.3 F 12/19/23 11:32 Pulse 83 12/19/23 11:32 Resp 14 12/19/23 11:32 BP 86/53 12/19/23 11:32 Pulse Ox 93 12/19/23 11:32 O2 Del Method Room Air 12/19/23 11:32 12/18/23 12/19/23 12/19/23 22:59 06:59 14:59 Intake Total 836.033 / 1866.966 474.667 / 474.667 Balance 836.033 / 966.966 474.667 / 474.667 Weight last 48 hrs Weight 77.836 kg Weight 74.843 kg Weight 74.843 kg Physical Exam 2 Narrative: General: No acute distress, AO x3 HEENT:EOMI Chest: Clear to auscultation b/l, no wheezes CVS: S1-S2 regular,no tachycardia, no gallops, no rubs Abdomen: Soft, nontender, no organomegaly, bowel sounds present Neuro: Grossly non focal. Extremities: Right BKA no edema Urinary Catheter Management: Butt: Cath Placed During This Visit: yes Reason for Continuing Indwelling Catheter: Acute Urinary Retention or Obstruction Urinary Catheter Date of Insertion: 01/25/22 Urinary Catheter Time of Insertion: 07:15 Data 12/19/23 04:12 12/18/23 06:49 A&P Assessment and plan (1) Aortic stenosis, mild: (2) PAD (peripheral artery disease): (3) Hyperlipemia, mixed: (4) 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 mellitus: (5) Chest pain: (6) NSTEMI (non-ST elevated myocardial infarction): Plan #Chest pain #Elevated troponin #NSTEMI #Peripheral arterial disease #Status post right BKA 2 years ago #Hypertension # Insulin-dependent diabetes mellitus #Anxiety #Hypothyroidism ? Load with Plavix 300, 75 daily thereafter, add aspirin 81 daily, add atorvastatin 80 ? Placed on therapeutic Lovenox twice daily ? N.p.o. at midnight for potential coronary angiogram? ? Will consult cardiology. ? [place] at 2 hours +15. 6-hour troponin pending ? Serial EKGs ? At this time patient is chest pain-free. ? Continue trazodone, Xanax, amitriptyline at bedtime ? Will hold cilostazol today. ? Sliding scale insulin moderate dose intensity ? Check echocardiogram ? Patient has a high heart score and suspicion for coronary disease is high given patient has history of PAD. 12/19/2023 ?Cardiology has coordinated patient's transfer. Patient has been accepted by Dr. mayberry at [facility]. ? Please see transfer summary for details ? Patient is stable for discharge at this time. ? Plavix has been held since 12/16. ? Echo was completed. [facility] report available. Attestations 2 Medical Necessity Statement*: Will transfer to [place] for evaluation for CABG and TAVR. Diagnoses Aortic stenosis, mild I35.0 PAD (peripheral artery disease) I73.9 Hyperlipemia, mixed E78.2 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 mellitus E11.42 Chest pain R07.9 NSTEMI (non-ST elevated myocardial infarction) I21.4
--- NOTE | 2023-12-19 14:13 | PC.NURSE ---
called report to [facility] talked to Lucero Pyle RN
--- NOTE | 2023-12-19 14:35 | P.PN_ITS ---
Subjective 2 Subjective: Patient seen this morning on rounds. Orthopnea improved. She still has crackles bilateral lower lobes. She has some reflux when she eats, but no chest pain overall. She does not have any chest pain at this time. On my exam she has bilateral lower lobes fine crackles present no edema present. Medications: Reviewed: Yes Vitals/I&O/Wt Last Vital Signs Temp 98.3 F 12/19/23 11:32 Pulse 83 12/19/23 11:32 Resp 14 12/19/23 11:32 BP 86/53 12/19/23 11:32 Pulse Ox 93 12/19/23 11:32 O2 Del Method Room Air 12/19/23 11:32 12/18/23 12/19/23 12/19/23 22:59 06:59 14:59 Intake Total 836.033 / 1866.966 834.667 / 834.667 Balance 836.033 / 966.966 834.667 / 834.667 Weight last 48 hrs Weight 171 lb 9.6 oz Weight 165 lb Weight 165 lb Physical Exam 2 Narrative: General: No apparent distress, healthy appearing, well nourished Muskuloskeletal: Full ROM Lymphatic: no lymphedema noted Respiratory: Appeared to have shortness of breath when lying down better when sitting up, patient has bilateral lower lobes with fine crackles present small amount of expiratory wheezing bilateral lower lobes Cardio: No JVD, regular rate, regular rhythm, S1 S2 normal, no murmurs, peripheral pulses 2+ throughout GI: Normal to inspection, nondistended Extremities: Full ROM, normal, normal capillary refill, no cyanosis or edema Neuro: Alert and oriented x4, no focal motor deficits Psych: Affect normal, denies suicidal ideation, mental status grossly normal Skin: No rashes or lesions noted, no wounds Urinary Catheter Management: Butt: Cath Placed During This Visit: yes Reason for Continuing Indwelling Catheter: Acute Urinary Retention or Obstruction Urinary Catheter Date of Insertion: 01/25/22 Urinary Catheter Time of Insertion: 07:15 Data 12/19/23 04:12 12/18/23 06:49 A&P Assessment and plan (1) NSTEMI (non-ST elevated myocardial infarction): Given history of multivessel coronary artery disease along with severe aortic valve stenosis. Patient has been accepted by Dr. mayberry at [facility] to evaluate for possible CABG with SAVR/TAVR. Continue to hold Plavix, continue aspirin statin and low-dose beta-lonnie, continue heparin drip. Patient responded well to Lasix with 900 out improvement of symptoms. She still has crackles. Will give another 40 with potassium today. (2) Aortic stenosis: Echo Complete CONCLUSIONS Mildly increased left ventricular cavity size. Moderately decreased left ventricular systolic function. Left ventricular ejection fraction is estimated at 45 %. There appeared to be anterior and septal wall hypokinesis.Grade I/IV diastolic dysfunction (abnormal relaxation filling pattern), normal to mildly elevated filling pressures. Moderately increased left atrial size. Normal right ventricular size. Mild pulmonary hypertension, RVSP 42.7 mmHg. Severe aortic valve calcification. Severe aortic valve stenosis, mean gradient 23.6 mmHg, HILLARY 0.65 cm squared. Mild aortic valve regurgitation. Moderately thickened mitral valve. Moderate mitral annular calcification. No mitral valve stenosis. Mild mitral valve regurgitation. There is no pericardial effusion. Right atrial pressure is around 10 mm of mercury. Qualifiers: Cardiac valve disease etiology: nonrheumatic Qualified Code(s): I35.0 - Nonrheumatic aortic (valve) stenosis (3) PAD (peripheral artery disease): Status post amputation on the right leg however she has good common iliac and left side blood supply in the SFA. Aortic runoff was performed which showed no aneurysm intact renal arteries without significant stenosis bilateral common external and internal iliac arteries appear to be calcified but no significant stenosis, both common femoral artery has no significant stenosis, right SFA appeared to be occluded in the middle however the left SFA has diffuse luminal irregularity without significant stenosis. Below the knee due to weak injection we were not able to tibioperoneal trunk or anterior posterior tibial arteries. Continue aspirin and statin. Advised quitting smoking Plan It is my understanding patient has a bed and will transfer today. Attestations 2 Medical Necessity Statement*: Will transfer to [place] for evaluation for CABG and TAVR. Coding Level of Care Code Acute Code for [facility] Diagnoses NSTEMI (non-ST elevated myocardial infarction) I21.4 Nonrheumatic aortic valve stenosis I35.0 Cardiac valve disease etiology: nonrheumatic PAD (peripheral artery disease) I73.9
--- NOTE | 2023-12-19 14:57 | PC.NURSE ---
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 Received order to hold off on IVP Lasix once and potassium as ordered.
--- NOTE | 2023-12-19 15:15 | PC.NURSE ---
pt belongings pt dgtr brought her prosthetic leg to home. all belonings sent with ambulance, her gabapentin bottle, cellphone and eye drops.
== END 2023-12-19 15:18 | disposition short-term general hospital (02) | DRG 282 ==
LOC: ER 12:01 → CSU 15:49
PROVIDERS: Internal Medicine Cardiovascular Disease; Nurse Practitioner Family; Physician Assistant; Admitting Provider Internal Medicine; Emergency Provider Family Medicine; PCP Nurse Practitioner Family; Visit Provider Internal Medicine
PROC: B2151ZZ Fluoroscopy of Left Heart using Low Osmolar Contrast (ICD-10-PCS; principal; 2023-12-17 06:00)
DX: I21.4 Non-ST elevation (NSTEMI) myocardial infarction (principal); I25.10 Atherosclerotic heart disease of native coronary artery without angina pectoris; E11.51 Type 2 diabetes mellitus with diabetic peripheral angiopathy without gangrene; E11.40 Type 2 diabetes mellitus with diabetic neuropathy, unspecified; I35.0 Nonrheumatic aortic (valve) stenosis; E03.9 Hypothyroidism, unspecified; K21.9 Gastro-esophageal reflux disease without esophagitis; F41.9 Anxiety disorder, unspecified; E78.2 Mixed hyperlipidemia; I10 Essential (primary) hypertension; Z79.85 Long-term (current) use of injectable non-insulin antidiabetic drugs; Z79.4 Long term (current) use of insulin; Z89.511 Acquired absence of right leg below knee; Z88.5 Allergy status to narcotic agent; Z88.0 Allergy status to penicillin; Z80.1 Family history of malignant neoplasm of trachea, bronchus and lung; Z80.0 Family history of malignant neoplasm of digestive organs; Z82.49 Family history of ischemic heart disease and other diseases of the circulatory system
CPT/HCPCS: 36415; 36416; 71045; 80048; 80053; 80061; 82962; 83036; 83735; 84443; 84484; 85025; 85730; 86850; 86900; 93005; 93306; 93458; 96372; 96374; 96376; 99152; 99153; 99285; C1760; C1769; C1887; C1894; G0269; J1200; J1644; J1650; J1815; J1940; J2250; J3010; J3490; J7030; Q9967